=== PATIENT | male | born 1965 | race Caucasian/White ===

== ENCOUNTER 2017-09-01 14:00 | Inpatient (IN) | payer MEDICAID, OTHER ==
[~2017-09-01] VITALS: Ht 157.5 cm; Wt 63.8 kg
[~2017-09-01 14:00] MED LIST: SALBUTAMOL; [UNRECOGNIZED DRUG - OTHER]
--- NOTE | 2017-09-01 16:45 | ERA ---
ER Documentation Chief Complaint Date/Time DATE: 09/01/17 TIME: 16:45 Chief Complaint "lung pain", sob, yun, upper+lwr extr pain, fever. 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 He was in his usual state of health until a week ago when he began to develop increasing shortness of breath with required intermittently increasing his oxygen from 2-3/4 L unrelieved by his steroid and beta agonist inhalers. 2 day history of worsening total body aches with subjective fevers and chills. Chronic nonproductive cough. Chronic back pain chronic diffuse back pain extending from the cervical spine to the lumbar spine which has been worsening. No focal weakness or numbness. No urinary incontinence. Pain is unrelieved by opiate analgesic [place] #3. Denies chest pain or palpitations. No abdominal pain mild, burning, nonradiating epigastric pain no nausea, vomiting, diarrhea or constipation. No hematemesis, hematochezia or melanotic stools. No leg pain or swelling. ROS All systems reviewed and are negative except as per history of present illness. Medications Home Meds Active Scripts Albuterol Sulfate* (Albuterol Sulfate* Neb) 0.083%-3 Ml Neb, 2.5 MG NEB Q4H for 30 Days, #30 VIAL 6 Refills Prov:MYRNA RESENDEZ MD 09/04/17 Reported Medications Tiotropium [place]* (Spiriva*) 18 Mcg Cap.w.dev, 1 CAP INHALATION DAILY, #30 CAP 09/01/17 Mometasone-Formoterol (Dulera) 100-5 Mcg - 13 Gm Hfa.aer.ad, 2 PUFFS INHALATION BID, #1 INHALER 09/01/17 Hydrocodone/Acetaminophen ([place] 10-325 Tablet) 1 Each Tablet, 1 EACH PO BID, TAB 09/01/17 Omeprazole* (Omeprazole*) 20 Mg Capsule.dr, 20 MG PO BID, #60 CAP 09/01/17 Rivaroxaban* (Xarelto*) 20 Mg Tablet, 20 MG PO WITH DINNER, TAB 09/01/17 Calcium Carbonate* (Calcium Carbonate*) 600 MG Ca Tab, 600 MG PO DAILY, TAB 09/01/17 Ibuprofen* (Ibuprofen*) 600 Mg Tablet, 600 MG PO DAILY Y for PAIN, TAB 09/01/17 Discontinued Reported Medications [Salbutamol Aerosol] No Conflict Check 12/17/09 [Beclomethazone] No Conflict Check 12/17/09 Allergies Allergies: Coded Allergies: No Known Drug Allergies (Verified Allergy, Mild, 09/01/17) PMhx/Soc Reviewed in chart. As per HPI. History of Surgery: No Hx Neurological Disorder: No Hx Respiratory Disorders: Yes (Pulmonary fibrosis. Tuberculosis. As per HPI.) Hx Cardiac Disorders: No Hx Miscellaneous Medical Probl: No Hx Alcohol Use: No Hx Substance Use: No Hx Tobacco Use: No Smoking Status: Never smoker FmHx Father: Diabetes. No family history of stroke or cancer Physical Exam Vitals Vital Signs Date Time Temp Pulse Resp B/P Pulse Ox O2 Delivery O2 Flow Rate FiO2 09/01/17 21:33 88 18 128/71 98 Nasal Cannula 2.0 09/01/17 19:15 98.6 92 20 136/78 99 Nasal Cannula 2.0 09/01/17 17:55 108 24 132/77 100 09/01/17 16:57 87 20 96 Nasal Cannula 2.0 09/01/17 16:57 2.0 09/01/17 16:40 Nasal Cannula 3 09/01/17 14:34 98.7 103 20 121/81 98 Physical Exam Const: Alert, severe respiratory distress Head: Atraumatic Eyes: Normal Conjunctiva ENT: Normal External Ears, Nose and Mouth. Neck: Full range of motion. Supple. Diffuse tenderness. No percussive bony tenderness Resp: Tachypneic. BS markedly diminished bilaterally with diffuse expiratory wheezing and crackles bilaterally. + retractions. Cardio: Regular rate and rhythm, no murmurs Abd: Soft, non tender, non distended. Normal bowel sounds Skin: No petechiae or rashes Back: No midline or flank tenderness Ext: No cyanosis, or edema. No calf swelling, erythema or tenderness Neur: Awake and alert. No focal deficit observed. Psych: Anxious Result Diagram: 09/02/17 0546 09/02/17 0546 Results 24 hrs Laboratory Tests Test 09/01/17 17:04 09/01/17 19:17 White Blood Count 6.110^3/ul Red Blood Count 4.8210^6/ul Hemoglobin 14.1g/dl Hematocrit 44.4% Mean Corpuscular Volume 92.1fl Mean Corpuscular Hemoglobin 29.3pg Mean Corpuscular Hemoglobin Concent 31.8g/dl Red Cell Distribution Width 12.2% Platelet Count 56704^3/UL Mean Platelet Volume 12.2fl Neutrophils % 64.6% Lymphocytes % 25.5% Monocytes % 7.5% Eosinophils % 2.0% Basophils % 0.2% Nucleated Red Blood Cells % 0.0/100WBC Neutrophils # 4.010^3/ul Lymphocytes # 1.610^3/ul Monocytes # 0.510^3/ul Eosinophils # 0.110^3/ul Basophils # 0.010^3/ul Nucleated Red Blood Cells # 0.010^3/ul Sodium Level 139mmol/L Potassium Level 4.0mmol/L Chloride Level 92mmol/L Carbon Dioxide Level 43mmol/L Anion Gap 8 Blood Urea Nitrogen 11mg/dl Creatinine 0.53mg/dl Glucose Level 91mg/dl Calcium Level 9.6mg/dl Total Bilirubin 0.4mg/dl Direct Bilirubin 0.00mg/dl Indirect Bilirubin 0.4mg/dl Aspartate Amino Transf (AST/SGOT) 26IU/L Alanine Aminotransferase (ALT/SGPT) 28IU/L Alkaline Phosphatase 88IU/L Total Protein 8.4g/dl Albumin 4.5g/dl Globulin 3.90g/dl Albumin/Globulin Ratio 1.15 HIV (1&2) Antibody NEGATIVE Blood Gas Specimen Source Blood arterial Arterial Blood Date Drawn 09/01/2017 8:10:17 PM Arterial Blood pH (Temp corrected) 7.357 Arterial Blood pCO2 (Temp correct) 69.4mmhg Arterial Blood pO2 (Temp corrected) 68.5mmHG Arterial Blood HCO3 38.1mmol/L Arterial Blood Base Excess 9.6mmol/L Arterial Blood Oxygen Saturation 94.6mmHG Ilya Test ACCEPTAB Arterial Blood Gas Puncture Site Right Radial Arterial Blood Carboxyhemoglobin 0.6% Arterial Blood Methemoglobin 0.2% Blood Gas A-a O2 Differential 20.0mmHg Oxyhemoglobin Percent 93.8% Total Hemoglobin 14.4g/dl Blood Gas Temperature 37.0C Blood Gas Actual Respiration Rate 18 Blood Gas Modality NASAL CANNULA FiO2 24.0% Blood Gas Notified Whom Blood Gas Notified Time 09/01/2017 8:15:00 PM Current Medications Medications (Trade) Dose Ordered Sig/Love Route PRN Reason Start Time Stop Time Status Last Admin Dose Admin Albuterol (Proventil 0.5% (Neb)) 15 mg ONCE STAT INH 09/01/17 16:46 09/01/17 16:49 DC 09/01/17 16:56 Ipratropium [place] (Atrovent 0.02% (Neb)) 1 mg ONCE STAT INH 09/01/17 16:46 09/01/17 16:49 DC 09/01/17 16:56 Methylprednisolone Sodium Succinate 125 mg 125 mg ONCE STAT IV 09/01/17 16:46 09/01/17 16:49 DC 09/01/17 17:11 Azithromycin 250 ml @ 250 mls/hr ONCE STAT IV 09/01/17 18:53 09/01/17 19:52 DC 09/01/17 18:53 Ceftriaxone Sodium (Rocephin) 50 ml @ 100 mls/hr ONCE STAT IVPB 09/01/17 18:53 09/01/17 19:22 DC 09/01/17 19:12 Ketorolac Tromethamine (Toradol) 15 mg ONCE STAT IV 09/01/17 19:19 09/01/17 19:21 DC 09/01/17 20:11 Ketorolac Tromethamine (Toradol) 15 mg ONCE IV 09/01/17 20:03 09/01/17 21:00 DC IV Flush 10 ml 10 ml STK-MED ONCE .ROUTE 09/01/17 20:44 09/01/17 20:45 DC 09/01/17 21:02 Sodium Chloride (NS) 100 ml @ ud STK-MED ONCE .ROUTE 09/01/17 20:44 09/01/17 20:45 DC 09/01/17 21:02 Iohexol (Omnipaque 300mg/ ml) 150 ml STK-MED ONCE .ROUTE 09/01/17 20:44 09/01/17 20:45 DC 09/01/17 21:02 Morphine Sulfate (morphine) 4 mg ONCE STAT IV 09/01/17 22:08 09/01/17 22:09 DC 09/01/17 22:14 Ondansetron HCl 4 mg 4 mg ONCE STAT IV 09/01/17 22:08 10/4/17 22:09 DC 09/01/17 22:14 Levofloxacin/ Dextrose (Levaquin 750 Mg/ D5W 150 ml (Pmx)) 150 ml @ 100 mls/hr Q24H IVPB 09/01/17 22:30 09/04/17 23:54 DC 09/03/17 22:16 EKG: TIME: 16: 52. Sinus rhythm. Ventricular rate 93. Normal FL and QRS. Right bundle branch block. No acute ST segment elevations or depressions. No ectopy. EP Interpretation: Abnormal EKG. IMAGING: PROCEDURE: Portable chest x-ray. CLINICAL INDICATION: 51 years of age, male. Shortness of breath and fever. TECHNIQUE: Portable AP view of the chest. COMPARISON: Chest x-ray December 18, [address] December 17, 2009 FINDINGS: There is chronic pleuroparenchymal scarring at the left lung apex with elevation of the left hilum and left apical pleural thickening as well as opacity at the left lung apex. This corresponds to areas of bronchiectasis and scarring on CT. There is increased parenchymal opacity within these changes compare to prior exam. There is chronic parenchymal scarring in the right mid lung zone corresponding to bronchiectasis and volume loss on CT. There is lung emphysema with dominant bullae at the right lung apex and in the right lower lung zone that was also present previously. Right lower lobe bulla may have increased in size and measures 10.2 x12.5 cm and previously measured 9.6 x 10.9 cm. This bulla appears to contain a fluid level that may indicate superimposed infection or hemorrhage. Lungs are hyperlucent as before. Previously identified left lower lung zone consolidation has improved. There is mild residual patchy opacity in the left mid lung zone that may represent pneumonia. There is mild increased opacity in the right mid lung zone that is increased and may also indicate infection. Small heart size similar to prior is likely due to lung hyperinflation. Right hilar prominence is increased. Elevation of the left hilum is similar. Mild rightward deviation of the trachea is unchanged. Fluid at the right lung base may be situated within a bulla and/or the pleural space. Negative for left pleural effusion or pneumothorax. No acute bony abnormality. IMPRESSION: 1. Chronic parenchymal lung disease including pleuroparenchymal scarring at the left lung apex and scarring in the right mid lung zone that may be from old healed granulomatous infection. Prior CT demonstrates bronchiectasis and volume loss in these locations. In addition, there is bullous emphysema . 2. Increased opacity within the pleuroparenchymal changes at the left lung apex and mild patchy opacity in the left mid and right mid lung zones that may indicate acute multifocal infection in this clinical setting. Reactivation of indolent granulomatous infection cannot be excluded. This could better be evaluated with CT that is recommended. 3. Right lower lobe bulla may have increased in size since prior exam. A fluid level at the right lung base may be situated within this bulla and would be concerning for either superimposed infection or hemorrhage in the bulla. There may also be a small right pleural effusion. RPTAT: HCTS Physician Lianne Date Time Electronically viewed and signed by Physician Lianne on 09/01/2017 19: 12 CS/ PROCEDURE: CT chest with contrast CLINICAL INDICATION: Abnormal chest x-ray TECHNIQUE: Continues axial CT images were obtained from the thoracic inlet through the upper abdomen. Coronal and sagittal constructions were performed. 115 ml of Omnipaque-300 intravenous contrast was administered.. The calculated radiation dose measures 551 mGy centimeters. The CTDI measures 8 mGy. One or more of the following dose reduction techniques were used: Automated exposure control. Adjustment of the mA and/or kV according to patient size. Use of iterative reconstruction technique. COMPARISON: None. FINDINGS: The heart is normal in size and configuration. There is no pericardial effusion or thickening. There is a superior mediastinal lymph nodes, including paratracheal and paraesophageal lymph nodes up to 1.3 x 2.0 cm.. The aorta appears unremarkable, without aneurysm. The lung mcqueen demonstrate extensive varicoid bronchiectasis. There are numerous peripheral large bulla, measuring up to 8.1 cm at the right apex. There is a bulla at the right base, with adjacent small thick-walled right pleural effusion. There is no pneumothorax. There are patchy peripheral ground- glass densities in both lungs, and areas of apical and anterior scarring. Osseous structures of the chest appear intact. Limited images through the upper abdomen appear unremarkable. IMPRESSION: 1. Extensive varicoid bronchiectasis through the bilateral lungs, increased from prior examination. There is emphysematous changes and peripheral bulla, increased from prior examination as well. There is no fluid-containing bulla identified. There is a small thick-walled right pleural effusion at the right posterior lung base. Infection of the effusion is not excluded. 2. Patchy mild ground-glass densities in the lung periphery on both sides. This may reflect air trapping, or patchy mild inflammation. Definite focal consolidation is not identified. 3. Anterior and apical predominant lung scarring. 4. Mildly enlarged superior mediastinal lymph nodes, similar from prior exam. 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 Improved with IV steroids, nebulized beta agonists but still with ongoing dyspnea and respiratory distress. ABG consistent with hypoxic, hypercapnic respiratory failure. Community acquired pneumonia treated with IV ceftriaxone and azithromycin. CT consistent with bronchiectasis, no pulmonary embolism. Acute on chronic neck pain without CT evidence of acute fracture or subluxation. No acute neurologic change. Spinal epidural abscess/hematoma unlikely. Admit for aggresive respiratory care, further evaluation and management. CRITICAL CARE STATEMENT: Due to the high probability of sudden clinically significant cardiovascular, respiratory and neurologic deterioration, this patient with acute on chronic respiratory failure and neck pain with h/o TB required the highest level of my preparedness for sudden, emergent intervention including initiation of invasive mechanical ventilation. I provided critical care services, which included extensive review of previous medical records, medication orders, frequent reevaluations of the patients condition and response to treatment, ordering of tests, interpretation of relevant clinical data, and arranging for ongoing care with the admitting physician. Total critical care time associated with the care of this patient, not including other separately reportable procedures: 35 minutes. Counseled patient regarding diagnosis, diagnostic results and plan for admission. CALLS/CONSULTS: Time 20:49, Dr. Wing, Recommends Med/Surg Admission. PATIENT CARE TRANSITIONED: Time: 21:10, Dr. Wing. Departure Diagnosis: Primary Impression: Acute dyspnea Additional Impressions: Respiratory failure with hypoxia and hypercapnia Qualified Code: J96.21 - Acute on chronic respiratory failure with hypoxia and hypercapnia COPD with acute exacerbation Pulmonary fibrosis Neck pain, chronic Condition: Serious ROSY ENGLE MD Sep 01, 2017 16:45
[2017-09-01] MEDS ORDERED: ALBUTEROL 0.5% (NEB) 2.5 MG/0.5 ML AMP INH STA (16:46)
[2017-09-01] MEDS ORDERED: IPRATROPIUM (NEB) 0.5 MG/2.5 ML AMP INH STA (16:46)
[2017-09-01] MEDS ORDERED: METHYLPREDNISOLONE 125 MG INJ IV STA (16:46)
[2017-09-01] MEDS ORDERED: IBUP-1542 PO (17:18)
[2017-09-01] MEDS ORDERED: RIVA20TA PO (17:19)
[2017-09-01] MEDS ORDERED: CALC600T24 PO (17:19)
[2017-09-01] MEDS ORDERED: OMEP20CA16 PO (17:20)
[2017-09-01] MEDS ORDERED: HYDR-902 PO (17:22)
[2017-09-01] MEDS ORDERED: MOME13HF2 INHALATION (17:26)
[2017-09-01] MEDS ORDERED: ALBU2.5V3 NEB (17:27)
[2017-09-01] MEDS ORDERED: TIOT18CA INHALATION (17:29)
[2017-09-01 17:44] LABS: BASOPHILS % 0.2 % (0.0-2.0); EOSINOPHILS # 0.1 10^3/ul (0.0-0.5); HEMATOCRIT 44.4 % (42.0-52.0); HEMOGLOBIN 14.1 g/dl (14.0-18.0); LYMPHOCYTES # 1.6 10^3/ul (0.8-2.9); LYMPHOCYTES % 25.5 % (15.0-51.0); MEAN CORPUSCULAR HEMOGLOBIN 29.3 pg (29.0-33.0); MEAN CORPUSCULAR HGB CONC 31.8 g/dl (32.0-37.0); MEAN CORPUSCULAR VOLUME 92.1 fl (82.0-101.0); MEAN PLATELET VOLUME 12.2 fl (7.4-10.4); MONOCYTE # 0.5 10^3/ul (0.3-0.9); MONOCYTES % 7.5 % (0.0-11.0); NEUTROPHILS % 64.6 % (39.0-77.0); PLATELET COUNT 171 10^3/UL (140-415); RED BLOOD COUNT 4.82 10^6/ul (4.70-6.10); RED CELL DISTRIBUTION WIDTH 12.2 % (11.5-14.5); WHITE BLOOD COUNT 6.1 10^3/ul (4.8-10.8)
[2017-09-01 18:02] LABS: ALBUMIN 4.5 g/dl (3.3-4.9); ALBUMIN/GLOBULIN RATIO 1.15; BILIRUBIN,INDIRECT 0.4 mg/dl (0-1.1); BILIRUBIN,TOTAL 0.4 mg/dl (0.2-1.3); CALCIUM 9.6 mg/dl (8.4-10.2); CREATININE 0.53 mg/dl (0.61-1.24); TOTAL PROTEIN 8.4 g/dl (6.1-8.1)
[2017-09-01] MEDS ORDERED: CEFTRIAXONE 1 GM/50 ML (PMX) 50 ML IVPB STA (18:53)
[2017-09-01] MEDS ORDERED: AZITHROMYCIN 500MG/NS (PMX) 250 ML IV STA (18:53)
[2017-09-01] MEDS ORDERED: KETOROLAC 15 MG INJ IV STA (19:19)
[2017-09-01] MEDS ORDERED: KETOROLAC 15 MG INJ IV SCH (20:03)
--- NOTE | 2017-09-01 20:07 | RADRPT ---
PROCEDURE: Portable chest x-ray. CLINICAL INDICATION: 51 years of age, male. Shortness of breath and fever. TECHNIQUE: Portable AP view of the chest. COMPARISON: Chest x-ray December 18, [address] December 17, 2009 FINDINGS: There is chronic pleuroparenchymal scarring at the left lung apex with elevation of the left hilum a nd left apical pleural thickening as well as opacity at the left lung apex. This corresponds to area s of bronchiectasis and scarring on CT. There is increased parenchymal opacity within these changes compare to prior exam. There is chronic parenchymal scarring in the right mid lung zone corresponding to bronchiectasis and volume loss on CT. There is lung emphysema with dominant bullae at the right lung apex and in the right lower lung zone that was also present previously. Right lower lobe bulla may have increased in size and measures 10 .2 x12.5 cm and previously measured 9.6 x 10.9 cm. This bulla appears to contain a fluid level that may indicate superimposed infection or hemorrhage. Lungs are hyperlucent as before. Previously identified left lower lung zone consolidation has improv ed. There is mild residual patchy opacity in the left mid lung zone that may represent pneumonia. Th ere is mild increased opacity in the right mid lung zone that is increased and may also indicate inf ection. Small heart size similar to prior is likely due to lung hyperinflation. Right hilar prominence is in creased. Elevation of the left hilum is similar. Mild rightward deviation of the trachea is unchange d. Fluid at the right lung base may be situated within a bulla and/or the pleural space. Negative for l eft pleural effusion or pneumothorax. No acute bony abnormality. IMPRESSION: 1. Chronic parenchymal lung disease including pleuroparenchymal scarring at the left lung apex and scarring in the right mid lung zone that may be from old healed granulomatous infection. Prior CT de monstrates bronchiectasis and volume loss in these locations. In addition, there is bullous emphysem a . 2. Increased opacity within the pleuroparenchymal changes at the left lung apex and mild patchy [place]a [place] in the left mid and right mid lung zones that may indicate acute multifocal infection in this c linical setting. Reactivation of indolent granulomatous infection cannot be excluded. This could bet ter be evaluated with CT that is recommended. 3. Right lower lobe bulla may have increased in size since prior exam. A fluid level at the right eulalia ng base may be situated within this bulla and would be concerning for either superimposed infection or hemorrhage in the bulla. There may also be a small right pleural effusion. RPTAT: HCTS Lyn Leung Physician Date Time Electronically viewed and signed by Lyn Leung, Physician on 09/01/2017 19:12 CS/
[2017-09-01 20:15] LABS: Allen Test ACCEPTAB; Arterial Base Excess 9.6 mmol/L (-3.0-3); Arterial COHb 0.6 % (0.0-3.0); Arterial Fraction of Oxyhgb 93.8 % (93.0-99.0); Arterial HCO3 38.1 mmol/L (22.0-26.0); Arterial MetHb 0.2 % (0.0-1.5); Arterial Total Hemglobin 14.4 g/dl (12.0-18.0); MODE NASAL CANNULA
[2017-09-01] MEDS ORDERED: SOD CHLORIDE 0.9% 100 ML ONE (20:44)
[2017-09-01] MEDS ORDERED: IOHEXOL 300MG/ML 150 ML BTL ONE (20:44)
--- NOTE | 2017-09-01 21:53 | RADRPT ---
PROCEDURE: CT chest with contrast CLINICAL INDICATION: Abnormal chest x-ray TECHNIQUE: Continues axial CT images were obtained from the thoracic inlet through the upper abdom en. Coronal and sagittal constructions were performed. 115 ml of Omnipaque-300 intravenous contrast was administered.. The calculated radiation dose measures 551 mGy centimeters. The CTDI measures 8 mGy. One or more of the following dose reduction techniques were used: Automated exposure control. Adjustment of the mA and/or kV according to patient size. Use of iterative reconstruction technique. COMPARISON: None. FINDINGS: The heart is normal in size and configuration. There is no pericardial effusion or thickening. The re is a superior mediastinal lymph nodes, including paratracheal and paraesophageal lymph nodes up t o 1.3 x 2.0 cm.. The aorta appears unremarkable, without aneurysm. The lung mcqueen demonstrate extensive varicoid bronchiectasis. There are numerous peripheral large b bryanna, measuring up to 8.1 cm at the right apex. There is a bulla at the right base, with adjacent sm all thick-walled right pleural effusion. There is no pneumothorax. There are patchy peripheral groun d-glass densities in both lungs, and areas of apical and anterior scarring. Osseous structures of the chest appear intact. Limited images through the upper abdomen appear unremarkable. IMPRESSION: 1. Extensive varicoid bronchiectasis through the bilateral lungs, increased from prior examination. There is emphysematous changes and peripheral bulla, increased from prior examination as well. Ther e is no fluid-containing bulla identified. There is a small thick-walled right pleural effusion at t he right posterior lung base. Infection of the effusion is not excluded. 2. Patchy mild ground-glass densities in the lung periphery on both sides. This may reflect air tra pping, or patchy mild inflammation. Definite focal consolidation is not identified. 3. Anterior and apical predominant lung scarring. 4. Mildly enlarged superior mediastinal lymph nodes, similar from prior exam. RPTAT: HBST .Luis Hudson MD, Date Time Electronically viewed and signed by .Luis Hudson MD, MD on 09/01/2017 21:53 .T/
[2017-09-01] MEDS ORDERED: ONDANSETRON 4 MG INJ IV STA (22:08)
[2017-09-01] MEDS ORDERED: morphine 4 MG/ML VIAL IV STA (22:08)
[2017-09-01] MEDS: LEVOFLOXACIN 750MG/D5W (PMX) 150 ML IVPB SCH (22:43)
[2017-09-01] MEDS ORDERED: ACETAMINOPHEN 325 MG TAB PO PRN (23:30)
[2017-09-01] MEDS ORDERED: ONDANSETRON 4 MG INJ IV PRN (23:30)
[2017-09-02] VITALS (7 sets, daily range): BP systolic 116–150; BP diastolic 66–79; PULSE 113–126; RESP 18–20; TEMP 98.5; Ht 157.5 cm; Wt 63.8 kg
[2017-09-02] MEDS ORDERED: ALBUTEROL/IPRATROPIUM (NEB) 3 ML AMP HHN PRN (01:00)
[2017-09-02] MEDS: ALBUTEROL 0.083% (NEB) 2.5 MG/3 ML AMP NEB SCH ×6 (01:00→20:05)
[2017-09-02] MEDS ORDERED: ACETAMINOPHEN 325 MG TAB PO PRN (01:00)
[2017-09-02] MEDS ORDERED: NACL 0.9% 3 ML SYG IV SCH (01:00)
--- NOTE | 2017-09-02 01:43 | RADRPT ---
PROCEDURE: XR Chest. CLINICAL INDICATION: Chest pain. TECHNIQUE: Single frontal chest x-ray. COMPARISON: 09/01/2017 FINDINGS: Heart is normal size. There is redemonstrated distortion and superior retraction of the shilpa greates t involving the left consistent with scarring. There is redemonstrated left apical pleural parenchym al scarring. There is unchanged right hilar peribronchial thickening. There is redemonstrated large bulla in the right lung apex and right lung base. There is a probable right pleural effusion. There is no pneumothorax. The osseous structures are unremarkable. IMPRESSION: No significant change. No pneumothorax. Extensive bilateral scarring and bronchiectasis. Prominent b bryanna at the right lung apex and base. Right pleural effusion. Interstitial changes greatest in the r ight mid lung field with peribronchial thickening, unchanged. RPTAT: HMVK .Franky Dumas MD, Date Time Electronically viewed and signed by .Franky Dumas MD, on 09/02/2017 01:43 .K/
[2017-09-02] MEDS: FAMOTIDINE 20 MG TAB PO SCH ×3 (02:32→21:24)
[2017-09-02] MEDS: morphine 2 MG INJ IV PRN ×4 (05:25→21:24)
[2017-09-02] MEDS: METHYLPREDNISOLONE 40 MG INJ IV SCH ×3 (05:25→21:42)
[2017-09-02] MEDS ORDERED: HYDROCODONE/APAP (5/325) TAB PO PRN (05:30)
--- NOTE | 2017-09-02 07:10 | HP ---
Date/Time of Note Date/Time of Note DATE: 09/02/17 TIME: 06:48 Assessment/Plan VTE Prophylaxis VTE Prophylaxis Intervention: SCD's Lines/Catheters IV [facility]ter [facility]from [facility] Saline Lock Assessment/Plan Chief Complaint/Hosp Course This is a 51-year-old male being [facility] for: #1 shortness of breath: Community-acquired pneumonia versus reactivation of tuberculosis Versus other etiology. Patient has significant CT findings: Suggestive of bronchiectasis bilaterally, emphysematous changes, bullae and possible signs of infection. Patient also has mild groundglass densities in the lung periphery. Extensive varicoid bronchiectasis through the bilateral lungs, increased from prior examination. There is emphysematous changes and peripheral bulla, increased from prior examination as well. There is no fluid- containing bulla identified. There is a small thick-walled right pleural effusion at the right posterior lung base. Infection of the effusion is not excluded. Of note patient at the current time has a normal white blood cell count and he does not have any fevers at the present time. We will initially treat the patient for community acquired pneumonia she already received azithromycin and ceftriaxone in the ED will actually switch him over to Levaquin. Will obtain a respiratory viral panel, check for Legionella, strep pneumonia as well as tuberculosis. Though there is does not appear to be a active cavitary lesion on CT scan however secondary to his history we will test for this. Will consult pulmonology. Will provide O2 supplementation and DuoNeb treatments as well as steroids. Isolation precautions. Supplemental oxygen to maintain oxygenation above 90%. #2 pulmonary fibrosis: Continue IV steroids, continue home inhalers, DuoNeb as needed, pulmonary also consulted #3 history of pulmonary embolism: At the current time we will continue the patient on Xarelto #4 headache: Patient's headaches appear to occur at random times including while sleeping. Due to his previous history I will order an MRI of the brain to further evaluate. He does not appear to have any focal deficits at this time. #5 chronic back pain: Patient appears to have increased back pain at the level of approximately T8 through T12 of the lumbar spine. Will provide IV pain control medications a CT of the spine has also been ordered by the ER will await the results. #6 metabolic alkalosis: Patient is a CO2 level of 42, ABG shows a bicarb of 38. This likely is compensatory secondary to his pulmonary fibrosis. Will defer to pulmonology regarding possible treatment with Diamox if indicated. 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 He was in his usual state of health until a week ago when he began to develop increasing shortness of breath with required intermittently increasing his oxygen from 2-3/4 L unrelieved by his steroid and beta agonist inhalers. 2 day history of worsening total body aches with subjective fevers and chills. Chronic nonproductive cough. Chronic back pain chronic diffuse back pain extending from the cervical spine to the lumbar spine which has been worsening. No focal weakness or numbness. No urinary incontinence. Pain is unrelieved by opiate analgesic Tylenol# 3. Denies chest pain or palpitations. No abdominal pain mild, burning, nonradiating epigastric pain no nausea, vomiting, diarrhea or constipation. No hematemesis, hematochezia or melanotic stools. No leg pain or swelling. Of note patient also reports a history of headaches for the past few weeks, they occur at random times, [id number] they are not relieved with [id number] analgesics or his [place]. Allergies: NKDA Medications: See JAN ROS Const: As per HPI Eyes : No pain discharge or redness or change in visual acuity ENT: No pain, sore throat, congestion, congestion, dysphagia or discharge Respiratory: As per HPI Cardiovascular: No chest pain, palpitation, PND, or edema GI : no change in appetite, abdominal pain, nausea, vomiting, diarrhea, constipation, or change in the color his stool Genitourinary: No dysuria, hematuria, flank pain , discharge or CVA tenderness Musculoskeletal: As per HPI Skin: No rash, bruising or hives Neuro: As per HPI Endocrine: No polyuria, polydipsia, temperature intolerance Psych: No hallucination, depression, anxiety or suicidal ideation PMH/Family/Social Past Medical History History of disseminated tuberculosis 20 years ago, pneumonia, asthma, previous history of pulmonary embolism, pulmonary fibrosis Past Surgical History Past Surgical Hx: no surgical history Family History Significant Family History: no pertinent family hx Social History Alcohol Use: none Smoking Status: Never smoker Drug Use: none Exam/Review of Systems Vital Signs Vitals Vital Signs Date Time Temp Pulse Resp B/P Pulse Ox O2 Delivery O2 Flow Rate FiO2 09/02/17 05:07 95 2.0 09/02/17 05:07 103 18 Nasal Cannula 09/02/17 02:10 98.7 134/79 Intake and Output 09/01/17 09/01/17 09/02/17 15:00 23:00 07:00 Intake Total 300 ml Balance 300 ml Exam Exam General: This is a pleasant male who is lying in bed in acute distress from pain HEENT: Atraumatic, normocephalic. The pupils are equal, round and reactive. Extraocular motor are intact Neck: Supple with full range of motion. No rigidity or meningismus Chest: Nontender Lungs: Decreased breath sounds of the right lung mcqueen, coarse breath sounds in the left lung field Heart: Sinus tachycardia Abdomen: Soft , nontender, nondistended , bowel sounds are present. No guarding no rebound tenderness , No masses or organomegaly. No costovertebral temporal angle mass Extremities: Normal to inspection, no edema no cyanosis Neurologic: Normal mental status, speech normal, cranial nerves II through XII are intact, motor and sensory are intact, no focal weakness musculoskeletal: Tenderness to palpation of the thoracic spine at the level of T8-T12 Additional Comments PROCEDURE: CT chest with contrast CLINICAL INDICATION: Abnormal chest x-ray TECHNIQUE: Continues axial CT images were obtained from the thoracic inlet through the upper abdomen. Coronal and sagittal constructions were performed. 115 ml of Omnipaque-300 intravenous contrast was administered.. The calculated radiation dose measures 551 mGy centimeters. The CTDI measures 8 mGy. One or more of the following dose reduction techniques were used: Automated exposure control. Adjustment of the mA and/or kV according to patient size. Use of iterative reconstruction technique. COMPARISON: None. FINDINGS: The heart is normal in size and configuration. There is no pericardial effusion or thickening. There is a superior mediastinal lymph nodes, including paratracheal and paraesophageal lymph nodes up to 1.3 x 2.0 cm.. The aorta appears unremarkable, without aneurysm. The lung mcqueen demonstrate extensive varicoid bronchiectasis. There are numerous peripheral large bulla, measuring up to 8.1 cm at the right apex. There is a bulla at the right base, with adjacent small thick-walled right pleural effusion. There is no pneumothorax. There are patchy peripheral ground- glass densities in both lungs, and areas of apical and anterior scarring. Osseous structures of the chest appear intact. Limited images through the upper abdomen appear unremarkable. IMPRESSION: 1. Extensive varicoid bronchiectasis through the bilateral lungs, increased from prior examination. There is emphysematous changes and peripheral bulla, increased from prior examination as well. There is no fluid-containing bulla identified. There is a small thick-walled right pleural effusion at the right posterior lung base. Infection of the effusion is not excluded. 2. Patchy mild ground-glass densities in the lung periphery on both sides. This may reflect air trapping, or patchy mild inflammation. Definite focal consolidation is not identified. 3. Anterior and apical predominant lung scarring. 4. Mildly enlarged superior mediastinal lymph nodes, similar from prior exam. RPTAT: HBST .Luis Hudson MD, MD Date Time Electronically viewed and signed by .Luis Hudson MD, MD on 09/01/2017 21:53 .T/ CC: ROSY ENGLE MD PROCEDURE: XR Chest. CLINICAL INDICATION: Chest pain. TECHNIQUE: Single frontal chest x-ray. COMPARISON: 09/01/2017 FINDINGS: Heart is normal size. There is redemonstrated distortion and superior retraction of the shilpa greatest involving the left consistent with scarring. There is redemonstrated left apical pleural parenchymal scarring. There is unchanged right hilar peribronchial thickening. There is redemonstrated large bulla in the right lung apex and right lung base. There is a probable right pleural effusion. There is no pneumothorax. The osseous structures are unremarkable. IMPRESSION: No significant change. No pneumothorax. Extensive bilateral scarring and bronchiectasis. Prominent bulla at the right lung apex and base. Right pleural effusion. Interstitial changes greatest in the right mid lung field with peribronchial thickening, unchanged. RPTAT: HMVK .Franky Dumas MD, Date Time Electronically viewed and signed by .Franky Dumas MD, MD on 09/02/2017 01:43 .K/ CC: HARSHAL ANSARI Labs Result Diagram: 09/01/17 1704 09/01/17 1704 Medications Medications Current Medications Levofloxacin/ Dextrose (Levaquin 750 Mg/ D5W 150 ml (Pmx)) 150 ml @ 100 mls/hr Q24H IVPB Last administered on 09/01/17 22:43; Admin Dose 100 MLS/HR; Start 09/01/17 at 22:30 Acetaminophen (Tylenol Tab) 650 mg Q6H PRN PO PAIN LEVEL 1-3 OR FEVER; Start 09/02/17 at 01:00 Famotidine (Pepcid) 20 mg Q12 PO Last administered on 09/02/17 02:32; Admin Dose 20 MG; Start 09/02/17 at 01:00 Tiotropium [place] (Spiriva) 18 inh DAILY INH ; Start 09/02/17 at 09:00 Miscellaneous Information 2 puffs BID INHALATION ; Start 09/02/17 at 09:00; Status UNV Methylprednisolone Sodium Succinate (Solu-Medrol) 30 mg Q8 IV Last administered on 09/02/17 05:25; Admin Dose 30 MG; Start 09/02/17 at 06:00 Influenza Virus Vaccine (Fluzone) 0.5 ml ONCE ONCE IM* ; Start 09/03/17 at 09:00 ; Stop 09/03/17 at 09:01 Morphine Sulfate (morphine) 2 mg Q4H PRN IV SEVERE PAIN LEVEL 7-10 Last administered on 09/02/17 05:25; Admin Dose 2 MG; Start 09/02/17 at 05:30 Acetaminophen/ Hydrocodone Bitart ([place] (5/325)) 1 tab Q6H PRN PO PAIN LEVEL 4 -6; Start 09/02/17 at 05:30 HARSHAL ANSARI Sep 02, 2017 07:04
[2017-09-02] MEDS ORDERED: TIOTROPIUM 18 MCG CAPSULE INHA DEV INH SCH (09:00)
[2017-09-02 10:21] LABS: ALBUMIN 4.2 g/dl (3.3-4.9); ALBUMIN/GLOBULIN RATIO 1.16; BILIRUBIN,INDIRECT 0.3 mg/dl (0-1.1); BILIRUBIN,TOTAL 0.3 mg/dl (0.2-1.3); CALCIUM 9.6 mg/dl (8.4-10.2); CREATININE 0.57 mg/dl (0.61-1.24); POTASSIUM 4.4 mmol/L (3.5-5.1); TOTAL PROTEIN 7.8 g/dl (6.1-8.1)
--- NOTE | 2017-09-02 13:04 | CONS ---
DATE OF ADMISSION: 09/01/2017 DATE OF CONSULTATION: 09/02/2017 PULMONARY CONSULTATION: REASON FOR CONSULTATION: Shortness of breath and cough. HISTORY OF PRESENT ILLNESS: This is a pleasant 51-year-old gentleman with a history of disseminated tuberculosis with significant cystic bronchiectasis and destructive lung disease came in yesterday with increasing cough, shortness of breath and chest discomfort. No nausea. No vomiting, no hemoptysis or hematemesis. The patient states he is followed by a pulmonary team at [facility] and was last seen several months ago. PAST MEDICAL HISTORY: As above. Pulmonary embolus on anticoagulation. MEDICATION: Per chart. ALLERGIES: NONE. SOCIAL HISTORY: Nonsmoker. No alcohol. No history of drug use. FAMILY HISTORY: Noncontributory. REVIEW OF SYSTEMS: A 12-point review of systems negative other than that mentioned above. PHYSICAL EXAMINATION: GENERAL: Well-nourished, well-developed gentleman, comfortable at rest, no acute distress. VITAL SIGNS: Currently afebrile. Pulse is 120, blood pressure 117/76, O2 sat 98 percent on 3 liters nasal cannula. NECK: Supple. No JVD or lymphadenopathy. CARDIAC: S1, S2. No added sounds or murmurs. CHEST: Diminished air entry bilaterally. ABDOMEN: Soft, nontender. No guarding or rebound. EXTREMITIES: No cyanosis, clubbing or edema. NEUROLOGICALLY: Generalized weakness. LABORATORY DATA: White count 6.1, hemoglobin 14.1, platelets of 171. BUN 19, creatinine 0.57. The pAO2 was 68, pCO2 was 69, pH of 7.35. IMPRESSION: 1. 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 2. Possible additional community-acquired pneumonia, although difficult to interpret given significant obstructive lung disease. PLAN: The patient will require 1. Continued supplemental O2. 2. To continue bronchodilators. 3. Continue levofloxacin. 4. Steroid taper. 5. I have contacted [facility] Pulmonary Team to obtain further details. Patient needs followup with them. Dictated By: Jacobo Reynolds MD /nahtaniel/doc /Document#: [id number]
[2017-09-02 15:11] LABS: HEMATOCRIT 41.7 % (42.0-52.0); HEMOGLOBIN 13.3 g/dl (14.0-18.0); LYMPHOCYTES % 20.1 % (15.0-51.0); MEAN CORPUSCULAR HEMOGLOBIN 29.8 pg (29.0-33.0); MEAN CORPUSCULAR HGB CONC 31.9 g/dl (32.0-37.0); MEAN CORPUSCULAR VOLUME 93.3 fl (82.0-101.0); MEAN PLATELET VOLUME 12.8 fl (7.4-10.4); MONOCYTE # 0.1 10^3/ul (0.3-0.9); MONOCYTES % 1.8 % (0.0-11.0); NEUTROPHIL # 3.8 10^3/ul (1.6-7.5); NEUTROPHILS % 77.9 % (39.0-77.0); PLATELET COUNT 176 10^3/UL (140-415); RED BLOOD COUNT 4.47 10^6/ul (4.70-6.10); RED CELL DISTRIBUTION WIDTH 12.4 % (11.5-14.5); WHITE BLOOD COUNT 4.9 10^3/ul (4.8-10.8)
[2017-09-02] MEDS: LIDOCAINE 5% PATCH TD SCH (15:18)
[2017-09-02] MEDS: SALMETEROL/FLUTICASONE 250/50 INHA INH SCH ×2 (19:17→21:24)
[2017-09-02] MEDS: RIVAROXABAN 20 MG TABLET PO SCH (19:18)
[2017-09-02] MEDS: LEVOFLOXACIN 750MG/D5W (PMX) 150 ML IVPB SCH (21:42)
[2017-09-03] MEDS: ALBUTEROL 0.083% (NEB) 2.5 MG/3 ML AMP NEB SCH ×6 (01:35→20:22)
[2017-09-03 02:02] VITALS: BP 90/62; RESP 20
--- NOTE | 2017-09-03 02:43 | RADRPT ---
PROCEDURE: MR Brain with and without contrast. CLINICAL INDICATION: Recurrent headache. History of tuberculosis. TECHNIQUE: Sagittal and axial T1 weighted, axial diffusion weighted, T2, and coronal gradient and axial FLAIR imaging before contrast. Multiplanar T1-weighted imaging after injection of 10 cc of in travenous Mag[place]. COMPARISON: None. FINDINGS: No high signal abnormalities are seen on the diffusion-weighted images to suggest the presence of ac [place] ischemia or recent infarct. There is no evidence of intracranial hemorrhage, mass effect, or mi dline shift. No extra-axial fluid collections are seen. The ventricles and sulci are normal in size and configuration. The signal intensity is normal throughout the cerebrum, brainstem, and cerebellum . No hypointense signal abnormalities are seen on the GRE images to suggest the presence of blood de gradation products. Normal flow voids are visible in the proximal intracranial arteries and dural s inuses, indicating patency. The post contrast images show no abnormal parenchymal, leptomeningeal, o r dural enhancement. The visualized paranasal sinuses are grossly clear. IMPRESSION: Normal pre and post-contrast MRI of the brain. RPTAT: HLBE Physician Barbara Date Time Electronically viewed and signed by Physician Barbara on 09/03/2017 02:43 LE/
[2017-09-03] MEDS: morphine 2 MG INJ IV PRN ×3 (03:36→13:59)
[2017-09-03] MEDS: METHYLPREDNISOLONE 40 MG INJ IV SCH ×3 (06:14→22:16)
[2017-09-03 08:00] VITALS: BP 117/67; RESP 18
--- NOTE | 2017-09-03 08:14 | RADRPT ---
PROCEDURE: MR Thoracic Spine with and without contrast. CLINICAL INDICATION: Back pain. TECHNIQUE: Multiplanar multisequence MRI of the thoracic spine performed was performed before and following the intravenous administration of 10 cc of [place]. COMPARISON: There are no similar studies submitted for comparison. FINDINGS: Evaluation is mildly limited due to motion degradation. There is preservation of the normal thoracic kyphosis. The vertebral body heights are maintained. There is normal alignment. There is no destructive osseous lesion.There is no abnormal bone marrow edema. There is multilevel disc desiccation. With multilevel mild disc space narrowing. The spinal cord is normal is signal.There is no abnormal spinal cord enhancement. There are mild multilevel disc bulges with mild bilateral facet arthropathy without spinal canal or bilateral foraminal stenosis. That paraspinal musculature are within normal limits. There is a mild right pleural effusion with ri ght greater than left upper lobe consolidations. There are large bilateral apical bullae. IMPRESSION: Evaluation is mildly limited due to motion degradation. 1. No acute compression fracture or abnormal bone marrow edema. 2. Mild multilevel disc bulges without spinal canal or bilateral foraminal stenosis. 3. No abnormal spinal cord enhancement. 4. Mild right pleural effusion with right greater than left upper lobe consolidations. There are lar ge bilateral apical bullae. Please refer to recent CT of the chest from September 01, 2017. Further findings as detailed above. RPTAT: PP .Nathen Lyles MD, Date Time Electronically viewed and signed by .Nathen Lyles MD, MD on 09/03/2017 08:13 .F/
[2017-09-03] MEDS ORDERED: INFLUENZA VIRUS VACCINE 0.5 ML (DISPENSING) IM* ONE (09:00)
[2017-09-03] MEDS: LIDOCAINE 5% PATCH TD SCH ×2 (09:28→22:15)
[2017-09-03] MEDS: FAMOTIDINE 20 MG TAB PO SCH ×2 (09:28→22:16)
[2017-09-03] MEDS: TIOTROPIUM 18 MCG CAPSULE INHA DEV INH SCH (10:35)
[2017-09-03 13:17] LABS: TB-NIL 0.07 IU/mL
[2017-09-03 14:00] VITALS: BP 117/76; RESP 18
--- NOTE | 2017-09-03 15:05 | PDOCDIS ---
Discharge Instructions DIAGNOSIS Discharge Diagnosis Back pain, Insterstitial lung disease CONDITION Patient Condition: Good HOME CARE INSTRUCTIONS: Diet Instructions: RegularSpecial Diet: regular FOLLOW UP/APPOINTMENTS Follow-up Plan Follow up with your lung doctors at [facility] for further care MYRNA RESENDEZ MD Sep 03, 2017 15:05
--- NOTE | 2017-09-03 16:57 | PN ---
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 who presented with SOB and back pain with chronic hypercapneic respiratory failure - Continue bronchodilators, O2 as needed - Lidoderm patch for back pain - Xarelto for PE - Discharge to self care and follow up at [facility] tomorrow Problems: Subjective 24 Hr Interval Summary Free Text/Dictation Complains of continued back pain, some epigastric dysfcomfort Breathign seems at baseline Discussed options for back pain, MRI is normal Exam/Review of Systems Vital Signs Vitals Vital Signs Date Time Temp Pulse Resp B/P Pulse Ox O2 Delivery O2 Flow Rate FiO2 09/03/17 14:00 98.8 76 18 117/76 96 09/03/17 12:18 Nasal Cannula 2.0 09/03/17 05:50 28 Intake and Output 09/02/17 09/02/17 09/03/17 15:00 23:00 07:00 Intake Total 960 ml 580 ml Output Total 1850 ml Balance 960 ml -1270 ml Results Result Diagram: 09/02/17 0546 09/02/17 0546 Medications Medications Current Medications Levofloxacin/ Dextrose (Levaquin 750 Mg/ D5W 150 ml (Pmx)) 150 ml @ 100 mls/hr Q24H IVPB Last administered on 09/02/17 21:42; Admin Dose 100 MLS/HR; Start 09/01/17 at 22:30 Acetaminophen (Tylenol Tab) 650 mg Q6H PRN PO PAIN LEVEL 1-3 OR FEVER; Start 09/02/17 at 01:00 Famotidine (Pepcid) 20 mg Q12 PO Last administered on 09/03/17 09:28; Admin Dose 20 MG; Start 09/02/17 at 01:00 Salmeterol Xinafoate/ Fluticasone (Advair 250/50 Diskus) 1 inh BID INH Last administered on 09/02/17 21:24; Admin Dose 1 INH; Start 09/02/17 at 16:00 Methylprednisolone Sodium Succinate (Solu-Medrol) 30 mg Q8 IV Last administered on 09/03/17 13:58; Admin Dose 30 MG; Start 09/02/17 at 06:00 Morphine Sulfate (morphine) 2 mg Q4H PRN IV SEVERE PAIN LEVEL 7-10 Last administered on 09/03/17 13:59; Admin Dose 2 MG; Start 09/02/17 at 05:30 Acetaminophen/ Hydrocodone Bitart ([place] (5/325)) 1 tab Q6H PRN PO PAIN LEVEL 4 -6; Start 09/02/17 at 05:30 Lidocaine (Lidoderm) 1 patch DAILY TD Last administered on 09/03/17 09:28; Admin Dose 1 PATCH; Start 09/02/17 at 14:30 Simethicone (Mylicon) 80 mg TID PRN PO DISTENSION/GAS/BLOATING Last administered on 09/03/17 09:29; Admin Dose 80 MG; Start 09/02/17 at 14:30 Tiotropium [place] (Spiriva) 18 inh DAILY INH Last administered on 09/03/17 10 :35; Admin Dose 18 INH; Start 09/03/17 at 10:00 MYRNA RESENDEZ MD Sep 03, 2017 16:57
--- NOTE | 2017-09-03 18:09 | CONS ---
Date/Time of Note Date/Time of Note DATE: 09/03/17 TIME: 18:07 Consult Date/Type/Reason Admit Date/Time Sep 01, 2017 at 23:09 Initial Consult Date Type of Consultation: Pulmonary Subjective Patient comfortable this morning no shortness of breath. His main complaint is back pain. No hemoptysis or hematemesis. Objective Vital Signs Date Time Temp Pulse Resp B/P Pulse Ox O2 Delivery O2 Flow Rate FiO2 09/03/17 17:38 2.0 09/03/17 17:37 92 18 Nasal Cannula 09/03/17 14:00 98.8 117/76 96 09/03/17 05:50 28 Intake and Output 09/02/17 09/02/17 09/03/17 15:00 23:00 07:00 Intake Total 960 ml 580 ml Output Total 1850 ml Balance 960 ml -1270 ml Exam PHYSICAL EXAMINATION: GENERAL: Well-nourished, well-developed gentleman, comfortable at rest, no acute distress. VITAL SIGNS: NECK: Supple. No JVD or lymphadenopathy. CARDIAC: S1, S2. No added sounds or murmurs. CHEST: Diminished air entry bilaterally. ABDOMEN: Soft, nontender. No guarding or rebound. EXTREMITIES: No cyanosis, clubbing or edema. NEUROLOGICALLY: Generalized weakness. Results/Medications Result Diagram: 09/02/17 0546 09/02/17 0546 Medications Current Medications Levofloxacin/ Dextrose (Levaquin 750 Mg/ D5W 150 ml (Pmx)) 150 ml @ 100 mls/hr Q24H IVPB Last administered on 09/02/17 21:42; Admin Dose 100 MLS/HR; Start 09/01/17 at 22:30 Acetaminophen (Tylenol Tab) 650 mg Q6H PRN PO PAIN LEVEL 1-3 OR FEVER; Start 09/02/17 at 01:00 Famotidine (Pepcid) 20 mg Q12 PO Last administered on 09/03/17 09:28; Admin Dose 20 MG; Start 09/02/17 at 01:00 Salmeterol Xinafoate/ Fluticasone (Advair 250/50 Diskus) 1 inh BID INH Last administered on 09/02/17 21:24; Admin Dose 1 INH; Start 09/02/17 at 16:00 Methylprednisolone Sodium Succinate (Solu-Medrol) 30 mg Q8 IV Last administered on 09/03/17 13:58; Admin Dose 30 MG; Start 09/02/17 at 06:00 Acetaminophen/ Hydrocodone Bitart ([place] (5/325)) 1 tab Q6H PRN PO PAIN LEVEL 4 -6; Start 09/02/17 at 05:30 Lidocaine (Lidoderm) 1 patch DAILY TD Last administered on 09/03/17 09:28; Admin Dose 1 PATCH; Start 09/02/17 at 14:30 Simethicone (Mylicon) 80 mg TID PRN PO DISTENSION/GAS/BLOATING Last administered on 09/03/17 09:29; Admin Dose 80 MG; Start 09/02/17 at 14:30 Tiotropium [place] (Spiriva) 18 inh DAILY INH Last administered on 09/03/17 10 :35; Admin Dose 18 INH; Start 09/03/17 at 10:00 Assessment/Plan Chief Complaint/Hosp Course IMPRESSION: 1. 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 2. Possible additional community-acquired pneumonia, although difficult to interpret given significant obstructive lung disease. 3. Back pain likely musculoskeletal PLAN: The patient will require 1. Continued supplemental O2. 2. To continue bronchodilators. 3. Continue levofloxacin. 4. Steroid taper. 5. Stable for discharge tomorrow. Follow-up with [facility] pulmonary clinic. Problems: FISH BOWEN [facility] Sep 03, 2017 18:09
[2017-09-03] MEDS: RIVAROXABAN 20 MG TABLET PO SCH (18:13)
[2017-09-03] MEDS: HYDROCODONE/APAP (5/325) TAB PO PRN (19:06)
[2017-09-03] MEDS: SALMETEROL/FLUTICASONE 250/50 INHA INH SCH (21:00)
[2017-09-03] MEDS: LEVOFLOXACIN 750MG/D5W (PMX) 150 ML IVPB SCH (22:16)
[2017-09-03 22:26] VITALS: BP 136/77; RESP 18
[2017-09-04] MEDS: HYDROCODONE/APAP (5/325) TAB PO PRN ×4 (01:00→20:04)
[2017-09-04] MEDS: ALBUTEROL 0.083% (NEB) 2.5 MG/3 ML AMP NEB SCH ×6 (01:45→20:35)
[2017-09-04 03:12] VITALS: BP 121/71; RESP 21
[2017-09-04] MEDS: METHYLPREDNISOLONE 40 MG INJ IV SCH ×3 (06:49→21:43)
[2017-09-04 08:52] VITALS: BP 127/71; RESP 22
[2017-09-04] MEDS: TIOTROPIUM 18 MCG CAPSULE INHA DEV INH SCH (09:00)
[2017-09-04] MEDS ORDERED: POLYETHYLENE GLYCOL 17 GM PACKET PO SCH (09:00)
[2017-09-04] MEDS: SALMETEROL/FLUTICASONE 250/50 INHA INH SCH ×2 (09:09→21:42)
[2017-09-04] MEDS: FAMOTIDINE 20 MG TAB PO SCH ×2 (09:12→21:42)
[2017-09-04] MEDS: LIDOCAINE 5% PATCH TD SCH (09:14)
[2017-09-04] MEDS: DOCUSATE SODIUM 100 MG CAP PO SCH ×2 (09:23→21:00)
--- NOTE | 2017-09-04 10:03 | DS ---
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 He was in his usual state of health until a week ago when he began to develop increasing shortness of breath with required intermittently increasing his oxygen from 2-3/4 L unrelieved by his steroid and beta agonist inhalers. 2 day history of worsening total body aches with subjective fevers and chills. Chronic nonproductive cough. Chronic back pain chronic diffuse back pain extending from the cervical spine to the lumbar spine which has been worsening. No focal weakness or numbness. No urinary incontinence. Pain is unrelieved by opiate analgesic Tylenol# 3. Denies chest pain or palpitations. No abdominal pain mild, burning, nonradiating epigastric pain no nausea, vomiting, diarrhea or constipation. No hematemesis, hematochezia or melanotic stools. No leg pain or swelling. Of note patient also reports a history of headaches for the past few weeks, they occur at random times, [id number] they are not relieved with [id number] analgesics or his [place]. Allergies: NKDA Medications: See [facility] Hospital Course IMPRESSION: 1. 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 2. Possible additional community-acquired pneumonia, although difficult to interpret given significant obstructive lung disease. 3. Back pain likely musculoskeletal PLAN: The patient will require 1. Continued supplemental O2. 2. To continue bronchodilators. 3. Continue levofloxacin. 4. Steroid taper. 5. Stable for discharge tomorrow. Follow-up with [facility] pulmonary clinic. Hosptial course: The patient was treated wiht levaquin and a brief steroid course for possible COPD. His blood gas showed a chronic compensated respiratory acidosis. Dr Reynolds from pulmonary was consulted. Patient seemed to be at his baseline from the respiratory perspective so further steroids and abx were held. His major complaint was of back pain and headache. MRI of brain and spine showed no concerning pathology. He was encouraged to take tylenol for pain. He was discharge on the same home medications and encouraged to follow up with his doctors at [facility] for further [facility] Meds Reported Medications Tiotropium [place]* (Spiriva*) 18 Mcg Cap.w.dev, 1 CAP INHALATION DAILY, #30 CAP 09/01/17 Albuterol Sulfate* (Albuterol Sulfate* Neb) 0.083%-3 Ml Neb, 2.5 MG NEB Q4H, # 30 VIAL 09/01/17 Mometasone-Formoterol (Dulera) 100-5 Mcg - 13 Gm Hfa.aer.ad, 2 PUFFS INHALATION BID, #1 INHALER 09/01/17 Hydrocodone/Acetaminophen ([place] 10-325 Tablet) 1 Each Tablet, 1 EACH PO BID, TAB 09/01/17 Omeprazole* (Omeprazole*) 20 Mg Capsule.dr, 20 MG PO BID, #60 CAP 09/01/17 Rivaroxaban* (Xarelto*) 20 Mg Tablet, 20 MG PO WITH DINNER, TAB 09/01/17 Calcium Carbonate* (Calcium Carbonate*) 600 MG Ca Tab, 600 MG PO DAILY, TAB 09/01/17 Ibuprofen* (Ibuprofen*) 600 Mg Tablet, 600 MG PO DAILY Y for PAIN, TAB 09/01/17 Discontinued Reported Medications [Salbutamol Aerosol] No Conflict Check 12/17/09 [Beclomethazone] No Conflict Check 12/17/09 Follow-up Plan Follow up with your lung doctors at [facility] for further care Primary Care Provider Not On Staff Doctor MYRNA RESENDEZ MD Sep 04, 2017 10:03
[2017-09-04] MEDS ORDERED: ALBU2.5V3 NEB (10:47)
[2017-09-04 11:26] LABS: MYCOPLASMA PNEUMONIAE AB (IGG) 2.77
[2017-09-04 14:27] VITALS: BP 133/72; RESP 20
--- NOTE | 2017-09-04 15:41 | CONS ---
Date/Time of Note Date/Time of Note DATE: 09/04/17 TIME: 15:38 Consult Date/Type/Reason Admit Date/Time Sep 01, 2017 at 23:09 Initial Consult Date Type of Consultation: Pulmonary Subjective No events. Objective Vital Signs Date Time Temp Pulse Resp B/P Pulse Ox O2 Delivery O2 Flow Rate FiO2 09/04/17 14:27 98.6 112 20 133/72 98 09/04/17 13:38 2.0 09/04/17 09:40 Nasal Cannula 09/03/17 05:50 28 Intake and Output 09/03/17 09/03/17 09/04/17 15:00 23:00 07:00 Intake Total 1100 ml 1190 ml Output Total 850 ml 750 ml Balance 250 ml 440 ml Exam HEENT: Neck supple; no JVD; no LAD CVS: RRR, S1 and S2 CHEST: Decreased BS b/l ABD: Soft, NT, + BS EXT: No c/c/e Results/Medications Result Diagram: 09/02/1754509/02/17545 Results 24 hrs Laboratory Tests Test 09/04/17 10:48 Lab Scanned Report REFERENCE LAB Medications Current Medications Levofloxacin/ Dextrose (Levaquin 750 Mg/ D5W 150 ml (Pmx)) 150 ml @ 100 mls/hr Q24H IVPB Last administered on 09/03/17 22:16; Admin Dose 100 MLS/HR; Start 09/01/17 at 22:30 Acetaminophen (Tylenol Tab) 650 mg Q6H PRN PO PAIN LEVEL 1-3 OR FEVER; Start 09/02/17 at 01:00 Famotidine (Pepcid) 20 mg Q12 PO Last administered on 09/04/17 09:12; Admin Dose 20 MG; Start 09/02/17 at 01:00 Salmeterol Xinafoate/ Fluticasone (Advair 250/50 Diskus) 1 inh BID INH Last administered on 09/04/17 09:09; Admin Dose 1 INH; Start 09/02/17 at 16:00 Methylprednisolone Sodium Succinate (Solu-Medrol) 30 mg Q8 IV Last administered on 09/04/17 13:46; Admin Dose 30 MG; Start 09/02/17 at 06:00 Acetaminophen/ Hydrocodone Bitart ([place] (5/325)) 1 tab Q6H PRN PO PAIN LEVEL 4 -6; Start 09/02/17 at 05:30 Simethicone (Mylicon) 80 mg TID PRN PO DISTENSION/GAS/BLOATING Last administered on 09/04/17 09:12; Admin Dose 80 MG; Start 09/02/17 at 14:30 Tiotropium [place] (Spiriva) 18 inh DAILY INH Last administered on 09/03/17 10 :35; Admin Dose 18 INH; Start 09/03/17 at 10:00 Acetaminophen/ Hydrocodone Bitart ([place] (5/325)) 2 tab Q4H PRN PO PAIN LEVEL 7 -10 Last administered on 09/04/17 13:47; Admin Dose 2 TAB; Start 09/03/17 at 18 :30 Lidocaine (Lidoderm) 2 patch DAILY TD Last administered on 09/04/17 09:14; Admin Dose 2 PATCH; Start 09/03/17 at 20:30 Docusate Sodium (Colace) 10 mg BID PO Last administered on 09/04/17 09:23; Admin Dose 10 MG; Start 09/04/17 at 09:00 Polyethylene Glycol (Miralax) 17 gm DAILY PO Last administered on 09/04/17 09: 11; Admin Dose 17 GM; Start 09/04/17 at 09:00 Assessment/Plan Additional Assessment/Plan IMP: 1. 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 Chronic hypercapnic resp insufficiency due to #1 RECS: 1. BD's 2. CPT 3. F/U at [facility] as outpatient LEXY TESFAYE MD Sep 04, 2017 15:41
[2017-09-04] MEDS: RIVAROXABAN 20 MG TABLET PO SCH (17:39)
[2017-09-04 20:03] VITALS: BP 136/84; RESP 20
[2017-09-05 14:42] LABS: PNEUM JIROVECCI SRC SPUTUM; PNEUMOCYSTIS JIROVECCI DFA NOT DETECTED
== END 2017-09-04 23:54 | disposition home or self-care (01) | DRG 194 ==
LOC: E/R 14:00 → PP2 23:09
PROVIDERS: ADMIT Family Medicine; ATTEND Family Medicine
DX: J18.9 Pneumonia, unspecified organism (principal); E87.3 Alkalosis; J96.12 Chronic respiratory failure with hypercapnia; J84.10 Pulmonary fibrosis, unspecified; J98.4 Other disorders of lung; R51 Headache; G89.29 Other chronic pain; M54.89 Other dorsalgia; Z99.81 Dependence on supplemental oxygen; Z86.711 Personal history of pulmonary embolism; Z79.01 Long term (current) use of anticoagulants
CPT/HCPCS: 36415; 36600; 70553; 71010; 71260; 72125; 72147; 80053; 80061; 82803; 83036; 83735; 84443; 85025; 86403; 86480; 86703; 86738; 87015; 87116; 87275; 87276; 87279; 87280; 87281; 90686; 93005; 94640; 94644; 94664; 96374; 96375; J0456; J0696; J1885; J1956; J2270; J2405; J2920; J2930; Q9967

== ENCOUNTER 2018-09-25 10:37 | Emergency (ER) | END 2018-09-25 17:00 | disposition home or self-care (01) ==

== ENCOUNTER 2019-05-18 21:22 | Inpatient (IN) | payer OTHER ==
[~2019-05-18] VITALS: Ht 172.7 cm; Wt 55.0 kg
[~2019-05-18 21:22] MED LIST changes: +ALBU18HF INHALATION; +BACL10TA PO; +CALC-143 PO; +CELE200C PO; +DOCU100T PO; +FAMO-96 PO; +MOME13HF INHALATION; +RIVA20TA5 PO; -SALBUTAMOL; +TIOT18CA INHALATION; -[UNRECOGNIZED DRUG - OTHER]
[2019-05-18] MEDS ORDERED: morphine 4 MG/ML VIAL IV STA (21:25)
[2019-05-18] MEDS ORDERED: ONDANSETRON 4 MG INJ IV STA (21:25)
[2019-05-18] MEDS ORDERED: SOD CHLORIDE 0.9% 1,000 ML IV STA (21:25)
[2019-05-18] MEDS ORDERED: LEVALBUTEROL (NEB) 1.25 MG/0.5 ML AMP INH STA (21:26)
[2019-05-18] MEDS ORDERED: CEFEPIME 2GM/50 ML (PMX) 50 ML IVPB STA (21:26)
[2019-05-18] MEDS ORDERED: SODIUM CHLORIDE 0.9% 1L BAG IV* STA (21:26)
[2019-05-18] MEDS ORDERED: IPRATROPIUM (NEB) 0.5 MG/2.5 ML AMP INH STA (21:26)
[2019-05-18] MEDS ORDERED: SOD CHLORIDE 0.9% 100 ML ONE (21:30)
[2019-05-18] MEDS ORDERED: VANCOMYCIN 1 GM (PMX) 250 ML IVPB ONE (21:30)
[2019-05-18] MEDS ORDERED: IOHEXOL 100 ML ONE (21:30)
[2019-05-18] MEDS ORDERED: LORAZEPAM 2 MG INJ IV ONE (22:30)
[2019-05-19] MEDS ORDERED: HYDROmorphONE 1 MG/ML SYG IV STA (00:08)
[2019-05-19] MEDS ORDERED: PROPOFOL 200 MG INJ IV STA (00:08)
[2019-05-19] MEDS ORDERED: SOD CHLORIDE 0.9% 1,000 ML IV STA (01:38)
--- NOTE | 2019-05-19 01:38 | ERD ---
ER Documentation Chief Complaint Chief Complaint BIB RA FROM HOME FOR SOB, AND CP, HX OF CF HPI This is a 53-year-old male that presented to the emergency department brought in by EMS complaining of shortness of breath and chest pain that is been persistent for the past 4 hours. It is progressively worsened. The patient indicates that the pain is more in the lower left side of his back and chest wall. The patient does have a history of cystic fibrosis. He denies any chest pressure but is experiencing palpitations. He states the chest pain is pleuritic. He has no recent travel or prolonged immobilization. He said no fevers no shaking no chills. He denies any abdominal pain. ROS All systems reviewed and are negative except as per history of present illness. Medications Home Meds Active Scripts Famotidine* (Pepcid*) 20 Mg Tablet, 20 MG PO BID for 7 Days, TAB Prov:ROSY ENGLE MD 09/25/18 Reported Medications Calcium Citrate/Vitamin D (Citracal-Vitamin D 200 MG-250) 1 Each Tablet, 1 EACH PO BID, TAB 09/25/18 Docusate Sodium* (Dok*) 100 Mg Tablet, 100 MG PO DAILY, #30 CAP 09/25/18 Albuterol Sulfate* (Ventolin HFA*) 18 Gm Hfa.aer.ad, 2 PUFF INHALATION Q4H, #1 INHALER 09/25/18 Baclofen* (Baclofen*) 10 Mg Tablet, 10 MG PO TID, TAB 09/25/18 Celecoxib* (Celebrex*) 200 Mg Capsule, 200 MG PO BID, CAP 09/25/18 Tiotropium [place]* (Spiriva*) 18 Mcg Cap.w.dev, 1 CAP INHALATION DAILY, #30 CAP 09/25/18 Rivaroxaban* (Xarelto*) 20 Mg Tablet, 20 MG PO WITH DINNER, TAB 09/25/18 Mometasone-Formoterol (Dulera) 200-5 Mcg/Inh - 13 Gm Hfa.aer.ad, 2 PUFFS INHALATION BID, #1 INHALER 09/25/18 Allergies Allergies: Coded Allergies: No Known Drug Allergies (Verified Allergy, Mild, 09/25/18) PMhx/Soc History of Surgery: No Anesthesia Reaction: No Hx Neurological Disorder: No Hx Respiratory Disorders: Yes (Pulmonary Fibrosis) Hx Cardiac Disorders: No Hx Psychiatric Problems: No Hx Miscellaneous Medical Probl: No Hx Alcohol Use: No Hx Substance Use: No Hx Tobacco Use: No Smoking Status: Never smoker Physical Exam Vitals Vital Signs Date Temp Pulse Resp B/P (MAP) Pulse Ox O2 O2 Flow FiO2 Time Delivery Rate 05/19/19 121 14 109/67 99 Non 01:17 (81) Rebreather 05/19/19 119 15 141/87 99 Non 01:00 (105) Rebreather 05/19/19 123 12 130/85 100 BIPAP 00:48 (100) 05/19/19 120 19 126/84 100 BIPAP 00:29 (98) 05/18/19 119 19 98 50 23:46 05/18/19 98.2 121 15 126/84 98 BIPAP 23:46 (98) 05/18/19 123 98 50 23:35 05/18/19 98.2 128 14 112/80 100 BIPAP 23:10 (91) 05/18/19 98.2 128 19 157/97 100 BIPAP 21:59 (117) 05/18/19 133 100 50 21:50 05/18/19 98.2 130 19 150/87 100 Room Air 21:24 (108) 05/18/19 98.2 89 19 157/97 100 21:24 (117) Physical Exam Constitutional:Well-developed. Well-nourished. HEENT:Normocephalic. Atraumatic.Pupils were equal round reactive to light. Moist mucous membranes.No tonsillar exudates. Neck: No nuchal rigidity. No lymphadenopathy. No posterior cervical spine tenderness or step-offs. Respiratory: Patient was using accessory muscles of respiration. Decreased breath sounds in the bilateral lower lung bases..Lungs were clear to auscultation bilaterally. No rhonchi. No rales. Wheezing bilaterally Cardiovascular: Tachycardic. No murmurs or rubs. S1-S2 was normal. GI: Abdomen was soft. Nontender. Non Distended. No pulsatile abdominal masses or bruits. No rebound. No guarding. Bowel sounds were present and normal. Muscle skeletal: Full range of motion of both the upper and lower extremities bilaterally.Normal muscle tone.No assymetrical calf tenderness or swelling. Skin: No petechia, no purpura. No lesions on the palms or the soles of the feet. No maculopapular rash. NEURO: Patient was alert, awake, orientated x3.No facial droop. Gait not obse rved patient was in respiratory distress and unable to ambulate.Speech had regular rate and rhythm. No focal neurological deficits. Result Diagram: 05/18/19213305/18/192133 Results 24 hrs Laboratory Tests Test 05/18/19 21:34 05/18/19 21:35 05/18/19 23:30 White Blood Count 10.8 10^3/ul Red Blood Count 4.77 10^6/ul Hemoglobin 13.7 g/dl Hematocrit 43.8 % Mean Corpuscular Volume 91.8 fl Mean Corpuscular Hemoglobin 28.7 pg Mean Corpuscular 31.3 g/dl Hemoglobin Concent Red Cell Distribution Width 12.6 % Platelet Count 187 10^3/UL Mean Platelet Volume 11.8 fl Immature Granulocytes % 0.400 % Neutrophils % 86.3 % Lymphocytes % 9.0 % Monocytes % 3.6 % Eosinophils % 0.5 % Basophils % 0.2 % Nucleated Red Blood Cells % 0.0 /100WBC Immature Granulocytes # 0.040 10^3/ul Neutrophils # 9.4 10^3/ul Lymphocytes # 1.0 10^3/ul Monocytes # 0.4 10^3/ul Eosinophils # 0.1 10^3/ul Basophils # 0.0 10^3/ul Nucleated Red Blood Cells # 0.0 10^3/ul Prothrombin Time 12.7 Sec Prothrombin Time Ratio 1.0 INR International Normalized Ratio 0.94 Activated Partial Thromboplast 26.2 Sec Time Sodium Level 137 mmol/L Potassium Level 3.8 mmol/L Chloride Level 88 mmol/L Carbon Dioxide Level 42 mmol/L Anion Gap 7 Blood Urea Nitrogen 15 mg/dl Creatinine 0.51 mg/dl Est Glomerular Filtrat Rate mL/min > 60 mL/min Glucose Level 176 mg/dl Calcium Level 9.2 mg/dl Total Bilirubin 0.4 mg/dl Direct Bilirubin 0.00 mg/dl Indirect Bilirubin 0.4 mg/dl Aspartate Amino Transf (AST/SGOT) 26 IU/L Alanine 21 IU/L Aminotransferase (ALT/SGPT) Alkaline Phosphatase 87 IU/L Troponin I < 0.012 ng/ml Total Protein 8.3 g/dl Albumin 4.5 g/dl Globulin 3.80 g/dl Albumin/Globulin Ratio 1.18 Amylase Level 101 U/L Lipase 102 U/L POC Venous Lactate 1.3 mmol/L Lactic Acid Level 0.6 mmol/L Current Medications Medications Dose Sig/Love Start Time Status Last (Trade) Ordered Route PRN Stop Time Admin Dose Reason Admin Sodium 1,000 ml @ Q1H STAT 05/18/19 DC 05/18/19 Chloride 1,000 mls/hr IV 21:25 21:52 05/18/19 22:24 Morphine 4 mg ONCE STAT 05/18/19 DC 05/18/19 Sulfate IV 21:25 21:54 (morphine) 05/18/19 21:27 Ondansetron 4 mg ONCE STAT 05/18/19 DC 05/18/19 HCl (Zofran IV 21:25 21:54 Inj) 05/18/19 21:27 Sodium 1,650 ml BOLUS OVER 2 05/18/19 DC 05/18/19 Chloride HOURS STAT 21: 21:53 (NS) IV* 05/18/19 21:29 Cefepime HCl 50 ml @ ONCE STAT 05/18/19 DC 05/18/19 100 mls/hr IVPB 21:26 21:54 05/18/19 21:55 Vancomycin 250 ml @ ONCE ONCE 05/18/19 DC 05/18/19 HCl 125 mls/hr IVPB 21:30 22:25 05/18/19 23:29 5 mg ONCE STAT 05/18/19 DC 05/18/19 Levalbuterol INH 21:26 23:46 (Xopenex 05/18/19 21:29 Neb) Ipratropium 1 mg ONCE STAT 05/18/19 DC 05/18/19 [place] INH 21:26 23:46 (Atrovent 05/18/19 21:29 0.02% (Neb)) IV Flush 10 ml STK-MED 05/18/19 DC 05/18/19 (NS 10 ml) ONCE .ROUTE 21:30 21:44 05/18/19 21:31 Sodium 100 ml @ ud STK-MED 05/18/19 DC 05/18/19 Chloride ONCE .ROUTE 21:30 21:44 05/18/19 21:31 Iohexol 100 ml @ ud STK-MED 05/18/19 DC 05/18/19 ONCE .ROUTE 21:30 21:44 05/18/19 21:31 Lorazepam 1 mg ONCE ONCE 05/18/19 DC 05/18/19 (Ativan) IV 22:30 22:17 05/18/19 22:31 1 mg ONCE STAT 05/19/19 DC 05/19/19 Hydromorphone IV 00:08 00:47 HCl 05/19/19 00:09 (Dilaudid) Propofol 100 mg ONCE STAT 05/19/19 DC 05/19/19 (Diprivan) IV 00:08 01:11 05/19/19 00:09 Ondansetron 4 mg Q6H PRN 05/19/19 HCl (Zofran IV NAUSEA 00:30 Inj) AND/OR VOMITING Albuterol/ 3 ml Q2H RESP 05/19/19 Ipratropium THERAPY PRN 00:30 (Duoneb) NEB SHORTNESS OF BREATH 650 mg Q6H PRN 05/19/19 Acetaminophen PO PAIN 00:30 (Tylenol LEVEL 1-3 OR Liquid) FEVER 1 tab Q6H PRN 05/19/19 Acetaminophen PO PAIN 00:30 / LEVEL 4-6 Hydrocodone Bitart ([place] (5/325)) Baclofen 10 mg TID PO 05/19/19 (Lioresal) 09:00 Docusate 100 mg DAILY PO 05/19/19 Sodium 09:00 (Colace) Famotidine 20 mg BID PO 05/19/19 (Pepcid) 09:00 Tiotropium 1 inh DAILY INH 05/19/19 [place] 09:00 (Spiriva) 2 puffs BID 05/19/19 UNV Miscellaneous INHALATION 09:00 Information Procedures/MDM This is a 53-year-old male that presented to the emergency department tachycardic with Sirs criteria. The patient was immediately placed in a hvac project manager continuous pulse oximetry and IV access was established by nursing to . diminished breath sounds were heard in the bilateral lung bases but the patient has a known history of cystic fibrosis. Therefore I obtained an emergent bedside chest radiograph that was ordered and reviewed by myself. Patient did have a small left pneumothorax in the lateral inferior region of the left lower lobe. There appeared to be a bullae in the right lower lobe with no pneumothorax in the right side. However the patient still continued to be in respiratory distress and chest discomfort. He was placed on noninvasive mechanical ventilation. He was given analgesic medication. He was given IV fl uids. 12 Lead EKG tracing ordered and reviewed by myself showed: Sinus tachycardia of 132 bpm and no arrhythmia. NM interval normal. QRS duration normal. Left anterior fascicular block No ST segment elevation No ST segment depression. No changes consistent with acute ischemia. In order to further evaluate as is the right lower lung base I did feel is necessary to obtain a CT scan of the patient's chest as he also complained of chest pain radiating to the back. There is no evidence of pulmonary embolism or aortic dissection. There was a 20% pneumothorax on the left. At this time I did speak with Dr. Dunn the vascular surgeon on-call. After discussion the chest tube will be placed by myself. Chest Tube Placement by me: Patient consented, sterilely draped, full prep, gown, glove, mask, time out performed. Anesthesia: 1% lidocaine locally Location: Mid-Anterior Axillary Line, approximate 5th intercostal Device: 24 martiniquais chest tube Technique: Vertical incision, blunt dissection above the superior rib border, tactile confirmation Results: Chest tube fogging Secured with suture and taping. No complications. Attached to waterseal. Chest X-ray 1V Interpreted by me: Pneumothorax diminished, chest tube in pleural space facing cephalad. Normal soft tissue. Procedural Sedation: Pre-assessment performed. See preceding complete history and physical for details. Time out performed. See sedation documentation for details. The procedural sedation was utilized during the chest tube placement Medication(s): 100 mg propofol Complications: No hypoxic or apneic events Recovered without incident. Greater than 15 minutes of face to face time included in sedation and recovery. The patient will be admitted to the intensive care unit in serious condition under the care of Dr. Simmons. The patient initially arrived he did meet Sirs criteria my clinical suspicion for sepsis was high. Therefore the patient did receive IV fluids and he also received antibiotics of unclear etiology however the lactic acid was found to be normal. The patient had an elevated CO2 consistent with respiratory acidosis however the patient was alert awake oriented x3.. Arterial blood gas is currently pending. Critical Care: Time: 100 minutes Treatments/Evaluations: Close monitoring and treatment of unstable vital signs, cardiorespiratory, and neurologic status, while maintaining tight balance of fluid, respiratory, and cardiac interventions. Time does not include performing any of the above billable procedures. Departure Diagnosis: Primary Impression: Pneumothorax on left Additional Impressions: CO2 narcosis Tachycardia Condition: Serious MIGUEL A NORTON MD May 19, 2019 01:36
--- NOTE | 2019-05-19 06:04 | HP ---
Date/Time of Note Date/Time of Note DATE: 05/19/19 TIME: 05:58 Assessment/Plan VTE Prophylaxis SCD applied (from Nsg): Yes Pharmacological prophylaxis: NA/contraindicated Pharm contraindication: other (Patient just has a chest tube placed with bloody output) Lines/Catheters IV Catheter Type (from Nrsg): Saline Lock Assessment/Plan Assessment/Plan 53-year-old male with a history of disseminated TB treated years ago in [place] and history of bronchiectasis, pulmonary fibrosis presents with shortness of breath and chest pain and found to have left inferolateral pneumothorax measuring approximately 20%. He is status post placement of a chest tube. PLAN -Admit to ICU for close observation -Continue oxygen -Pulmonary and CT surgery consult -Repeat chest x-ray Result Diagram: 05/19/19 0532 05/18/19 2134 Results 24hrs Laboratory Tests Test 05/18/19 21:34 05/18/19 21:35 05/18/19 23:30 05/19/19 01:26 White Blood Count 10.8 # Red Blood Count 4.77 Hemoglobin 13.7 L Hematocrit 43.8 Mean Corpuscular 91.8 Volume Mean Corpuscular 28.7 L Hemoglobin Mean Corpuscular 31.3 L Hemoglobin Concent Red Cell 12.6 Distribution Width Platelet Count 187 Mean Platelet Volume 11.8 H Immature 0.400 Granulocytes % Neutrophils % 86.3 H Lymphocytes % 9.0 L Monocytes % 3.6 Eosinophils % 0.5 Basophils % 0.2 Nucleated Red Blood 0.0 Cells % Immature 0.040 H Granulocytes # Neutrophils # 9.4 H Lymphocytes # 1.0 Monocytes # 0.4 Eosinophils # 0.1 Basophils # 0.0 Nucleated Red Blood 0.0 Cells # Prothrombin Time 12.7 Prothrombin Time 1.0 Ratio INR International 0.94 Normalized Ratio Activated 26.2 Partial Thromboplast Time Sodium Level 137 Potassium Level 3.8 Chloride Level 88 L Carbon Dioxide Level 42 *H Anion Gap 7 Blood Urea Nitrogen 15 Creatinine 0.51 L Est Glomerular > 60 Filtrat Rate mL/min Glucose Level 176 Calcium Level 9.2 Total Bilirubin 0.4 Direct Bilirubin 0.00 Indirect Bilirubin 0.4 Aspartate Amino 26 Transf (AST/SGOT) Alanine 21 Aminotransferase (AL T/SGPT) Alkaline Phosphatase 87 Troponin I < 0.012 Total Protein 8.3 H Albumin 4.5 Globulin 3.80 H Albumin/Globulin 1.18 Ratio Amylase Level 101 Lipase 102 POC Venous Lactate 1.3 Lactic Acid Level 0.6 1.0 Test 05/19/19 03:00 05/19/19 05:32 Urine Color STRAW Urine Clarity CLEAR Urine pH 6.0 Urine Specific 1.038 H [place] Urine Ketones NEGATIVE Urine Nitrite NEGATIVE Urine Bilirubin NEGATIVE Urine Urobilinogen NEGATIVE Urine Leukocyte NEGATIVE Esterase Urine Hemoglobin NEGATIVE Urine Glucose NEGATIVE Urine Total Protein NEGATIVE White Blood Count 12.3 H Red Blood Count 4.12 L Hemoglobin 12.0 L Hematocrit 38.1 L Mean Corpuscular 92.5 Volume Mean Corpuscular 29.1 Hemoglobin Mean Corpuscular 31.5 L Hemoglobin Concent Red Cell 12.6 Distribution Width Platelet Count 165 Mean Platelet Volume 11.7 H Immature 0.400 Granulocytes % Neutrophils % 83.3 H Lymphocytes % 8.9 L Monocytes % 7.2 Eosinophils % 0.0 Basophils % 0.2 Nucleated Red Blood 0.0 Cells % Immature 0.050 H Granulocytes # Neutrophils # 10.2 H Lymphocytes # 1.1 Monocytes # 0.9 Eosinophils # 0.0 Basophils # 0.0 Nucleated Red Blood 0.0 Cells # HPI/ROS Admit Date/Time Admit Date/Time Hx of Present Illness This is a 53-year-old male with a history of disseminated TB treated years ago in [place], pulmonary fibrosis who presented to ER complaining of shortness of breath and chest pain. Currently patient is lethargic and as such information is gathered from chart review from the ER physician. When he presented to the ER, he was tachycardic with a heart rate of 130. Imaging shows Inferolateral left pneumothorax (approximately 20%) and extensive bilateral pulmonary scarring, bronchiectasis, and bullous changes. Chest tube was being placed. Currently vitals are stable. PMH/Family/Social Past Medical History Medical History: other (See HPI) Medications Current Medications Ondansetron HCl (Zofran Inj) 4 mg Q6H PRN IV NAUSEA AND/OR VOMITING; Start 05/19/19 at 00:30 Albuterol/ Ipratropium (Duoneb) 3 ml Q2H RESP THERAPY PRN NEB SHORTNESS OF BREATH; Start 05/19/19 at 00:30 Acetaminophen (Tylenol Liquid) 650 mg Q6H PRN PO PAIN LEVEL 1-3 OR FEVER; Start 05/19/19 at 00:30 Acetaminophen/ Hydrocodone Bitart ([place] (5/325)) 1 tab Q6H PRN PO PAIN LEVEL 4-6; Start 05/19/19 at 00:30 Baclofen (Lioresal) 10 mg TID PO ; Start 05/19/19 at 09:00 Docusate Sodium (Colace) 100 mg DAILY PO ; Start 05/19/19 at 09:00 Famotidine (Pepcid) 20 mg BID PO ; Start 05/19/19 at 09:00 Tiotropium [place] (Spiriva) 1 inh DAILY INH ; Start 05/19/19 at 09:00 Miscellaneous Information 2 puffs BID INHALATION ; Start 05/19/19 at 09:00; Status UNV Coded Allergies: No Known Drug Allergies (Verified Allergy, Mild, 09/25/18) Past Surgical History Past Surgical Hx: other (See HPI) Family History Significant Family History: no pertinent family hx Social History Alcohol Use: none Smoking Status: Never smoker Drug Use: none Exam/Review of Systems Vital Signs Vitals Vital Signs Date Temp Pulse Resp B/P (MAP) Pulse Ox O2 O2 Flow FiO2 Time Delivery Rate 05/19/19 110 14 118/78 99 Nasal 4.0 05:37 (91) Cannula 05/19/19 97.2 03:05 05/18/19 50 23:46 Intake and Output 05/18/19 05/18/19 05/19/19 1515:00 23:00 07:00 OutputOutput Total 0 ml BalanceBalance 0 ml Exam Constitutional: other (Lethargic, opens his eyes to verbal stimuli) Head: normocephalic, atraumatic Eyes: EOMI, PERRL Respiratory: normal air movement, other (Left-sided chest tube in place) Cardiovascular: other (Tachycardic regular rhythm) Gastrointestinal: soft, non-tender Extremities: normal pulses KERLINE WOODARD MD May 19, 2019 06:04
[2019-05-19] MEDS: BACLOFEN 10 MG TAB PO SCH ×3 (08:17→23:02)
[2019-05-19] MEDS: DOCUSATE SODIUM 100 MG CAP PO SCH (08:19)
[2019-05-19] MEDS: FAMOTIDINE 20 MG TAB PO SCH ×2 (08:19→21:06)
[2019-05-19] MEDS: TIOTROPIUM 18 MCG CAPSULE INHA DEV INH SCH (08:19)
[2019-05-19] MEDS ORDERED: LORAZEPAM 2 MG INJ IV PRN (17:30)
[2019-05-19] MEDS ORDERED: ALBUTEROL/IPRATROPIUM (NEB) 3 ML AMP HHN PRN (17:30)
--- NOTE | 2019-05-19 18:03 | PN ---
Date/Time of Note Date/Time of Note DATE: 05/19/19 TIME: 17:59 Assessment/Plan VTE Prophylaxis SCD applied (from Nsg): Yes Pharmacological prophylaxis: NA/contraindicated Pharm contraindication: surgical contra Lines/Catheters IV Catheter Type (from Nrsg): [place] Assessment/Plan Hospital Course 1. Acute respiratory failure secondary to left inferolateral pneumothorax measuring 20% Patient status post placement of chest tube Follow-up on chest x-ray in a.m. Continue supplement oxygen Pulmonology and CT surgery consultations 2. History of disseminated TB treated years ago in [place] with history of bronchiectasis, pulmonary fibrosis No acute issues 3. Leukocytosis likely reactive Monitor 4. Metabolic alkalosis Likely compensation for chronic respiratory acidosis due to chronic respiratory issues ABG in a.m. Prophylaxis: SCDs Result Diagram: 05/19/19 0532 05/19/19 0531 Results 24hrs Laboratory Tests Test 05/18/19 21:34 05/18/19 21:35 05/18/19 23:30 05/19/19 01:26 White Blood Count 10.8 # Red Blood Count 4.77 Hemoglobin 13.7 L Hematocrit 43.8 Mean Corpuscular 91.8 Volume Mean Corpuscular 28.7 L Hemoglobin Mean Corpuscular 31.3 L Hemoglobin Concent Red Cell 12.6 Distribution Width Platelet Count 187 Mean Platelet Volume 11.8 H Immature 0.400 Granulocytes % Neutrophils % 86.3 H Lymphocytes % 9.0 L Monocytes % 3.6 Eosinophils % 0.5 Basophils % 0.2 Nucleated Red Blood 0.0 Cells % Immature 0.040 H Granulocytes # Neutrophils # 9.4 H Lymphocytes # 1.0 Monocytes # 0.4 Eosinophils # 0.1 Basophils # 0.0 Nucleated Red Blood 0.0 Cells # Prothrombin Time 12.7 Prothrombin Time 1.0 Ratio INR International 0.94 Normalized Ratio Activated 26.2 Partial Thromboplast Time Sodium Level 137 Potassium Level 3.8 Chloride Level 88 L Carbon Dioxide Level 42 *H Anion Gap 7 Blood Urea Nitrogen 15 Creatinine 0.51 L Est Glomerular > 60 Filtrat Rate mL/min Glucose Level 176 Calcium Level 9.2 Total Bilirubin 0.4 Direct Bilirubin 0.00 Indirect Bilirubin 0.4 Aspartate Amino 26 Transf (AST/SGOT) Alanine 21 Aminotransferase (AL T/SGPT) Alkaline Phosphatase 87 Troponin I < 0.012 Total Protein 8.3 H Albumin 4.5 Globulin 3.80 H Albumin/Globulin 1.18 Ratio Amylase Level 101 Lipase 102 POC Venous Lactate 1.3 Lactic Acid Level 0.6 1.0 Test 05/19/19 03:00 05/19/19 05:31 05/19/19 05:32 Urine Color STRAW Urine Clarity CLEAR Urine pH 6.0 Urine Specific 1.038 H [place] Urine Ketones NEGATIVE Urine Nitrite NEGATIVE Urine Bilirubin NEGATIVE Urine Urobilinogen NEGATIVE Urine Leukocyte NEGATIVE Esterase Urine Hemoglobin NEGATIVE Urine Glucose NEGATIVE Urine Total Protein NEGATIVE Sodium Level 140 Potassium Level 4.3 Chloride Level 92 L Carbon Dioxide Level 41 *H Anion Gap 7 Blood Urea Nitrogen 9 Creatinine 0.37 L Est Glomerular > 60 Filtrat Rate mL/min Glucose Level 135 # Calcium Level 8.0 L Total Bilirubin 0.3 Direct Bilirubin 0.00 Indirect Bilirubin 0.3 Aspartate Amino 30 Transf (AST/SGOT) Alanine 22 Aminotransferase (AL T/SGPT) Alkaline Phosphatase 67 Total Protein 6.9 # Albumin 3.8 Globulin 3.10 Albumin/Globulin 1.22 Ratio White Blood Count 12.3 H Red Blood Count 4.12 L Hemoglobin 12.0 L Hematocrit 38.1 L Mean Corpuscular 92.5 Volume Mean Corpuscular 29.1 Hemoglobin Mean Corpuscular 31.5 L Hemoglobin Concent Red Cell 12.6 Distribution Width Platelet Count 165 Mean Platelet Volume 11.7 H Immature 0.400 Granulocytes % Neutrophils % 83.3 H Lymphocytes % 8.9 L Monocytes % 7.2 Eosinophils % 0.0 Basophils % 0.2 Nucleated Red Blood 0.0 Cells % Immature 0.050 H Granulocytes # Neutrophils # 10.2 H Lymphocytes # 1.1 Monocytes # 0.9 Eosinophils # 0.0 Basophils # 0.0 Nucleated Red Blood 0.0 Cells # Subjective 24 Hr Interval Summary Cardiovascular: chest pain Exam/Review of Systems Exam Vitals Vital Signs Date Temp Pulse Resp B/P (MAP) Pulse Ox O2 O2 Flow FiO2 Time Delivery Rate 05/19/19 98.7 116 16 101/70 99 Nasal 4.0 14:00 (80) Cannula 05/18/19 50 23:46 Intake and Output 05/18/19 05/18/19 05/19/19 1515:00 23:00 07:00 OutputOutput Total 0 ml BalanceBalance 0 ml Constitutional: alert, oriented Respiratory: clear to auscultation Cardiovascular: regular rate and rhythm Gastrointestinal: soft; No distended Musculoskeletal: nl extremities to inspection Results Results 24hrs Laboratory Tests Test 05/18/19 21:34 05/18/19 21:35 05/18/19 23:30 05/19/19 01:26 White Blood Count 10.8 # Red Blood Count 4.77 Hemoglobin 13.7 L Hematocrit 43.8 Mean Corpuscular 91.8 Volume Mean Corpuscular 28.7 L Hemoglobin Mean Corpuscular 31.3 L Hemoglobin Concent Red Cell 12.6 Distribution Width Platelet Count 187 Mean Platelet Volume 11.8 H Immature 0.400 Granulocytes % Neutrophils % 86.3 H Lymphocytes % 9.0 L Monocytes % 3.6 Eosinophils % 0.5 Basophils % 0.2 Nucleated Red Blood 0.0 Cells % Immature 0.040 H Granulocytes # Neutrophils # 9.4 H Lymphocytes # 1.0 Monocytes # 0.4 Eosinophils # 0.1 Basophils # 0.0 Nucleated Red Blood 0.0 Cells # Prothrombin Time 12.7 Prothrombin Time 1.0 Ratio INR International 0.94 Normalized Ratio Activated 26.2 Partial Thromboplast Time Sodium Level 137 Potassium Level 3.8 Chloride Level 88 L Carbon Dioxide Level 42 *H Anion Gap 7 Blood Urea Nitrogen 15 Creatinine 0.51 L Est Glomerular > 60 Filtrat Rate mL/min Glucose Level 176 Calcium Level 9.2 Total Bilirubin 0.4 Direct Bilirubin 0.00 Indirect Bilirubin 0.4 Aspartate Amino 26 Transf (AST/SGOT) Alanine 21 Aminotransferase (AL T/SGPT) Alkaline Phosphatase 87 Troponin I < 0.012 Total Protein 8.3 H Albumin 4.5 Globulin 3.80 H Albumin/Globulin 1.18 Ratio Amylase Level 101 Lipase 102 POC Venous Lactate 1.3 Lactic Acid Level 0.6 1.0 Test 05/19/19 03:00 05/19/19 05:31 05/19/19 05:32 Urine Color STRAW Urine Clarity CLEAR Urine pH 6.0 Urine Specific 1.038 H [place] Urine Ketones NEGATIVE Urine Nitrite NEGATIVE Urine Bilirubin NEGATIVE Urine Urobilinogen NEGATIVE Urine Leukocyte NEGATIVE Esterase Urine Hemoglobin NEGATIVE Urine Glucose NEGATIVE Urine Total Protein NEGATIVE Sodium Level 140 Potassium Level 4.3 Chloride Level 92 L Carbon Dioxide Level 41 *H Anion Gap 7 Blood Urea Nitrogen 9 Creatinine 0.37 L Est Glomerular > 60 Filtrat Rate mL/min Glucose Level 135 # Calcium Level 8.0 L Total Bilirubin 0.3 Direct Bilirubin 0.00 Indirect Bilirubin 0.3 Aspartate Amino 30 Transf (AST/SGOT) Alanine 22 Aminotransferase (AL T/SGPT) Alkaline Phosphatase 67 Total Protein 6.9 # Albumin 3.8 Globulin 3.10 Albumin/Globulin 1.22 Ratio White Blood Count 12.3 H Red Blood Count 4.12 L Hemoglobin 12.0 L Hematocrit 38.1 L Mean Corpuscular 92.5 Volume Mean Corpuscular 29.1 Hemoglobin Mean Corpuscular 31.5 L Hemoglobin Concent Red Cell 12.6 Distribution Width Platelet Count 165 Mean Platelet Volume 11.7 H Immature 0.400 Granulocytes % Neutrophils % 83.3 H Lymphocytes % 8.9 L Monocytes % 7.2 Eosinophils % 0.0 Basophils % 0.2 Nucleated Red Blood 0.0 Cells % Immature 0.050 H Granulocytes # Neutrophils # 10.2 H Lymphocytes # 1.1 Monocytes # 0.9 Eosinophils # 0.0 Basophils # 0.0 Nucleated Red Blood 0.0 Cells # Medications Medication Current Medications Ondansetron HCl (Zofran Inj) 4 mg Q6H PRN IV NAUSEA AND/OR VOMITING; Start 05/19/19 at 00:30 Albuterol/ Ipratropium (Duoneb) 3 ml Q2H RESP THERAPY PRN NEB SHORTNESS OF BREATH; Start 05/19/19 at 00:30 Acetaminophen (Tylenol Liquid) 650 mg Q6H PRN PO PAIN LEVEL 1-3 OR FEVER; Start 05/19/19 at 00:30 Acetaminophen/ Hydrocodone Bitart ([place] (5/325)) 1 tab Q6H PRN PO PAIN LEVEL 4-6; Start 05/19/19 at 00:30 Baclofen (Lioresal) 10 mg TID PO Last administered on 05/19/19at 13:06; Admin Dose 10 MG; Start 05/19/19 at 09:00 Docusate Sodium (Colace) 100 mg DAILY PO Last administered on 05/19/19at 08:19; Admin Dose 100 MG; Start 05/19/19 at 09:00 Famotidine (Pepcid) 20 mg BID PO Last administered on 05/19/19at 08:19; Admin Dose 20 MG; Start 05/19/19 at 09:00 Tiotropium [place] (Spiriva) 1 inh DAILY INH Last administered on 05/19/19at 08:19; Admin Dose 1 INH; Start 05/19/19 at 09:00 Fluticasone/ Vilanterol (Breo Ellipta 200-25 Mcg Inh) 1 inh DAILY INH ; Start 05/20/19 at 09:00 YESENIA SONG May 19, 2019 18:03
[2019-05-19] MEDS: HYDROCODONE/APAP (5/325) TAB PO PRN ×2 (18:30→23:01)
[2019-05-19 21:21] VITALS: Ht 172.7 cm; Wt 55.0 kg
[2019-05-19 21:27] VITALS: PULSE 132
[2019-05-19 21:30] VITALS: BP 138/68; PULSE 124; RESP 20
[2019-05-19] MEDS: CEPASTAT LOZENGE MT PRN (22:59)
[2019-05-19 23:35] VITALS: BP 136/77; PULSE 123; RESP 20
[2019-05-20] VITALS (10 sets, daily range): BP systolic 109–133; BP diastolic 58–76; PULSE 105–118; RESP 18–20
[2019-05-20] MEDS ORDERED: VANCOMYCIN IV PER PHARMACY XX SCH (01:00)
[2019-05-20] MEDS ORDERED: VANCOMYCIN 1 GM 250 ML IVPB ONE (02:00)
[2019-05-20] MEDS: DICLOFENAC SODIUM 1% GEL 100 GM TUBE TP SCH ×5 (05:14→20:53)
[2019-05-20] MEDS: HYDROCODONE/APAP (5/325) TAB PO PRN ×2 (05:32→23:17)
[2019-05-20] MEDS: BACLOFEN 10 MG TAB PO SCH ×2 (08:20→14:18)
[2019-05-20] MEDS: ACETAMINOPHEN 650MG/20.3ML CUP PO PRN ×2 (08:20→14:18)
[2019-05-20] MEDS: DOCUSATE SODIUM 100 MG CAP PO SCH (08:20)
[2019-05-20] MEDS: TIOTROPIUM 18 MCG CAPSULE INHA DEV INH SCH (08:21)
[2019-05-20] MEDS: FAMOTIDINE 20 MG TAB PO SCH ×2 (08:22→20:53)
[2019-05-20] MEDS ORDERED: VANCOMYCIN 750 MG (PMX) 250 ML IVPB SCH (10:00)
[2019-05-20] MEDS ORDERED: NORT25CA PO (10:25)
[2019-05-20] MEDS ORDERED: MIRT15TA PO (10:25)
[2019-05-20] MEDS ORDERED: traMADol 50 MG TAB PO PRN (10:30)
[2019-05-20] MEDS: FLUTICASONE/VILANTEROL 200-25 INH DEVICE INH SCH (11:20)
[2019-05-20] MEDS ORDERED: ARTIFICIAL TEARS 15 ML OPH BOTH EYES PRN (16:00)
--- NOTE | 2019-05-20 16:41 | PN ---
Date/Time of Note Date/Time of Note DATE: 05/20/19 TIME: 16:40 Assessment/Plan VTE Prophylaxis Risk score (from Ns)>0 risk: 2 SCD applied (from Ns): Yes Pharmacological prophylaxis: heparin Lines/Catheters IV Catheter Type (from Nrs): Peripheral IV Urinary Cath still in place: No Assessment/Plan Hospital Course 1. Acute respiratory failure secondary to left inferolateral pneumothorax measuring 20% Patient status post placement of chest tube Follow-up on chest x-ray in a.m. Continue supplement oxygen Pulmonology and CT surgery consultations 2. History of disseminated TB treated years ago in [place] with history of bronchiectasis, pulmonary fibrosis No acute issues 3. Leukocytosis likely reactive Monitor 4. Chronic hypoxic and hypercapneic respiratory failure - Supplemental O2 - BIPAP per pulmonary Prophylaxis: SCDs Result Diagram: 05/20/19 0558 05/20/19 0559 Results 24hrs Laboratory Tests Test 05/20/19 05:58 05/20/19 05:59 05/20/19 07:00 White Blood Count 7.9 # Red Blood Count 4.00 L Hemoglobin 11.5 L Hematocrit 37.0 L Mean Corpuscular Volume 92.5 Mean Corpuscular Hemoglobin 28.8 L Mean Corpuscular 31.1 L Hemoglobin Concent Red Cell Distribution Width 12.4 Platelet Count 143 Mean Platelet Volume 12.2 H Immature Granulocytes % 0.300 Neutrophils % 71.3 Lymphocytes % 13.2 L Monocytes % 12.2 H Eosinophils % 2.7 Basophils % 0.3 Nucleated Red Blood Cells % 0.0 Immature Granulocytes # 0.020 Neutrophils # 5.6 Lymphocytes # 1.0 Monocytes # 1.0 H Eosinophils # 0.2 Basophils # 0.0 Nucleated Red Blood Cells # 0.0 Sodium Level 139 Potassium Level 4.3 Chloride Level 86 L Carbon Dioxide Level 48 *H Anion Gap 5 Blood Urea Nitrogen 10 Creatinine 0.46 L Est Glomerular Filtrat > 60 Rate mL/min Glucose Level 93 # Hemoglobin A1c 5.1 Calcium Level 9.0 Phosphorus Level 3.0 Magnesium Level 1.8 Blood Gas Specimen Source Blood arterial Arterial Blood Date Drawn 05/20/2019 9:33:24 AM Arterial Blood pH 7.333 L (Temp corrected) Arterial Blood pCO2 84.1 *H (Temp correct) Arterial Blood pO2 63.7 L (Temp corrected) Arterial Blood HCO3 43.6 *H Arterial Blood Base Excess 13.9 H Arterial Blood 92.6 L Oxygen Saturation Ilya Test ACCEPTAB Arterial Blood Gas Left Radial Puncture Site Arterial 0.7 Blood Carboxyhemoglobin Arterial Blood Methemoglobin 0.2 Blood Gas A-a O2 51.4 H Differential Oxyhemoglobin Percent 91.8 L Blood Gas Temperature 37.0 Blood Gas Modality NASAL CANNULA FiO2 30.0 Blood Gas Critical Value CCRANE R.N. Read Back Blood Gas Notified Whom MDA Blood Gas Notified Time 05/20/2019 9:39:14 AM Subjective 24 Hr Interval Summary Free Text/Dictation Complains of dry eyes, blurry vision Pain from chest tube Breathing is comfortable Exam/Review of Systems Exam Vitals Vital Signs Date Temp Pulse Resp B/P (MAP) Pulse Ox O2 O2 Flow FiO2 Time Delivery Rate 05/20/19 98.1 112 18 133/76 97 Nasal 15:06 (95) Cannula 05/20/19 3.0 11:03 05/18/19 50 23:46 Intake and Output 05/19/19 05/19/19 05/20/19 1515:00 23:00 07:00 IntakeIntake Total 800 ml OutputOutput Total 1960 ml 400 ml BalanceBalance -1960 ml 400 ml Constitutional: alert, oriented, well developed Psych: no complaints, nl mood/affect Head: normocephalic, atraumatic Eyes: nl conjunctiva, EOMI, nl lids, nl sclera, PERRL ENMT: nl external ears & nose, nl lips & teeth, nl nasal mucosa & septum Neck: supple, non-tender Respiratory: clear to auscultation, normal air movement Cardiovascular: regular rate and rhythm, nl pulses Gastrointestinal: soft, nl liver, spleen, non-tender Musculoskeletal: nl extremities to inspection, nl gait and stance Extremities: normal pulses Neurological: [employer] II-XII intact, nl mental status, nl speech, nl strength Skin: nl turgor; No rash or lesions Lymph: nl lymph nodes Results Results 24hrs Laboratory Tests Test 05/20/19 05:58 05/20/19 05:59 05/20/19 07:00 White Blood Count 7.9 # Red Blood Count 4.00 L Hemoglobin 11.5 L Hematocrit 37.0 L Mean Corpuscular Volume 92.5 Mean Corpuscular Hemoglobin 28.8 L Mean Corpuscular 31.1 L Hemoglobin Concent Red Cell Distribution Width 12.4 Platelet Count 143 Mean Platelet Volume 12.2 H Immature Granulocytes % 0.300 Neutrophils % 71.3 Lymphocytes % 13.2 L Monocytes % 12.2 H Eosinophils % 2.7 Basophils % 0.3 Nucleated Red Blood Cells % 0.0 Immature Granulocytes # 0.020 Neutrophils # 5.6 Lymphocytes # 1.0 Monocytes # 1.0 H Eosinophils # 0.2 Basophils # 0.0 Nucleated Red Blood Cells # 0.0 Sodium Level 139 Potassium Level 4.3 Chloride Level 86 L Carbon Dioxide Level 48 *H Anion Gap 5 Blood Urea Nitrogen 10 Creatinine 0.46 L Est Glomerular Filtrat > 60 Rate mL/min Glucose Level 93 # Hemoglobin A1c 5.1 Calcium Level 9.0 Phosphorus Level 3.0 Magnesium Level 1.8 Blood Gas Specimen Source Blood arterial Arterial Blood Date Drawn 05/20/2019 9:33:24 AM Arterial Blood pH 7.333 L (Temp corrected) Arterial Blood pCO2 84.1 *H (Temp correct) Arterial Blood pO2 63.7 L (Temp corrected) Arterial Blood HCO3 43.6 *H Arterial Blood Base Excess 13.9 H Arterial Blood 92.6 L Oxygen Saturation Ilya Test ACCEPTAB Arterial Blood Gas Left Radial Puncture Site Arterial 0.7 Blood Carboxyhemoglobin Arterial Blood Methemoglobin 0.2 Blood Gas A-a O2 51.4 H Differential Oxyhemoglobin Percent 91.8 L Blood Gas Temperature 37.0 Blood Gas Modality NASAL CANNULA FiO2 30.0 Blood Gas Critical Value CCRANE R.N. Read Back Blood Gas Notified Whom MDA Blood Gas Notified Time 05/20/2019 9:39:14 AM Medications Medication Current Medications Ondansetron HCl (Zofran Inj) 4 mg Q6H PRN IV NAUSEA AND/OR VOMITING; Start 04/30 12/17 at 00:30 Albuterol/ Ipratropium (Duoneb) 3 ml Q2H RESP THERAPY PRN NEB SHORTNESS OF BREATH; Start 05/19/19 at 00:30 Acetaminophen (Tylenol Liquid) 650 mg Q6H PRN PO PAIN LEVEL 1-3 OR FEVER Last administered on 05/20/19at 14:18; Admin Dose 650 MG; Start 05/19/19 at 00:30 Acetaminophen/ Hydrocodone Bitart ([place] (5/325)) 1 tab Q6H PRN PO PAIN LEVEL 4-6 Last administered on 05/20/19 05:32; Admin Dose 1 TAB; Start 05/19/19 at 00:30 Baclofen (Lioresal) 10 mg TID PO Last administered on 05/20/19 14:18; Admin Dose 10 MG; Start 05/19/19 at 09:00 Docusate Sodium (Colace) 100 mg DAILY PO Last administered on 05/20/19 08:20; Admin Dose 100 MG; Start 05/19/19 at 09:00 Famotidine (Pepcid) 20 mg BID PO Last administered on 05/20/19 08:22; Admin Dose 20 MG; Start 05/19/19 at 09:00 Tiotropium [place] (Spiriva) 1 inh DAILY INH Last administered on 05/20/19 08:21; Admin Dose 1 INH; Start 05/19/19 at 09:00 Fluticasone/ Vilanterol (Breo Ellipta 200-25 Mcg Inh) 1 inh DAILY INH Last administered on 05/20/19 11:20; Admin Dose 1 INH; Start 05/20/19 at 09:00 Phenol (Cepastat Lozenge) 1 lozenge Q1H PRN MT SORE THROAT/COUGH Last administered on 05/19/19 22:59; Admin Dose 1 LOZENGE; Start 05/19/19 at 22:30 Acetaminophen/ Hydrocodone Bitart ([place] (5/325)) 2 tab Q6H PRN PO PAIN LEVEL 6-10 Last administered on 05/19/19 23:01; Admin Dose 2 TAB; Start 05/19/19 at 22:30 Diclofenac Sodium (Voltaren 1% Gel) 2 gm QID TP Last administered on 05/20/19 14:18; Admin Dose 2 GM; Start 05/20/19 at 03:30 Tramadol HCl (Ultram) 50 mg Q6H PRN PO MODERATE PAIN LEVEL 4-6 Last administered on 05/20/19 10:57; Admin Dose 50 MG; Start 05/20/19 at 10:30 Simethicone (Mylicon) 80 mg Q6H PRN PO DISTENSION/GAS/BLOATING Last administered on 05/20/19 10:55; Admin Dose 80 MG; Start 05/20/19 at 11:00 Eye Lubricant (Artificial Tears Oph) 2 drop Q6H PRN BOTH EYES DRY EYES; Start 05/20/19 at 16:00 MYRNA RESENDEZ MD May 20, 2019 16:41
[2019-05-20] MEDS: CEPASTAT LOZENGE MT PRN (17:43)
--- NOTE | 2019-05-20 18:46 | CONS ---
Assessment/Plan Assessment/Plan Assessment/Plan (Daily) That is post left-sided chest tube placement for 20% pneumothorax Pneumothorax mostly resolved Continue chest tube suction Consultation Date/Type/Reason Admit Date/Time Date of Consultation: May 20, 2019 Type of Consult 53-year-old male with a history of disseminated TB treated years ago in [place] and history of bronchiectasis, pulmonary fibrosis presents with shortness of breath and chest pain and found to have left inferolateral pneumothorax measuring approximately 20%. He is status post placement of a chest tube. \Patient is status post a chest tube placement Chest x-ray shows mostly resolved pneumothorax on the left side with still small left-sided pneumothorax Date/Time of Note DATE: 05/20/19 TIME: 18:45 ENT: no complaints Respiratory: no complaints Cardiovascular: no complaints Gastrointestinal: no complaints Genitourinary: no complaints Musculoskeletal: no complaints Skin: no complaints Neurologic: no complaints Past Medical History Medical History: other (See HPI) Home Meds Active Scripts Famotidine* (Pepcid*) 20 Mg Tablet, 20 MG PO BID for 7 Days, TAB Prov:ROSY ENGLE MD 09/25/18 Reported Medications Mirtazapine* (Remeron*) 15 Mg Tablet, 15 MG PO HS, TAB 05/20/19 Nortriptyline Hcl* (Nortriptyline Hcl*) 25 Mg Capsule, 25 MG PO HS, CAP 05/20/19 Calcium Citrate/Vitamin D (Citracal-Vitamin D 200 MG-250) 1 Each Tablet, 1 EACH PO BID, TAB 09/25/18 Docusate Sodium* (Dok*) 100 Mg Tablet, 100 MG PO DAILY, #30 CAP 09/25/18 Albuterol Sulfate* (Ventolin HFA*) 18 Gm Hfa.aer.ad, 2 PUFF INHALATION Q4H, #1 INHALER 09/25/18 Baclofen* (Baclofen*) 10 Mg Tablet, 10 MG PO TID, TAB 09/25/18 Celecoxib* (Celebrex*) 200 Mg Capsule, 200 MG PO BID, CAP 09/25/18 Tiotropium [place]* (Spiriva*) 18 Mcg Cap.w.dev, 1 CAP INHALATION DAILY, #30 CAP 09/25/18 Rivaroxaban* (Xarelto*) 20 Mg Tablet, 20 MG PO WITH DINNER, TAB 09/25/18 Mometasone-Formoterol (Dulera) 200-5 Mcg/Inh - 13 Gm Hfa.aer.ad, 2 PUFFS INHALATION BID, #1 INHALER 09/25/18 Medications Current Medications Ondansetron HCl (Zofran Inj) 4 mg Q6H PRN IV NAUSEA AND/OR VOMITING; Start 05/19/19 at 00:30 Albuterol/ Ipratropium (Duoneb) 3 ml Q2H RESP THERAPY PRN NEB SHORTNESS OF BREATH; Start 05/19/19 at 00:30 Acetaminophen (Tylenol Liquid) 650 mg Q6H PRN PO PAIN LEVEL 1-3 OR FEVER Last administered on 05/20/19 14:18; Admin Dose 650 MG; Start 05/19/19 at 00:30 Acetaminophen/ Hydrocodone Bitart ([place] (5/325)) 1 tab Q6H PRN PO PAIN LEVEL 4-6 Last administered on 05/20/19 05:32; Admin Dose 1 TAB; Start 05/19/19 at 00:30 Baclofen (Lioresal) 10 mg TID PO Last administered on 05/20/19 14:18; Admin Dose 10 MG; Start 05/19/19 at 09:00 Docusate Sodium (Colace) 100 mg DAILY PO Last administered on 05/20/19 08:20; Admin Dose 100 MG; Start 05/19/19 at 09:00 Famotidine (Pepcid) 20 mg BID PO Last administered on 05/20/19 08:22; Admin Dose 20 MG; Start 05/19/19 at 09:00 Tiotropium [place] (Spiriva) 1 inh DAILY INH Last administered on 05/20/19 08:21; Admin Dose 1 INH; Start 05/19/19 at 09:00 Fluticasone/ Vilanterol (Breo Ellipta 200-25 Mcg Inh) 1 inh DAILY INH Last administered on 05/20/19 11:20; Admin Dose 1 INH; Start 05/20/19 at 09:00 Phenol (Cepastat Lozenge) 1 lozenge Q1H PRN MT SORE THROAT/COUGH Last admin istered on 05/20/19 17:43; Admin Dose 1 LOZENGE; Start 05/19/19 at 22:30 Acetaminophen/ Hydrocodone Bitart ([place] (5/325)) 2 tab Q6H PRN PO PAIN LEVEL 6-10 Last administered on 05/19/19 23:01; Admin Dose 2 TAB; Start 05/19/19 at 22:30 Diclofenac Sodium (Voltaren 1% Gel) 2 gm QID TP Last administered on 05/20/19at 17:43; Admin Dose 2 GM; Start 05/20/19 at 03:30 Tramadol HCl (Ultram) 50 mg Q6H PRN PO MODERATE PAIN LEVEL 4-6 Last administered on 05/20/19 10:57; Admin Dose 50 MG; Start 05/20/19 at 10:30 Simethicone (Mylicon) 80 mg Q6H PRN PO DISTENSION/GAS/BLOATING Last administered on 05/20/19 17:43; Admin Dose 80 MG; Start 05/20/19 at 11:00 Eye Lubricant (Artificial Tears Oph) 2 drop Q6H PRN BOTH EYES DRY EYES Last administered on 05/20/19 16:39; Admin Dose 2 DROP; Start 05/20/19 at 16:00 Allergies: Coded Allergies: No Known Drug Allergies (Verified Allergy, Mild, 09/25/18) Past Surgical History Past Surgical Hx: other (See HPI) Social History Alcohol Use: none Smoking Status: Never smoker Drug Use: none Exam/Review of Systems Exam Vitals Vital Signs Date Temp Pulse Resp B/P (MAP) Pulse Ox O2 O2 Flow FiO2 Time Delivery Rate 05/20/19 98.1 112 18 133/76 97 Nasal 15:06 (95) Cannula 05/20/19 3.0 11:03 05/18/19 50 23:46 Intake and Output 05/19/19 05/19/19 05/20/19 1515:00 23:00 07:00 IntakeIntake Total 800 ml OutputOutput Total 1960 ml 400 ml BalanceBalance -1960 ml 400 ml Eyes: nl conjunctiva, EOMI, nl lids, nl sclera, PERRL ENMT: nl external ears & nose, nl lips & teeth, nl nasal mucosa & septum Neck: supple, non-tender Respiratory: clear to auscultation, normal air movement Cardiovascular: regular rate and rhythm, nl pulses Gastrointestinal: soft, nl liver, spleen, non-tender Results Result Diagram: 05/20/19 0558 05/20/19 0559 Results 24hrs Laboratory Tests Test 05/20/19 05:58 05/20/19 05:59 05/20/19 07:00 White Blood Count 7.9 # Red Blood Count 4.00 L Hemoglobin 11.5 L Hematocrit 37.0 L Mean Corpuscular Volume 92.5 Mean Corpuscular Hemoglobin 28.8 L Mean Corpuscular 31.1 L Hemoglobin Concent Red Cell Distribution Width 12.4 Platelet Count 143 Mean Platelet Volume 12.2 H Immature Granulocytes % 0.300 Neutrophils % 71.3 Lymphocytes % 13.2 L Monocytes % 12.2 H Eosinophils % 2.7 Basophils % 0.3 Nucleated Red Blood Cells % 0.0 Immature Granulocytes # 0.020 Neutrophils # 5.6 Lymphocytes # 1.0 Monocytes # 1.0 H Eosinophils # 0.2 Basophils # 0.0 Nucleated Red Blood Cells # 0.0 Sodium Level 139 Potassium Level 4.3 Chloride Level 86 L Carbon Dioxide Level 48 *H Anion Gap 5 Blood Urea Nitrogen 10 Creatinine 0.46 L Est Glomerular Filtrat > 60 Rate mL/min Glucose Level 93 # Hemoglobin A1c 5.1 Calcium Level 9.0 Phosphorus Level 3.0 Magnesium Level 1.8 Blood Gas Specimen Source Blood arterial Arterial Blood Date Drawn 05/20/2019 9:33:24 AM Arterial Blood pH 7.333 L (Temp corrected) Arterial Blood pCO2 84.1 *H (Temp correct) Arterial Blood pO2 63.7 L (Temp corrected) Arterial Blood HCO3 43.6 *H Arterial Blood Base Excess 13.9 H Arterial Blood 92.6 L Oxygen Saturation Ilya Test ACCEPTAB Arterial Blood Gas Left Radial Puncture Site Arterial 0.7 Blood Carboxyhemoglobin Arterial Blood Methemoglobin 0.2 Blood Gas A-a O2 51.4 H Differential Oxyhemoglobin Percent 91.8 L Blood Gas Temperature 37.0 Blood Gas Modality NASAL CANNULA FiO2 30.0 Blood Gas Critical Value CCRANE R.N. Read Back Blood Gas Notified Whom [facility] Blood Gas Notified Time 05/20/2019 9:39:14 AM Medications Medication Current Medications Ondansetron HCl (Zofran Inj) 4 mg Q6H PRN IV NAUSEA AND/OR VOMITING; Start 05/19/19 at 00:30 Albuterol/ Ipratropium (Duoneb) 3 ml Q2H RESP THERAPY PRN NEB SHORTNESS OF BREATH; Start 05/19/19 at 00:30 Acetaminophen (Tylenol Liquid) 650 mg Q6H PRN PO PAIN LEVEL 1-3 OR FEVER Last administered on 05/20/19 14:18; Admin Dose 650 MG; Start 05/19/19 at 00:30 Acetaminophen/ Hydrocodone Bitart ([place] (5/325)) 1 tab Q6H PRN PO PAIN LEVEL 4-6 Last administered on 05/20/19 05:32; Admin Dose 1 TAB; Start 05/19/19 at 00:30 Baclofen (Lioresal) 10 mg TID PO Last administered on 05/20/19 14:18; Admin Dose 10 MG; Start 05/19/19 at 09:00 Docusate Sodium (Colace) 100 mg DAILY PO Last administered on 05/20/19 08:20; Admin Dose 100 MG; Start 05/19/19 at 09:00 Famotidine (Pepcid) 20 mg BID PO Last administered on 05/20/19 08:22; Admin Dose 20 MG; Start 05/19/19 at 09:00 Tiotropium [place] (Spiriva) 1 inh DAILY INH Last administered on 05/20/19 08:21; Admin Dose 1 INH; Start 05/19/19 at 09:00 Fluticasone/ Vilanterol (Breo Ellipta 200-25 Mcg Inh) 1 inh DAILY INH Last administered on 05/20/19 11:20; Admin Dose 1 INH; Start 05/20/19 at 09:00 Phenol (Cepastat Lozenge) 1 lozenge Q1H PRN MT SORE THROAT/COUGH Last administered on 05/20/19 17:43; Admin Dose 1 LOZENGE; Start 05/19/19 at 22:30 Acetaminophen/ Hydrocodone Bitart ([place] (5/325)) 2 tab Q6H PRN PO PAIN LEVEL 6-10 Last administered on 05/19/19 23:01; Admin Dose 2 TAB; Start 05/19/19 at 22:30 Diclofenac Sodium (Voltaren 1% Gel) 2 gm QID TP Last administered on 05/20/19 17:43; Admin Dose 2 GM; Start 05/20/19 at 03:30 Tramadol HCl (Ultram) 50 mg Q6H PRN PO MODERATE PAIN LEVEL 4-6 Last administered on 6/22/19at 10:57; Admin Dose 50 MG; Start 05/20/19 at 10:30 Simethicone (Mylicon) 80 mg Q6H PRN PO DISTENSION/GAS/BLOATING Last administered on 05/20/19 17:43; Admin Dose 80 MG; Start 05/20/19 at 11:00 Eye Lubricant (Artificial Tears Oph) 2 drop Q6H PRN BOTH EYES DRY EYES Last administered on 05/20/19 16:39; Admin Dose 2 DROP; Start 05/20/19 at 16:00 DEBORAH SONG MD May 20, 2019 18:46
[2019-05-21] VITALS (12 sets, daily range): BP systolic 110–147; BP diastolic 66–91; PULSE 72–127; RESP 18–20
[2019-05-21] MEDS: BACLOFEN 10 MG TAB PO SCH ×4 (00:21→21:58)
[2019-05-21] MEDS: CEPASTAT LOZENGE MT PRN ×2 (00:23→13:24)
--- NOTE | 2019-05-21 04:59 | PN ---
DATE: 05/20/2019 SUBJECTIVE: Chart reviewed. Events noted. The patient remains on 3 liters O2 nasal cannula, satura ting 98%. Chest tube is in place. No air leak noted. PHYSICAL EXAMINATION VITAL SIGNS: Blood pressure 126/58, pulse 118, respirations 18, temperature 98. HEENT: Pupils are equal and react to light. NECK: Supple. No JVD noted, no cervical adenopathy noted. LUNGS: Fair breath sounds bilaterally, left-sided thoracostomy tube in place. CARDIOVASCULAR: S1 and S2 normal. ABDOMEN: Soft, nontender. No organomegaly, masses noted. EXTREMITIES: No clubbing, cyanosis, or edema. NEUROLOGIC: Awake. LABORATORY DATA: pH 7.33, pCO2 84, pO2 of 64. WBC 7.9, hemoglobin 11.5, hematocrit 37, platelets 14 3. Sodium 139, potassium 4.3, chloride 86, CO2 of 48, BUN 10, creatinine 0.46, glucose 93. IMAGING: Today's chest x-ray shows left-sided chest tube in place. No pneumothorax seen. Chronic e xtensive pulmonary interstitial changes are present with bleb formation RECOMMENDATIONS: 1. No need for BiPAP or any positive pressure ventilation given pneumothorax is healing. 2. Continue chest tube drainage. 3. Continue oxygen. 4. Followup chest x-ray. 5. I have discussed with the staff. Dictated By: ENDY YOUNGER MD, MA/SU Conf#: [id number] DID#: [id number] CC: YESENIA SONG MD;*EndCC*
[2019-05-21] MEDS: TIOTROPIUM 18 MCG CAPSULE INHA DEV INH SCH (08:58)
[2019-05-21] MEDS: FLUTICASONE/VILANTEROL 200-25 INH DEVICE INH SCH (08:58)
[2019-05-21] MEDS: FAMOTIDINE 20 MG TAB PO SCH ×2 (08:59→21:58)
[2019-05-21] MEDS: DICLOFENAC SODIUM 1% GEL 100 GM TUBE TP SCH ×4 (08:59→21:58)
[2019-05-21] MEDS: DOCUSATE SODIUM 100 MG CAP PO SCH (08:59)
[2019-05-21] MEDS: HYDROCODONE/APAP (5/325) TAB PO PRN (09:05)
[2019-05-21] MEDS: ACETYLCYSTEINE 20% 4 ML VIAL NEB PRN (11:37)
--- NOTE | 2019-05-21 14:58 | PN ---
Date/Time of Note Date/Time of Note DATE: 05/21/19 TIME: 14:57 Assessment/Plan VTE Prophylaxis Risk score (from Nsg)>0 risk: 2 SCD applied (from Nsg): Yes Pharmacological prophylaxis: heparin Lines/Catheters IV Catheter Type (from Nrsg): Saline Lock Urinary Cath still in place: Yes Reason Cath still needed: urinary retention Assessment/Plan Hospital Course 1. Acute respiratory failure secondary to left inferolateral pneumothorax measuring 20% Patient status post placement of chest tube Follow-up on chest x-ray in a.m. Continue supplement oxygen Pulmonology and CT surgery consultations 2. History of disseminated TB treated years ago in [place] with history of bronchiectasis, pulmonary fibrosis No acute issues 3. Leukocytosis likely reactive Monitor 4. Chronic hypoxic and hypercapneic respiratory failure - Supplemental O2 - BIPAP per pulmonary Prophylaxis: SCDs Result Diagram: 05/20/19 0558 05/20/19 0559 Subjective 24 Hr Interval Summary Free Text/Dictation Breathing comfortably, no distress Exam/Review of Systems Exam Vitals Vital Signs Date Temp Pulse Resp B/P (MAP) Pulse Ox O2 O2 Flow FiO2 Time Delivery Rate 05/21/19 127 12:00 05/21/19 98.6 20 139/76 97 11:51 (97) 05/21/19 3.0 96 11:38 05/21/19 Nasal 08:30 Cannula Intake and Output 05/20/19 05/20/19 05/21/19 1515:00 23:00 07:00 IntakeIntake Total 1130 ml 650 ml 480 ml OutputOutput Total 1100 ml 400 ml 1350 ml BalanceBalance 30 ml 250 ml -870 ml Medications Medication Current Medications Ondansetron HCl (Zofran Inj) 4 mg Q6H PRN IV NAUSEA AND/OR VOMITING; Start 05/19/19 at 00:30 Albuterol/ Ipratropium (Duoneb) 3 ml Q2H RESP THERAPY PRN NEB SHORTNESS OF B REATH; Start 05/19/19 at 00:30 Acetaminophen (Tylenol Liquid) 650 mg Q6H PRN PO PAIN LEVEL 1-3 OR FEVER Last administered on 05/20/19at 14:18; Admin Dose 650 MG; Start 05/19/19 at 00:30 Acetaminophen/ Hydrocodone Bitart ([place] (5/325)) 1 tab Q6H PRN PO PAIN LEVEL 4-6 Last administered on 05/21/19 09:05; Admin Dose 1 TAB; Start 05/19/19 at 00:30 Baclofen (Lioresal) 10 mg TID PO Last administered on 05/21/19 13:24; Admin Dose 10 MG; Start 05/19/19 at 09:00 Docusate Sodium (Colace) 100 mg DAILY PO Last administered on 05/21/19 08:59; Admin Dose 100 MG; Start 05/19/19 at 09:00 Famotidine (Pepcid) 20 mg BID PO Last administered on 05/21/19 08:59; Admin Dose 20 MG; Start 05/19/19 at 09:00 Tiotropium [place] (Spiriva) 1 inh DAILY INH Last administered on 05/21/19 08:58; Admin Dose 1 INH; Start 05/19/19 at 09:00 Fluticasone/ Vilanterol (Breo Ellipta 200-25 Mcg Inh) 1 inh DAILY INH Last administered on 05/21/19 08:58; Admin Dose 1 INH; Start 05/20/19 at 09:00 Phenol (Cepastat Lozenge) 1 lozenge Q1H PRN MT SORE THROAT/COUGH Last administered on 05/21/19 13:24; Admin Dose 1 LOZENGE; Start 05/19/19 at 22:30 Acetaminophen/ Hydrocodone Bitart ([place] (5/325)) 2 tab Q6H PRN PO PAIN LEVEL 6-10 Last administered on 05/19/19 23:01; Admin Dose 2 TAB; Start 05/19/19 at 22:30 Diclofenac Sodium (Voltaren 1% Gel) 2 gm QID TP Last administered on 05/21/19 13:24; Admin Dose 2 GM; Start 05/20/19 at 03:30 Tramadol HCl (Ultram) 50 mg Q6H PRN PO MODERATE PAIN LEVEL 4-6 Last administered on 05/20/19 10:57; Admin Dose 50 MG; Start 05/20/19 at 10:30 Simethicone (Mylicon) 80 mg Q6H PRN PO DISTENSION/GAS/BLOATING Last administered on 05/21/19 09:04; Admin Dose 80 MG; Start 05/20/19 at 11:00 Eye Lubricant (Artificial Tears Oph) 2 drop Q6H PRN BOTH EYES DRY EYES Last administered on 05/20/19at 16:39; Admin Dose 2 DROP; Start 05/20/19 at 16:00 Acetylcysteine (Mucomyst) 2 ml Q6H RESP THERAPY PRN NEB dynpea Last administered on 05/21/19at 11:37; Admin Dose 2 ML; Start 05/21/19 at 11:00 MYRNA RESENDEZ MD May 21, 2019 14:58
[2019-05-21] MEDS: ACETAMINOPHEN 650MG/20.3ML CUP PO PRN (15:51)
--- NOTE | 2019-05-21 18:12 | PN ---
DATE: 05/21/2019 SUBJECTIVE: Chart reviewed. The patient on 2 liter nasal cannula, saturating 97% and does not appea r in acute distress. PHYSICAL EXAMINATION: VITAL SIGNS: Blood pressure 139/76, pulse 113, respirations 20, temperature 98.6. HEENT: Pupils are equal and react to light. NECK: Supple, no JVD noted, no cervical adenopathy noted. LUNGS: Fair breath sounds bilaterally. A chest tube in place. EXTREMITIES: No clubbing or cyanosis noted. NEUROLOGICAL: Awake. No x-ray done today. IMPRESSION: 1. Left pneumothorax. 2. History of pulmonary fibrosis. 3. History of tuberculosis and bronchiectasis in the past. RECOMMENDATIONS: 1. Continue chest tube drainage. 2. Follow up chest x-ray. 3. No need for BiPAP at this time. 4. Chest tube removal as per cardiothoracic surgery when appropriate. Dictated By: ENDY YOUNGER MD, MA/NTS Conf#: [id number] DID#: [id number] CC: DEBORAH SONG MD; YESENIA SONG MD; MYRNA RESENDEZ MD;*End*
[2019-05-21] MEDS ORDERED: MAGNESIUM HYDROXIDE 30ML CUP PO ONE (21:30)
[2019-05-22] VITALS (13 sets, daily range): BP systolic 120–145; BP diastolic 69–84; PULSE 90–116; RESP 16–20
[2019-05-22] MEDS: ACETAMINOPHEN 650MG/20.3ML CUP PO PRN ×3 (00:12→20:15)
[2019-05-22] MEDS: FAMOTIDINE 20 MG TAB PO SCH (08:13)
[2019-05-22] MEDS: DICLOFENAC SODIUM 1% GEL 100 GM TUBE TP SCH ×5 (08:13→21:01)
[2019-05-22] MEDS: BACLOFEN 10 MG TAB PO SCH ×3 (08:13→20:16)
[2019-05-22] MEDS: FLUTICASONE/VILANTEROL 200-25 INH DEVICE INH SCH (08:13)
[2019-05-22] MEDS: TIOTROPIUM 18 MCG CAPSULE INHA DEV INH SCH (08:13)
[2019-05-22] MEDS: DOCUSATE SODIUM 100 MG CAP PO SCH ×2 (08:13→22:12)
[2019-05-22] MEDS: HYDROCODONE/APAP (5/325) TAB PO PRN (12:19)
--- NOTE | 2019-05-22 16:05 | CONS ---
Consult Date/Type/Reason Admit Date/Time May 19, 2019 at 00:02 Initial Consult Date 05/20/19 Type of Consult Pulmonary Date/Time of Note DATE: 05/22/19 TIME: 16:04 Subjective Patient comfortable this morning no respiratory distress. Objective Vital Signs Date Temp Pulse Resp B/P (MAP) Pulse Ox O2 O2 Flow FiO2 Time Delivery Rate 05/22/19 97.6 115 18 125/84 98 Nasal 2.0 15:33 (98) Cannula 05/21/19 96 11:38 Intake and Output 05/21/19 05/21/19 05/22/19 1515:00 23:00 07:00 IntakeIntake Total 650 ml 360 ml OutputOutput Total 1800 ml 750 ml BalanceBalance -1150 ml -390 ml Exam GENERAL: Well-nourished well-developed gentleman VITAL SIGNS: per chart NECK: Supple. No JVD or lymphadenopathy. CARDIAC EXAM: S1, S2. No added sounds or murmurs. CHEST: clear bilaterally, No added sounds, rales or wheezes ABDOMEN: Soft, nontender. No guarding or rebound. EXTREMITIES: No cyanosis, clubbing or edema. NEUROLOGIC: Generalized weakness. No focal deficits. Vent Setting Fraction of Inspired Oxygen pe: 96 Results/Medications Result Diagram: 05/20/19 0558 [birth year]20/1957 Medications Current Medications Ondansetron HCl (Zofran Inj) 4 mg Q6H PRN IV NAUSEA AND/OR VOMITING; Start 05/19/19 at 00:30 Albuterol/ Ipratropium (Duoneb) 3 ml Q2H RESP THERAPY PRN NEB SHORTNESS OF BREATH; Start 05/19/19 at 00:30 Acetaminophen (Tylenol Liquid) 650 mg Q6H PRN PO PAIN LEVEL 1-3 OR FEVER Last a dministered on 05/22/19at 07:48; Admin Dose 650 MG; Start 05/19/19 at 00:30 Acetaminophen/ Hydrocodone Bitart ([place] (5/325)) 1 tab Q6H PRN PO PAIN LEVEL 4-6 Last administered on 05/21/19at 09:05; Admin Dose 1 TAB; Start 05/19/19 at 00:30 Baclofen (Lioresal) 10 mg TID PO Last administered on 05/22/19at 12:16; Admin Dose 10 MG; Start 05/19/19 at 09:00 Docusate Sodium (Colace) 100 mg DAILY PO Last administered on 05/22/19 08:13; Admin Dose 100 MG; Start 05/19/19 at 09:00 Famotidine (Pepcid) 20 mg BID PO Last administered on 05/22/19 08:13; Admin Dose 20 MG; Start 05/19/19 at 09:00 Tiotropium [place] (Spiriva) 1 inh DAILY INH Last administered on 05/22/19 08:13; Admin Dose 1 INH; Start 05/19/19 at 09:00 Fluticasone/ Vilanterol (Breo Ellipta 200-25 Mcg Inh) 1 inh DAILY INH Last administered on 05/22/19 08:13; Admin Dose 1 INH; Start 05/20/19 at 09:00 Phenol (Cepastat Lozenge) 1 lozenge Q1H PRN MT SORE THROAT/COUGH Last administered on 05/21/19 13:24; Admin Dose 1 LOZENGE; Start 05/19/19 at 22:30 Acetaminophen/ Hydrocodone Bitart ([place] (5/325)) 2 tab Q6H PRN PO PAIN LEVEL 6-10 Last administered on 05/22/19 12:19; Admin Dose 2 TAB; Start 05/19/19 at 22:30 Diclofenac Sodium (Voltaren 1% Gel) 2 gm QID TP Last administered on 05/22/19 12:16; Admin Dose 2 GM; Start 05/20/19 at 03:30 Tramadol HCl (Ultram) 50 mg Q6H PRN PO MODERATE PAIN LEVEL 4-6 Last administered on 05/20/19 10:57; Admin Dose 50 MG; Start 05/20/19 at 10:30 Simethicone (Mylicon) 80 mg Q6H PRN PO DISTENSION/GAS/BLOATING Last administered on 05/22/19 10:58; Admin Dose 80 MG; Start 05/20/19 at 11:00 Eye Lubricant (Artificial Tears Oph) 2 drop Q6H PRN BOTH EYES DRY EYES Last administered on 05/20/19 16:39; Admin Dose 2 DROP; Start 05/20/19 at 16:00 Acetylcysteine (Mucomyst) 2 ml Q6H RESP THERAPY PRN NEB dynpea Last administered on 05/21/19at 11:37; Admin Dose 2 ML; Start 05/21/19 at 11:00 Assessment/Plan Hospital Course (Demo Recall) IMPRESSION: 1. Left pneumothorax.Status post chest tube placement. 2. History of pulmonary fibrosis. 3. History of tuberculosis and bronchiectasis in the past. RECOMMENDATIONS: 1. Continue chest tube drainage. Placed on waterseal and then clamped chest tube in a.m. 2. Follow up chest x-ray. 3. No need for BiPAP at this time. FISH BOWEN MD, [facility] May 22, 2019 16:05
[2019-05-22] MEDS ORDERED: METOPROLOL 5 MG INJ ONE (17:00)
--- NOTE | 2019-05-22 18:32 | PN ---
Date/Time of Note Date/Time of Note DATE: 05/22/19 TIME: 18:31 Assessment/Plan VTE Prophylaxis Risk score (from Ns)>0 risk: 5 SCD applied (from [facility]): Yes SCD contraindicated: low risk/ambulating Pharmacological prophylaxis: NA/contraindicated, LMWH Pharm contraindication: low risk/ambulating Lines/Catheters IV Catheter Type (from Nrs): Saline Lock Urinary Cath still in place: Yes Reason Cath still needed: urinary retention Assessment/Plan Hospital Course Assessment and plan 1. Pneumothorax stable continue chest tube therapy 2. Anemia 3. Pulmonary fibrosis 4. COPD? 5. History of disseminated tuberculosis Subjective: Some neck pain and sore throat. Objective: Vital signs stable mild sinus tachycardia Exam No pallor Regular no murmur of gallop Coarse breath sounds bilaterally chest tube intact Benign No edema Result Diagram: 05/20/19 0558 05/20/1957 Exam/Review of Systems Exam Vitals Vital Signs Date Temp Pulse Resp B/P (MAP) Pulse Ox O2 O2 Flow FiO2 Time Delivery Rate 05/22/19 97.6 115 18 125/84 98 Nasal 2.0 15:33 (98) Cannula 05/21/19 96 11:38 Intake and Output 05/21/19 05/21/19 05/22/19 1515:00 23:00 07:00 IntakeIntake Total 650 ml 360 ml OutputOutput Total 1800 ml 750 ml BalanceBalance -1150 ml -390 ml Medications Medication Current Medications Ondansetron HCl (Zofran Inj) 4 mg Q6H PRN IV NAUSEA AND/OR VOMITING; Start 05/19/19 at 00:30 Albuterol/ Ipratropium (Duoneb) 3 ml Q2H RESP THERAPY PRN NEB SHORTNESS OF MAURIZIO TH; Start 05/19/19 at 00:30 Acetaminophen (Tylenol Liquid) 650 mg Q6H PRN PO PAIN LEVEL 1-3 OR FEVER Last administered on 05/22/19at 07:48; Admin Dose 650 MG; Start 05/19/19 at 00:30 Acetaminophen/ Hydrocodone Bitart ([place] (5/325)) 1 tab Q6H PRN PO PAIN LEVEL 4-6 Last administered on 05/21/19at 09:05; Admin Dose 1 TAB; Start 05/19/19 at 00:30 Baclofen (Lioresal) 10 mg TID PO Last administered on 05/22/19 12:16; Admin Dose 10 MG; Start 05/19/19 at 09:00 Docusate Sodium (Colace) 100 mg DAILY PO Last administered on 05/22/19 08:13; Admin Dose 100 MG; Start 05/19/19 at 09:00 Famotidine (Pepcid) 20 mg BID PO Last administered on 05/22/19 08:13; Admin Dose 20 MG; Start 05/19/19 at 09:00 Tiotropium [place] (Spiriva) 1 inh DAILY INH Last administered on 05/22/19 08:13; Admin Dose 1 INH; Start 05/19/19 at 09:00 Fluticasone/ Vilanterol (Breo Ellipta 200-25 Mcg Inh) 1 inh DAILY INH Last a dministered on 05/22/19 08:13; Admin Dose 1 INH; Start 05/20/19 at 09:00 Phenol (Cepastat Lozenge) 1 lozenge Q1H PRN MT SORE THROAT/COUGH Last administered on 05/21/19 13:24; Admin Dose 1 LOZENGE; Start 05/19/19 at 22:30 Acetaminophen/ Hydrocodone Bitart ([place] (5/325)) 2 tab Q6H PRN PO PAIN LEVEL 6-10 Last administered on 05/22/19 12:19; Admin Dose 2 TAB; Start 05/19/19 at 22:30 Diclofenac Sodium (Voltaren 1% Gel) 2 gm QID TP Last administered on 05/22/19 12:16; Admin Dose 2 GM; Start 05/20/19 at 03:30 Tramadol HCl (Ultram) 50 mg Q6H PRN PO MODERATE PAIN LEVEL 4-6 Last administered on 05/20/19 10:57; Admin Dose 50 MG; Start 05/20/19 at 10:30 Simethicone (Mylicon) 80 mg Q6H PRN PO DISTENSION/GAS/BLOATING Last administered on 05/22/19 10:58; Admin Dose 80 MG; Start 05/20/19 at 11:00 Eye Lubricant (Artificial Tears Oph) 2 drop Q6H PRN BOTH EYES DRY EYES Last administered on 05/20/19 16:39; Admin Dose 2 DROP; Start 05/20/19 at 16:00 Acetylcysteine (Mucomyst) 2 ml Q6H RESP THERAPY PRN NEB dynpea Last administered on 05/21/19at 11:37; Admin Dose 2 ML; Start 05/21/19 at 11:00 SULTANA COFFEY MD May 22, 2019 18:32
[2019-05-22] MEDS: SOD CHLORIDE 0.9% 1,000 ML IV SCH (20:16)
[2019-05-22] MEDS: CYCLOBENZAPRINE 10 MG TAB PO PRN (21:13)
[2019-05-22] MEDS: POLYETHYLENE GLYCOL 17 GM PACKET PO SCH (22:00)
[2019-05-22] MEDS: AL HYDROX/MG HYDROX/SIMETH 30 ML CUP PO PRN (22:12)
[2019-05-23] VITALS (11 sets, daily range): BP systolic 118–134; BP diastolic 67–75; PULSE 83–119; RESP 18–20
[2019-05-23] MEDS: ACETAMINOPHEN 650MG/20.3ML CUP PO PRN (06:14)
[2019-05-23] MEDS: FAMOTIDINE 20 MG TAB PO SCH (08:36)
[2019-05-23] MEDS: DICLOFENAC SODIUM 1% GEL 100 GM TUBE TP SCH ×3 (08:36→16:13)
[2019-05-23] MEDS: DOCUSATE SODIUM 100 MG CAP PO SCH ×2 (08:36→21:00)
[2019-05-23] MEDS: POLYETHYLENE GLYCOL 17 GM PACKET PO SCH (08:36)
[2019-05-23] MEDS: BACLOFEN 10 MG TAB PO SCH ×2 (08:36→12:39)
[2019-05-23] MEDS: FLUTICASONE/VILANTEROL 200-25 INH DEVICE INH SCH (08:37)
[2019-05-23] MEDS: TIOTROPIUM 18 MCG CAPSULE INHA DEV INH SCH (08:37)
[2019-05-23] MEDS: CYCLOBENZAPRINE 10 MG TAB PO PRN (09:51)
[2019-05-23] MEDS: SOD CHLORIDE 0.9% 1,000 ML IV SCH (09:51)
--- NOTE | 2019-05-23 10:54 | PN ---
Date/Time of Note Date/Time of Note DATE: 05/23/19 TIME: 10:45 Assessment/Plan VTE Prophylaxis Risk score (from Nsg)>0 risk: 5 SCD applied (from Nsg): Yes Pharmacological prophylaxis: heparin Lines/Catheters IV Catheter Type (from Nrsg): Peripheral IV Urinary Cath still in place: Yes Reason Cath still needed: other (indicate) (monitor I&O) Assessment/Plan Hospital Course Assessment and plan 1. Acute respiratory failure secondary to left inferior lateral pneumothorax. Recent chest imaging appears to be improving. Will start on incentive spirometry. Continue with O2 and taper down. Senior C Software Developer following. 2. History of pulmonary fibrosis. Continue on O2 supplement. Pulmonary is following. Breathing treatments as needed. 3. History of TB/bronchiectasis. No active issue noted at this time. Monitor for now. 4. Anemia. Monitor CBC. Follow-up on iron profile. Disposition plan. Taper down O2. Chest imaging appears to be improving. Mo nitor for further clinical improvement. Discussed POC with Dr. Pelayo Result Diagram: 05/23/19 0635 05/23/19 0634 Results 24hrs Laboratory Tests Test 05/23/19 06:34 05/23/19 06:35 Sodium Level 143 Potassium Level 3.6 Chloride Level 95 L Carbon Dioxide Level 40 H Anion Gap 8 Blood Urea Nitrogen 12 Creatinine 0.45 L Est Glomerular Filtrat Rate mL/min > 60 Glucose Level 100 Calcium Level 9.4 Phosphorus Level 3.8 Magnesium Level 1.9 Thyroid Stimulating Hormone (TSH) 2.170 Free Thyroxine 1.44 Total Triiodothyronine 1.06 White Blood Count 5.8 # Red Blood Count 4.27 L Hemoglobin 12.1 L Hematocrit 38.1 L Mean Corpuscular Volume 89.2 Mean Corpuscular Hemoglobin 28.3 L Mean Corpuscular Hemoglobin Concent 31.8 L Red Cell Distribution Width 12.4 Platelet Count 200 # Mean Platelet Volume 11.4 H Immature Granulocytes % 0.300 Neutrophils % 59.8 Lymphocytes % 23.4 Monocytes % 11.0 Eosinophils % 5.2 Basophils % 0.3 Nucleated Red Blood Cells % 0.0 Immature Granulocytes # 0.020 Neutrophils # 3.5 Lymphocytes # 1.4 Monocytes # 0.6 Eosinophils # 0.3 Basophils # 0.0 Nucleated Red Blood Cells # 0.0 Subjective 24 Hr Interval Summary Free Text/Dictation reports pain left flank with inspiration. Exam/Review of Systems Exam Vitals Vital Signs Date Temp Pulse Resp B/P (MAP) Pulse Ox O2 O2 Flow FiO2 Time Delivery Rate 05/23/19 86 08:01 05/23/19 Nasal 3.0 08:00 Cannula 05/23/19 98.9 20 129/75 98 07:19 (93) 05/21/19 96 11:38 Intake and Output 05/22/19 05/22/19 05/23/19 1515:00 23:00 07:00 IntakeIntake Total 590 ml 400 ml 1100 ml OutputOutput Total 601 ml 300 ml 825 ml BalanceBalance -11 ml 100 ml 275 ml Constitutional: alert, oriented Psych: nl mood/affect Eyes: nl conjunctiva Neck: supple, non-tender Respiratory: other (coarse lung sounds right lung field. chest tube left side chest ) Gastrointestinal: soft, non-tender Musculoskeletal: nl extremities to inspection Neurological: JD EDWARDS II-XII intact, nl mental status, nl speech Results Results 24hrs Laboratory Tests Test 05/23/19 06:34 05/23/19 06:35 Sodium Level 143 Potassium Level 3.6 Chloride Level 95 L Carbon Dioxide Level 40 H Anion Gap 8 Blood Urea Nitrogen 12 Creatinine 0.45 L Est Glomerular Filtrat Rate mL/min > 60 Glucose Level 100 Calcium Level 9.4 Phosphorus Level 3.8 Magnesium Level 1.9 Thyroid Stimulating Hormone (TSH) 2.170 Free Thyroxine 1.44 Total Triiodothyronine 1.06 White Blood Count 5.8 # Red Blood Count 4.27 L Hemoglobin 12.1 L Hematocrit 38.1 L Mean Corpuscular Volume 89.2 Mean Corpuscular Hemoglobin 28.3 L Mean Corpuscular Hemoglobin Concent 31.8 L Red Cell Distribution Width 12.4 Platelet Count 200 # Mean Platelet Volume 11.4 H Immature Granulocytes % 0.300 Neutrophils % 59.8 Lymphocytes % 23.4 Monocytes % 11.0 Eosinophils % 5.2 Basophils % 0.3 Nucleated Red Blood Cells % 0.0 Immature Granulocytes # 0.020 Neutrophils # 3.5 Lymphocytes # 1.4 Monocytes # 0.6 Eosinophils # 0.3 Basophils # 0.0 Nucleated Red Blood Cells # 0.0 Medications Medication Current Medications Ondansetron HCl (Zofran Inj) 4 mg Q6H PRN IV NAUSEA AND/OR VOMITING; Start 05/19/19 at 00:30 Albuterol/ Ipratropium (Duoneb) 3 ml Q2H RESP THERAPY PRN NEB SHORTNESS OF BREATH; Start 05/19/19 at 00:30 Acetaminophen (Tylenol Liquid) 650 mg Q6H PRN PO PAIN LEVEL 1-3 OR FEVER Last administered on 05/23/19 06:14; Admin Dose 650 MG; Start 05/19/19 at 00:30 Baclofen (Lioresal) 10 mg TID PO Last administered on 05/23/19 08:36; Admin Dose 10 MG; Start 05/19/19 at 09:00 Tiotropium [place] (Spiriva) 1 inh DAILY INH Last administered on 05/23/19 08:37; Admin Dose 1 INH; Start 05/19/19 at 09:00 Fluticasone/ Vilanterol (Breo Ellipta 200-25 Mcg Inh) 1 inh DAILY INH Last administered on 05/23/19 08:37; Admin Dose 1 INH; Start 05/20/19 at 09:00 Phenol (Cepastat Lozenge) 1 lozenge Q1H PRN MT SORE THROAT/COUGH Last administered on 05/21/19 13:24; Admin Dose 1 LOZENGE; Start 05/19/19 at 22:30 Diclofenac Sodium (Voltaren 1% Gel) 2 gm QID TP Last administered on 05/23/19 08:36; Admin Dose 2 GM; Start 05/20/19 at 03:30 Tramadol HCl (Ultram) 50 mg Q6H PRN PO MODERATE PAIN LEVEL 4-6 Last administered on 05/20/19 10:57; Admin Dose 50 MG; Start 05/20/19 at 10:30 Simethicone (Mylicon) 80 mg Q6H PRN PO DISTENSION/GAS/BLOATING Last administered on 05/23/19 09:51; Admin Dose 80 MG; Start 05/20/19 at 11:00 Eye Lubricant (Artificial Tears Oph) 2 drop Q6H PRN BOTH EYES DRY EYES Last administered on 05/20/19 16:39; Admin Dose 2 DROP; Start 05/20/19 at 16:00 Acetylcysteine (Mucomyst) 2 ml Q6H RESP THERAPY PRN NEB dynpea Last administered on 05/21/19 11:37; Admin Dose 2 ML; Start 05/21/19 at 11:00 Famotidine (Pepcid) 20 mg DAILY PO Last administered on 05/23/19 08:36; Admin Dose 20 MG; Start 05/23/19 at 09:00 Acetaminophen/ Hydrocodone Bitart ([place] (10/325)) 1 tab Q4H PRN PO MODERATE PAIN LEVEL 4-6; Start 05/22/19 at 19:00 Phenol (Chloraseptic Throat [place]) 2 spray Q2H PRN MT SORE THROAT; Start 05/22/19 at 19:00 Sodium Chloride 1,000 ml @ 75 mls/hr [id number] IV Last administered on 05/23/19 09:51; Admin Dose 75 MLS/HR; Start 05/22/19 at 19:00 Cyclobenzaprine HCl (Flexeril) 5 mg BID PRN PO MUSCLE SPASMS Last administered on 05/23/19 09:51; Admin Dose 5 MG; Start 05/22/19 at 20:30 Docusate Sodium (Colace) 200 mg BID PO Last administered on 05/23/19 08:36; Admin Dose 200 MG; Start 05/22/19 at 21:30 Polyethylene Glycol (Miralax) 17 gm DAILY PO Last administered on 05/23/19 08:36; Admin Dose 17 GM; Start 05/22/19 at 22:00 Al Hydrox/Mg Hydrox/Simethicone (Mag-Al Plus) 30 ml Q6H PRN PO GASTROINTESTINAL UPSET Last administered on 05/22/19 22:12; Admin Dose 30 ML; Start 05/22/19 at 22:00 ALEJANDRO LUNA NP May 23, 2019 10:54
[2019-05-23] MEDS: HEPARIN 5,000 UNIT/1 ML VIAL SC SCH (11:00)
[2019-05-23] MEDS: HYDROCODONE/APAP (10/325) TAB PO PRN (11:03)
[2019-05-23] MEDS: AL HYDROX/MG HYDROX/SIMETH 30 ML CUP PO PRN (12:45)
--- NOTE | 2019-05-23 15:46 | CONS ---
Consult Date/Type/Reason Admit Date/Time May 19, 2019 at 00:02 Initial Consult Date 05/20/19 Type of Consult Pulmonary Date/Time of Note DATE: 05/23/19 TIME: 15:46 Subjective Patient stable this morning. Chest x-ray this morning with chest tube clamped shows 1% pneumothorax. Objective Vital Signs Date Temp Pulse Resp B/P (MAP) Pulse Ox O2 O2 Flow FiO2 Time Delivery Rate 05/23/19 98.6 119 20 131/72 94 Nasal 15:11 (91) Cannula 05/23/19 3.0 08:00 05/21/19 96 11:38 Intake and Output 05/22/19 05/22/19 05/23/19 1515:00 23:00 07:00 IntakeIntake Total 590 ml 400 ml 1100 ml OutputOutput Total 601 ml 300 ml 825 ml BalanceBalance -11 ml 100 ml 275 ml Exam GENERAL: VITAL SIGNS: per chart NECK: Supple. No JVD or lymphadenopathy. CARDIAC EXAM: S1, S2. No added sounds or murmurs. CHEST: clear bilaterally, No added sounds, rales or wheezes ABDOMEN: Soft, nontender. No guarding or rebound. EXTREMITIES: No cyanosis, clubbing or edema. NEUROLOGIC: Generalized weakness. No focal deficits. Vent Setting Fraction of Inspired Oxygen pe: 96 Results/Medications Result Diagram: 05/23/19 0635 05/23/19 0634 Results 24 hrs Laboratory Tests Test 05/23/19 06:34 05/23/19 06:35 Sodium Level 143 Potassium Level 3.6 Chloride Level 95 L Carbon Dioxide Level 40 H Anion Gap 8 Blood Urea Nitrogen 12 Creatinine 0.45 L Est Glomerular Filtrat Rate mL/min > 60 Glucose Level 100 Calcium Level 9.4 Phosphorus Level 3.8 Magnesium Level 1.9 Thyroid Stimulating Hormone (TSH) 2.170 Free Thyroxine 1.44 Total Triiodothyronine 1.06 White Blood Count 5.8 # Red Blood Count 4.27 L Hemoglobin 12.1 L Hematocrit 38.1 L Mean Corpuscular Volume 89.2 Mean Corpuscular Hemoglobin 28.3 L Mean Corpuscular Hemoglobin Concent 31.8 L Red Cell Distribution Width 12.4 Platelet Count 200 # Mean Platelet Volume 11.4 H Immature Granulocytes % 0.300 Neutrophils % 59.8 Lymphocytes % 23.4 Monocytes % 11.0 Eosinophils % 5.2 Basophils % 0.3 Nucleated Red Blood Cells % 0.0 Immature Granulocytes # 0.020 Neutrophils # 3.5 Lymphocytes # 1.4 Monocytes # 0.6 Eosinophils # 0.3 Basophils # 0.0 Nucleated Red Blood Cells # 0.0 Medications Current Medications Ondansetron HCl (Zofran Inj) 4 mg Q6H PRN IV NAUSEA AND/OR VOMITING; Start 05/19/19 at 00:30 Albuterol/ Ipratropium (Duoneb) 3 ml Q2H RESP THERAPY PRN NEB SHORTNESS OF BREATH; Start 05/19/19 at 00:30 Acetaminophen (Tylenol Liquid) 650 mg Q6H PRN PO PAIN LEVEL 1-3 OR FEVER Last administered on 05/23/19 06:14; Admin Dose 650 MG; Start 05/19/19 at 00:30 Baclofen (Lioresal) 10 mg TID PO Last administered on 05/23/19 12:39; Admin Dose 10 MG; Start 05/19/19 at 09:00 Tiotropium [place] (Spiriva) 1 inh DAILY INH Last administered on 05/23/19 08:37; Admin Dose 1 INH; Start 05/19/19 at 09:00 Fluticasone/ Vilanterol (Breo Ellipta 200-25 Mcg Inh) 1 inh DAILY INH Last administered on 05/23/19 08:37; Admin Dose 1 INH; Start 05/20/19 at 09:00 Phenol (Cepastat Lozenge) 1 lozenge Q1H PRN MT SORE THROAT/COUGH Last adm inistered on 05/21/19 13:24; Admin Dose 1 LOZENGE; Start 05/19/19 at 22:30 Diclofenac Sodium (Voltaren 1% Gel) 2 gm QID TP Last administered on 05/23/19 12:39; Admin Dose 2 GM; Start 05/20/19 at 03:30 Tramadol HCl (Ultram) 50 mg Q6H PRN PO MODERATE PAIN LEVEL 4-6 Last administered on 05/20/19 10:57; Admin Dose 50 MG; Start 05/20/19 at 10:30 Simethicone (Mylicon) 80 mg Q6H PRN PO DISTENSION/GAS/BLOATING Last administered on 05/23/19 09:51; Admin Dose 80 MG; Start 05/20/19 at 11:00 Eye Lubricant (Artificial Tears Oph) 2 drop Q6H PRN BOTH EYES DRY EYES Last administered on 05/20/19 16:39; Admin Dose 2 DROP; Start 05/20/19 at 16:00 Acetylcysteine (Mucomyst) 2 ml Q6H RESP THERAPY PRN NEB dynpea Last administered on 05/21/19 11:37; Admin Dose 2 ML; Start 05/21/19 at 11:00 Famotidine (Pepcid) 20 mg DAILY PO Last administered on 05/23/19 08:36; Admin Dose 20 MG; Start 05/23/19 at 09:00 Acetaminophen/ Hydrocodone Bitart ([place] (10325)) 1 tab Q4H PRN PO MODERATE PAIN LEVEL 4-6 Last administered on 05/23/19 11:03; Admin Dose 1 TAB; Start 05/22/19 at 19:00 Phenol (Chloraseptic Throat [place]) 2 spray Q2H PRN MT SORE THROAT; Start 05/22/19 at 19:00 Sodium Chloride 1,000 ml @ 75 mls/hr [id number] IV Last administered on 05/23/19 09:51; Admin Dose 75 MLS/HR; Start 05/22/19 at 19:00 Cyclobenzaprine HCl (Flexeril) 5 mg BID PRN PO MUSCLE SPASMS Last administered on 05/23/19 09:51; Admin Dose 5 MG; Start 05/22/19 at 20:30 Docusate Sodium (Colace) 200 mg BID PO Last administered on 05/23/19 08:36; Admin Dose 200 MG; Start 05/22/19 at 21:30 Polyethylene Glycol (Miralax) 17 gm DAILY PO Last administered on 05/23/19 08:36; Admin Dose 17 GM; Start 05/22/19 at 22:00 Al Hydrox/Mg Hydrox/Simethicone (Mag-Al Plus) 30 ml Q6H PRN PO GASTROINTESTINAL UPSET Last administered on 05/23/19 12:45; Admin Dose 30 ML; Start 05/22/19 at 22:00 Heparin Sodium (Porcine) (Heparin (5000 Units/1ml)) 5,000 unit BID SC Last administered on 05/23/19 11:00; Admin Dose 5,000 UNIT; Start 05/23/19 at 11:00 Assessment/Plan Hospital Course (Demo Recall) IMPRESSION: 1. Left pneumothorax.Status post chest tube placement. 2. History of pulmonary fibrosis. 3. History of tuberculosis and bronchiectasis in the past. RECOMMENDATIONS: 1. Continue chest tube drainage. Continue chest tube clamped with repeat chest x-ray tomorrow morning if no change will remove chest tube per thoracic surgery. 2. Follow up chest x-ray. FISH BOWEN MD, [facility] May 23, 2019 15:46
--- NOTE | 2019-05-23 20:57 | PN ---
Date/Time of Note Date/Time of Note DATE: 05/23/19 TIME: 20:56 Assessment/Plan Lines/Catheters IV Catheter Type (from Nrsg): Peripheral IV Veloz in Place (from Nrsg): Yes Assessment/Plan Assessment/Plan That is post left-sided chest tube placement Pneumothorax mostly resolved DC chest tube suction Subjective 24 Hr Interval Summary Constitutional: improved Pain Control: mild Exam/Review of Systems Vital Signs Vitals Vital Signs Date Temp Pulse Resp B/P (MAP) Pulse Ox O2 O2 Flow FiO2 Time Delivery Rate 05/23/19 97.7 113 20 134/74 98 Nasal 19:19 (94) Cannula 05/23/19 3.0 17:54 05/21/19 96 11:38 Intake and Output 05/22/19 05/22/19 05/23/19 1515:00 23:00 07:00 IntakeIntake Total 590 ml 400 ml 1100 ml OutputOutput Total 601 ml 300 ml 825 ml BalanceBalance -11 ml 100 ml 275 ml Exam Eyes: nl conjunctiva, EOMI, nl lids, nl sclera ENMT: nl external ears & nose, nl lips & teeth, nl nasal mucosa & septum, mucosa pink and moist Neck: supple, non-tender Respiratory: clear to auscultation, normal air movement Cardiovascular: regular rate and rhythm, nl pulses Gastrointestinal: soft, nl liver, spleen, non-tender Musculoskeletal: nl extremities to inspection, nl gait and stance Results Result Diagram: 05/23/19 0635 05/23/19 0634 DEBORAH SONG MD May 23, 2019 20:57
[2019-05-23] MEDS ORDERED: LABETALOL HCL 20MG INJ IV ONE (21:30)
--- NOTE | 2019-05-23 21:39 | QN ---
Documentation Comment The patient had a chest x-ray this morning with the chest tube clamped which showed very tiny pneumothorax again this was with the chest tube clamped I instructed the patient to take a deep Valsalva hold his breath I applied Vaseline gauze with a tape and quickly remove the chest tube The patient had shortness of breath and chest pain chest x-ray was done which showed localized left-sided pneumothorax with no mediastinal shift I evaluated the patient he appeared to be very hypertensive with blood pressure about 200 and tachycardic with a heart rate of about 1 3140s at this time I inserted the chest tube back in no significant gush of air came out however the chest tube is functioning well the patient is has also received beta-roe and his blood pressure is normalizing his heart rate is normalizing and he is responding to command he is moving all extremities to command and is alert and oriented we will continue chest tube suction repeat the chest x-ray DEBORAH SONG MD May 23, 2019 21:39
--- NOTE | 2019-05-23 21:49 | EN ---
Date/Time of Note Date/Time of Note DATE: 05/23/19 TIME: 21:45 Event Note Medicine Medicine Event Note RIGGING ENGINEER note RIGGING ENGINEER called at approximately 9:15 PM RIGGING ENGINEER was called this patient was noted to be in respiratory distress and altered mental status Patient seen and examined at the bedside. Patient was noticed to be minimally responsive with his eyes open. He looked to be in respiratory distress. His vitals showed a heart rate of 140 with a blood pressure of 200/110 SPO2 was 65% on nonrebreather. Patient had diminished breath sounds over the left lung. Prior to rapid response being called he had a left chest tube removed. Patient's pressure dressing on the left chest tube was removed while waiting for stat chest x-ray. I spoke with over the phone and he returned immediately to the patient's room and reinserted a left-sided chest tube. Patient's symptoms did improve after receiving the chest tube. He did remain in sinus tachycardic at approximately 140 bpm and a Lopressor 5 mg IV x1 was given. Vitals: As above, improved blood pressure and oxygenation once chest tube was inserted. General: Patient initially was minimally responsive, once the chest tube was reinserted, patient was conversing and was able to move all 4 extremities. CVS: Sinus tachycardia Lungs: Diminished breath sounds on the left side Neuro: Awake but minimally responsive initially, improved mentation and was able to converse once chest tube was inserted. Assessment and plan: #1 acute respiratory distress: Stat chest x-ray showed left-sided pneumothorax. Chest tube was reinserted by the CT surgeon. Patient's oxygenation and overall condition improved. Stat ABG showed a pH of 7.10/CO2 of 124/PO2 385/bicarb 38. Patient will be taken down to the ICU. Patient will be placed on telemetry monitoring. Repeat ABG in 1 hour, will try vapotherm or bipap if needed as confirmed by dr. hernandez. #2 acute encephalopathy: Likely multifactorial secondary to hypoxemic/hypercapnic respiratory failure, pneumothorax. Chest tube has been inserted. Will place patient on vapotherm/ BiPAP. Repeat ABG in 1 hour. Greater than 35 minutes critical care time was spent on the care management this patient. HARSHAL ANSARI May 23, 2019 21:49
[2019-05-23] MEDS ORDERED: METOPROLOL 5 MG INJ IV ONE ×2 (22:00)
[2019-05-23] MEDS ORDERED: KETOROLAC 30 MG INJ IV STA (22:12)
[2019-05-23] MEDS ORDERED: NITROGLYCERIN (SL) 0.4 MG TAB SL PRN (22:30)
[2019-05-24] VITALS (17 sets, daily range): BP systolic 104–130; BP diastolic 50–88; PULSE 84–123; RESP 16–20
[2019-05-24] MEDS: BACLOFEN 10 MG TAB PO SCH ×4 (00:09→22:16)
[2019-05-24] MEDS: DICLOFENAC SODIUM 1% GEL 100 GM TUBE TP SCH ×5 (00:09→21:00)
[2019-05-24] MEDS: SOD CHLORIDE 0.9% 1,000 ML IV SCH ×2 (00:10→03:47)
[2019-05-24] MEDS: HEPARIN 5,000 UNIT/1 ML VIAL SC SCH ×2 (00:27→08:44)
[2019-05-24] MEDS: ACETAMINOPHEN 650MG/20.3ML CUP PO PRN ×2 (01:28→08:07)
[2019-05-24] MEDS: CYCLOBENZAPRINE 10 MG TAB PO PRN (01:28)
[2019-05-24] MEDS: POLYETHYLENE GLYCOL 17 GM PACKET PO SCH (08:06)
[2019-05-24] MEDS: DOCUSATE SODIUM 100 MG CAP PO SCH ×2 (08:07→22:15)
[2019-05-24] MEDS: FAMOTIDINE 20 MG TAB PO SCH (08:07)
[2019-05-24] MEDS: TIOTROPIUM 18 MCG CAPSULE INHA DEV INH SCH (08:08)
[2019-05-24] MEDS: FLUTICASONE/VILANTEROL 200-25 INH DEVICE INH SCH (08:08)
[2019-05-24] MEDS: HYDROCODONE/APAP (10/325) TAB PO PRN ×2 (09:42→16:05)
--- NOTE | 2019-05-24 09:43 | RADRPT ---
Echocardiogram Report Patient Name: Davion BUCK ID: [id number] : [id number] (53y 6m)Study Date: 05/24/2019 7:44:19 AM Gender: MAccession #: [id number] Tech: Robbie Jamil RDCS Location: [id number] Ref.Physician: HARSHAL ANSARI Height(Cm): BSA: Weight(Kg): Quality: Technically Difficult StudyOrder Physician: HARSHAL ANSARI Account #: Procedures: Echocardiographic Report: Transthoracic echocardiogram with complete 2D, M-Mode, and doppler examination. Indications: Elevated troponin. Measurements: 2D/M Mode Doppler Measurement Value Normal Range Measurement Value Normal Range LVIDd 2D 3.2 [ 4.2 - 5.8 ] cm AV Peak Chung 1.1 [ 100.0 - 170.0 ] cm/sec LVIDs 2D 2.4 [ 2.5 - 4.0 ] cm AV Peak PG 4.0 [ 2.0 - 9.0 ] mmHg LVPWd 2D 0.8 [ 0.6 - 1.0 ] cm LVOT Peak Chung 0.8 [ 70.0 - 110.0 ] cm/sec IVSd 2D 0.9 [ 0.6 - 1.0 ] cm LVOT Peak PG 3.0 [ 2.0 - 6.0 ] mmHg IVS/LVPW 2D 1.1 ratio MV E Peak Chugn 0.6 [ 60.0 - 130.0 ] cm/sec AoR Diam 2D 3.2 [ 2.6 - 3.4 ] cm MV A Peak Chung 0.8 [ 100.0 - 120.0 ] cm/sec LA/Ao 2D 1 ratio MV E/A 0.7 [ 0.8 - 1.5 ] ratio LA Dimen 2D 2.1 [ 3.0 - 4.0 ] cm MV Decel Time 102 [ 104 - 258 ] msec Lat E` Chung 0.1 [ 10.0 - 15.0 ] cm/sec MV E/A 0.7 [ 0.8 - 1.5 ] ratio TR Peak Chung 2.8 [ 100.0 - 280.0 ] cm/sec TR Peak PG 31.0 mmHg RVSP 34.0 [ 10.0 - 36.0 ] mmHg RA Pressure 3.0 mmHg Findings: Left Ventricle: Normal left ventricular cavity size. Normal left ventricular wall thickness. Mild left ventricular systolic dysfunction. Ejection fraction is visually estimated at 40 %. Tissue Doppler/Mitral Doppler indices are consistent with impaired relaxation (Stage I diastolic dysfunction). Poor views but overall there appears to be hypokinesis/akinesis of the mid to distal inferolateral wall and in limited views, the apex. Right Ventricle: Normal right ventricular size. Normal right ventricular systolic function. Left Atrium: The left atrium is normal in size. Right Atrium: The right atrium is normal in size. Mitral Valve: Normal appearance and function of the mitral valve with trace physiologic regurgitation. Aortic Valve: Normal appearance of the aortic valve. No significant aortic stenosis or insufficiency. Tricuspid Valve: Normal appearance of the tricuspid valve. The estimated Peak RVSP is 34 mmHg. There is trace to mild tricuspid regurgitation. Pulmonic Valve: Pulmonic valve not well visualized. Pericardium: Normal pericardium with no significant pericardial effusion. Aorta: Not well visualized. IVC: Normal size and normal respiratory collapse consistent with normal right atrial pressure. Conclusions: Normal left ventricular cavity size. Normal left ventricular wall thickness. Mild left ventricular systolic dysfunction. Ejection fraction is visually estimated at 40 %. Tissue Doppler/Mitral Doppler indices are consistent with impaired relaxation (Stage I diastolic dysfunction). Poor views but overall there appears to be hypokinesis/akinesis of the mid to distal inferolateral wall and in limited views, the apex. No significant valvular stenosis or regurgitation seen. The estimated Peak RVSP is 34 mmHg. Normal size and normal respiratory collapse consistent with normal right atrial pressure. Electronically Signed By: Epi Roth 2019-05-24 09:42:09 PDT
--- NOTE | 2019-05-24 09:44 | CONS ---
Consultation Date/Type/Reason Admit Date/Time May 19, 2019 at 00:02 Type of Consult Cardiology Date/Time of Note DATE: 05/24/19 TIME: 09:44 Past Medical History Home Meds Active Scripts Famotidine* (Pepcid*) 20 Mg Tablet, 20 MG PO BID for 7 Days, TAB Prov:ROSY ENGLE MD 09/25/18 Reported Medications Mirtazapine* (Remeron*) 15 Mg Tablet, 15 MG PO HS, TAB 05/20/19 Nortriptyline Hcl* (Nortriptyline Hcl*) 25 Mg Capsule, 25 MG PO HS, CAP 05/20/19 Calcium Citrate/Vitamin D (Citracal-Vitamin D 200 MG-250) 1 Each Tablet, 1 EACH PO BID, TAB 09/25/18 Docusate Sodium* (Dok*) 100 Mg Tablet, 100 MG PO DAILY, #30 CAP 09/25/18 Albuterol Sulfate* (Ventolin HFA*) 18 Gm Hfa.aer.ad, 2 PUFF INHALATION Q4H, #1 INHALER 09/25/18 Baclofen* (Baclofen*) 10 Mg Tablet, 10 MG PO TID, TAB 09/25/18 Celecoxib* (Celebrex*) 200 Mg Capsule, 200 MG PO BID, CAP 09/25/18 Tiotropium [place]* (Spiriva*) 18 Mcg Cap.w.dev, 1 CAP INHALATION DAILY, #30 CAP 09/25/18 Rivaroxaban* (Xarelto*) 20 Mg Tablet, 20 MG PO WITH DINNER, TAB 09/25/18 Mometasone-Formoterol (Dulera) 200-5 Mcg/Inh - 13 Gm Hfa.aer.ad, 2 PUFFS INHALATION BID, #1 INHALER 09/25/18 Medications Current Medications Ondansetron HCl (Zofran Inj) 4 mg Q6H PRN IV NAUSEA AND/OR VOMITING; Start 05/19/19 at 00:30 Albuterol/ Ipratropium (Duoneb) 3 ml Q2H RESP THERAPY PRN NEB SHORTNESS OF BREATH; Start 05/19/19 at 00:30 Acetaminophen (Tylenol Liquid) 650 mg Q6H PRN PO PAIN LEVEL 1-3 OR FEVER Last administered on 05/24/19at 08:07; Admin Dose 650 MG; Start 05/19/19 at 00:30 Baclofen (Lioresal) 10 mg TID PO Last administered on 05/24/19 08:07; Admin Dose 10 MG; Start 05/19/19 at 09:00 Tiotropium [place] (Spiriva) 1 inh DAILY INH Last administered on 05/24/19 08:08; Admin Dose 1 INH; Start 05/19/19 at 09:00 Fluticasone/ Vilanterol (Breo Ellipta 200-25 Mcg Inh) 1 inh DAILY INH Last administered on 05/24/19 08:08; Admin Dose 1 INH; Start 05/20/19 at 09:00 Phenol (Cepastat Lozenge) 1 lozenge Q1H PRN MT SORE THROAT/COUGH Last administered on 05/21/19 13:24; Admin Dose 1 LOZENGE; Start 05/19/19 at 22:30 Diclofenac Sodium (Voltaren 1% Gel) 2 gm QID TP Last administered on 05/24/19 08:07; Admin Dose 2 GM; Start 05/20/19 at 03:30 Tramadol HCl (Ultram) 50 mg Q6H PRN PO MODERATE PAIN LEVEL 4-6 Last administered on 05/20/19 10:57; Admin Dose 50 MG; Start 05/20/19 at 10:30 Simethicone (Mylicon) 80 mg Q6H PRN PO DISTENSION/GAS/BLOATING Last administered on 05/24/19 01:28; Admin Dose 80 MG; Start 05/20/19 at 11:00 Eye Lubricant (Artificial Tears Oph) 2 drop Q6H PRN BOTH EYES DRY EYES Last administered on 05/20/19 16:39; Admin Dose 2 DROP; Start 05/20/19 at 16:00 Acetylcysteine (Mucomyst) 2 ml Q6H RESP THERAPY PRN NEB dynpea Last administered on 05/21/19 11:37; Admin Dose 2 ML; Start 05/21/19 at 11:00 Famotidine (Pepcid) 20 mg DAILY PO Last administered on 05/24/19 08:07; Admin Dose 20 MG; Start 05/23/19 at 09:00 Acetaminophen/ Hydrocodone Bitart ([place] (10/325)) 1 tab Q4H PRN PO MODERATE PAIN LEVEL 4-6 Last administered on 05/23/19 11:03; Admin Dose 1 TAB; Start 05/22/19 at 19:00 Phenol (Chloraseptic Throat [place]) 2 spray Q2H PRN MT SORE THROAT; Start 05/22/19 at 19:00 Sodium Chloride 1,000 ml @ 75 mls/hr [id number] IV Last administered on 05/24/19at 03:47; Admin Dose 75 MLS/HR; Start 05/22/19 at 19:00 Cyclobenzaprine HCl (Flexeril) 5 mg BID PRN PO MUSCLE SPASMS Last administered on 05/24/19 01:28; Admin Dose 5 MG; Start 05/22/19 at 20:30 Docusate Sodium (Colace) 200 mg BID PO Last administered on 05/24/19 08:07; Admin Dose 200 MG; Start 05/22/19 at 21:30 Polyethylene Glycol (Miralax) 17 gm DAILY PO Last administered on 05/23/19 08:36; Admin Dose 17 GM; Start 05/22/19 at 22:00 Al Hydrox/Mg Hydrox/Simethicone (Mag-Al Plus) 30 ml Q6H PRN PO GASTROINTESTINAL UPSET Last administered on 05/23/19at 12:45; Admin Dose 30 ML; Start 05/22/19 at 22:00 Heparin Sodium (Porcine) (Heparin (5000 Units/1ml)) 5,000 unit BID SC Last administered on 05/24/19at 08:44; Admin Dose 5,000 UNIT; Start 05/23/19 at 11:00 Nitroglycerin (Nitroglycerin (Sl Tab) 0.4 Mg) 1 tab Q5M PRN SL ANGINA; Start 05/23/19 at 22:30 Morphine Sulfate (morphine) 2 mg Q4H PRN IV SEVERE PAIN LEVEL 7-10; Start 05/24/19 at 02:00 Allergies: Coded Allergies: No Known Drug Allergies (Verified Allergy, Mild, 09/25/18) Past Surgical History Past Surgical Hx: other (See HPI) Social History Alcohol Use: none Smoking Status: Never smoker Drug Use: none Exam/Review of Systems Vital Signs Vitals Vital Signs Date Temp Pulse Resp B/P (MAP) Pulse Ox O2 O2 Flow FiO2 Time Delivery Rate 05/24/19 98.9 103 20 108/65 96 High Flow 08:00 (79) 6/26/19 35 05:50 05/23/19 15.0 21:30 Intake and Output 05/23/19 05/23/19 05/24/19 1515:00 23:00 07:00 IntakeIntake Total 1000 ml 1475 ml 1300 ml OutputOutput Total 951 ml 200 ml 1350 ml BalanceBalance 49 ml 1275 ml -50 ml Labs Result Diagram: 05/23/19 2146 05/23/19 2144 Results 24hrs Laboratory Tests Test 05/23/19 21:16 05/23/19 21:36 05/23/19 21:44 05/23/19 21:46 Bedside Glucose 146 Blood Gas Blood arterial Specimen Source Arterial Blood 05/23/2019 9:35: Date Drawn 34 PM Arterial Blood 7.104 *L pH (Temp corrected ) Arterial Blood 124.9 *H pCO2 (Temp correct) Arterial Blood 385.0 H pO2 (Temp corrected ) Arterial Blood 38.3 H HCO3 Arterial Blood 4.4 H Base Excess Arterial Blood 99.7 H Oxygen Saturati on Ilya Test ACCEPTAB Arterial Blood Right Radial Gas Puncture Site Arterial 0.2 Blood Carboxyhe moglobin Arterial Blood 0.3 Methemoglobin Blood Gas A-a 203.1 H O2 Differential Oxyhemoglobin 99.2 H Percent Blood Gas 37.0 Temperature Blood Gas MASK - NRB Modality FiO2 100.0 Blood Gas Dariana ANSARI MD Critical Value Read Back Blood Gas MR Notified Whom Blood Gas 05/23/2019 9:40: Notified Time 51 PM Sodium Level 139 Potassium Level 4.1 Chloride Level 93 L Carbon Dioxide 40 H Level Anion Gap 6 Blood Urea 16 Nitrogen Creatinine 0.67 Est Glomerular > 60 Filtrat Rate mL/min Glucose Level 191 Calcium Level 8.8 Creatine Kinase 45 Creatine Kinase 3.2 Index Creatinine 1.44 Kinase MB (Mass) Troponin I < 0.012 White Blood 9.7 # Count Red Blood Count 4.28 L Hemoglobin 12.4 L Hematocrit 39.7 L Mean 92.8 Corpuscular Volume Mean 29.0 Corpuscular Hemoglobin Mean 31.2 L Corpuscular Hemoglobin Conc ent Red Cell 12.6 Distribution Width Platelet Count 235 Mean Platelet 11.5 H Volume Immature 0.200 Granulocytes % Neutrophils % 45.8 Lymphocytes % 44.8 Monocytes % 6.0 Eosinophils % 2.8 Basophils % 0.4 Nucleated Red 0.0 Blood Cells % Immature 0.020 Granulocytes # Neutrophils # 4.5 Lymphocytes # 4.4 H Monocytes # 0.6 Eosinophils # 0.3 Basophils # 0.0 Nucleated Red 0.0 Blood Cells # Prothrombin 13.7 Time Prothrombin 1.1 Time Ratio INR 1.04 International Normalized Rati o Activated 28.2 Partial Thrombo plast Time Test 05/23/19 23:00 05/24/19 00:31 05/24/19 05:51 05/24/19 07:00 Blood Gas Blood arterial Blood Specimen arterial Source Arterial Blood 05/24/2019 12:40 05/24/2019 7:30 Date Drawn :21 AM :28 AM Arterial Blood 7.306 L 7.360 pH (Temp corrected ) Arterial Blood 78.2 H 68.6 H pCO2 (Temp correct) Arterial Blood 427.4 H 92.9 pO2 (Temp corrected ) Arterial Blood 38.1 H 37.9 H HCO3 Arterial Blood 8.9 H 10.0 H Base Excess Arterial Blood 99.6 H 96.8 Oxygen Saturati on Ilya Test ACCEPTAB ACCEPTAB Arterial Blood Right Radial Left Radial Gas Puncture Site Arterial 0.3 0.2 Blood Carboxyhe moglobin Arterial Blood 0.3 0.1 Methemoglobin Blood Gas A-a 207.4 H 76.9 H O2 Differential Oxyhemoglobin 99.0 96.5 Percent Blood Gas 37.0 37.0 Temperature Blood Gas 24 Actual Respiration Rat e Blood Gas HFNC HFNC Modality FiO2 100.0 35.0 Blood Gas MG TM Notified Whom Blood Gas 05/24/2019 12:49 05/24/2019 7:47 Notified Time :59 AM :04 AM Creatine Kinase 83 102 Creatine Kinase 3.4 5.0 Index Creatinine 2.80 H 5.11 H Kinase MB (Mass) Troponin I 0.212 *H 0.556 *H Medications Medications Current Medications Ondansetron HCl (Zofran Inj) 4 mg Q6H PRN IV NAUSEA AND/OR VOMITING; Start 05/19/19 at 00:30 Albuterol/ Ipratropium (Duoneb) 3 ml Q2H RESP THERAPY PRN NEB SHORTNESS OF BREATH; Start 05/19/19 at 00:30 Acetaminophen (Tylenol Liquid) 650 mg Q6H PRN PO PAIN LEVEL 1-3 OR FEVER Last administered on 6/26/19at 08:07; Admin Dose 650 MG; Start 05/19/19 at 00:30 Baclofen (Lioresal) 10 mg TID PO Last administered on 05/24/19 08:07; Admin Dose 10 MG; Start 05/19/19 at 09:00 Tiotropium [place] (Spiriva) 1 inh DAILY INH Last administered on 05/24/19 08:08; Admin Dose 1 INH; Start 05/19/19 at 09:00 Fluticasone/ Vilanterol (Breo Ellipta 200-25 Mcg Inh) 1 inh DAILY INH Last administered on 05/24/19 08:08; Admin Dose 1 INH; Start 05/20/19 at 09:00 Phenol (Cepastat Lozenge) 1 lozenge Q1H PRN MT SORE THROAT/COUGH Last administered on 05/21/19 13:24; Admin Dose 1 LOZENGE; Start 05/19/19 at 22:30 Diclofenac Sodium (Voltaren 1% Gel) 2 gm QID TP Last administered on 05/24/19 08:07; Admin Dose 2 GM; Start 05/20/19 at 03:30 Tramadol HCl (Ultram) 50 mg Q6H PRN PO MODERATE PAIN LEVEL 4-6 Last administered on 05/20/19 10:57; Admin Dose 50 MG; Start 05/20/19 at 10:30 Simethicone (Mylicon) 80 mg Q6H PRN PO DISTENSION/GAS/BLOATING Last administered on 05/24/19 01:28; Admin Dose 80 MG; Start 05/20/19 at 11:00 Eye Lubricant (Artificial Tears Oph) 2 drop Q6H PRN BOTH EYES DRY EYES Last administered on 05/20/19 16:39; Admin Dose 2 DROP; Start 05/20/19 at 16:00 Acetylcysteine (Mucomyst) 2 ml Q6H RESP THERAPY PRN NEB dynpea Last administered on 05/21/19 11:37; Admin Dose 2 ML; Start 05/21/19 at 11:00 Famotidine (Pepcid) 20 mg DAILY PO Last administered on 05/24/19 08:07; Admin Dose 20 MG; Start 05/23/19 at 09:00 Acetaminophen/ Hydrocodone Bitart ([place] (10/325)) 1 tab Q4H PRN PO MODERATE PAIN LEVEL 4-6 Last administered on 05/23/19 11:03; Admin Dose 1 TAB; Start 05/22/19 at 19:00 Phenol (Chloraseptic Throat [place]) 2 spray Q2H PRN MT SORE THROAT; Start 05/22/19 at 19:00 Sodium Chloride 1,000 ml @ 75 mls/hr [id number] IV Last administered on 05/24/19 03:47; Admin Dose 75 MLS/HR; Start 05/22/19 at 19:00 Cyclobenzaprine HCl (Flexeril) 5 mg BID PRN PO MUSCLE SPASMS Last administered on 05/24/19 01:28; Admin Dose 5 MG; Start 05/22/19 at 20:30 Docusate Sodium (Colace) 200 mg BID PO Last administered on 05/24/19 08:07; Admin Dose 200 MG; Start 05/22/19 at 21:30 Polyethylene Glycol (Miralax) 17 gm DAILY PO Last administered on 05/23/19 08:36; Admin Dose 17 GM; Start 05/22/19 at 22:00 Al Hydrox/Mg Hydrox/Simethicone (Mag-Al Plus) 30 ml Q6H PRN PO GASTROINTESTINAL UPSET Last administered on 05/23/19 12:45; Admin Dose 30 ML; Start 05/22/19 at 22:00 Heparin Sodium (Porcine) (Heparin (5000 Units/1ml)) 5,000 unit BID SC Last administered on 05/24/19 08:44; Admin Dose 5,000 UNIT; Start 05/23/19 at 11:00 Nitroglycerin (Nitroglycerin (Sl Tab) 0.4 Mg) 1 tab Q5M PRN SL ANGINA; Start 05/23/19 at 22:30 Morphine Sulfate (morphine) 2 mg Q4H PRN IV SEVERE PAIN LEVEL 7-10; Start 04/30 05/17 at 02:00 SANJUANA BAKER May 24, 2019 09:44
[2019-05-24] MEDS ORDERED: ASPIRIN 325 MG TAB PO ONE (10:00)
[2019-05-24] MEDS ORDERED: METOPROLOL 25 MG TAB PO SCH (10:00)
--- NOTE | 2019-05-24 11:25 | CONS ---
Assessment/Plan Assessment/Plan Hospital Course (Demo Recall) NSTEMI: Could still be type II in the setting of severe hypoxia, acidosis, hypercapnia, SBP 200. However he had symptoms different from presentation and more concerning has wall motion abnormalities on echo with EF 40%. He needs a cardiac cath for evaluation. If coronaries are normal, would repeat chest CTA to rule out PE (has been off anticoagulation since admission). He should be anticoagulated after cath regardless with his h/o PE Cardiomyopathy: EF 40% with wall motion abnormalities. R/o CAD Left pneumothorax: chest tube on presentation, then removed but presumed recurrence so had another one emergently placed 05/23 h/o PE h/o TB Pulm fibrosis/bronchiectasis/blebs -cath today in the afternoon for coronary eval -start ASA, lipitor -metoprolol -hold heparin until after cardiac cath -chest CTA if coronaries are normal -chest tube management per CT surgery Consultation Date/Type/Reason Admit Date/Time May 19, 2019 at 00:02 Date of Consultation: May 24, 2019 Type of Consult Cardiology Reason for Consultation NSTEMI Requesting Provider: HARSHAL ANSARI Date/Time of Note DATE: 05/24/19 TIME: 11:10 Hx of Present Illness 53 yo M with a h/o TB, pulm fibrosis/bronchiectasis, PE on Xarelto, who initially presented with left sided pleuritic chest pain. Workup revealed no PE but with left sided pneumothorax. He had a chest tube placed with improvement. Yesterday his chest tube was removed and he later had significant hypoxia, obtundation, BP to 200 and HR 130s per report (not documented). Another chest tube was placed emergently and the pt stabilized. He was complaining of chest pain so troponins were checked and so far have increased to 0.5. EKG did not show any acute ischemic changes. Echo this am shows EF 40% with wall motion abnormalities. An cutter apprentice hand was used for Kinyarwanda. He notes that he has been having pleuritic left chest pain since admission, but last night he had pressure like chest pain. No known cardiac disease/PCI/NH. He did have a right sided PE 2013 and was on coumadin then transitioned to Xarelto. He is comfortable now and has only the pleuritic pain he initially came in with. No substernal pain. He is on 35% High flow oxygen and can lay flat He notes that in 2013 when he had the contrast CT he had flushing, tachycardia, dyspnea but no rash. On this admission, no reaction to contrast CT per hPI Past Medical History per hPI Home Meds Active Scripts Famotidine* (Pepcid*) 20 Mg Tablet, 20 MG PO BID for 7 Days, TAB Prov:ROSY ENGLE MD 09/25/18 Reported Medications Mirtazapine* (Remeron*) 15 Mg Tablet, 15 MG PO HS, TAB 05/20/19 Nortriptyline Hcl* (Nortriptyline Hcl*) 25 Mg Capsule, 25 MG PO HS, CAP 05/20/19 Calcium Citrate/Vitamin D (Citracal-Vitamin D 200 MG-250) 1 Each Tablet, 1 EACH PO BID, TAB 09/25/18 Docusate Sodium* (Dok*) 100 Mg Tablet, 100 MG PO DAILY, #30 CAP 09/25/18 Albuterol Sulfate* (Ventolin HFA*) 18 Gm Hfa.aer.ad, 2 PUFF INHALATION Q4H, #1 INHALER 09/25/18 Baclofen* (Baclofen*) 10 Mg Tablet, 10 MG PO TID, TAB 09/25/18 Celecoxib* (Celebrex*) 200 Mg Capsule, 200 MG PO BID, CAP 09/25/18 Tiotropium [place]* (Spiriva*) 18 Mcg Cap.w.dev, 1 CAP INHALATION DAILY, #30 CAP 09/25/18 Rivaroxaban* (Xarelto*) 20 Mg Tablet, 20 MG PO WITH DINNER, TAB 09/25/18 Mometasone-Formoterol (Dulera) 200-5 Mcg/Inh - 13 Gm Hfa.aer.ad, 2 PUFFS INHALATION BID, #1 INHALER 09/25/18 Medications Current Medications Ondansetron HCl (Zofran Inj) 4 mg Q6H PRN IV NAUSEA AND/OR VOMITING; Start 05/19/19 at 00:30 Albuterol/ Ipratropium (Duoneb) 3 ml Q2H RESP THERAPY PRN NEB SHORTNESS OF BREATH; Start 05/19/19 at 00:30 Acetaminophen (Tylenol Liquid) 650 mg Q6H PRN PO PAIN LEVEL 1-3 OR FEVER Last administered on 05/24/19at 08:07; Admin Dose 650 MG; Start 05/19/19 at 00:30 Baclofen (Lioresal) 10 mg TID PO Last administered on 05/24/19 08:07; Admin Dose 10 MG; Start 05/19/19 at 09:00 Tiotropium [place] (Spiriva) 1 inh DAILY INH Last administered on 05/24/19 08:08; Admin Dose 1 INH; Start 05/19/19 at 09:00 Fluticasone/ Vilanterol (Breo Ellipta 200-25 Mcg Inh) 1 inh DAILY INH Last administered on 05/24/19 08:08; Admin Dose 1 INH; Start 05/20/19 at 09:00 Phenol (Cepastat Lozenge) 1 lozenge Q1H PRN MT SORE THROAT/COUGH Last administered on 05/21/19 13:24; Admin Dose 1 LOZENGE; Start 05/19/19 at 22:30 Diclofenac Sodium (Voltaren 1% Gel) 2 gm QID TP Last administered on 05/24/19 08:07; Admin Dose 2 GM; Start 05/20/19 at 03:30 Tramadol HCl (Ultram) 50 mg Q6H PRN PO MODERATE PAIN LEVEL 4-6 Last administered on 05/20/19 10:57; Admin Dose 50 MG; Start 05/20/19 at 10:30 Simethicone (Mylicon) 80 mg Q6H PRN PO DISTENSION/GAS/BLOATING Last administered on 05/24/19 01:28; Admin Dose 80 MG; Start 05/20/19 at 11:00 Eye Lubricant (Artificial Tears Oph) 2 drop Q6H PRN BOTH EYES DRY EYES Last administered on 05/20/19 16:39; Admin Dose 2 DROP; Start 05/20/19 at 16:00 Acetylcysteine (Mucomyst) 2 ml Q6H RESP THERAPY PRN NEB dynpea Last administered on 05/21/19 11:37; Admin Dose 2 ML; Start 05/21/19 at 11:00 Famotidine (Pepcid) 20 mg DAILY PO Last administered on 05/24/19 08:07; Admin Dose 20 MG; Start 05/23/19 at 09:00 Acetaminophen/ Hydrocodone Bitart (Western (10/325)) 1 tab Q4H PRN PO MODERATE PAIN LEVEL 4-6 Last administered on 05/24/19 09:42; Admin Dose 1 TAB; Start at 19:00 Phenol (Chloraseptic Throat [place]) 2 spray Q2H PRN MT SORE THROAT; Start 05/22/19 at 19:00 Sodium Chloride 1,000 ml @ 75 mls/hr [id number] IV Last administered on 05/24/19 03:47; Admin Dose 75 MLS/HR; Start 05/22/19 at 19:00 Cyclobenzaprine HCl (Flexeril) 5 mg BID PRN PO MUSCLE SPASMS Last administered on 05/24/19 01:28; Admin Dose 5 MG; Start 05/22/19 at 20:30 Docusate Sodium (Colace) 200 mg BID PO Last administered on 05/24/19 08:07; Admin Dose 200 MG; Start 05/22/19 at 21:30 Polyethylene Glycol (Miralax) 17 gm DAILY PO Last administered on 05/23/19 08:36; Admin Dose 17 GM; Start 05/22/19 at 22:00 Al Hydrox/Mg Hydrox/Simethicone (Mag-Al Plus) 30 ml Q6H PRN PO GASTROINTESTINAL UPSET Last administered on 05/23/19 12:45; Admin Dose 30 ML; Start 05/22/19 at 22:00 Heparin Sodium (Porcine) (Heparin (5000 Units/1ml)) 5,000 unit BID SC Last administered on 05/24/19at 08:44; Admin Dose 5,000 UNIT; Start 05/23/19 at 11:00 Nitroglycerin (Nitroglycerin (Sl Tab) 0.4 Mg) 1 tab Q5M PRN SL ANGINA; Start 05/23/19 at 22:30 Morphine Sulfate (morphine) 2 mg Q4H PRN IV SEVERE PAIN LEVEL 7-10; Start 05/24/19 at 02:00 Aspirin (Aspirin) 81 mg DAILY PO ; Start 05/25/19 at 09:00 Metoprolol Tartrate (Lopressor) 25 mg BID PO Last administered on 05/24/19 11:03; Admin Dose 25 MG; Start 05/24/19 at 10:00 Allergies: Coded Allergies: No Known Drug Allergies (Verified Allergy, Mild, 09/25/18) Past Surgical History Past Surgical Hx: other (See HPI) Social History Alcohol Use: none Smoking Status: Never smoker Drug Use: none Exam/Review of Systems Vital Signs Vitals Vital Signs Date Temp Pulse Resp B/P (MAP) Pulse Ox O2 O2 Flow FiO2 Time Delivery Rate 05/24/19 102 08:00 05/24/19 98.9 20 108/65 96 High Flow 08:00 (79) 05/24/19 35 05:50 05/23/19 15.0 21:30 Intake and Output 05/23/19 05/23/19 05/24/19 1515:00 23:00 07:00 IntakeIntake Total 1000 ml 1475 ml 1300 ml OutputOutput Total 951 ml 200 ml 1350 ml BalanceBalance 49 ml 1275 ml -50 ml Exam Constitutional: alert, oriented Psych: no complaints, nl mood/affect Head: normocephalic, atraumatic Eyes: nl conjunctiva Neck: No jvd Respiratory: diminished breath sounds; No clear to auscultation Cardiovascular: regular rate and rhythm; No edema, No systolic murmur Gastrointestinal: soft, non-tender; No distended Neurological: nl mental status, nl speech Labs Result Diagram: 05/23/19214505/23/192143 Results 24hrs Laboratory Tests Test 05/23/19 21:16 05/23/19 21:36 05/23/19 21:44 05/23/19 21:46 Bedside Glucose 146 Blood Gas Blood arterial Specimen Source Arterial Blood 05/23/2019 9:35: Date Drawn 34 PM Arterial Blood 7.104 *L pH (Temp corrected ) Arterial Blood 124.9 *H pCO2 (Temp correct) Arterial Blood 385.0 H pO2 (Temp corrected ) Arterial Blood 38.3 H HCO3 Arterial Blood 4.4 H Base Excess Arterial Blood 99.7 H Oxygen Saturati on Ilya Test ACCEPTAB Arterial Blood Right Radial Gas Puncture Site Arterial 0.2 Blood Carboxyhe moglobin Arterial Blood 0.3 Methemoglobin Blood Gas A-a 203.1 H O2 Differential Oxyhemoglobin 99.2 H Percent Blood Gas 37.0 Temperature Blood Gas MASK - NRB Modality FiO2 100.0 Blood Gas Dariana ANSARI MD Critical Value Read Back Blood Gas MR Notified Whom Blood Gas 05/23/2019 9:40: Notified Time 51 PM Sodium Level 139 Potassium Level 4.1 Chloride Level 93 L Carbon Dioxide 40 H Level Anion Gap 6 Blood Urea 16 Nitrogen Creatinine 0.67 Est Glomerular > 60 Filtrat Rate mL/min Glucose Level 191 Calcium Level 8.8 Creatine Kinase 45 Creatine Kinase 3.2 Index Creatinine 1.44 Kinase MB (Mass) Troponin I < 0.012 White Blood 9.7 # Count Red Blood Count 4.28 L Hemoglobin 12.4 L Hematocrit 39.7 L Mean 92.8 Corpuscular Volume Mean 29.0 Corpuscular Hemoglobin Mean 31.2 L Corpuscular Hemoglobin Conc ent Red Cell 12.6 Distribution Width Platelet Count 235 Mean Platelet 11.5 H Volume Immature 0.200 Granulocytes % Neutrophils % 45.8 Lymphocytes % 44.8 Monocytes % 6.0 Eosinophils % 2.8 Basophils % 0.4 Nucleated Red 0.0 Blood Cells % Immature 0.020 Granulocytes # Neutrophils # 4.5 Lymphocytes # 4.4 H Monocytes # 0.6 Eosinophils # 0.3 Basophils # 0.0 Nucleated Red 0.0 Blood Cells # Prothrombin 13.7 Time Prothrombin 1.1 Time Ratio INR 1.04 International Normalized Rati o Activated 28.2 Partial Thrombo plast Time Test 05/23/19 23:00 05/24/19 00:31 05/24/19 05:51 05/24/19 07:00 Blood Gas Blood arterial Blood Specimen arterial Source Arterial Blood 05/24/2019 12:40 05/24/2019 7:30 Date Drawn :21 AM :28 AM Arterial Blood 7.306 L 7.360 pH (Temp corrected ) Arterial Blood 78.2 H 68.6 H pCO2 (Temp correct) Arterial Blood 427.4 H 92.9 pO2 (Temp corrected ) Arterial Blood 38.1 H 37.9 H HCO3 Arterial Blood 8.9 H 10.0 H Base Excess Arterial Blood 99.6 H 96.8 Oxygen Saturati on Ilya Test ACCEPTAB ACCEPTAB Arterial Blood Right Radial Left Radial Gas Puncture Site Arterial 0.3 0.2 Blood Carboxyhe moglobin Arterial Blood 0.3 0.1 Methemoglobin Blood Gas A-a 207.4 H 76.9 H O2 Differential Oxyhemoglobin 99.0 96.5 Percent Blood Gas 37.0 37.0 Temperature Blood Gas 24 Actual Respiration Rat e Blood Gas HFNC HFNC Modality FiO2 100.0 35.0 Blood Gas MG TM Notified Whom Blood Gas 05/24/2019 12:49 05/24/2019 7:47 Notified Time :59 AM :04 AM Creatine Kinase 83 102 Creatine Kinase 3.4 5.0 Index Creatinine 2.80 H 5.11 H Kinase MB (Mass) Troponin I 0.212 *H 0.556 *H Medications Medications Current Medications Ondansetron HCl (Zofran Inj) 4 mg Q6H PRN IV NAUSEA AND/OR VOMITING; Start 05/19/19 at 00:30 Albuterol/ Ipratropium (Duoneb) 3 ml Q2H RESP THERAPY PRN NEB SHORTNESS OF BREATH; Start 05/19/19 at 00:30 Acetaminophen (Tylenol Liquid) 650 mg Q6H PRN PO PAIN LEVEL 1-3 OR FEVER Last administered on 05/24/19 08:07; Admin Dose 650 MG; Start 05/19/19 at 00:30 Baclofen (Lioresal) 10 mg TID PO Last administered on 05/24/19 08:07; Admin D ose 10 MG; Start 05/19/19 at 09:00 Tiotropium [place] (Spiriva) 1 inh DAILY INH Last administered on 05/24/19 08:08; Admin Dose 1 INH; Start 05/19/19 at 09:00 Fluticasone/ Vilanterol (Breo Ellipta 200-25 Mcg Inh) 1 inh DAILY INH Last administered on 05/24/19 08:08; Admin Dose 1 INH; Start 05/20/19 at 09:00 Phenol (Cepastat Lozenge) 1 lozenge Q1H PRN MT SORE THROAT/COUGH Last administered on 05/21/19 13:24; Admin Dose 1 LOZENGE; Start 05/19/19 at 22:30 Diclofenac Sodium (Voltaren 1% Gel) 2 gm QID TP Last administered on 05/24/19 08:07; Admin Dose 2 GM; Start 05/20/19 at 03:30 Tramadol HCl (Ultram) 50 mg Q6H PRN PO MODERATE PAIN LEVEL 4-6 Last administered on 05/20/19 10:57; Admin Dose 50 MG; Start 05/20/19 at 10:30 Simethicone (Mylicon) 80 mg Q6H PRN PO DISTENSION/GAS/BLOATING Last administered on 05/24/19 01:28; Admin Dose 80 MG; Start 05/20/19 at 11:00 Eye Lubricant (Artificial Tears Oph) 2 drop Q6H PRN BOTH EYES DRY EYES Last administered on 05/20/19 16:39; Admin Dose 2 DROP; Start 05/20/19 at 16:00 Acetylcysteine (Mucomyst) 2 ml Q6H RESP THERAPY PRN NEB dynpea Last administered on 05/21/19 11:37; Admin Dose 2 ML; Start 05/21/19 at 11:00 Famotidine (Pepcid) 20 mg DAILY PO Last administered on 05/24/19 08:07; Admin Dose 20 MG; Start 05/23/19 at 09:00 Acetaminophen/ Hydrocodone Bitart ([place] (10325)) 1 tab Q4H PRN PO MODERATE PAIN LEVEL 4-6 Last administered on 05/24/19 09:42; Admin Dose 1 TAB; Start 05/22/19 at 19:00 Phenol (Chloraseptic Throat [place]) 2 spray Q2H PRN MT SORE THROAT; Start 05/22/19 at 19:00 Sodium Chloride 1,000 ml @ 75 mls/hr [id number] IV Last administered on 05/24/19 03:47; Admin Dose 75 MLS/HR; Start 05/22/19 at 19:00 Cyclobenzaprine HCl (Flexeril) 5 mg BID PRN PO MUSCLE SPASMS Last administered on 05/24/19 01:28; Admin Dose 5 MG; Start 05/22/19 at 20:30 Docusate Sodium (Colace) 200 mg BID PO Last administered on 05/24/19 08:07; Admin Dose 200 MG; Start 05/22/19 at 21:30 Polyethylene Glycol (Miralax) 17 gm DAILY PO Last administered on 05/23/19 08:36; Admin Dose 17 GM; Start 05/22/19 at 22:00 Al Hydrox/Mg Hydrox/Simethicone (Mag-Al Plus) 30 ml Q6H PRN PO GASTROINTESTINAL UPSET Last administered on 05/23/19 12:45; Admin Dose 30 ML; Start 05/22/19 at 22:00 Heparin Sodium (Porcine) (Heparin (5000 Units/1ml)) 5,000 unit BID SC Last administered on 05/24/19 08:44; Admin Dose 5,000 UNIT; Start 05/23/19 at 11:00 Nitroglycerin (Nitroglycerin (Sl Tab) 0.4 Mg) 1 tab Q5M PRN SL ANGINA; Start 05/23/19 at 22:30 Morphine Sulfate (morphine) 2 mg Q4H PRN IV SEVERE PAIN LEVEL 7-10; Start 05/24/19 at 02:00 Aspirin (Aspirin) 81 mg DAILY PO ; Start 05/25/19 at 09:00 Metoprolol Tartrate (Lopressor) 25 mg BID PO Last administered on 05/24/19at 11:03; Admin Dose 25 MG; Start 05/24/19 at 10:00 SANJUANA BAKER May 24, 2019 11:21
[2019-05-24] MEDS ORDERED: ATORVASTATIN 80 MG TAB PO ONE (11:30)
[2019-05-24] MEDS ORDERED: HYDROCORTISONE 100 MG INJ IV ONE (11:30)
--- NOTE | 2019-05-24 11:36 | PN ---
Date/Time of Note Date/Time of Note DATE: 05/24/19 TIME: 11:07 Assessment/Plan VTE Prophylaxis Risk score (from Nsg)>0 risk: 5 SCD applied (from Ns): Yes Pharmacological prophylaxis: heparin Lines/Catheters IV Catheter Type (from Nrsg): Peripheral IV Urinary Cath still in place: Yes Reason Cath still needed: other (indicate) (monitor I&O) Assessment/Plan Hospital Course Assessment and plan 1. Acute respiratory failure secondary to left inferior lateral pneumothorax. had chest tube removed 05.23.19 but became dyspneic with distress. Chest tube reinserted. continue 2. Chest pain. Reported chest pain last night. Troponin (+) x2. Photography Colorist following. Plan for heart cath today 3. History of pulmonary fibrosis. Continue on O2 supplement. Pulmonary is following. Breathing treatments as needed. 4. History of TB/bronchiectasis. No active issue noted at this time. Monitor for now. 5. Anemia. Monitor CBC. Follow-up on iron profile. 6. reported hx pulmonary embolism. Will consider starting anticoagulation s/p heart cath. f/u further imaging Disposition plan. Plan for heart cath Discussed POC with Dr. Pelayo Result Diagram: 05/23/19214505/23/192143 Results 24hrs Laboratory Tests Test 05/23/19 21:16 05/23/19 21:36 05/23/19 21:44 05/23/19 21:46 Bedside Glucose 146 Blood Gas Blood arterial Specimen Source Arterial Blood 05/23/2019 9:35: Date Drawn 34 PM Arterial Blood 7.104 *L pH (Temp corrected ) Arterial Blood 124.9 *H pCO2 (Temp correct) Arterial Blood 385.0 H pO2 (Temp corrected ) Arterial Blood 38.3 H HCO3 Arterial Blood 4.4 H Base Excess Arterial Blood 99.7 H Oxygen Saturati on Ilya Test ACCEPTAB Arterial Blood Right Radial Gas Puncture Site Arterial 0.2 Blood Carboxyhe moglobin Arterial Blood 0.3 Methemoglobin Blood Gas A-a 203.1 H O2 Differential Oxyhemoglobin 99.2 H Percent Blood Gas 37.0 Temperature Blood Gas MASK - NRB Modality FiO2 100.0 Blood Gas Dariana ANSARI MD Critical Value Read Back Blood Gas MR Notified Whom Blood Gas 05/23/2019 9:40: Notified Time 51 PM Sodium Level 139 Potassium Level 4.1 Chloride Level 93 L Carbon Dioxide 40 H Level Anion Gap 6 Blood Urea 16 Nitrogen Creatinine 0.67 Est Glomerular > 60 Filtrat Rate mL/min Glucose Level 191 Calcium Level 8.8 Creatine Kinase 45 Creatine Kinase 3.2 Index Creatinine 1.44 Kinase MB (Mass) Troponin I < 0.012 White Blood 9.7 # Count Red Blood Count 4.28 L Hemoglobin 12.4 L Hematocrit 39.7 L Mean 92.8 Corpuscular Volume Mean 29.0 Corpuscular Hemoglobin Mean 31.2 L Corpuscular Hemoglobin Conc ent Red Cell 12.6 Distribution Width Platelet Count 235 Mean Platelet 11.5 H Volume Immature 0.200 Granulocytes % Neutrophils % 45.8 Lymphocytes % 44.8 Monocytes % 6.0 Eosinophils % 2.8 Basophils % 0.4 Nucleated Red 0.0 Blood Cells % Immature 0.020 Granulocytes # Neutrophils # 4.5 Lymphocytes # 4.4 H Monocytes # 0.6 Eosinophils # 0.3 Basophils # 0.0 Nucleated Red 0.0 Blood Cells # Prothrombin 13.7 Time Prothrombin 1.1 Time Ratio INR 1.04 International Normalized Rati o Activated 28.2 Partial Thrombo plast Time Test 05/23/19 23:00 05/24/19 00:31 05/24/19 05:51 05/24/19 07:00 Blood Gas Blood arterial Blood Specimen arterial Source Arterial Blood 05/24/2019 12:40 05/24/2019 7:30 Date Drawn :21 AM :28 AM Arterial Blood 7.306 L 7.360 pH (Temp corrected ) Arterial Blood 78.2 H 68.6 H pCO2 (Temp correct) Arterial Blood 427.4 H 92.9 pO2 (Temp corrected ) Arterial Blood 38.1 H 37.9 H HCO3 Arterial Blood 8.9 H 10.0 H Base Excess Arterial Blood 99.6 H 96.8 Oxygen Saturati on Ilya Test ACCEPTAB ACCEPTAB Arterial Blood Right Radial Left Radial Gas Puncture Site Arterial 0.3 0.2 Blood Carboxyhe moglobin Arterial Blood 0.3 0.1 Methemoglobin Blood Gas A-a 207.4 H 76.9 H O2 Differential Oxyhemoglobin 99.0 96.5 Percent Blood Gas 37.0 37.0 Temperature Blood Gas 24 Actual Respiration Rat e Blood Gas HFNC HFNC Modality FiO2 100.0 35.0 Blood Gas MG TM Notified Whom Blood Gas 05/24/2019 12:49 05/24/2019 7:47 Notified Time :59 AM :04 AM Creatine Kinase 83 102 Creatine Kinase 3.4 5.0 Index Creatinine 2.80 H 5.11 H Kinase MB (Mass) Troponin I 0.212 *H 0.556 *H Subjective 24 Hr Interval Summary Free Text/Dictation reports some difficulty with breathing and pain on right side of neck with breathing Exam/Review of Systems Exam Vitals Vital Signs Date Temp Pulse Resp B/P (MAP) Pulse Ox O2 O2 Flow FiO2 Time Delivery Rate 05/24/19 102 08:00 05/24/19 98.9 20 108/65 96 High Flow 08:00 (79) 05/24/19 35 05:50 05/23/19 15.0 21:30 Intake and Output 05/23/19 05/23/19 05/24/19 1515:00 23:00 07:00 IntakeIntake Total 1000 ml 1475 ml 1300 ml OutputOutput Total 951 ml 200 ml 1350 ml BalanceBalance 49 ml 1275 ml -50 ml Exam Constitutional: alert, oriented Psych: nl mood/affect Eyes: nl conjunctiva Neck: supple, non-tender Cardiac: tachycardic Respiratory: other (coarse lung sounds right lung field. chest tube left side chest ) Gastrointestinal: soft, non-tender Musculoskeletal: nl extremities to inspection Neurological: ASSISTANT TEACHER PRIMARY II-XII intact, nl mental status, nl speech Results Results 24hrs Laboratory Tests Test 05/23/19 21:16 05/23/19 21:36 05/23/19 21:44 05/23/19 21:46 Bedside Glucose 146 Blood Gas Blood arterial Specimen Source Arterial Blood 05/23/2019 9:35: Date Drawn 34 PM Arterial Blood 7.104 *L pH (Temp corrected ) Arterial Blood 124.9 *H pCO2 (Temp correct) Arterial Blood 385.0 H pO2 (Temp corrected ) Arterial Blood 38.3 H HCO3 Arterial Blood 4.4 H Base Excess Arterial Blood 99.7 H Oxygen Saturati on Ilya Test ACCEPTAB Arterial Blood Right Radial Gas Puncture Site Arterial 0.2 Blood Carboxyhe moglobin Arterial Blood 0.3 Methemoglobin Blood Gas A-a 203.1 H O2 Differential Oxyhemoglobin 99.2 H Percent Blood Gas 37.0 Temperature Blood Gas MASK - NRB Modality FiO2 100.0 Blood Gas Dariana ANSARI MD Critical Value Read Back Blood Gas MR Notified Whom Blood Gas 05/23/2019 9:40: Notified Time 51 PM Sodium Level 139 Potassium Level 4.1 Chloride Level 93 L Carbon Dioxide 40 H Level Anion Gap 6 Blood Urea 16 Nitrogen Creatinine 0.67 Est Glomerular > 60 Filtrat Rate mL/min Glucose Level 191 Calcium Level 8.8 Creatine Kinase 45 Creatine Kinase 3.2 Index Creatinine 1.44 Kinase MB (Mass) Troponin I < 0.012 White Blood 9.7 # Count Red Blood Count 4.28 L Hemoglobin 12.4 L Hematocrit 39.7 L Mean 92.8 Corpuscular Volume Mean 29.0 Corpuscular Hemoglobin Mean 31.2 L Corpuscular Hemoglobin Conc ent Red Cell 12.6 Distribution Width Platelet Count 235 Mean Platelet 11.5 H Volume Immature 0.200 Granulocytes % Neutrophils % 45.8 Lymphocytes % 44.8 Monocytes % 6.0 Eosinophils % 2.8 Basophils % 0.4 Nucleated Red 0.0 Blood Cells % Immature 0.020 Granulocytes # Neutrophils # 4.5 Lymphocytes # 4.4 H Monocytes # 0.6 Eosinophils # 0.3 Basophils # 0.0 Nucleated Red 0.0 Blood Cells # Prothrombin 13.7 Time Prothrombin 1.1 Time Ratio INR 1.04 International Normalized Rati o Activated 28.2 Partial Thrombo plast Time Test 05/23/19 23:00 05/24/19 00:31 05/24/19 05:51 05/24/19 07:00 Blood Gas Blood arterial Blood Specimen arterial Source Arterial Blood 05/24/2019 12:40 05/24/2019 7:30 Date Drawn :21 AM :28 AM Arterial Blood 7.306 L 7.360 pH (Temp corrected ) Arterial Blood 78.2 H 68.6 H pCO2 (Temp correct) Arterial Blood 427.4 H 92.9 pO2 (Temp corrected ) Arterial Blood 38.1 H 37.9 H HCO3 Arterial Blood 8.9 H 10.0 H Base Excess Arterial Blood 99.6 H 96.8 Oxygen Saturati on Ilya Test ACCEPTAB ACCEPTAB Arterial Blood Right Radial Left Radial Gas Puncture Site Arterial 0.3 0.2 Blood Carboxyhe moglobin Arterial Blood 0.3 0.1 Methemoglobin Blood Gas A-a 207.4 H 76.9 H O2 Differential Oxyhemoglobin 99.0 96.5 Percent Blood Gas 37.0 37.0 Temperature Blood Gas 24 Actual Respiration Rat e Blood Gas HFNC HFNC Modality FiO2 100.0 35.0 Blood Gas MG TM Notified Whom Blood Gas 05/24/2019 12:49 05/24/2019 7:47 Notified Time :59 AM :04 AM Creatine Kinase 83 102 Creatine Kinase 3.4 5.0 Index Creatinine 2.80 H 5.11 H Kinase MB (Mass) Troponin I 0.212 *H 0.556 *H Medications Medication Current Medications Ondansetron HCl (Zofran Inj) 4 mg Q6H PRN IV NAUSEA AND/OR VOMITING; Start 05/19/19 at 00:30 Albuterol/ Ipratropium (Duoneb) 3 ml Q2H RESP THERAPY PRN NEB SHORTNESS OF BREATH; Start 05/19/19 at 00:30 Acetaminophen (Tylenol Liquid) 650 mg Q6H PRN PO PAIN LEVEL 1-3 OR FEVER Last administered on 05/24/19 08:07; Admin Dose 650 MG; Start 05/19/19 at 00:30 Baclofen (Lioresal) 10 mg TID PO Last administered on 05/24/19 08:07; Admin Dose 10 MG; Start 05/19/19 at 09:00 Tiotropium [place] (Spiriva) 1 inh DAILY INH Last administered on 05/24/19 08:08; Admin Dose 1 INH; Start 05/19/19 at 09:00 Fluticasone/ Vilanterol (Breo Ellipta 200-25 Mcg Inh) 1 inh DAILY INH Last administered on 05/24/19 08:08; Admin Dose 1 INH; Start 05/20/19 at 09:00 Phenol (Cepastat Lozenge) 1 lozenge Q1H PRN MT SORE THROAT/COUGH Last administered on 05/21/19 13:24; Admin Dose 1 LOZENGE; Start 05/19/19 at 22:30 Diclofenac Sodium (Voltaren 1% Gel) 2 gm QID TP Last administered on 05/24/19 08:07; Admin Dose 2 GM; Start 05/20/19 at 03:30 Tramadol HCl (Ultram) 50 mg Q6H PRN PO MODERATE PAIN LEVEL 4-6 Last administered on 05/20/19 10:57; Admin Dose 50 MG; Start 05/20/19 at 10:30 Simethicone (Mylicon) 80 mg Q6H PRN PO DISTENSION/GAS/BLOATING Last administered on 05/24/19 01:28; Admin Dose 80 MG; Start 05/20/19 at 11:00 Eye Lubricant (Artificial Tears Oph) 2 drop Q6H PRN BOTH EYES DRY EYES Last administered on 05/20/19 16:39; Admin Dose 2 DROP; Start 05/20/19 at 16:00 Acetylcysteine (Mucomyst) 2 ml Q6H RESP THERAPY PRN NEB dynpea Last administered on 05/21/19 11:37; Admin Dose 2 ML; Start 05/21/19 at 11:00 Famotidine (Pepcid) 20 mg DAILY PO Last administered on 05/24/19 08:07; Admin Dose 20 MG; Start 05/23/19 at 09:00 Acetaminophen/ Hydrocodone Bitart ([place] (10/325)) 1 tab Q4H PRN PO MODERATE PAIN LEVEL 4-6 Last administered on 05/24/19 09:42; Admin Dose 1 TAB; Start 05/22/19 at 19:00 Phenol (Chloraseptic Throat [place]) 2 spray Q2H PRN MT SORE THROAT; Start 05/22/19 at 19:00 Sodium Chloride 1,000 ml @ 75 mls/hr [id number] IV Last administered on 05/24/19 03:47; Admin Dose 75 MLS/HR; Start 05/22/19 at 19:00 Cyclobenzaprine HCl (Flexeril) 5 mg BID PRN PO MUSCLE SPASMS Last administered on 05/24/19 01:28; Admin Dose 5 MG; Start 05/22/19 at 20:30 Docusate Sodium (Colace) 200 mg BID PO Last administered on 05/24/19 08:07; Admin Dose 200 MG; Start 05/22/19 at 21:30 Polyethylene Glycol (Miralax) 17 gm DAILY PO Last administered on 05/23/19 08:36; Admin Dose 17 GM; Start 05/22/19 at 22:00 Al Hydrox/Mg Hydrox/Simethicone (Mag-Al Plus) 30 ml Q6H PRN PO GASTROINTESTINAL UPSET Last administered on 05/23/19 12:45; Admin Dose 30 ML; Start 05/22/19 at 22:00 Heparin Sodium (Porcine) (Heparin (5000 Units/1ml)) 5,000 unit BID SC Last administered on 05/24/19at 08:44; Admin Dose 5,000 UNIT; Start 05/23/19 at 11:00 Nitroglycerin (Nitroglycerin (Sl Tab) 0.4 Mg) 1 tab Q5M PRN SL ANGINA; Start 05/23/19 at 22:30 Morphine Sulfate (morphine) 2 mg Q4H PRN IV SEVERE PAIN LEVEL 7-10; Start 04/30 05/17 at 02:00 Aspirin (Aspirin) 81 mg DAILY PO ; Start 05/25/19 at 09:00 Metoprolol Tartrate (Lopressor) 25 mg BID PO Last administered on 05/24/19at 11:03; Admin Dose 25 MG; Start 05/24/19 at 10:00 ALEJANDRO LUNA NP May 24, 2019 11:36
[2019-05-24] MEDS ORDERED: HEPARIN 1000 UNITS/NS (A-LINE) 1,000 ML ONE (14:15)
[2019-05-24] MEDS ORDERED: LIDOCAINE 1% (MDV) 20 ML INJ ONE (14:15)
[2019-05-24] MEDS ORDERED: HEPARIN 1000 UNITS/ML 10 ML INJ ONE (14:15)
[2019-05-24] MEDS ORDERED: FENTAnyl 50 MCG/ML VIAL ONE (14:35)
[2019-05-24] MEDS: HOLD all METFORMIN and METFORMIN CONTAINING medications for 48 hours post procedure. Chec XX SCH (15:30)
--- NOTE | 2019-05-24 15:33 | OPR ---
Date/Time of Note Date/Time of Note DATE: 05/24/19 TIME: 15:27 Operative Report Procedure Date: May 24, 2019 Preoperative Diagnosis NSTEMI Postoperative Diagnosis same Operation/Procedure Performed see details Surgeon see signature line Registered Sales Assistant none Anesthesia Type: moderate sedation Estimated Blood Loss: minimal Transfusion none Specimen none Grafts/Implants none Complications none Procedure Description Procedure Date:05/24/2019 [employer] Grinder Set Up Operator/surgeon:Epi Roth MD. Procedures Performed: 1)Left heart catheterization with selective left and right coronary angiography. 2)Left ventricle angiography Pre-operative Diagnosis:NSTEMI Post-operative Diagnosis:NSTEMI, normal coronaries, Takotsubo cardiomyopathy Indications: 53 yo M with spontaneous pneumothorax who had a hypoxic event with chest pain. Trops increased to 0.5 and echo showed EF 40% with wall motion abnormalities Description of Procedure: After informed consent, the patient was brought to the cardiac catheterization lab. The procedure site was prepped and draped in usual manner. The patient was premedicated with fentanyl 25 mcg. 2 mL lidocaine was injected into the right wrist. Next using the posterior wall technique, the 6/5 chinese sheath was inserted into the left radial artery. Next using the JL3.5 and JR4, selective angiography of the left and right coronary arteries were obtained. The pigtail was then advanced into the ventricle and hemodynamics obtained. Left ventricle angiography was obtained. Next all equipment was removed and hemostasis was obtained by TR band. Findings: Anatomy/Hemodynamics: Left main: normal LAD:normal Diagonal:normal Circumflex:normal Obtuse marginal:normal RCA:normal PDA:normal PLV:normal LV angiography: EF 40%, hyperdynamic base, apical dyskinesis consistent with Takotsubo cardiomyopathy LV-Ao: no gradient LVEDP:10 mmHg Contrast used:105 mL Fluoroscopy time: Estimated blood loss<10 mL. Specimen: none Grafts/implants: none Complications: none Assessment: Takotsubo cardiomyopathy with EF 40% NSTEMI with normal coronaries r/o PE with h/o same off anticoagulation and with hypoxic event Plan: -restart Xarelto tonight after TR band removed -chest CTA tonight -coreg EPI ROTH May 24, 2019 15:33
[2019-05-24] MEDS ORDERED: IODIXANOL LOCM 100 ML BTL ONE (15:59)
--- NOTE | 2019-05-24 16:12 | CONS ---
Consult Date/Type/Reason Admit Date/Time May 19, 2019 at 00:02 Initial Consult Date 05/20/19 Type of Consult Pulmonary Requesting Provider: HARSHAL ANSARI Date/Time of Note DATE: 05/24/19 TIME: 16:11 Subjective Cardiothoracic surgery and cardiology findings noted. Objective Vital Signs Date Temp Pulse Resp B/P (MAP) Pulse Ox O2 O2 Flow FiO2 Time Delivery Rate 05/24/19 Nasal 3.0 14:23 Cannula 05/24/19 98 30 11:55 05/24/19 97.9 111 20 130/79 11:25 (96) Intake and Output 05/23/19 05/23/19 05/24/19 1515:00 23:00 07:00 IntakeIntake Total 1000 ml 1475 ml 1300 ml OutputOutput Total 951 ml 200 ml 1350 ml BalanceBalance 49 ml 1275 ml -50 ml Exam VITAL SIGNS: per chart NECK: Supple. No JVD or lymphadenopathy. CARDIAC EXAM: S1, S2. No added sounds or murmurs. CHEST: clear bilaterally, No added sounds, rales or wheezes ABDOMEN: Soft, nontender. No guarding or rebound. EXTREMITIES: No cyanosis, clubbing or edema. NEUROLOGIC: Generalized weakness. No focal deficits. Vent Setting Fraction of Inspired Oxygen pe: 30 Results/Medications Result Diagram: 05/23/19214505/23/192143 Results 24 hrs Laboratory Tests Test 05/23/19 21:16 05/23/19 21:36 05/23/19 21:44 05/23/19 21:46 Bedside Glucose 146 Blood Gas Blood arterial Specimen Source Arterial Blood 05/23/2019 9:35: Date Drawn 34 PM Arterial Blood 7.104 *L pH (Temp corrected ) Arterial Blood 124.9 *H pCO2 (Temp correct) Arterial Blood 385.0 H pO2 (Temp corrected ) Arterial Blood 38.3 H HCO3 Arterial Blood 4.4 H Base Excess Arterial Blood 99.7 H Oxygen Saturati on Ilya Test ACCEPTAB Arterial Blood Right Radial Gas Puncture Site Arterial 0.2 Blood Carboxyhe moglobin Arterial Blood 0.3 Methemoglobin Blood Gas A-a 203.1 H O2 Differential Oxyhemoglobin 99.2 H Percent Blood Gas 37.0 Temperature Blood Gas MASK - NRB Modality FiO2 100.0 Blood Gas Dariana ANSARI MD Critical Value Read Back Blood Gas MR Notified Whom Blood Gas 05/23/2019 9:40: Notified Time 51 PM Sodium Level 139 Potassium Level 4.1 Chloride Level 93 L Carbon Dioxide 40 H Level Anion Gap 6 Blood Urea 16 Nitrogen Creatinine 0.67 Est Glomerular > 60 Filtrat Rate mL/min Glucose Level 191 Calcium Level 8.8 Creatine Kinase 45 Creatine Kinase 3.2 Index Creatinine 1.44 Kinase MB (Mass) Troponin I < 0.012 White Blood 9.7 # Count Red Blood Count 4.28 L Hemoglobin 12.4 L Hematocrit 39.7 L Mean 92.8 Corpuscular Volume Mean 29.0 Corpuscular Hemoglobin Mean 31.2 L Corpuscular Hemoglobin Conc ent Red Cell 12.6 Distribution Width Platelet Count 235 Mean Platelet 11.5 H Volume Immature 0.200 Granulocytes % Neutrophils % 45.8 Lymphocytes % 44.8 Monocytes % 6.0 Eosinophils % 2.8 Basophils % 0.4 Nucleated Red 0.0 Blood Cells % Immature 0.020 Granulocytes # Neutrophils # 4.5 Lymphocytes # 4.4 H Monocytes # 0.6 Eosinophils # 0.3 Basophils # 0.0 Nucleated Red 0.0 Blood Cells # Prothrombin 13.7 Time Prothrombin 1.1 Time Ratio INR 1.04 International Normalized Rati o Activated 28.2 Partial Thrombo plast Time Test 05/23/19 23:00 05/24/19 00:31 05/24/19 05:51 05/24/19 07:00 Blood Gas Blood arterial Blood Specimen arterial Source Arterial Blood 05/24/2019 12:40 05/24/2019 7:30 Date Drawn :21 AM :28 AM Arterial Blood 7.306 L 7.360 pH (Temp corrected ) Arterial Blood 78.2 H 68.6 H pCO2 (Temp correct) Arterial Blood 427.4 H 92.9 pO2 (Temp corrected ) Arterial Blood 38.1 H 37.9 H HCO3 Arterial Blood 8.9 H 10.0 H Base Excess Arterial Blood 99.6 H 96.8 Oxygen Saturati on Ilya Test ACCEPTAB ACCEPTAB Arterial Blood Right Radial Left Radial Gas Puncture Site Arterial 0.3 0.2 Blood Carboxyhe moglobin Arterial Blood 0.3 0.1 Methemoglobin Blood Gas A-a 207.4 H 76.9 H O2 Differential Oxyhemoglobin 99.0 96.5 Percent Blood Gas 37.0 37.0 Temperature Blood Gas 24 Actual Respiration Rat e Blood Gas HFNC HFNC Modality FiO2 100.0 35.0 Blood Gas MG TM Notified Whom Blood Gas 05/24/2019 12:49 05/24/2019 7:47 Notified Time :59 AM :04 AM Creatine Kinase 83 102 Creatine Kinase 3.4 5.0 Index Creatinine 2.80 H 5.11 H Kinase MB (Mass) Troponin I 0.212 *H 0.556 *H Test 05/24/19 12:08 Creatine Kinase 98 Creatine Kinase 5.6 Index Creatinine 5.48 H Kinase MB (Mass) Troponin I 0.383 *H Medications Current Medications Ondansetron HCl (Zofran Inj) 4 mg Q6H PRN IV NAUSEA AND/OR VOMITING; Start 05/19/19 at 00:30 Albuterol/ Ipratropium (Duoneb) 3 ml Q2H RESP THERAPY PRN NEB SHORTNESS OF BREATH; Start 05/19/19 at 00:30 Acetaminophen (Tylenol Liquid) 650 mg Q6H PRN PO PAIN LEVEL 1-3 OR FEVER Last administered on 05/24/19 08:07; Admin Dose 650 MG; Start 05/19/19 at 00:30 Baclofen (Lioresal) 10 mg TID PO Last administered on 05/24/19 16:05; Admin Dose 10 MG; Start 05/19/19 at 09:00 Tiotropium [place] (Spiriva) 1 inh DAILY INH Last administered on 05/24/19 08:08; Admin Dose 1 INH; Start 05/19/19 at 09:00 Fluticasone/ Vilanterol (Breo Ellipta 200-25 Mcg Inh) 1 inh DAILY INH Last administered on 05/24/19 08:08; Admin Dose 1 INH; Start 05/20/19 at 09:00 Phenol (Cepastat Lozenge) 1 lozenge Q1H PRN MT SORE THROAT/COUGH Last administered on 05/21/19 13:24; Admin Dose 1 LOZENGE; Start 05/19/19 at 22:30 Diclofenac Sodium (Voltaren 1% Gel) 2 gm QID TP Last administered on 05/24/19 16:03; Admin Dose 2 GM; Start 05/20/19 at 03:30 Tramadol HCl (Ultram) 50 mg Q6H PRN PO MODERATE PAIN LEVEL 4-6 Last administered on 05/20/19 10:57; Admin Dose 50 MG; Start 05/20/19 at 10:30 Simethicone (Mylicon) 80 mg Q6H PRN PO DISTENSION/GAS/BLOATING Last administered on 05/24/19 01:28; Admin Dose 80 MG; Start 05/20/19 at 11:00 Eye Lubricant (Artificial Tears Oph) 2 drop Q6H PRN BOTH EYES DRY EYES Last ad ministered on 05/20/19 16:39; Admin Dose 2 DROP; Start 05/20/19 at 16:00 Acetylcysteine (Mucomyst) 2 ml Q6H RESP THERAPY PRN NEB dynpea Last administered on 05/21/19 11:37; Admin Dose 2 ML; Start 05/21/19 at 11:00 Famotidine (Pepcid) 20 mg DAILY PO Last administered on 05/24/19 08:07; Admin Dose 20 MG; Start 05/23/19 at 09:00 Acetaminophen/ Hydrocodone Bitart ([place] (10325)) 1 tab Q4H PRN PO MODERATE PAIN LEVEL 4-6 Last administered on 05/24/19 16:05; Admin Dose 1 TAB; Start 05/22/19 at 19:00 Phenol (Chloraseptic Throat [place]) 2 spray Q2H PRN MT SORE THROAT; Start 05/22/19 at 19:00 Sodium Chloride 1,000 ml @ 75 mls/hr [id number] IV Last administered on 05/24/19 03:47; Admin Dose 75 MLS/HR; Start 05/22/19 at 19:00 Cyclobenzaprine HCl (Flexeril) 5 mg BID PRN PO MUSCLE SPASMS Last administered on 05/24/19 01:28; Admin Dose 5 MG; Start 05/22/19 at 20:30 Docusate Sodium (Colace) 200 mg BID PO Last administered on 05/24/19 08:07; Admin Dose 200 MG; Start 05/22/19 at 21:30 Polyethylene Glycol (Miralax) 17 gm DAILY PO Last administered on 05/23/19 08:36; Admin Dose 17 GM; Start 05/22/19 at 22:00 Al Hydrox/Mg Hydrox/Simethicone (Mag-Al Plus) 30 ml Q6H PRN PO GASTROINTESTINAL UPSET Last administered on 05/23/19at 12:45; Admin Dose 30 ML; Start 05/22/19 at 22:00 Nitroglycerin (Nitroglycerin (Sl Tab) 0.4 Mg) 1 tab Q5M PRN SL ANGINA; Start 05/23/19 at 22:30 Morphine Sulfate (morphine) 2 mg Q4H PRN IV SEVERE PAIN LEVEL 7-10; Start 05/24/19 at 02:00 Rivaroxaban (Xarelto) 20 mg WITH DINNER PO ; Start 05/24/19 at 20:00 Carvedilol (Coreg) 6.25 mg BID PO ; Start 05/24/19 at 21:00 Miscellaneous Information (* Miscellaneous Pharmacy Order) HOLD all METFORMIN ... ONCE XX ; Start 05/24/19 at 15:30; Stop 05/26/19 at 15:29 Assessment/Plan Hospital Course (Demo Recall) IMPRESSION: 1. Left pneumothorax.Status post chest tube placement. Difficulty removing chest tube thoracic input noted. 2. History of pulmonary fibrosis. 3. History of tuberculosis and bronchiectasis in the past. 3. Cardiomyopathy Takotsubo's RECOMMENDATIONS: 1. Continue chest tube drainage. 2. Follow up chest x-ray. We will discuss with cardiothoracic surgery [facility]OWEN [facility] May 24, 2019 16:12
--- NOTE | 2019-05-24 19:50 | PN ---
Date/Time of Note Date/Time of Note DATE: 05/24/19 TIME: 19:49 Assessment/Plan Lines/Catheters IV Catheter Type (from Nrsg): Peripheral IV Veloz in Place (from Nrsg): Yes Assessment/Plan Assessment/Plan Left PTX SP CT placement CXR Hyperinflated lungs with scattered areas of architectural distortion/fibrosis/scarring, unchanged in pattern and severity. Left chest tube in place. No visible pneumothorax. Will continue CT sxn Subjective 24 Hr Interval Summary Constitutional: improved Pain Control: mild Exam/Review of Systems Vital Signs Vitals Vital Signs Date Temp Pulse Resp B/P (MAP) Pulse Ox O2 O2 Flow FiO2 Time Delivery Rate 05/24/19 98.4 112 18 111/62 97 Nasal 19:40 (78) Cannula 05/24/19 2.0 98 18:07 Intake and Output 05/23/19 05/23/19 05/24/19 1515:00 23:00 07:00 IntakeIntake Total 1000 ml 1475 ml 1300 ml OutputOutput Total 951 ml 200 ml 1350 ml BalanceBalance 49 ml 1275 ml -50 ml Exam Eyes: nl conjunctiva, EOMI, nl lids, nl sclera ENMT: nl external ears & nose, nl lips & teeth, nl nasal mucosa & septum, mucosa pink and moist Neck: supple, non-tender Respiratory: clear to auscultation, normal air movement Cardiovascular: regular rate and rhythm, nl pulses Extremities: normal pulses Results Result Diagram: 05/23/19214505/23/192143 DEBORAH SONG MD May 24, 2019 19:50
[2019-05-24] MEDS ORDERED: RIVAROXABAN 20 MG TABLET PO SCH (20:00)
[2019-05-24] MEDS: ONDANSETRON 4 MG INJ IV PRN (20:06)
[2019-05-24] MEDS: morphine 2 MG INJ IV PRN (20:18)
[2019-05-24] MEDS ORDERED: SOD CHLORIDE 0.9% 100 ML ONE (20:44)
[2019-05-24] MEDS ORDERED: IOHEXOL 100 ML ONE (20:44)
[2019-05-25] MEDS: CYCLOBENZAPRINE 10 MG TAB PO PRN ×2 (00:10→20:05)
[2019-05-25] MEDS: HYDROCODONE/APAP (10/325) TAB PO PRN ×2 (00:11→09:33)
[2019-05-25] MEDS: SOD CHLORIDE 0.9% 1,000 ML IV SCH (00:35)
[2019-05-25 07:26] VITALS: BP 96/53; PULSE 74; RESP 18
[2019-05-25] MEDS ORDERED: ASPIRIN 81 MG TAB PO SCH (09:00)
[2019-05-25] MEDS: LISINOPRIL 5 MG TAB PO SCH (09:00)
[2019-05-25] MEDS: POLYETHYLENE GLYCOL 17 GM PACKET PO SCH ×2 (09:00→09:28)
[2019-05-25] MEDS: FLUTICASONE/VILANTEROL 200-25 INH DEVICE INH SCH (09:27)
[2019-05-25] MEDS: DICLOFENAC SODIUM 1% GEL 100 GM TUBE TP SCH ×4 (09:28→20:06)
[2019-05-25] MEDS: BACLOFEN 10 MG TAB PO SCH ×3 (09:28→20:05)
[2019-05-25] MEDS: DOCUSATE SODIUM 100 MG CAP PO SCH ×2 (09:28→20:05)
[2019-05-25] MEDS: FAMOTIDINE 20 MG TAB PO SCH (09:28)
[2019-05-25] MEDS: TIOTROPIUM 18 MCG CAPSULE INHA DEV INH SCH (09:44)
--- NOTE | 2019-05-25 09:46 | CONS ---
Assessment/Plan Assessment/Plan Hospital Course (Demo Recall) NSTEMI: Peak trop 0.5. Cath 05/24/19 showed normal coronaries and Takotsubo cardiomyopathy. Takotsubo Cardiomyopathy: EF 40% with apical dyskinesis seen on cath Left pneumothorax: chest tube on presentation, then removed but presumed recurrence so had another one emergently placed 05/23 h/o PE: no PE on CTA x 2 here h/o TB Pulm fibrosis/bronchiectasis/blebs -coreg 6.25mg BID -lisinopril 5mg daily -no need for ASA or statin -decrease to Xarelto 10mg for prophylaxis (this was his outpt dose) -chest tube management per CT surgery Consultation Date/Type/Reason Admit Date/Time May 19, 2019 at 00:02 Initial Consult Date 05/24/19 Type of Consult Cardiology Requesting Provider: HARSHAL ANSARI Date/Time of Note DATE: 05/25/19 TIME: 09:43 24 HR Interval Summary Free Text/Dictation s/p cath showing normal coronaries and Takotsubo cardiomyopathy. CTA did not show a PE. Started on Xarelto. Still with neck pain and chest pain with inspiration. Notes he was taking 10mg Xarelto just for prophylaxis Exam/Review of Systems Vital Signs Vitals Vital Signs Date Temp Pulse Resp B/P (MAP) Pulse Ox O2 O2 Flow FiO2 Time Delivery Rate 05/25/19 97.8 74 18 96/53 (67) 96 07:26 05/25/19 3.0 05:20 05/24/19 Nasal 23:23 Cannula 05/24/19 98 18:07 Intake and Output 05/24/19 05/24/19 05/25/19 1515:00 23:00 07:00 IntakeIntake Total 450 ml BalanceBalance 450 ml Exam Constitutional: alert, oriented Psych: no complaints, nl mood/affect Head: normocephalic, atraumatic Neck: supple; No jvd Respiratory: diminished breath sounds; No clear to auscultation Cardiovascular: regular rate and rhythm; No edema Gastrointestinal: soft, non-tender; No distended Neurological: nl mental status, nl speech Labs Result Diagram: 05/25/19 0546 05/25/19 0546 Results 24hrs Laboratory Tests Test 05/24/19 12:08 05/24/19 18:03 05/25/19 00:27 05/25/19 05:46 Creatine Kinase 98 95 71 Creatine Kinase 5.6 5.7 5.7 Index Creatinine Kinase MB 5.48 H 5.44 H 4.07 H (Mass) Troponin I 0.383 *H 0.203 *H 0.215 *H White Blood Count 6.7 # Red Blood Count 3.58 L Hemoglobin 10.3 L Hematocrit 32.5 L Mean Corpuscular 90.8 Volume Mean Corpuscular 28.8 L Hemoglobin Mean Corpuscular 31.7 L Hemoglobin Concent Red Cell 12.6 Distribution Width Platelet Count 182 # Mean Platelet Volume 11.6 H Immature 0.300 Granulocytes % Neutrophils % 64.4 Lymphocytes % 22.0 Monocytes % 11.7 H Eosinophils % 1.5 Basophils % 0.1 Nucleated Red Blood 0.0 Cells % Immature 0.020 Granulocytes # Neutrophils # 4.3 Lymphocytes # 1.5 Monocytes # 0.8 Eosinophils # 0.1 Basophils # 0.0 Nucleated Red Blood 0.0 Cells # Sodium Level 139 Potassium Level 4.1 Chloride Level 93 L Carbon Dioxide Level 40 H Anion Gap 6 Blood Urea Nitrogen 18 Creatinine 0.58 L Est Glomerular > 60 Filtrat Rate mL/min Glucose Level 80 # Calcium Level 8.9 Medications Medications Current Medications Ondansetron HCl (Zofran Inj) 4 mg Q6H PRN IV NAUSEA AND/OR VOMITING Last administered on 05/24/19at 20:06; Admin Dose 4 MG; Start 05/19/19 at 00:30 Albuterol/ Ipratropium (Duoneb) 3 ml Q2H RESP THERAPY PRN NEB SHORTNESS OF BREATH; Start 05/19/19 at 00:30 Acetaminophen (Tylenol Liquid) 650 mg Q6H PRN PO PAIN LEVEL 1-3 OR FEVER Last administered on 05/24/19at 08:07; Admin Dose 650 MG; Start 05/19/19 at 00:30 Baclofen (Lioresal) 10 mg TID PO Last administered on 05/25/19at 09:28; Admin Dose 10 MG; Start 05/19/19 at 09:00 Tiotropium [place] (Spiriva) 1 inh DAILY INH Last administered on 05/24/19 08:08; Admin Dose 1 INH; Start 05/19/19 at 09:00 Fluticasone/ Vilanterol (Breo Ellipta 200-25 Mcg Inh) 1 inh DAILY INH Last administered on 05/25/19 09:27; Admin Dose 1 INH; Start 05/20/19 at 09:00 Phenol (Cepastat Lozenge) 1 lozenge Q1H PRN MT SORE THROAT/COUGH Last administered on 05/21/19 13:24; Admin Dose 1 LOZENGE; Start 05/19/19 at 22:30 Diclofenac Sodium (Voltaren 1% Gel) 2 gm QID TP Last administered on 05/25/19 09:28; Admin Dose 2 GM; Start 05/20/19 at 03:30 Tramadol HCl (Ultram) 50 mg Q6H PRN PO MODERATE PAIN LEVEL 4-6 Last administered on 05/20/19 10:57; Admin Dose 50 MG; Start 05/20/19 at 10:30 Simethicone (Mylicon) 80 mg Q6H PRN PO DISTENSION/GAS/BLOATING Last administered on 05/25/19 09:32; Admin Dose 80 MG; Start 05/20/19 at 11:00 Eye Lubricant (Artificial Tears Oph) 2 drop Q6H PRN BOTH EYES DRY EYES Last administered on 05/20/19 16:39; Admin Dose 2 DROP; Start 05/20/19 at 16:00 Acetylcysteine (Mucomyst) 2 ml Q6H RESP THERAPY PRN NEB dynpea Last administered on 05/21/19 11:37; Admin Dose 2 ML; Start 05/21/19 at 11:00 Famotidine (Pepcid) 20 mg DAILY PO Last administered on 05/25/19 09:28; Admin Dose 20 MG; Start 05/23/19 at 09:00 Acetaminophen/ Hydrocodone Bitart ([place] (10/325)) 1 tab Q4H PRN PO MODERATE PAIN LEVEL 4-6 Last administered on 05/25/19 09:33; Admin Dose 1 TAB; Start 05/22/19 at 19:00 Phenol (Chloraseptic Throat [place]) 2 spray Q2H PRN MT SORE THROAT; Start 05/22/19 at 19:00 Cyclobenzaprine HCl (Flexeril) 5 mg BID PRN PO MUSCLE SPASMS Last administered on 05/25/19 00:10; Admin Dose 5 MG; Start 05/22/19 at 20:30 Docusate Sodium (Colace) 200 mg BID PO Last administered on 05/25/19 09:28; Admin Dose 200 MG; Start 05/22/19 at 21:30 Polyethylene Glycol (Miralax) 17 gm DAILY PO Last administered on 05/23/19 08:36; Admin Dose 17 GM; Start 05/22/19 at 22:00 Al Hydrox/Mg Hydrox/Simethicone (Mag-Al Plus) 30 ml Q6H PRN PO GASTROINTESTINAL UPSET Last administered on 05/23/19 12:45; Admin Dose 30 ML; Start 05/22/19 at 22:00 Nitroglycerin (Nitroglycerin (Sl Tab) 0.4 Mg) 1 tab Q5M PRN SL ANGINA; Start 05/23/19 at 22:30 Morphine Sulfate (morphine) 2 mg Q4H PRN IV SEVERE PAIN LEVEL 7-10 Last administered on 05/24/19 20:18; Admin Dose 2 MG; Start 05/24/19 at 02:00 Rivaroxaban (Xarelto) 20 mg WITH DINNER PO Last administered on 05/24/19at 22:15; Admin Dose 20 MG; Start 05/24/19 at 20:00 Carvedilol (Coreg) 6.25 mg BID PO Last administered on 05/25/19 09:37; Admin Dose 6.25 MG; Start 05/24/19 at 21:00 Miscellaneous Information (* Miscellaneous Pharmacy Order) HOLD all METFORMIN ... ONCE XX ; Start 05/24/19 at 15:30; Stop 05/26/19 at 15:29 Lisinopril (Zestril) 5 mg DAILY PO ; Start 05/25/19 at 09:00 SANJUANA BAKER May 25, 2019 09:46
--- NOTE | 2019-05-25 10:46 | PN ---
Date/Time of Note Date/Time of Note DATE: 05/25/19 TIME: 10:40 Assessment/Plan VTE Prophylaxis Risk score (from Ns)>0 risk: 5 SCD applied (from Ns): Yes Pharmacological prophylaxis: rivaroxaban Lines/Catheters IV [facility]ter [facility]from [facility]): Peripheral IV Urinary Cath still in place: Yes Reason Cath still needed: terminal illness/intractable pain Assessment/Plan Assessment/Plan 1. Left inferolateral pneumothorax: Status post chest tube placement, removed on 05/23/2019, but reinserted secondary to respiratory distress. -CTPA yesterday showed near complete resolution -CT surgery and pulmonary on board 2. Chest pain with positive troponin. Status post cardiac cath yesterday which showed clean coronaries and Takotsubo cardiomyopathy with 2D echo showing EF of 40% -Continue current cardiac medications. -Cardiology on board. -CTPA yesterday showed no PE 3. History of pulmonary fibrosis. CTPA yesterday showed severe bullous emphysema, no PE -continue on O2 supplement, as needed bronchodilators. -Pulmonary is following. 4. Anemia: H&H has been slowly trending down. Monitor closely 5. Right sided neck pain x 4 days. -He has full range of motion. -Reported similar symptom 4 years ago and reported taking muscle relaxant with some relief. -will increase dose of Flexeril for now -Will obtain neck xray Result Diagram: 05/25/19 0546 05/25/19 0546 Results 24hrs Laboratory Tests Test 05/24/19 12:08 05/24/19 18:03 05/25/19 00:27 05/25/19 05:46 Creatine Kinase 98 95 71 Creatine Kinase 5.6 5.7 5.7 Index Creatinine Kinase MB 5.48 H 5.44 H 4.07 H (Mass) Troponin I 0.383 *H 0.203 *H 0.215 *H White Blood Count 6.7 # Red Blood Count 3.58 L Hemoglobin 10.3 L Hematocrit 32.5 L Mean Corpuscular 90.8 Volume Mean Corpuscular 28.8 L Hemoglobin Mean Corpuscular 31.7 L Hemoglobin Concent Red Cell 12.6 Distribution Width Platelet Count 182 # Mean Platelet Volume 11.6 H Immature 0.300 Granulocytes % Neutrophils % 64.4 Lymphocytes % 22.0 Monocytes % 11.7 H Eosinophils % 1.5 Basophils % 0.1 Nucleated Red Blood 0.0 Cells % Immature 0.020 Granulocytes # Neutrophils # 4.3 Lymphocytes # 1.5 Monocytes # 0.8 Eosinophils # 0.1 Basophils # 0.0 Nucleated Red Blood 0.0 Cells # Sodium Level 139 Potassium Level 4.1 Chloride Level 93 L Carbon Dioxide Level 40 H Anion Gap 6 Blood Urea Nitrogen 18 Creatinine 0.58 L Est Glomerular > 60 Filtrat Rate mL/min Glucose Level 80 # Calcium Level 8.9 Subjective 24 Hr Interval Summary Free Text/Dictation pt complained of right sided neck pain x 4 days. He has full range of motion. Reported similar symptom 4 years ago and reported taking muscle relaxant with some relief. Also c/o sweating Exam/Review of Systems Exam Vitals Vital Signs Date Temp Pulse Resp B/P (MAP) Pulse Ox O2 O2 Flow FiO2 Time Delivery Rate 05/25/19 97.8 74 18 96/53 (67) 96 07:26 05/25/19 3.0 05:20 05/24/19 Nasal 23:23 Cannula 05/24/19 98 18:07 Intake and Output 05/24/19 05/24/19 05/25/19 1515:00 23:00 07:00 IntakeIntake Total 450 ml BalanceBalance 450 ml Constitutional: other (No acute distress) Head: normocephalic, atraumatic Eyes: PERRL Respiratory: diminished breath sounds, other (Chest tube in place) Cardiovascular: regular rate and rhythm Gastrointestinal: soft Musculoskeletal: other (right neck tenderness) Extremities: normal pulses Results Results 24hrs Laboratory Tests Test 05/24/19 12:08 05/24/19 18:03 05/25/19 00:27 05/25/19 05:46 Creatine Kinase 98 95 71 Creatine Kinase 5.6 5.7 5.7 Index Creatinine Kinase MB 5.48 H 5.44 H 4.07 H (Mass) Troponin I 0.383 *H 0.203 *H 0.215 *H White Blood Count 6.7 # Red Blood Count 3.58 L Hemoglobin 10.3 L Hematocrit 32.5 L Mean Corpuscular 90.8 Volume Mean Corpuscular 28.8 L Hemoglobin Mean Corpuscular 31.7 L Hemoglobin Concent Red Cell 12.6 Distribution Width Platelet Count 182 # Mean Platelet Volume 11.6 H Immature 0.300 Granulocytes % Neutrophils % 64.4 Lymphocytes % 22.0 Monocytes % 11.7 H Eosinophils % 1.5 Basophils % 0.1 Nucleated Red Blood 0.0 Cells % Immature 0.020 Granulocytes # Neutrophils # 4.3 Lymphocytes # 1.5 Monocytes # 0.8 Eosinophils # 0.1 Basophils # 0.0 Nucleated Red Blood 0.0 Cells # Sodium Level 139 Potassium Level 4.1 Chloride Level 93 L Carbon Dioxide Level 40 H Anion Gap 6 Blood Urea Nitrogen 18 Creatinine 0.58 L Est Glomerular > 60 Filtrat Rate mL/min Glucose Level 80 # Calcium Level 8.9 Medications Medication Current Medications Ondansetron HCl (Zofran Inj) 4 mg Q6H PRN IV NAUSEA AND/OR VOMITING Last administered on 05/24/19 20:06; Admin Dose 4 MG; Start 05/19/19 at 00:30 Albuterol/ Ipratropium (Duoneb) 3 ml Q2H RESP THERAPY PRN NEB SHORTNESS OF BREATH; Start 05/19/19 at 00:30 Acetaminophen (Tylenol Liquid) 650 mg Q6H PRN PO PAIN LEVEL 1-3 OR FEVER Last administered on 05/24/19 08:07; Admin Dose 650 MG; Start 05/19/19 at 00:30 Baclofen (Lioresal) 10 mg TID PO Last administered on 05/25/19 09:28; Admin Dose 10 MG; Start 05/19/19 at 09:00 Tiotropium [place] (Spiriva) 1 inh DAILY INH Last administered on 05/25/19 09:44; Admin Dose 1 INH; Start 05/19/19 at 09:00 Fluticasone/ Vilanterol (Breo Ellipta 200-25 Mcg Inh) 1 inh DAILY INH Last administered on 05/25/19 09:27; Admin Dose 1 INH; Start 05/20/19 at 09:00 Phenol (Cepastat Lozenge) 1 lozenge Q1H PRN MT SORE THROAT/COUGH Last administered on 05/21/19 13:24; Admin Dose 1 LOZENGE; Start 05/19/19 at 22:30 Diclofenac Sodium (Voltaren 1% Gel) 2 gm QID TP Last administered on 05/25/19 09:28; Admin Dose 2 GM; Start 05/20/19 at 03:30 Tramadol HCl (Ultram) 50 mg Q6H PRN PO MODERATE PAIN LEVEL 4-6 Last administered on 05/20/19 10:57; Admin Dose 50 MG; Start 05/20/19 at 10:30 Simethicone (Mylicon) 80 mg Q6H PRN PO DISTENSION/GAS/BLOATING Last administered on 05/25/19 09:32; Admin Dose 80 MG; Start 05/20/19 at 11:00 Eye Lubricant (Artificial Tears Oph) 2 drop Q6H PRN BOTH EYES DRY EYES Last administered on 05/20/19 16:39; Admin Dose 2 DROP; Start 05/20/19 at 16:00 Acetylcysteine (Mucomyst) 2 ml Q6H RESP THERAPY PRN NEB dynpea Last administered on 05/21/19 11:37; Admin Dose 2 ML; Start 05/21/19 at 11:00 Famotidine (Pepcid) 20 mg DAILY PO Last administered on 05/25/19 09:28; Admin Dose 20 MG; Start 05/23/19 at 09:00 Acetaminophen/ Hydrocodone Bitart ([place] (10/325)) 1 tab Q4H PRN PO MODERATE PAIN LEVEL 4-6 Last administered on 05/25/19 09:33; Admin Dose 1 TAB; Start 05/22/19 at 19:00 Phenol (Chloraseptic Throat [place]) 2 spray Q2H PRN MT SORE THROAT; Start 05/22/19 at 19:00 Cyclobenzaprine HCl (Flexeril) 5 mg BID PRN PO MUSCLE SPASMS Last administered on 05/25/19 00:10; Admin Dose 5 MG; Start 05/22/19 at 20:30 Docusate Sodium (Colace) 200 mg BID PO Last administered on 05/25/19 09:28; Admin Dose 200 MG; Start 05/22/19 at 21:30 Polyethylene Glycol (Miralax) 17 gm DAILY PO Last administered on 05/23/19 08:36; Admin Dose 17 GM; Start 05/22/19 at 22:00 Al Hydrox/Mg Hydrox/Simethicone (Mag-Al Plus) 30 ml Q6H PRN PO GASTROINTESTINAL UPSET Last administered on 05/23/19 12:45; Admin Dose 30 ML; Start 05/22/19 at 22:00 Nitroglycerin (Nitroglycerin (Sl Tab) 0.4 Mg) 1 tab Q5M PRN SL ANGINA; Start 05/23/19 at 22:30 Morphine Sulfate (morphine) 2 mg Q4H PRN IV SEVERE PAIN LEVEL 7-10 Last admi nistered on 05/24/19at 20:18; Admin Dose 2 MG; Start 05/24/19 at 02:00 Carvedilol (Coreg) 6.25 mg BID PO Last administered on 05/25/19at 09:37; Admin Dose 6.25 MG; Start 05/24/19 at 21:00 Miscellaneous Information (* Miscellaneous Pharmacy Order) HOLD all METFORMIN ... ONCE XX ; Start 05/24/19 at 15:30; Stop 05/26/19 at 15:29 Lisinopril (Zestril) 5 mg DAILY PO ; Start 05/25/19 at 09:00 Rivaroxaban (Xarelto) 10 mg WITH DINNER PO ; Start 05/25/19 at 17:55 KERLINE WOODARD MD May 25, 2019 10:46
[2019-05-25 11:43] VITALS: BP 101/57; PULSE 99; RESP 18
--- NOTE | 2019-05-25 12:47 | CONS ---
Consult Date/Type/Reason Admit Date/Time May 19, 2019 at 00:02 Initial Consult Date 05/20/19 Type of Consult Pulmonary Requesting Provider: HARSHAL ANSARI Date/Time of Note DATE: 05/25/19 TIME: 12:47 Subjective Significant respiratory distress following removal of chest tube, chest tube has not been replaced. Objective Vital Signs Date Temp Pulse Resp B/P (MAP) Pulse Ox O2 O2 Flow FiO2 Time Delivery Rate 05/25/19 98.1 99 18 101/57 100 11:43 (72) 05/25/19 Nasal 3.0 09:00 Cannula 05/24/19 98 18:07 Intake and Output 05/24/19 05/24/19 05/25/19 1515:00 23:00 07:00 IntakeIntake Total 450 ml BalanceBalance 450 ml Exam VITAL SIGNS: per chart NECK: Supple. No JVD or lymphadenopathy. CARDIAC EXAM: S1, S2. No added sounds or murmurs. CHEST: clear bilaterally, No added sounds, rales or wheezes ABDOMEN: Soft, nontender. No guarding or rebound. EXTREMITIES: No cyanosis, clubbing or edema. NEUROLOGIC: Generalized weakness. No focal deficits. Vent Setting Fraction of Inspired Oxygen pe: 98 Results/Medications Result Diagram: 05/25/19 0546 05/25/19 0546 Results 24 hrs Laboratory Tests Test 05/24/19 18:03 05/25/19 00:27 05/25/19 05:46 Creatine Kinase 95 71 Creatine Kinase Index 5.7 5.7 Creatinine Kinase MB (Mass) 5.44 H 4.07 H Troponin I 0.203 *H 0.215 *H White Blood Count 6.7 # Red Blood Count 3.58 L Hemoglobin 10.3 L Hematocrit 32.5 L Mean Corpuscular Volume 90.8 Mean Corpuscular Hemoglobin 28.8 L Mean Corpuscular Hemoglobin Concent 31.7 L Red Cell Distribution Width 12.6 Platelet Count 182 # Mean Platelet Volume 11.6 H Immature Granulocytes % 0.300 Neutrophils % 64.4 Lymphocytes % 22.0 Monocytes % 11.7 H Eosinophils % 1.5 Basophils % 0.1 Nucleated Red Blood Cells % 0.0 Immature Granulocytes # 0.020 Neutrophils # 4.3 Lymphocytes # 1.5 Monocytes # 0.8 Eosinophils # 0.1 Basophils # 0.0 Nucleated Red Blood Cells # 0.0 Sodium Level 139 Potassium Level 4.1 Chloride Level 93 L Carbon Dioxide Level 40 H Anion Gap 6 Blood Urea Nitrogen 18 Creatinine 0.58 L Est Glomerular Filtrat Rate mL/min > 60 Glucose Level 80 # Calcium Level 8.9 Medications Current Medications Ondansetron HCl (Zofran Inj) 4 mg Q6H PRN IV NAUSEA AND/OR VOMITING Last administered on 05/24/19 20:06; Admin Dose 4 MG; Start 05/19/19 at 00:30 Albuterol/ Ipratropium (Duoneb) 3 ml Q2H RESP THERAPY PRN NEB SHORTNESS OF BREATH; Start 05/19/19 at 00:30 Acetaminophen (Tylenol Liquid) 650 mg Q6H PRN PO PAIN LEVEL 1-3 OR FEVER Last administered on 05/24/19 08:07; Admin Dose 650 MG; Start 05/19/19 at 00:30 Baclofen (Lioresal) 10 mg TID PO Last administered on 05/25/19 12:10; Admin Dose 10 MG; Start 05/19/19 at 09:00 Tiotropium [place] (Spiriva) 1 inh DAILY INH Last administered on 05/25/19 09:44; Admin Dose 1 INH; Start 05/19/19 at 09:00 Fluticasone/ Vilanterol (Breo Ellipta 200-25 Mcg Inh) 1 inh DAILY INH Last administered on 05/25/19 09:27; Admin Dose 1 INH; Start 05/20/19 at 09:00 Phenol (Cepastat Lozenge) 1 lozenge Q1H PRN MT SORE THROAT/COUGH Last administered on 05/21/19 13:24; Admin Dose 1 LOZENGE; Start 05/19/19 at 22:30 Diclofenac Sodium (Voltaren 1% Gel) 2 gm QID TP Last administered on 05/25/19 12:11; Admin Dose 2 GM; Start 05/20/19 at 03:30 Tramadol HCl (Ultram) 50 mg Q6H PRN PO MODERATE PAIN LEVEL 4-6 Last administered on 05/20/19 10:57; Admin Dose 50 MG; Start 05/20/19 at 10:30 Simethicone (Mylicon) 80 mg Q6H PRN PO DISTENSION/GAS/BLOATING Last adm inistered on 05/25/19 09:32; Admin Dose 80 MG; Start 05/20/19 at 11:00 Eye Lubricant (Artificial Tears Oph) 2 drop Q6H PRN BOTH EYES DRY EYES Last administered on 05/20/19 16:39; Admin Dose 2 DROP; Start 05/20/19 at 16:00 Acetylcysteine (Mucomyst) 2 ml Q6H RESP THERAPY PRN NEB dynpea Last admini stered on 05/21/19 11:37; Admin Dose 2 ML; Start 05/21/19 at 11:00 Famotidine (Pepcid) 20 mg DAILY PO Last administered on 05/25/19 09:28; Admin Dose 20 MG; Start 05/23/19 at 09:00 Acetaminophen/ Hydrocodone Bitart ([place] (10325)) 1 tab Q4H PRN PO MODERATE PAIN LEVEL 4-6 Last administered on 05/25/19 09:33; Admin Dose 1 TAB; Start 05/22/19 at 19:00 Phenol (Chloraseptic Throat [place]) 2 spray Q2H PRN MT SORE THROAT; Start 05/22/19 at 19:00 Cyclobenzaprine HCl (Flexeril) 5 mg BID PRN PO MUSCLE SPASMS Last administered on 05/25/19 00:10; Admin Dose 5 MG; Start 05/22/19 at 20:30 Docusate Sodium (Colace) 200 mg BID PO Last administered on 05/25/19 09:28; Admin Dose 200 MG; Start 05/22/19 at 21:30 Polyethylene Glycol (Miralax) 17 gm DAILY PO Last administered on 05/23/19 08:36; Admin Dose 17 GM; Start 05/22/19 at 22:00 Al Hydrox/Mg Hydrox/Simethicone (Mag-Al Plus) 30 ml Q6H PRN PO GASTROINTESTINAL UPSET Last administered on 05/23/19 12:45; Admin Dose 30 ML; Start 05/22/19 at 22:00 Nitroglycerin (Nitroglycerin (Sl Tab) 0.4 Mg) 1 tab Q5M PRN SL ANGINA; Start 05/23/19 at 22:30 Morphine Sulfate (morphine) 2 mg Q4H PRN IV SEVERE PAIN LEVEL 7-10 Last administered on 05/24/19 20:18; Admin Dose 2 MG; Start 05/24/19 at 02:00 Carvedilol (Coreg) 6.25 mg BID PO Last administered on 05/25/19at 09:37; Admin Dose 6.25 MG; Start 05/24/19 at 21:00 Miscellaneous Information (* Miscellaneous Pharmacy Order) HOLD all METFORMIN ... ONCE XX ; Start 05/24/19 at 15:30; Stop 05/26/19 at 15:29 Lisinopril (Zestril) 5 mg DAILY PO ; Start 05/25/19 at 09:00 Rivaroxaban (Xarelto) 10 mg WITH DINNER PO ; Start 05/25/19 at 17:55 Assessment/Plan Hospital Course (Demo Recall) IMPRESSION: 1. Left pneumothorax.Status post chest tube placement. Difficulty removing chest tube thoracic input noted. Currently clamped again. 2. History of pulmonary fibrosis. 3. History of tuberculosis and bronchiectasis in the past. 3. Cardiomyopathy Takotsubo's RECOMMENDATIONS: 1. Continue chest tube drainage. 2. Follow up chest x-ray. We will discuss with cardiothoracic surgery, continue chest tube clamped will attempt removal tomorrow. FISH BOWEN MD, [facility] May 25, 2019 12:47
[2019-05-25] MEDS: morphine 2 MG INJ IV PRN (14:54)
[2019-05-25] MEDS: HOLD all METFORMIN and METFORMIN CONTAINING medications for 48 hours post procedure. Chec XX SCH (15:18)
[2019-05-25] MEDS: CEPASTAT LOZENGE MT PRN ×2 (15:18→20:05)
[2019-05-25] MEDS: ALBUTEROL/IPRATROPIUM (NEB) 3 ML AMP NEB PRN ×2 (15:29→21:54)
[2019-05-25 15:55] VITALS: BP 119/68; PULSE 96
--- NOTE | 2019-05-25 17:10 | RADRPT ---
Vent Rate: 97 bpm RR Interval: 616 msec AL Interval: 127 msec QRS Duration: 83 msec QT Interval: 383 msec QTC Interval: 488 msec P-R-T [place]: 83 - 134 - 122 degrees Sinus rhythm...normal P axis, V-rate 50- 99 Inferior infarct, old...Q >35mS, II III aVF Electronically Signed By: Reyes Robbins
--- NOTE | 2019-05-25 17:11 | RADRPT ---
Vent Rate: 131 bpm RR Interval: 460 msec [place] Interval: 122 msec QRS Duration: 85 msec QT Interval: 321 msec QTC Interval: 473 msec P-R-T [place]: 67 - -72 - 87 degrees Sinus tachycardia...rate> 99 Probable left atrial enlargement...P >50mS, <-0.10mV V1 LAD, consider left anterior fascicular block...axis(240,-40), S>R II III aVF Lateral infarct, old...Q>40mS, flat T, V5 V6 I aVL Electronically Signed By: Reyes Robbins
[2019-05-25] MEDS: RIVAROXABAN 10 MG TABLET PO SCH (18:02)
[2019-05-25 19:21] VITALS: BP 125/60; PULSE 101; RESP 18
[2019-05-25] MEDS: ACETAMINOPHEN 650MG/20.3ML CUP PO PRN (20:10)
[2019-05-26 00:08] VITALS: BP 110/58; PULSE 101; RESP 18
[2019-05-26 05:17] VITALS: BP 114/59; PULSE 108; RESP 18
[2019-05-26 07:43] VITALS: BP 108/61; PULSE 102; RESP 18
[2019-05-26] MEDS: HYDROCODONE/APAP (10/325) TAB PO PRN ×2 (08:27→14:04)
[2019-05-26] MEDS: BACLOFEN 10 MG TAB PO SCH ×3 (08:27→20:31)
[2019-05-26] MEDS: DOCUSATE SODIUM 100 MG CAP PO SCH ×2 (08:27→20:31)
[2019-05-26] MEDS: FAMOTIDINE 20 MG TAB PO SCH (08:30)
[2019-05-26] MEDS: POLYETHYLENE GLYCOL 17 GM PACKET PO SCH (08:30)
[2019-05-26] MEDS: LISINOPRIL 5 MG TAB PO SCH (08:30)
[2019-05-26] MEDS: DICLOFENAC SODIUM 1% GEL 100 GM TUBE TP SCH ×4 (08:31→20:31)
[2019-05-26] MEDS: FLUTICASONE/VILANTEROL 200-25 INH DEVICE INH SCH (08:33)
[2019-05-26] MEDS: TIOTROPIUM 18 MCG CAPSULE INHA DEV INH SCH (08:37)
--- NOTE | 2019-05-26 09:48 | PN ---
Date/Time of Note Date/Time of Note DATE: 05/26/19 TIME: 09:41 Assessment/Plan VTE Prophylaxis Risk score (from Ns)>0 risk: 3 SCD applied (from Ns): No SCD contraindicated: other Pharmacological prophylaxis: rivaroxaban Lines/Catheters IV [facility]ter Type ([facility] [place] Lock Urinary Cath still in place: Yes Reason Cath still needed: urinary retention Assessment/Plan Hospital Course S: Patient still complaining of some throat soreness, but less neck soreness. Still waiting for next x-ray to be performed. Per nursing staff tolerating current diet. O: VS- see below PE: Constitutional: No acute distress) Head: normocephalic, atraumatic Eyes: PERRL Respiratory: diminished breath sounds, other (Chest tube in place) Cardiovascular: regular rate and rhythm Gastrointestinal: soft Musculoskeletal: other (right neck tenderness) Extremities: normal pulses Assessment/Plan: 53-year-old male presents with: 1. Left inferolateral pneumothorax: Status post chest tube placement, removed on 05/23/2019, but reinserted secondary to respiratory distress. -CTPA yesterday showed near complete resolution -CT surgery and pulmonary on board 2. Chest pain with positive troponin. Status post cardiac cath which showed clean coronaries and Takotsubo cardiomyopathy with 2D echo showing EF of 40% - CTPA showed no PE -Continue current cardiac medications. -Cardiology on board. 3. History of pulmonary fibrosis. CTPA showed severe bullous emphysema, no PE -continue on O2 supplement, as needed bronchodilators. -Pulmonary is following. 4. Anemia: H&H has been slowly trending down. Monitor closely 5. Right sided neck pain x 5 days-He has full range of motion-Reported similar symptom 4 years ago and reported taking muscle relaxant with some relief. -For now continue baclofen and as needed Flexeril -Follow-up results of neck xray-still pending Result Diagram: 05/26/19 0800 05/26/19 0800 Results 24hrs Laboratory Tests Test 05/26/19 08:00 White Blood Count 9.1 # Red Blood Count 3.81 L Hemoglobin 10.9 L Hematocrit 33.9 L Mean Corpuscular Volume 89.0 Mean Corpuscular Hemoglobin 28.6 L Mean Corpuscular Hemoglobin Concent 32.2 Red Cell Distribution Width 12.7 Platelet Count 188 Mean Platelet Volume 11.6 H Immature Granulocytes % 0.300 Neutrophils % 77.5 H Lymphocytes % 9.5 L Monocytes % 9.6 Eosinophils % 3.0 Basophils % 0.1 Nucleated Red Blood Cells % 0.0 Immature Granulocytes # 0.030 Neutrophils # 7.1 Lymphocytes # 0.9 Monocytes # 0.9 Eosinophils # 0.3 Basophils # 0.0 Nucleated Red Blood Cells # 0.0 Sodium Level 139 Potassium Level 3.9 Chloride Level 90 L Carbon Dioxide Level 44 *H Anion Gap 5 Blood Urea Nitrogen 14 Creatinine 0.42 L Est Glomerular Filtrat Rate mL/min > 60 Glucose Level 98 Calcium Level 8.4 Exam/Review of Systems Exam Vitals Vital Signs Date Temp Pulse Resp B/P (MAP) Pulse Ox O2 O2 Flow FiO2 Time Delivery Rate 05/26/19 98.2 102 18 108/61 96 07:43 (77) 05/26/19 3.0 00:36 05/25/19 Nasal 21:55 Cannula 05/24/19 98 18:07 Intake and Output 05/25/19 05/25/19 05/26/19 1515:00 23:00 07:00 IntakeIntake Total 300 ml 1430 ml OutputOutput Total 400 ml 1000 ml 1200 ml BalanceBalance -100 ml 430 ml -1200 ml Results Results 24hrs Laboratory Tests Test 05/26/19 08:00 White Blood Count 9.1 # Red Blood Count 3.81 L Hemoglobin 10.9 L Hematocrit 33.9 L Mean Corpuscular Volume 89.0 Mean Corpuscular Hemoglobin 28.6 L Mean Corpuscular Hemoglobin Concent 32.2 Red Cell Distribution Width 12.7 Platelet Count 188 Mean Platelet Volume 11.6 H Immature Granulocytes % 0.300 Neutrophils % 77.5 H Lymphocytes % 9.5 L Monocytes % 9.6 Eosinophils % 3.0 Basophils % 0.1 Nucleated Red Blood Cells % 0.0 Immature Granulocytes # 0.030 Neutrophils # 7.1 Lymphocytes # 0.9 Monocytes # 0.9 Eosinophils # 0.3 Basophils # 0.0 Nucleated Red Blood Cells # 0.0 Sodium Level 139 Potassium Level 3.9 Chloride Level 90 L Carbon Dioxide Level 44 *H Anion Gap 5 Blood Urea Nitrogen 14 Creatinine 0.42 L Est Glomerular Filtrat Rate mL/min > 60 Glucose Level 98 Calcium Level 8.4 Medications Medication Current Medications Ondansetron HCl (Zofran Inj) 4 mg Q6H PRN IV NAUSEA AND/OR VOMITING Last administered on 05/24/19 20:06; Admin Dose 4 MG; Start 05/19/19 at 00:30 Albuterol/ Ipratropium (Duoneb) 3 ml Q2H RESP THERAPY PRN NEB SHORTNESS OF BREATH Last administered on 05/25/19 21:54; Admin Dose 3 ML; Start 05/19/19 at 00:30 Acetaminophen (Tylenol Liquid) 650 mg Q6H PRN PO PAIN LEVEL 1-3 OR FEVER Last administered on 05/25/19 20:10; Admin Dose 650 MG; Start 05/19/19 at 00:30 Baclofen (Lioresal) 10 mg TID PO Last administered on 05/26/19 08:27; Admin Dose 10 MG; Start 05/19/19 at 09:00 Tiotropium [place] (Spiriva) 1 inh DAILY INH Last administered on 05/25/19 09:44; Admin Dose 1 INH; Start 05/19/19 at 09:00 Fluticasone/ Vilanterol (Breo Ellipta 200-25 Mcg Inh) 1 inh DAILY INH Last administered on 05/26/19 08:33; Admin Dose 1 INH; Start 05/20/19 at 09:00 Phenol (Cepastat Lozenge) 1 lozenge Q1H PRN MT SORE THROAT/COUGH Last administered on 05/25/19 20:05; Admin Dose 1 LOZENGE; Start 05/19/19 at 22:30 Diclofenac Sodium (Voltaren 1% Gel) 2 gm QID TP Last administered on 05/26/19 08:31; Admin Dose 2 GM; Start 05/20/19 at 03:30 Tramadol HCl (Ultram) 50 mg Q6H PRN PO MODERATE PAIN LEVEL 4-6 Last administered on 05/20/19 10:57; Admin Dose 50 MG; Start 05/20/19 at 10:30 Simethicone (Mylicon) 80 mg Q6H PRN PO DISTENSION/GAS/BLOATING Last administered on 05/25/19 22:18; Admin Dose 80 MG; Start 05/20/19 at 11:00 Eye Lubricant (Artificial Tears Oph) 2 drop Q6H PRN BOTH EYES DRY EYES Last administered on 05/20/19 16:39; Admin Dose 2 DROP; Start 05/20/19 at 16:00 Acetylcysteine (Mucomyst) 2 ml Q6H RESP THERAPY PRN NEB dynpea Last administered on 05/21/19 11:37; Admin Dose 2 ML; Start 05/21/19 at 11:00 Famotidine (Pepcid) 20 mg DAILY PO Last administered on 05/26/19 08:30; Admin Dose 20 MG; Start 05/23/19 at 09:00 Acetaminophen/ Hydrocodone Bitart ([place] (10/325)) 1 tab Q4H PRN PO MODERATE PAIN LEVEL 4-6 Last administered on 05/26/19 08:27; Admin Dose 1 TAB; Start 05/22/19 at 19:00 Phenol (Chloraseptic Throat [place]) 2 spray Q2H PRN MT SORE THROAT; Start 05/22/19 at 19:00 Docusate Sodium (Colace) 200 mg BID PO Last administered on 05/26/19 08:27; Admin Dose 200 MG; Start 05/22/19 at 21:30 Polyethylene Glycol (Miralax) 17 gm DAILY PO Last administered on 05/26/19 08:30; Admin Dose 17 GM; Start 05/22/19 at 22:00 Al Hydrox/Mg Hydrox/Simethicone (Mag-Al Plus) 30 ml Q6H PRN PO GASTROINTESTINAL UPSET Last administered on 05/23/19 12:45; Admin Dose 30 ML; Start 05/22/19 at 22:00 Nitroglycerin (Nitroglycerin (Sl Tab) 0.4 Mg) 1 tab Q5M PRN SL ANGINA; Start 05/23/19 at 22:30 Morphine Sulfate (morphine) 2 mg Q4H PRN IV SEVERE PAIN LEVEL 7-10 Last administered on 05/25/19 14:54; Admin Dose 2 MG; Start 05/24/19 at 02:00 Carvedilol (Coreg) 6.25 mg BID PO Last administered on 05/26/19 08:30; Admin Dose 6.25 MG; Start 05/24/19 at 21:00 Miscellaneous Information (* Miscellaneous Pharmacy Order) HOLD all METFORMIN ... ONCE XX ; Start 05/24/19 at 15:30; Stop 05/26/19 at 15:29 Lisinopril (Zestril) 5 mg DAILY PO Last administered on 05/26/19at 08:30; Admin Dose 5 MG; Start 05/25/19 at 09:00 Rivaroxaban (Xarelto) 10 mg WITH DINNER PO Last administered on 05/25/19at 18:02; Admin Dose 10 MG; Start 05/25/19 at 17:55 Cyclobenzaprine HCl (Flexeril) 10 mg BID PRN PO MUSCLE SPASMS; Start 05/26/19 at 00:30 LUCINDA FLORES May 26, 2019 09:48
[2019-05-26 11:47] VITALS: BP 126/62; PULSE 92; RESP 18
--- NOTE | 2019-05-26 13:03 | CONS ---
Assessment/Plan Assessment/Plan Hospital Course (Demo Recall) NSTEMI: Peak trop 0.5. Cath 05/24/19 showed normal coronaries and Takotsubo cardiomyopathy. Takotsubo Cardiomyopathy: EF 40% with apical dyskinesis seen on cath Left pneumothorax: chest tube on presentation, then removed but presumed recurrence so had another one emergently placed 05/23 h/o PE: no PE on CTA x 2 here h/o TB Pulm fibrosis/bronchiectasis/blebs -coreg 6.25mg BID -lisinopril 5mg daily -no need for ASA or statin -Xarelto 10mg for prophylaxis (this was his outpt dose) -chest tube management per CT surgery Consultation Date/Type/Reason Admit Date/Time May 19, 2019 at 00:02 Initial Consult Date 05/24/19 Type of Consult Cardiology Requesting Provider: HARSHAL ANSARI Date/Time of Note DATE: 05/26/19 TIME: 13:02 24 HR Interval Summary Free Text/Dictation No change in condition. Complains of productive cough, yellow phlegm Exam/Review of Systems Vital Signs Vitals Vital Signs Date Temp Pulse Resp B/P (MAP) Pulse Ox O2 O2 Flow FiO2 Time Delivery Rate 05/26/19 97.9 92 18 126/62 98 11:47 (83) 05/26/19 Nasal 3.0 07:45 Cannula 05/24/19 98 18:07 Intake and Output 05/25/19 05/25/19 05/26/19 1515:00 23:00 07:00 IntakeIntake Total 300 ml 1430 ml OutputOutput Total 400 ml 1000 ml 1200 ml BalanceBalance -100 ml 430 ml -1200 ml Exam Constitutional: alert, oriented Psych: nl mood/affect Neck: No jvd Respiratory: diminished breath sounds; No clear to auscultation Cardiovascular: regular rate and rhythm; No edema, No systolic murmur Gastrointestinal: soft, non-tender; No distended Neurological: nl mental status, nl speech Labs Result Diagram: 05/26/19 0800 05/26/19 0800 Results 24hrs Laboratory Tests Test 05/26/19 08:00 05/26/19 10:27 White Blood Count 9.1 # Red Blood Count 3.81 L Hemoglobin 10.9 L Hematocrit 33.9 L Mean Corpuscular Volume 89.0 Mean Corpuscular Hemoglobin 28.6 L Mean Corpuscular Hemoglobin Concent 32.2 Red Cell Distribution Width 12.7 Platelet Count 188 Mean Platelet Volume 11.6 H Immature Granulocytes % 0.300 Neutrophils % 77.5 H Lymphocytes % 9.5 L Monocytes % 9.6 Eosinophils % 3.0 Basophils % 0.1 Nucleated Red Blood Cells % 0.0 Immature Granulocytes # 0.030 Neutrophils # 7.1 Lymphocytes # 0.9 Monocytes # 0.9 Eosinophils # 0.3 Basophils # 0.0 Nucleated Red Blood Cells # 0.0 Sodium Level 139 Potassium Level 3.9 Chloride Level 90 L Carbon Dioxide Level 44 *H Anion Gap 5 Blood Urea Nitrogen 14 Creatinine 0.42 L Est Glomerular Filtrat Rate mL/min > 60 Glucose Level 98 Calcium Level 8.4 Blood Gas Specimen Source Blood arterial Arterial Blood Date Drawn 05/26/2019 10:55:03 AM Arterial Blood pH (Temp corrected) 7.347 L Arterial Blood pCO2 (Temp correct) 85.2 *H Arterial Blood pO2 (Temp corrected) 98.2 Arterial Blood HCO3 45.7 *H Arterial Blood Base Excess 16.2 H Arterial Blood Oxygen Saturation 97.3 Ilya Test ACCEPTAB Arterial Blood Gas Puncture Site Left Radial Arterial Blood Carboxyhemoglobin 1.0 Arterial Blood Methemoglobin 0.2 Blood Gas A-a O2 Differential 37.6 H Oxyhemoglobin Percent 96.1 Blood Gas Temperature 37.0 Blood Gas Modality NASAL CANNULA FiO2 33.0 Blood Gas Critical Value Read Back BEATRICE RN Blood Gas Notified Whom TM Blood Gas Notified Time 05/26/2019 11:05:21 AM Medications Medications Current Medications Ondansetron HCl (Zofran Inj) 4 mg Q6H PRN IV NAUSEA AND/OR VOMITING Last administered on 05/24/19 20:06; Admin Dose 4 MG; Start 05/19/19 at 00:30 Albuterol/ Ipratropium (Duoneb) 3 ml Q2H RESP THERAPY PRN NEB SHORTNESS OF BREATH Last administered on 05/25/19 21:54; Admin Dose 3 ML; Start 05/19/19 at 00:30 Acetaminophen (Tylenol Liquid) 650 mg Q6H PRN PO PAIN LEVEL 1-3 OR FEVER Last administered on 05/25/19 20:10; Admin Dose 650 MG; Start 05/19/19 at 00:30 Baclofen (Lioresal) 10 mg TID PO Last administered on 05/26/19 08:27; Admin Dose 10 MG; Start 05/19/19 at 09:00 Tiotropium [place] (Spiriva) 1 inh DAILY INH Last administered on 05/25/19 09:44; Admin Dose 1 INH; Start 05/19/19 at 09:00 Fluticasone/ Vilanterol (Breo Ellipta 200-25 Mcg Inh) 1 inh DAILY INH Last administered on 05/26/19 08:33; Admin Dose 1 INH; Start 05/20/19 at 09:00 Phenol (Cepastat Lozenge) 1 lozenge Q1H PRN MT SORE THROAT/COUGH Last administered on 05/25/19 20:05; Admin Dose 1 LOZENGE; Start 05/19/19 at 22:30 Diclofenac Sodium (Voltaren 1% Gel) 2 gm QID TP Last administered on 05/26/19 08:31; Admin Dose 2 GM; Start 05/20/19 at 03:30 Tramadol HCl (Ultram) 50 mg Q6H PRN PO MODERATE PAIN LEVEL 4-6 Last administered on 05/20/19 10:57; Admin Dose 50 MG; Start 05/20/19 at 10:30 Simethicone (Mylicon) 80 mg Q6H PRN PO DISTENSION/GAS/BLOATING Last administered on 05/25/19 22:18; Admin Dose 80 MG; Start 05/20/19 at 11:00 Eye Lubricant (Artificial Tears Oph) 2 drop Q6H PRN BOTH EYES DRY EYES Last administered on 05/20/19 16:39; Admin Dose 2 DROP; Start 05/20/19 at 16:00 Acetylcysteine (Mucomyst) 2 ml Q6H RESP THERAPY PRN NEB dynpea Last administered on 05/21/19 11:37; Admin Dose 2 ML; Start 05/21/19 at 11:00 Famotidine (Pepcid) 20 mg DAILY PO Last administered on 05/26/19 08:30; Admin Dose 20 MG; Start 05/23/19 at 09:00 Acetaminophen/ Hydrocodone Bitart ([place] (10/325)) 1 tab Q4H PRN PO MODERATE PAIN LEVEL 4-6 Last administered on 6/28/19at 08:27; Admin Dose 1 TAB; Start 05/22/19 at 19:00 Phenol (Chloraseptic Throat [place]) 2 spray Q2H PRN MT SORE THROAT; Start 05/22/19 at 19:00 Docusate Sodium (Colace) 200 mg BID PO Last administered on 05/26/19at 08:27; Admin Dose 200 MG; Start 05/22/19 at 21:30 Polyethylene Glycol (Miralax) 17 gm DAILY PO Last administered on 05/26/19at 0 8:30; Admin Dose 17 GM; Start 05/22/19 at 22:00 Al Hydrox/Mg Hydrox/Simethicone (Mag-Al Plus) 30 ml Q6H PRN PO GASTROINTESTINAL UPSET Last administered on 05/23/19 12:45; Admin Dose 30 ML; Start 05/22/19 at 22:00 Nitroglycerin (Nitroglycerin (Sl Tab) 0.4 Mg) 1 tab Q5M PRN SL ANGINA; Start 05/23/19 at 22:30 Carvedilol (Coreg) 6.25 mg BID PO Last administered on 05/26/19 08:30; Admin Dose 6.25 MG; Start 05/24/19 at 21:00 Miscellaneous Information (* Miscellaneous Pharmacy Order) HOLD all METFORMIN ... ONCE XX ; Start 05/24/19 at 15:30; Stop 05/26/19 at 15:29 Lisinopril (Zestril) 5 mg DAILY PO Last administered on 05/26/19at 08:30; Admin Dose 5 MG; Start 05/25/19 at 09:00 Rivaroxaban (Xarelto) 10 mg WITH DINNER PO Last administered on 05/25/19at 18:02; Admin Dose 10 MG; Start 05/25/19 at 17:55 Cyclobenzaprine HCl (Flexeril) 10 mg BID PRN PO MUSCLE SPASMS; Start 05/26/19 at 00:30 Morphine Sulfate (morphine) 0.5 mg Q4H PRN IV SEVERE PAIN LEVEL 7-10; Start 05/26/19 at 14:00 SANJUANA BAKER May 26, 2019 13:03
[2019-05-26] MEDS ORDERED: morphine 2 MG INJ IV PRN (14:00)
--- NOTE | 2019-05-26 15:17 | CONS ---
Consult Date/Type/Reason Admit Date/Time May 19, 2019 at 00:02 Initial Consult Date 05/20/19 Type of Consult Pulmonary Requesting Provider: HARSHAL ANSARI Date/Time of Note DATE: 05/26/19 TIME: 15:15 Subjective Significant anxiety earlier today. Complaining of generalized pain but no shortness of breath. No hemoptysis or hematemesis. Chest tube still in place. Objective Vital Signs Date Temp Pulse Resp B/P (MAP) Pulse Ox O2 O2 Flow FiO2 Time Delivery Rate 05/26/19 97.9 92 18 126/62 98 11:47 (83) 05/26/19 Nasal 3.0 07:45 Cannula 05/24/19 98 18:07 Intake and Output 05/25/19 05/25/19 05/26/19 1515:00 23:00 07:00 IntakeIntake Total 300 ml 1430 ml OutputOutput Total 400 ml 1000 ml 1200 ml BalanceBalance -100 ml 430 ml -1200 ml Exam VITAL SIGNS: per chart NECK: Supple. No JVD or lymphadenopathy. CARDIAC EXAM: S1, S2. No added sounds or murmurs. CHEST: clear bilaterally, No added sounds, rales or wheezes ABDOMEN: Soft, nontender. No guarding or rebound. EXTREMITIES: No cyanosis, clubbing or edema. NEUROLOGIC: Generalized weakness. No focal deficits. Vent Setting Fraction of Inspired Oxygen pe: 98 Results/Medications Result Diagram: 05/26/19 0800 05/26/19 0800 Results 24 hrs Laboratory Tests Test 05/26/19 08:00 05/26/19 10:27 White Blood Count 9.1 # Red Blood Count 3.81 L Hemoglobin 10.9 L Hematocrit 33.9 L Mean Corpuscular Volume 89.0 Mean Corpuscular Hemoglobin 28.6 L Mean Corpuscular Hemoglobin Concent 32.2 Red Cell Distribution Width 12.7 Platelet Count 188 Mean Platelet Volume 11.6 H Immature Granulocytes % 0.300 Neutrophils % 77.5 H Lymphocytes % 9.5 L Monocytes % 9.6 Eosinophils % 3.0 Basophils % 0.1 Nucleated Red Blood Cells % 0.0 Immature Granulocytes # 0.030 Neutrophils # 7.1 Lymphocytes # 0.9 Monocytes # 0.9 Eosinophils # 0.3 Basophils # 0.0 Nucleated Red Blood Cells # 0.0 Sodium Level 139 Potassium Level 3.9 Chloride Level 90 L Carbon Dioxide Level 44 *H Anion Gap 5 Blood Urea Nitrogen 14 Creatinine 0.42 L Est Glomerular Filtrat Rate mL/min > 60 Glucose Level 98 Calcium Level 8.4 Blood Gas Specimen Source Blood arterial Arterial Blood Date Drawn 05/26/2019 10:55:03 AM Arterial Blood pH (Temp corrected) 7.347 L Arterial Blood pCO2 (Temp correct) 85.2 *H Arterial Blood pO2 (Temp corrected) 98.2 Arterial Blood HCO3 45.7 *H Arterial Blood Base Excess 16.2 H Arterial Blood Oxygen Saturation 97.3 Ilya Test ACCEPTAB Arterial Blood Gas Puncture Site Left Radial Arterial Blood Carboxyhemoglobin 1.0 Arterial Blood Methemoglobin 0.2 Blood Gas A-a O2 Differential 37.6 H Oxyhemoglobin Percent 96.1 Blood Gas Temperature 37.0 Blood Gas Modality NASAL CANNULA FiO2 33.0 Blood Gas Critical Value Read Back BEATRICE RN Blood Gas Notified Whom TM Blood Gas Notified Time 05/26/2019 11:05:21 AM Medications Current Medications Ondansetron HCl (Zofran Inj) 4 mg Q6H PRN IV NAUSEA AND/OR VOMITING Last administered on 05/24/19 20:06; Admin Dose 4 MG; Start 05/19/19 at 00:30 Albuterol/ Ipratropium (Duoneb) 3 ml Q2H RESP THERAPY PRN NEB SHORTNESS OF BREATH Last administered on 05/25/19 21:54; Admin Dose 3 ML; Start 05/19/19 at 00:30 Acetaminophen (Tylenol Liquid) 650 mg Q6H PRN PO PAIN LEVEL 1-3 OR FEVER Last administered on 05/25/19 20:10; Admin Dose 650 MG; Start 05/19/19 at 00:30 Baclofen (Lioresal) 10 mg TID PO Last administered on 05/26/19 14:05; Admin Dose 10 MG; Start 05/19/19 at 09:00 Tiotropium [place] (Spiriva) 1 inh DAILY INH Last administered on 05/25/19 09:44; Admin Dose 1 INH; Start 05/19/19 at 09:00 Fluticasone/ Vilanterol (Breo Ellipta 200-25 Mcg Inh) 1 inh DAILY INH Last administered on 05/26/19 08:33; Admin Dose 1 INH; Start 05/20/19 at 09:00 Phenol (Cepastat Lozenge) 1 lozenge Q1H PRN MT SORE THROAT/COUGH Last administered on 05/25/19 20:05; Admin Dose 1 LOZENGE; Start 05/19/19 at 22:30 Diclofenac Sodium (Voltaren 1% Gel) 2 gm QID TP Last administered on 05/26/19 14:05; Admin Dose 2 GM; Start 05/20/19 at 03:30 Tramadol HCl (Ultram) 50 mg Q6H PRN PO MODERATE PAIN LEVEL 4-6 Last administered on 05/20/19 10:57; Admin Dose 50 MG; Start 05/20/19 at 10:30 Simethicone (Mylicon) 80 mg Q6H PRN PO DISTENSION/GAS/BLOATING Last administered on 05/25/19 22:18; Admin Dose 80 MG; Start 05/20/19 at 11:00 Eye Lubricant (Artificial Tears Oph) 2 drop Q6H PRN BOTH EYES DRY EYES Last administered on 05/20/19 16:39; Admin Dose 2 DROP; Start 05/20/19 at 16:00 Acetylcysteine (Mucomyst) 2 ml Q6H RESP THERAPY PRN NEB dynpea Last administered on 05/21/19 11:37; Admin Dose 2 ML; Start 05/21/19 at 11:00 Famotidine (Pepcid) 20 mg DAILY PO Last administered on 05/26/19 08:30; Admin Dose 20 MG; Start 05/23/19 at 09:00 Acetaminophen/ Hydrocodone Bitart ([place] (10/325)) 1 tab Q4H PRN PO MODERATE PAIN LEVEL 4-6 Last administered on 05/26/19 14:04; Admin Dose 1 TAB; Start 05/22/19 at 19:00 Phenol (Chloraseptic Throat [place]) 2 spray Q2H PRN MT SORE THROAT; Start 05/22/19 at 19:00 Docusate Sodium (Colace) 200 mg BID PO Last administered on 05/26/19 08:27; Admin Dose 200 MG; Start 05/22/19 at 21:30 Polyethylene Glycol (Miralax) 17 gm DAILY PO Last administered on 05/26/19 08:30; Admin Dose 17 GM; Start 05/22/19 at 22:00 Al Hydrox/Mg Hydrox/Simethicone (Mag-Al Plus) 30 ml Q6H PRN PO GASTROINTESTINAL UPSET Last administered on 05/23/19at 12:45; Admin Dose 30 ML; Start 05/22/19 at 22:00 Nitroglycerin (Nitroglycerin (Sl Tab) 0.4 Mg) 1 tab Q5M PRN SL ANGINA; Start 05/23/19 at 22:30 Carvedilol (Coreg) 6.25 mg BID PO Last administered on 05/26/19at 08:30; Admin Dose 6.25 MG; Start 05/24/19 at 21:00 Miscellaneous Information (* Miscellaneous Pharmacy Order) HOLD all METFORMIN ... ONCE XX ; Start 05/24/19 at 15:30; Stop 05/26/19 at 15:29 Lisinopril (Zestril) 5 mg DAILY PO Last administered on 05/26/19at 08:30; Admin Dose 5 MG; Start 05/25/19 at 09:00 Rivaroxaban (Xarelto) 10 mg WITH DINNER PO Last administered on 05/25/19at 18:02; Admin Dose 10 MG; Start 05/25/19 at 17:55 Cyclobenzaprine HCl (Flexeril) 10 mg BID PRN PO MUSCLE SPASMS; Start 05/26/19 at 00:30 Morphine Sulfate (morphine) 0.5 mg Q4H PRN IV SEVERE PAIN LEVEL 7-10; Start 05/26/19 at 14:00 Assessment/Plan Hospital Course (Demo Recall) IMPRESSION: 1. Left pneumothorax.Status post chest tube placement. Difficulty removing chest tube thoracic input noted. Currently clamped again. 2. History of pulmonary fibrosis. 3. History of tuberculosis and bronchiectasis in the past. 3. Cardiomyopathy Takotsubo's RECOMMENDATIONS: 1. Continue chest tube drainage. 2. Follow up chest x-ray. Discussed with thoracic surgery. Patient not stable for chest tube removal today however if continues to improve we will remove over the weekend. FISH BOWEN MD, [facility] May 26, 2019 15:17
[2019-05-26] MEDS: ALBUTEROL/IPRATROPIUM (NEB) 3 ML AMP NEB PRN (17:24)
[2019-05-26] MEDS: RIVAROXABAN 10 MG TABLET PO SCH (17:43)
[2019-05-26] MEDS: CYCLOBENZAPRINE 10 MG TAB PO PRN (20:31)
[2019-05-26] MEDS: CEPASTAT LOZENGE MT PRN (20:32)
[2019-05-26 20:36] VITALS: BP 111/63; PULSE 116; RESP 18
[2019-05-26] MEDS: LEVALBUTEROL (NEB) 0.63 MG/3 ML AMP HHN PRN (22:45)
[2019-05-27] MEDS: ACETAMINOPHEN 650MG/20.3ML CUP PO PRN ×2 (00:03→09:37)
[2019-05-27 00:14] VITALS: BP 116/65; PULSE 112; RESP 18
[2019-05-27 04:31] VITALS: BP 90/50; PULSE 87; RESP 18
[2019-05-27 07:10] VITALS: BP 102/62; PULSE 90; RESP 18
[2019-05-27] MEDS: FAMOTIDINE 20 MG TAB PO SCH (09:22)
[2019-05-27] MEDS: LISINOPRIL 5 MG TAB PO SCH (09:22)
[2019-05-27] MEDS: POLYETHYLENE GLYCOL 17 GM PACKET PO SCH (09:23)
[2019-05-27] MEDS: BACLOFEN 10 MG TAB PO SCH ×3 (09:23→20:52)
[2019-05-27] MEDS: FLUTICASONE/VILANTEROL 200-25 INH DEVICE INH SCH (09:23)
[2019-05-27] MEDS: DICLOFENAC SODIUM 1% GEL 100 GM TUBE TP SCH ×4 (09:23→20:53)
[2019-05-27] MEDS: TIOTROPIUM 18 MCG CAPSULE INHA DEV INH SCH (09:23)
[2019-05-27] MEDS: DOCUSATE SODIUM 100 MG CAP PO SCH ×2 (09:29→20:52)
[2019-05-27] MEDS: CEPASTAT LOZENGE MT PRN ×3 (09:29→17:15)
--- NOTE | 2019-05-27 12:07 | CONS ---
Assessment/Plan Assessment/Plan Hospital Course (Demo Recall) NSTEMI: Peak trop 0.5. Cath 05/24/19 showed normal coronaries and Takotsubo cardiomyopathy. Takotsubo Cardiomyopathy: EF 40% with apical dyskinesis seen on cath Left pneumothorax: chest tube on presentation, then removed but presumed recurrence so had another one emergently placed 05/23 h/o PE: no PE on CTA x 2 here h/o TB Pulm fibrosis/bronchiectasis/blebs -coreg 6.25mg BID -lisinopril 5mg daily -no need for ASA or statin -Xarelto 10mg for prophylaxis (this was his outpt dose) -chest tube management per CT surgery Consultation Date/Type/Reason Admit Date/Time May 19, 2019 at 00:02 Initial Consult Date 05/24/19 Type of Consult Cardiology Requesting Provider: HARSHAL ANSARI Date/Time of Note DATE: 05/27/19 TIME: 12:06 24 HR Interval Summary Free Text/Dictation No events. No changes. Still with neck pain. Chest tube remains in place Exam/Review of Systems Vital Signs Vitals Vital Signs Date Temp Pulse Resp B/P (MAP) Pulse Ox O2 O2 Flow FiO2 Time Delivery Rate 05/27/19 4.0 11:51 05/27/19 Nasal 09:32 Cannula 05/27/19 97.7 90 18 102/62 100 07:10 (75) 05/24/19 98 18:07 Intake and Output 05/26/19 05/26/19 05/27/19 1515:00 23:00 07:00 IntakeIntake Total 150 ml 240 ml OutputOutput Total 1550 ml 600 ml BalanceBalance -1400 ml -360 ml Exam Constitutional: alert, oriented Psych: nl mood/affect Head: normocephalic, atraumatic Neck: No jvd Respiratory: No clear to auscultation Cardiovascular: No regular rate and rhythm (tachy low 100s), No edema Gastrointestinal: soft, non-tender; No distended Neurological: nl mental status, nl speech Labs Result Diagram: 05/27/19 0609 05/27/19 0609 Results 24hrs Laboratory Tests Test 05/27/19 06:09 White Blood Count 10.2 Red Blood Count 3.87 L Hemoglobin 11.2 L Hematocrit 34.4 L Mean Corpuscular Volume 88.9 Mean Corpuscular Hemoglobin 28.9 L Mean Corpuscular Hemoglobin Concent 32.6 Red Cell Distribution Width 12.9 Platelet Count 193 Mean Platelet Volume 11.6 H Immature Granulocytes % 0.300 Neutrophils % 73.7 Lymphocytes % 9.7 L Monocytes % 13.4 H Eosinophils % 2.8 Basophils % 0.1 Nucleated Red Blood Cells % 0.0 Immature Granulocytes # 0.030 Neutrophils # 7.5 Lymphocytes # 1.0 Monocytes # 1.4 H Eosinophils # 0.3 Basophils # 0.0 Nucleated Red Blood Cells # 0.0 Sodium Level 139 Potassium Level 3.6 Chloride Level 88 L Carbon Dioxide Level 46 *H Anion Gap 5 Blood Urea Nitrogen 12 Creatinine 0.34 L Est Glomerular Filtrat Rate mL/min > 60 Glucose Level 94 Calcium Level 8.8 Medications Medications Current Medications Ondansetron HCl (Zofran Inj) 4 mg Q6H PRN IV NAUSEA AND/OR VOMITING Last administered on 05/24/19 20:06; Admin Dose 4 MG; Start 05/19/19 at 00:30 Albuterol/ Ipratropium (Duoneb) 3 ml Q2H RESP THERAPY PRN NEB SHORTNESS OF BREATH Last administered on 05/26/19 17:24; Admin Dose 3 ML; Start 05/19/19 at 00:30 Acetaminophen (Tylenol Liquid) 650 mg Q6H PRN PO PAIN LEVEL 1-3 OR FEVER Last administered on 05/27/19 09:37; Admin Dose 650 MG; Start 05/19/19 at 00:30 Baclofen (Lioresal) 10 mg TID PO Last administered on 05/27/19 09:23; Admin Dose 10 MG; Start 05/19/19 at 09:00 Tiotropium [place] (Spiriva) 1 inh DAILY INH Last administered on 05/27/19 09:23; Admin Dose 1 INH; Start 05/19/19 at 09:00 Fluticasone/ Vilanterol (Breo Ellipta 200-25 Mcg Inh) 1 inh DAILY INH Last administered on 05/27/19 09:23; Admin Dose 1 INH; Start 05/20/19 at 09:00 Phenol (Cepastat Lozenge) 1 lozenge Q1H PRN MT SORE THROAT/COUGH Last administered on 05/27/19 09:29; Admin Dose 1 LOZENGE; Start 05/19/19 at 22:30 Diclofenac Sodium (Voltaren 1% Gel) 2 gm QID TP Last administered on 05/27/19 09:23; Admin Dose 2 GM; Start 05/20/19 at 03:30 Tramadol HCl (Ultram) 50 mg Q6H PRN PO MODERATE PAIN LEVEL 4-6 Last administered on 05/20/19 10:57; Admin Dose 50 MG; Start 05/20/19 at 10:30 Simethicone (Mylicon) 80 mg Q6H PRN PO DISTENSION/GAS/BLOATING Last administered on 05/27/19 09:29; Admin Dose 80 MG; Start 05/20/19 at 11:00 Eye Lubricant (Artificial Tears Oph) 2 drop Q6H PRN BOTH EYES DRY EYES Last administered on 05/20/19 16:39; Admin Dose 2 DROP; Start 05/20/19 at 16:00 Acetylcysteine (Mucomyst) 2 ml Q6H RESP THERAPY PRN NEB dynpea Last administered on 05/21/19 11:37; Admin Dose 2 ML; Start 05/21/19 at 11:00 Famotidine (Pepcid) 20 mg DAILY PO Last administered on 05/27/19 09:22; Admin Dose 20 MG; Start 05/23/19 at 09:00 Acetaminophen/ Hydrocodone Bitart ([place] (10/325)) 1 tab Q4H PRN PO MODERATE PAIN LEVEL 4-6 Last administered on 05/26/19 14:04; Admin Dose 1 TAB; Start 05/22/19 at 19:00 Phenol (Chloraseptic Throat [place]) 2 spray Q2H PRN MT SORE THROAT; Start 05/22/19 at 19:00 Docusate Sodium (Colace) 200 mg BID PO Last administered on 05/27/19 09:29; Admin Dose 200 MG; Start 05/22/19 at 21:30 Polyethylene Glycol (Miralax) 17 gm DAILY PO Last administered on 05/27/19 09:23; Admin Dose 17 GM; Start 05/22/19 at 22:00 Al Hydrox/Mg Hydrox/Simethicone (Mag-Al Plus) 30 ml Q6H PRN PO GASTROINTESTINAL UPSET Last administered on 05/23/19 12:45; Admin Dose 30 ML; Start 05/22/19 at 22:00 Nitroglycerin (Nitroglycerin (Sl Tab) 0.4 Mg) 1 tab Q5M PRN SL ANGINA; Start 05/23/19 at 22:30 Carvedilol (Coreg) 6.25 mg BID PO Last administered on 05/27/19 09:22; Admin Dose 6.25 MG; Start 05/24/19 at 21:00 Lisinopril (Zestril) 5 mg DAILY PO Last administered on 05/27/19 09:22; Admin Dose 5 MG; Start 05/25/19 at 09:00 Rivaroxaban (Xarelto) 10 mg WITH DINNER PO Last administered on 05/26/19at 17:43; Admin Dose 10 MG; Start 05/25/19 at 17:55 Cyclobenzaprine HCl (Flexeril) 10 mg BID PRN PO MUSCLE SPASMS Last administered on 05/26/19at 20:31; Admin Dose 10 MG; Start 05/26/19 at 00:30 Morphine Sulfate (morphine) 0.5 mg Q4H PRN IV SEVERE PAIN LEVEL 7-10; Start 05/26/19 at 14:00 Levalbuterol (Xopenex Neb) 0.63 mg Q2H RESP THERAPY PRN HHN SHORTNESS OF BREATH Last administered on 05/26/19at 22:45; Admin Dose 0.63 MG; Start 05/26/19 at 22:30 SANJUANA BAKER May 27, 2019 12:07
[2019-05-27 12:31] VITALS: BP 103/59; PULSE 100; RESP 19
[2019-05-27] MEDS: CEFEPIME 1GM/50 ML (PMX) 50 ML IVPB SCH ×2 (12:47→20:52)
--- NOTE | 2019-05-27 14:40 | PN ---
Date/Time of Note Date/Time of Note DATE: 05/27/19 TIME: 14:39 Assessment/Plan VTE Prophylaxis Risk score (from Ns)>0 risk: 3 SCD applied (from Ns): Yes Pharmacological prophylaxis: heparin Lines/Catheters IV Catheter Type (from Nrsg): Saline Lock Urinary Cath still in place: Yes Reason Cath still needed: urinary retention Assessment/Plan Hospital Course 1. Acute respiratory failure secondary to left inferolateral pneumothorax measuring 20% - Restart abx for significant sputum production -> cefepime 05/27 Patient status post placement of chest tube Follow-up on chest x-ray in a.m. Continue supplement oxygen Pulmonology and CT surgery consultations 2. History of disseminated TB treated years ago in [place] with history of bronchiectasis, pulmonary fibrosis No acute issues 3. Leukocytosis likely reactive Monitor 4. Chronic hypoxic and hypercapneic respiratory failure - Supplemental O2 - BIPAP per pulmonary Takostubos CM: - Management per dr Mcnally Prophylaxis: SCDs Result Diagram: 05/27/19 0609 05/27/19 0609 Results 24hrs Laboratory Tests Test 05/27/19 06:09 White Blood Count 10.2 Red Blood Count 3.87 L Hemoglobin 11.2 L Hematocrit 34.4 L Mean Corpuscular Volume 88.9 Mean Corpuscular Hemoglobin 28.9 L Mean Corpuscular Hemoglobin Concent 32.6 Red Cell Distribution Width 12.9 Platelet Count 193 Mean Platelet Volume 11.6 H Immature Granulocytes % 0.300 Neutrophils % 73.7 Lymphocytes % 9.7 L Monocytes % 13.4 H Eosinophils % 2.8 Basophils % 0.1 Nucleated Red Blood Cells % 0.0 Immature Granulocytes # 0.030 Neutrophils # 7.5 Lymphocytes # 1.0 Monocytes # 1.4 H Eosinophils # 0.3 Basophils # 0.0 Nucleated Red Blood Cells # 0.0 Sodium Level 139 Potassium Level 3.6 Chloride Level 88 L Carbon Dioxide Level 46 *H Anion Gap 5 Blood Urea Nitrogen 12 Creatinine 0.34 L Est Glomerular Filtrat Rate mL/min > 60 Glucose Level 94 Calcium Level 8.8 Subjective 24 Hr Interval Summary Free Text/Dictation Complains of neck pain Breathign at baseline Exam/Review of Systems Exam Vitals Vital Signs Date Temp Pulse Resp B/P (MAP) Pulse Ox O2 O2 Flow FiO2 Time Delivery Rate 05/27/19 98.7 100 19 103/59 100 Nasal 4.0 12:31 (74) Cannula 05/24/19 98 18:07 Intake and Output 05/26/19 05/26/19 05/27/19 1515:00 23:00 07:00 IntakeIntake Total 150 ml 240 ml OutputOutput Total 1550 ml 600 ml BalanceBalance -1400 ml -360 ml Results Results 24hrs Laboratory Tests Test 05/27/19 06:09 White Blood Count 10.2 Red Blood Count 3.87 L Hemoglobin 11.2 L Hematocrit 34.4 L Mean Corpuscular Volume 88.9 Mean Corpuscular Hemoglobin 28.9 L Mean Corpuscular Hemoglobin Concent 32.6 Red Cell Distribution Width 12.9 Platelet Count 193 Mean Platelet Volume 11.6 H Immature Granulocytes % 0.300 Neutrophils % 73.7 Lymphocytes % 9.7 L Monocytes % 13.4 H Eosinophils % 2.8 Basophils % 0.1 Nucleated Red Blood Cells % 0.0 Immature Granulocytes # 0.030 Neutrophils # 7.5 Lymphocytes # 1.0 Monocytes # 1.4 H Eosinophils # 0.3 Basophils # 0.0 Nucleated Red Blood Cells # 0.0 Sodium Level 139 Potassium Level 3.6 Chloride Level 88 L Carbon Dioxide Level 46 *H Anion Gap 5 Blood Urea Nitrogen 12 Creatinine 0.34 L Est Glomerular Filtrat Rate mL/min > 60 Glucose Level 94 Calcium Level 8.8 Medications Medication Current Medications Ondansetron HCl (Zofran Inj) 4 mg Q6H PRN IV NAUSEA AND/OR VOMITING Last admi nistered on 05/24/19at 20:06; Admin Dose 4 MG; Start 05/19/19 at 00:30 Albuterol/ Ipratropium (Duoneb) 3 ml Q2H RESP THERAPY PRN NEB SHORTNESS OF BREATH Last administered on 05/26/19at 17:24; Admin Dose 3 ML; Start 05/19/19 at 00:30 Acetaminophen (Tylenol Liquid) 650 mg Q6H PRN PO PAIN LEVEL 1-3 OR FEVER Last administered on 05/27/19at 09:37; Admin Dose 650 MG; Start 05/19/19 at 00:30 Baclofen (Lioresal) 10 mg TID PO Last administered on 05/27/19at 12:47; Admin Dose 10 MG; Start 05/19/19 at 09:00 Tiotropium [place] (Spiriva) 1 inh DAILY INH Last administered on 05/27/19 09:23; Admin Dose 1 INH; Start 05/19/19 at 09:00 Fluticasone/ Vilanterol (Breo Ellipta 200-25 Mcg Inh) 1 inh DAILY INH Last administered on 05/27/19 09:23; Admin Dose 1 INH; Start 05/20/19 at 09:00 Phenol (Cepastat Lozenge) 1 lozenge Q1H PRN MT SORE THROAT/COUGH Last administered on 05/27/19 12:48; Admin Dose 1 LOZENGE; Start 05/19/19 at 22:30 Diclofenac Sodium (Voltaren 1% Gel) 2 gm QID TP Last administered on 05/27/19 13:35; Admin Dose 2 GM; Start 05/20/19 at 03:30 Tramadol HCl (Ultram) 50 mg Q6H PRN PO MODERATE PAIN LEVEL 4-6 Last administered on 05/20/19 10:57; Admin Dose 50 MG; Start 05/20/19 at 10:30 Simethicone (Mylicon) 80 mg Q6H PRN PO DISTENSION/GAS/BLOATING Last administered on 05/27/19 09:29; Admin Dose 80 MG; Start 05/20/19 at 11:00 Eye Lubricant (Artificial Tears Oph) 2 drop Q6H PRN BOTH EYES DRY EYES Last administered on 05/20/19 16:39; Admin Dose 2 DROP; Start 05/20/19 at 16:00 Acetylcysteine (Mucomyst) 2 ml Q6H RESP THERAPY PRN NEB dynpea Last administered on 05/21/19 11:37; Admin Dose 2 ML; Start 05/21/19 at 11:00 Famotidine (Pepcid) 20 mg DAILY PO Last administered on 05/27/19 09:22; Admin Dose 20 MG; Start 05/23/19 at 09:00 Acetaminophen/ Hydrocodone Bitart ([place] (10/325)) 1 tab Q4H PRN PO MODERATE PAIN LEVEL 4-6 Last administered on 05/26/19 14:04; Admin Dose 1 TAB; Start 05/22/19 at 19:00 Phenol (Chloraseptic Throat [place]) 2 spray Q2H PRN MT SORE THROAT; Start 05/22/19 at 19:00 Docusate Sodium (Colace) 200 mg BID PO Last administered on 05/27/19 09:29; A dmin Dose 200 MG; Start 05/22/19 at 21:30 Polyethylene Glycol (Miralax) 17 gm DAILY PO Last administered on 05/27/19 09:23; Admin Dose 17 GM; Start 05/22/19 at 22:00 Al Hydrox/Mg Hydrox/Simethicone (Mag-Al Plus) 30 ml Q6H PRN PO GASTROINTESTINAL UPSET Last administered on 05/23/19 12:45; Admin Dose 30 ML; Start 05/22/19 at 22:00 Nitroglycerin (Nitroglycerin (Sl Tab) 0.4 Mg) 1 tab Q5M PRN SL ANGINA; Start 05/23/19 at 22:30 Carvedilol (Coreg) 6.25 mg BID PO Last administered on 05/27/19 09:22; Admin Dose 6.25 MG; Start 05/24/19 at 21:00 Lisinopril (Zestril) 5 mg DAILY PO Last administered on 05/27/19 09:22; Admin Dose 5 MG; Start 05/25/19 at 09:00 Rivaroxaban (Xarelto) 10 mg WITH DINNER PO Last administered on 05/26/19 17:43; Admin Dose 10 MG; Start 05/25/19 at 17:55 Cyclobenzaprine HCl (Flexeril) 10 mg BID PRN PO MUSCLE SPASMS Last administered on 05/26/19 20:31; Admin Dose 10 MG; Start 05/26/19 at 00:30 Morphine Sulfate (morphine) 0.5 mg Q4H PRN IV SEVERE PAIN LEVEL 7-10 Last administered on 05/27/19 12:37; Admin Dose 0.5 MG; Start 05/26/19 at 14:00 Levalbuterol (Xopenex Neb) 0.63 mg Q2H RESP THERAPY PRN HHN SHORTNESS OF BREATH Last administered on 05/26/19 22:45; Admin Dose 0.63 MG; Start 05/26/19 at 22:30 Cefepime HCl 50 ml @ 100 mls/hr Q12 IVPB Last administered on 05/27/19 12:47; Admin Dose 100 MLS/HR; Start 05/27/19 at 12:30 MYRNA RESENDEZ MD May 27, 2019 14:40
[2019-05-27] MEDS: LEVALBUTEROL (NEB) 0.63 MG/3 ML AMP HHN PRN ×2 (15:15→20:55)
[2019-05-27 15:58] VITALS: BP 106/63; PULSE 100; RESP 16
--- NOTE | 2019-05-27 16:06 | PN ---
Date/Time of Note Date/Time of Note DATE: 05/27/19 TIME: 16:05 Assessment/Plan Lines/Catheters IV Catheter Type (from Nrsg): Saline Lock Veloz in Place (from Nrsg): Yes Assessment/Plan Assessment/Plan Right-sided pneumothorax Status post chest tube placement This tube was clamped once and removed however the patient had respiratory failure possibly secondary to not breathing and hypercapnia Chest tube has been reinserted has no air leak Chest x-ray shows no pneumothorax on the chest tube clamped We will keep the chest tube in for another day Plan to remove the chest tube if there is no pneumothorax Subjective 24 Hr Interval Summary Constitutional: improved Pain Control: mild Exam/Review of Systems Vital Signs Vitals Vital Signs Date Temp Pulse Resp B/P (MAP) Pulse Ox O2 O2 Flow FiO2 Time Delivery Rate 05/27/19 98.7 100 16 106/63 98 Nasal 3.0 15:58 (77) Cannula 05/24/19 98 18:07 Intake and Output 05/26/19 05/26/19 05/27/19 1515:00 23:00 07:00 IntakeIntake Total 150 ml 240 ml OutputOutput Total 1550 ml 600 ml BalanceBalance -1400 ml -360 ml Exam Eyes: nl conjunctiva, EOMI, nl lids, nl sclera ENMT: nl external ears & nose, nl lips & teeth, nl nasal mucosa & septum, mucosa pink and moist Neck: supple, non-tender Respiratory: clear to auscultation, normal air movement Cardiovascular: regular rate and rhythm, nl pulses Gastrointestinal: soft, nl liver, spleen, non-tender Musculoskeletal: nl extremities to inspection, nl gait and stance Results Result Diagram: 05/27/1909 05/27/1909 DEBORAH SONG MD May 27, 2019 16:06
--- NOTE | 2019-05-27 16:22 | CONS ---
Consult Date/Type/Reason Admit Date/Time May 19, 2019 at 00:02 Initial Consult Date 05/24/19 Type of Consultation: Pulm Requesting Provider: HARSHAL ANSARI Date/Time of Note DATE: 05/27/19 TIME: 16:19 Subjective CXR with no PTX. No airleak from CT--> now clamped. Objective Vitals Vital Signs Date Temp Pulse Resp B/P (MAP) Pulse Ox O2 O2 Flow FiO2 Time Delivery Rate 05/27/19 98.7 100 16 106/63 98 Nasal 3.0 15:58 (77) Cannula 05/24/19 98 18:07 Intake and Output 05/26/19 05/26/19 05/27/19 1515:00 23:00 07:00 IntakeIntake Total 150 ml 240 ml OutputOutput Total 1550 ml 600 ml BalanceBalance -1400 ml -360 ml Exam HEENT: Neck supple; no JVD; no LAD CVS: RRR, Loud P2 CHEST: Coarse BS ABD: Soft, NT, + BS EXT: No c/c/e Results/Medications Result Diagram: 05/27/19 0609 05/27/19 0609 Results 24 hrs Laboratory Tests Test 05/27/19 06:09 White Blood Count 10.2 Red Blood Count 3.87 L Hemoglobin 11.2 L Hematocrit 34.4 L Mean Corpuscular Volume 88.9 Mean Corpuscular Hemoglobin 28.9 L Mean Corpuscular Hemoglobin Concent 32.6 Red Cell Distribution Width 12.9 Platelet Count 193 Mean Platelet Volume 11.6 H Immature Granulocytes % 0.300 Neutrophils % 73.7 Lymphocytes % 9.7 L Monocytes % 13.4 H Eosinophils % 2.8 Basophils % 0.1 Nucleated Red Blood Cells % 0.0 Immature Granulocytes # 0.030 Neutrophils # 7.5 Lymphocytes # 1.0 Monocytes # 1.4 H Eosinophils # 0.3 Basophils # 0.0 Nucleated Red Blood Cells # 0.0 Sodium Level 139 Potassium Level 3.6 Chloride Level 88 L Carbon Dioxide Level 46 *H Anion Gap 5 Blood Urea Nitrogen 12 Creatinine 0.34 L Est Glomerular Filtrat Rate mL/min > 60 Glucose Level 94 Calcium Level 8.8 Home Meds Active Scripts Famotidine* (Pepcid*) 20 Mg Tablet, 20 MG PO BID for 7 Days, TAB Prov:ROSY ENGLE MD 09/25/18 Reported Medications Mirtazapine* (Remeron*) 15 Mg Tablet, 15 MG PO HS, TAB 05/20/19 Nortriptyline Hcl* (Nortriptyline Hcl*) 25 Mg Capsule, 25 MG PO HS, CAP 05/20/19 Calcium Citrate/Vitamin D (Citracal-Vitamin D 200 MG-250) 1 Each Tablet, 1 EACH PO BID, TAB 09/25/18 Docusate Sodium* (Dok*) 100 Mg Tablet, 100 MG PO DAILY, #30 CAP 09/25/18 Albuterol Sulfate* (Ventolin HFA*) 18 Gm Hfa.aer.ad, 2 PUFF INHALATION Q4H, #1 INHALER 09/25/18 Baclofen* (Baclofen*) 10 Mg Tablet, 10 MG PO TID, TAB 09/25/18 Celecoxib* (Celebrex*) 200 Mg Capsule, 200 MG PO BID, CAP 09/25/18 Tiotropium [place]* (Spiriva*) 18 Mcg Cap.w.dev, 1 CAP INHALATION DAILY, #30 CAP 09/25/18 Rivaroxaban* (Xarelto*) 20 Mg Tablet, 20 MG PO WITH DINNER, TAB 09/25/18 Mometasone-Formoterol (Dulera) 200-5 Mcg/Inh - 13 Gm Hfa.aer.ad, 2 PUFFS INHALATION BID, #1 INHALER 09/25/18 Medications Current Medications Ondansetron HCl (Zofran Inj) 4 mg Q6H PRN IV NAUSEA AND/OR VOMITING Last administered on 05/24/19at 20:06; Admin Dose 4 MG; Start 05/19/19 at 00:30 Albuterol/ Ipratropium (Duoneb) 3 ml Q2H RESP THERAPY PRN NEB SHORTNESS OF BREATH Last administered on 05/26/19at 17:24; Admin Dose 3 ML; Start 05/19/19 at 00:30 Acetaminophen (Tylenol Liquid) 650 mg Q6H PRN PO PAIN LEVEL 1-3 OR FEVER Last administered on 05/27/19at 09:37; Admin Dose 650 MG; Start 05/19/19 at 00:30 Baclofen (Lioresal) 10 mg TID PO Last administered on 05/27/19at 12:47; Admin Dose 10 MG; Start 05/19/19 at 09:00 Tiotropium [place] (Spiriva) 1 inh DAILY INH Last administered on 05/27/19 09:23; Admin Dose 1 INH; Start 05/19/19 at 09:00 Fluticasone/ Vilanterol (Breo Ellipta 200-25 Mcg Inh) 1 inh DAILY INH Last administered on 05/27/19 09:23; Admin Dose 1 INH; Start 05/20/19 at 09:00 Phenol (Cepastat Lozenge) 1 lozenge Q1H PRN MT SORE THROAT/COUGH Last administered on 05/27/19 12:48; Admin Dose 1 LOZENGE; Start 05/19/19 at 22:30 Diclofenac Sodium (Voltaren 1% Gel) 2 gm QID TP Last administered on 05/27/19 13:35; Admin Dose 2 GM; Start 05/20/19 at 03:30 Tramadol HCl (Ultram) 50 mg Q6H PRN PO MODERATE PAIN LEVEL 4-6 Last administered on 05/20/19 10:57; Admin Dose 50 MG; Start 05/20/19 at 10:30 Simethicone (Mylicon) 80 mg Q6H PRN PO DISTENSION/GAS/BLOATING Last adminis tered on 05/27/19 09:29; Admin Dose 80 MG; Start 05/20/19 at 11:00 Eye Lubricant (Artificial Tears Oph) 2 drop Q6H PRN BOTH EYES DRY EYES Last administered on 05/20/19 16:39; Admin Dose 2 DROP; Start 05/20/19 at 16:00 Acetylcysteine (Mucomyst) 2 ml Q6H RESP THERAPY PRN NEB dynpea Last administer ed on 05/21/19 11:37; Admin Dose 2 ML; Start 05/21/19 at 11:00 Famotidine (Pepcid) 20 mg DAILY PO Last administered on 05/27/19 09:22; Admin Dose 20 MG; Start 05/23/19 at 09:00 Acetaminophen/ Hydrocodone Bitart ([place] (10/325)) 1 tab Q4H PRN PO MODERATE PAIN LEVEL 4-6 Last administered on 05/26/19 14:04; Admin Dose 1 TAB; Start 05/22/19 at 19:00 Phenol (Chloraseptic Throat [place]) 2 spray Q2H PRN MT SORE THROAT; Start 05/22/19 at 19:00 Docusate Sodium (Colace) 200 mg BID PO Last administered on 05/27/19 09:29; Admin Dose 200 MG; Start 05/22/19 at 21:30 Polyethylene Glycol (Miralax) 17 gm DAILY PO Last administered on 05/27/19 09:23; Admin Dose 17 GM; Start 05/22/19 at 22:00 Al Hydrox/Mg Hydrox/Simethicone (Mag-Al Plus) 30 ml Q6H PRN PO GASTROINTESTINAL UPSET Last administered on 05/23/19 12:45; Admin Dose 30 ML; Start 05/22/19 at 22:00 Nitroglycerin (Nitroglycerin (Sl Tab) 0.4 Mg) 1 tab Q5M PRN SL ANGINA; Start 05/23/19 at 22:30 Carvedilol (Coreg) 6.25 mg BID PO Last administered on 05/27/19 09:22; Admin Dose 6.25 MG; Start 05/24/19 at 21:00 Lisinopril (Zestril) 5 mg DAILY PO Last administered on 05/27/19 09:22; Admin Dose 5 MG; Start 05/25/19 at 09:00 Rivaroxaban (Xarelto) 10 mg WITH DINNER PO Last administered on 05/26/19 17:43; Admin Dose 10 MG; Start 05/25/19 at 17:55 Cyclobenzaprine HCl (Flexeril) 10 mg BID PRN PO MUSCLE SPASMS Last administered on 05/26/19 20:31; Admin Dose 10 MG; Start 05/26/19 at 00:30 Morphine Sulfate (morphine) 0.5 mg Q4H PRN IV SEVERE PAIN LEVEL 7-10 Last administered on 05/27/19 12:37; Admin Dose 0.5 MG; Start 05/26/19 at 14:00 Levalbuterol (Xopenex Neb) 0.63 mg Q2H RESP THERAPY PRN HHN SHORTNESS OF BREATH Last administered on 05/27/19 15:15; Admin Dose 0.63 MG; Start 05/26/19 at 22:30 Cefepime HCl 50 ml @ 100 mls/hr Q12 IVPB Last administered on 05/27/19 12:47; Admin Dose 100 MLS/HR; Start 05/27/19 at 12:30 Assessment/Plan Assessment/Plan (Daily) IMP: 1. Secondary Spontaneous Left PTX 2. Acute on chronic Hypercapnic/Hypoxemic Respiratory Failure 3. 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 Am CXR 2. If no PTX--> d/c CT 3. Continue supplemental O2 LEXY TESFAYE MD May 27, 2019 16:22
[2019-05-27] MEDS: RIVAROXABAN 10 MG TABLET PO SCH (17:05)
[2019-05-27] MEDS: HYDROCODONE/APAP (10/325) TAB PO PRN (17:06)
[2019-05-27 20:00] VITALS: BP 130/66; PULSE 100; RESP 18
[2019-05-27] MEDS: CYCLOBENZAPRINE 10 MG TAB PO PRN (20:52)
[2019-05-27] MEDS: ACETYLCYSTEINE 20% 4 ML VIAL NEB PRN (20:54)
[2019-05-27] MEDS: AL HYDROX/MG HYDROX/SIMETH 30 ML CUP PO PRN (21:46)
[2019-05-28] VITALS: BP 98/58; PULSE 102; RESP 18
[2019-05-28] MEDS: ACETAMINOPHEN 650MG/20.3ML CUP PO PRN ×3 (01:45→18:41)
[2019-05-28 04:00] VITALS: BP 96/52; PULSE 83; RESP 18
[2019-05-28 07:54] VITALS: BP 123/63; PULSE 96; RESP 18
[2019-05-28] MEDS: DOCUSATE SODIUM 100 MG CAP PO SCH ×2 (08:49→20:53)
[2019-05-28] MEDS: TIOTROPIUM 18 MCG CAPSULE INHA DEV INH SCH (08:49)
[2019-05-28] MEDS: LISINOPRIL 5 MG TAB PO SCH (08:50)
[2019-05-28] MEDS: CEFEPIME 1GM/50 ML (PMX) 50 ML IVPB SCH ×2 (08:51→20:54)
[2019-05-28] MEDS: FAMOTIDINE 20 MG TAB PO SCH (08:51)
[2019-05-28] MEDS: FLUTICASONE/VILANTEROL 200-25 INH DEVICE INH SCH (08:51)
[2019-05-28] MEDS: POLYETHYLENE GLYCOL 17 GM PACKET PO SCH (08:51)
[2019-05-28] MEDS: DICLOFENAC SODIUM 1% GEL 100 GM TUBE TP SCH ×4 (08:52→20:54)
[2019-05-28] MEDS: BACLOFEN 10 MG TAB PO SCH ×3 (08:59→20:54)
[2019-05-28 11:59] VITALS: BP 122/68; PULSE 101; RESP 18
[2019-05-28] MEDS: HYDROCODONE/APAP (10/325) TAB PO PRN (13:24)
--- NOTE | 2019-05-28 13:49 | PN ---
Date/Time of Note Date/Time of Note DATE: 05/28/19 TIME: 13:48 Assessment/Plan VTE Prophylaxis Risk score (from Ns)>0 risk: 4 SCD applied (from Ns): Yes Pharmacological prophylaxis: heparin Lines/Catheters IV Catheter Type (from Nrs): [place] Urinary Cath still in place: Yes Reason Cath still needed: urinary retention Assessment/Plan Hospital Course 1. Acute respiratory failure secondary to left inferolateral pneumothorax measuring 20% - Restart abx for significant sputum production -> cefepime 05/27 Patient status post placement of chest tube, management per pulmonary Follow-up on chest x-ray in a.m. Continue supplement oxygen Pulmonology and CT surgery consultations 2. 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 Leukocytosis likely reactive Monitor 4. Chronic hypoxic and hypercapneic respiratory failure - Supplemental O2 - BIPAP per pulmonary Takostubos CM: - Management per dr Mcnally Prophylaxis: SCDs Result Diagram: 05/28/19 0628 05/28/19 0628 Results 24hrs Laboratory Tests Test 05/28/19 06:28 White Blood Count 11.0 H Red Blood Count 3.84 L Hemoglobin 11.0 L Hematocrit 34.2 L Mean Corpuscular Volume 89.1 Mean Corpuscular Hemoglobin 28.6 L Mean Corpuscular Hemoglobin Concent 32.2 Red Cell Distribution Width 12.9 Platelet Count 220 Mean Platelet Volume 11.3 H Immature Granulocytes % 0.400 Neutrophils % 73.4 Lymphocytes % 10.5 L Monocytes % 12.4 H Eosinophils % 3.1 Basophils % 0.2 Nucleated Red Blood Cells % 0.0 Immature Granulocytes # 0.040 H Neutrophils # 8.1 H Lymphocytes # 1.2 Monocytes # 1.4 H Eosinophils # 0.3 Basophils # 0.0 Nucleated Red Blood Cells # 0.0 Sodium Level 139 Potassium Level 3.7 Chloride Level 88 L Carbon Dioxide Level 44 *H Anion Gap 7 Blood Urea Nitrogen 13 Creatinine 0.36 L Est Glomerular Filtrat Rate mL/min > 60 Glucose Level 96 Calcium Level 8.7 Subjective 24 Hr Interval Summary Free Text/Dictation Complains of dry nose for O2 by NC Breathing stable Exam/Review of Systems Exam Vitals Vital Signs Date Temp Pulse Resp B/P (MAP) Pulse Ox O2 O2 Flow FiO2 Time Delivery Rate 05/28/19 97.6 101 18 122/68 98 Nasal 11:59 (86) Cannula 05/28/19 4.0 09:09 05/24/19 98 18:07 Intake and Output 05/27/19 05/27/19 05/28/19 1515:00 23:00 07:00 IntakeIntake Total 700 ml 400 ml OutputOutput Total 1400 ml 350 ml 500 ml BalanceBalance -700 ml -350 ml -100 ml Results Results 24hrs Laboratory Tests Test 05/28/19 06:28 White Blood Count 11.0 H Red Blood Count 3.84 L Hemoglobin 11.0 L Hematocrit 34.2 L Mean Corpuscular Volume 89.1 Mean Corpuscular Hemoglobin 28.6 L Mean Corpuscular Hemoglobin Concent 32.2 Red Cell Distribution Width 12.9 Platelet Count 220 Mean Platelet Volume 11.3 H Immature Granulocytes % 0.400 Neutrophils % 73.4 Lymphocytes % 10.5 L Monocytes % 12.4 H Eosinophils % 3.1 Basophils % 0.2 Nucleated Red Blood Cells % 0.0 Immature Granulocytes # 0.040 H Neutrophils # 8.1 H Lymphocytes # 1.2 Monocytes # 1.4 H Eosinophils # 0.3 Basophils # 0.0 Nucleated Red Blood Cells # 0.0 Sodium Level 139 Potassium Level 3.7 Chloride Level 88 L Carbon Dioxide Level 44 *H Anion Gap 7 Blood Urea Nitrogen 13 Creatinine 0.36 L Est Glomerular Filtrat Rate mL/min > 60 Glucose Level 96 Calcium Level 8.7 Medications Medication Current Medications Ondansetron HCl (Zofran Inj) 4 mg Q6H PRN IV NAUSEA AND/OR VOMITING Last administered on 05/24/19at 20:06; Admin Dose 4 MG; Start 05/19/19 at 00:30 Albuterol/ Ipratropium (Duoneb) 3 ml Q2H RESP THERAPY PRN NEB SHORTNESS OF BREATH Last administered on 05/26/19at 17:24; Admin Dose 3 ML; Start 05/19/19 at 00:30 Acetaminophen (Tylenol Liquid) 650 mg Q6H PRN PO PAIN LEVEL 1-3 OR FEVER Last administered on 05/28/19 08:53; Admin Dose 650 MG; Start 05/19/19 at 00:30 Baclofen (Lioresal) 10 mg TID PO Last administered on 05/27/19at 20:52; Admin Dose 10 MG; Start 05/19/19 at 09:00 Tiotropium [place] (Spiriva) 1 inh DAILY INH Last administered on 05/28/19 08:49; Admin Dose 1 INH; Start 05/19/19 at 09:00 Fluticasone/ Vilanterol (Breo Ellipta 200-25 Mcg Inh) 1 inh DAILY INH Last administered on 05/28/19 08:51; Admin Dose 1 INH; Start 05/20/19 at 09:00 Phenol (Cepastat Lozenge) 1 lozenge Q1H PRN MT SORE THROAT/COUGH Last administered on 05/27/19 17:15; Admin Dose 1 LOZENGE; Start 05/19/19 at 22:30 Diclofenac Sodium (Voltaren 1% Gel) 2 gm QID TP Last administered on 05/28/19 13:03; Admin Dose 2 GM; Start 05/20/19 at 03:30 Tramadol HCl (Ultram) 50 mg Q6H PRN PO MODERATE PAIN LEVEL 4-6 Last administered on 05/20/19 10:57; Admin Dose 50 MG; Start 05/20/19 at 10:30 Simethicone (Mylicon) 80 mg Q6H PRN PO DISTENSION/GAS/BLOATING Last administered on 05/28/19 01:46; Admin Dose 80 MG; Start 05/20/19 at 11:00 Eye Lubricant (Artificial Tears Oph) 2 drop Q6H PRN BOTH EYES DRY EYES Last adm inistered on 05/20/19 16:39; Admin Dose 2 DROP; Start 05/20/19 at 16:00 Acetylcysteine (Mucomyst) 2 ml Q6H RESP THERAPY PRN NEB dynpea Last administered on 05/27/19 20:54; Admin Dose 2 ML; Start 05/21/19 at 11:00 Famotidine (Pepcid) 20 mg DAILY PO Last administered on 05/28/19 08:51; Admin Dose 20 MG; Start 05/23/19 at 09:00 Acetaminophen/ Hydrocodone Bitart ([place] (10/325)) 1 tab Q4H PRN PO MODERATE PAIN LEVEL 4-6 Last administered on 05/28/19 13:24; Admin Dose 1 TAB; Start 05/22/19 at 19:00 Phenol (Chloraseptic Throat [place]) 2 spray Q2H PRN MT SORE THROAT; Start 05/22/19 at 19:00 Docusate Sodium (Colace) 200 mg BID PO Last administered on 05/28/19 08:49; Admin Dose 200 MG; Start 05/22/19 at 21:30 Polyethylene Glycol (Miralax) 17 gm DAILY PO Last administered on 05/28/19 08:51; Admin Dose 17 GM; Start 05/22/19 at 22:00 Al Hydrox/Mg Hydrox/Simethicone (Mag-Al Plus) 30 ml Q6H PRN PO GASTROINTESTINAL UPSET Last administered on 05/27/19 21:46; Admin Dose 30 ML; Start 05/22/19 at 22:00 Nitroglycerin (Nitroglycerin (Sl Tab) 0.4 Mg) 1 tab Q5M PRN SL ANGINA; Start 05/23/19 at 22:30 Carvedilol (Coreg) 6.25 mg BID PO Last administered on 05/28/19 08:50; Admin Dose 6.25 MG; Start 05/24/19 at 21:00 Lisinopril (Zestril) 5 mg DAILY PO Last administered on 05/28/19 08:50; Admin Dose 5 MG; Start 05/25/19 at 09:00 Rivaroxaban (Xarelto) 10 mg WITH DINNER PO Last administered on 05/27/19 17:05; Admin Dose 10 MG; Start 05/25/19 at 17:55 Cyclobenzaprine HCl (Flexeril) 10 mg BID PRN PO MUSCLE SPASMS Last administered on 05/27/19 20:52; Admin Dose 10 MG; Start 05/26/19 at 00:30 Morphine Sulfate (morphine) 0.5 mg Q4H PRN IV SEVERE PAIN LEVEL 7-10 Last administered on 05/27/19 12:37; Admin Dose 0.5 MG; Start 05/26/19 at 14:00 Levalbuterol (Xopenex Neb) 0.63 mg Q2H RESP THERAPY PRN HHN SHORTNESS OF BREATH Last administered on 05/27/19 20:55; Admin Dose 0.63 MG; Start 05/26/19 at 22:30 Cefepime HCl 50 ml @ 100 mls/hr Q12 IVPB Last administered on 6/30/19at 08:51; Admin Dose 100 MLS/HR; Start 05/27/19 at 12:30 MYRNA RESENDEZ MD May 28, 2019 13:49
--- NOTE | 2019-05-28 15:37 | CONS ---
Assessment/Plan Assessment/Plan Hospital Course (Demo Recall) NSTEMI: Peak trop 0.5. Cath 05/24/19 showed normal coronaries and Takotsubo cardiomyopathy. Takotsubo Cardiomyopathy: EF 40% with apical dyskinesis seen on cath Left pneumothorax: chest tube on presentation, then removed but presumed recurrence so had another one emergently placed 05/23 h/o PE: no PE on CTA x 2 here h/o TB Pulm fibrosis/bronchiectasis/blebs -coreg 6.25mg BID -lisinopril 5mg daily -no need for ASA or statin -Xarelto 10mg for prophylaxis (this was his outpt dose) -chest tube management per CT surgery -repeat echo as outpt in 1 month -will see PRN Consultation Date/Type/Reason Admit Date/Time May 19, 2019 at 00:02 Initial Consult Date 05/24/19 Type of Consult Cardiology Requesting Provider: HARSHAL ANSARI Date/Time of Note DATE: 05/28/19 TIME: 15:36 24 HR Interval Summary Free Text/Dictation No events. Multiple complaints Exam/Review of Systems Vital Signs Vitals Vital Signs Date Temp Pulse Resp B/P (MAP) Pulse Ox O2 O2 Flow FiO2 Time Delivery Rate 05/28/19 97.6 101 18 122/68 98 Nasal 11:59 (86) Cannula 05/28/19 4.0 09:09 05/24/19 98 18:07 Intake and Output 05/27/19 05/27/19 05/28/19 1515:00 23:00 07:00 IntakeIntake Total 750 ml 400 ml OutputOutput Total 1400 ml 350 ml 500 ml BalanceBalance -650 ml -350 ml -100 ml Exam Constitutional: alert, oriented Neck: No jvd Respiratory: diminished breath sounds; No clear to auscultation Cardiovascular: regular rate and rhythm; No edema Gastrointestinal: soft, non-tender; No distended Neurological: nl mental status, nl speech Labs Result Diagram: 05/28/1962705/28/1928 Results 24hrs Laboratory Tests Test 05/28/19 06:28 White Blood Count 11.0 H Red Blood Count 3.84 L Hemoglobin 11.0 L Hematocrit 34.2 L Mean Corpuscular Volume 89.1 Mean Corpuscular Hemoglobin 28.6 L Mean Corpuscular Hemoglobin Concent 32.2 Red Cell Distribution Width 12.9 Platelet Count 220 Mean Platelet Volume 11.3 H Immature Granulocytes % 0.400 Neutrophils % 73.4 Lymphocytes % 10.5 L Monocytes % 12.4 H Eosinophils % 3.1 Basophils % 0.2 Nucleated Red Blood Cells % 0.0 Immature Granulocytes # 0.040 H Neutrophils # 8.1 H Lymphocytes # 1.2 Monocytes # 1.4 H Eosinophils # 0.3 Basophils # 0.0 Nucleated Red Blood Cells # 0.0 Sodium Level 139 Potassium Level 3.7 Chloride Level 88 L Carbon Dioxide Level 44 *H Anion Gap 7 Blood Urea Nitrogen 13 Creatinine 0.36 L Est Glomerular Filtrat Rate mL/min > 60 Glucose Level 96 Calcium Level 8.7 Medications Medications Current Medications Ondansetron HCl (Zofran Inj) 4 mg Q6H PRN IV NAUSEA AND/OR VOMITING Last administered on 05/24/19 20:06; Admin Dose 4 MG; Start 05/19/19 at 00:30 Albuterol/ Ipratropium (Duoneb) 3 ml Q2H RESP THERAPY PRN NEB SHORTNESS OF BREATH Last administered on 05/26/19 17:24; Admin Dose 3 ML; Start 05/19/19 at 00:30 Acetaminophen (Tylenol Liquid) 650 mg Q6H PRN PO PAIN LEVEL 1-3 OR FEVER Last administered on 05/28/19 08:53; Admin Dose 650 MG; Start 05/19/19 at 00:30 Baclofen (Lioresal) 10 mg TID PO Last administered on 05/27/19 20:52; Admin Dose 10 MG; Start 05/19/19 at 09:00 Tiotropium [place] (Spiriva) 1 inh DAILY INH Last administered on 05/28/19 08:49; Admin Dose 1 INH; Start 05/19/19 at 09:00 Fluticasone/ Vilanterol (Breo Ellipta 200-25 Mcg Inh) 1 inh DAILY INH Last administered on 05/28/19 08:51; Admin Dose 1 INH; Start 05/20/19 at 09:00 Phenol (Cepastat Lozenge) 1 lozenge Q1H PRN MT SORE THROAT/COUGH Last administered on 05/27/19 17:15; Admin Dose 1 LOZENGE; Start 05/19/19 at 22:30 Diclofenac Sodium (Voltaren 1% Gel) 2 gm QID TP Last administered on 05/28/19 13:03; Admin Dose 2 GM; Start 05/20/19 at 03:30 Tramadol HCl (Ultram) 50 mg Q6H PRN PO MODERATE PAIN LEVEL 4-6 Last administer ed on 05/20/19 10:57; Admin Dose 50 MG; Start 05/20/19 at 10:30 Simethicone (Mylicon) 80 mg Q6H PRN PO DISTENSION/GAS/BLOATING Last administered on 05/28/19 01:46; Admin Dose 80 MG; Start 05/20/19 at 11:00 Eye Lubricant (Artificial Tears Oph) 2 drop Q6H PRN BOTH EYES DRY EYES Last administered on 05/20/19 16:39; Admin Dose 2 DROP; Start 05/20/19 at 16:00 Acetylcysteine (Mucomyst) 2 ml Q6H RESP THERAPY PRN NEB dynpea Last administered on 05/27/19 20:54; Admin Dose 2 ML; Start 05/21/19 at 11:00 Famotidine (Pepcid) 20 mg DAILY PO Last administered on 05/28/19 08:51; Admin Dose 20 MG; Start 05/23/19 at 09:00 Acetaminophen/ Hydrocodone Bitart ([place] (10/325)) 1 tab Q4H PRN PO MODERATE P AIN LEVEL 4-6 Last administered on 05/28/19 13:24; Admin Dose 1 TAB; Start 05/22/19 at 19:00 Phenol (Chloraseptic Throat [place]) 2 spray Q2H PRN MT SORE THROAT; Start 05/22/19 at 19:00 Docusate Sodium (Colace) 200 mg BID PO Last administered on 05/28/19 08:49; Admin Dose 200 MG; Start 05/22/19 at 21:30 Polyethylene Glycol (Miralax) 17 gm DAILY PO Last administered on 05/28/19 08:51; Admin Dose 17 GM; Start 05/22/19 at 22:00 Al Hydrox/Mg Hydrox/Simethicone (Mag-Al Plus) 30 ml Q6H PRN PO GASTROINTESTINAL UPSET Last administered on 05/27/19 21:46; Admin Dose 30 ML; Start 05/22/19 at 22:00 Nitroglycerin (Nitroglycerin (Sl Tab) 0.4 Mg) 1 tab Q5M PRN SL ANGINA; Start 05/23/19 at 22:30 Carvedilol (Coreg) 6.25 mg BID PO Last administered on 05/28/19 08:50; Admin Dose 6.25 MG; Start 05/24/19 at 21:00 Lisinopril (Zestril) 5 mg DAILY PO Last administered on 05/28/19 08:50; Admin Dose 5 MG; Start 05/25/19 at 09:00 Rivaroxaban (Xarelto) 10 mg WITH DINNER PO Last administered on 05/27/19 17:05; Admin Dose 10 MG; Start 05/25/19 at 17:55 Cyclobenzaprine HCl (Flexeril) 10 mg BID PRN PO MUSCLE SPASMS Last administered on 05/27/19 20:52; Admin Dose 10 MG; Start 05/26/19 at 00:30 Morphine Sulfate (morphine) 0.5 mg Q4H PRN IV SEVERE PAIN LEVEL 7-10 Last administered on 05/27/19 12:37; Admin Dose 0.5 MG; Start 05/26/19 at 14:00 Levalbuterol (Xopenex Neb) 0.63 mg Q2H RESP THERAPY PRN HHN SHORTNESS OF BREATH Last administered on 05/27/19 20:55; Admin Dose 0.63 MG; Start 05/26/19 at 22:30 Cefepime HCl 50 ml @ 100 mls/hr Q12 IVPB Last administered on 05/28/19 08:51; Admin Dose 100 MLS/HR; Start 05/27/19 at 12:30 SANJUANA BAKER May 28, 2019 15:37
--- NOTE | 2019-05-28 17:53 | CONS ---
Consult Date/Type/Reason Admit Date/Time May 19, 2019 at 00:02 Initial Consult Date 05/24/19 Type of Consultation: Pulm Requesting Provider: HARSHAL ANSARI Date/Time of Note DATE: 05/28/19 TIME: 17:52 Subjective No events overnight. Objective Vitals Vital Signs Date Temp Pulse Resp B/P (MAP) Pulse Ox O2 O2 Flow FiO2 Time Delivery Rate 05/28/19 4.0 16:05 05/28/19 97.6 101 18 122/68 98 Nasal 11:59 (86) Cannula 05/24/19 98 18:07 Intake and Output 05/27/19 05/27/19 05/28/19 1515:00 23:00 07:00 IntakeIntake Total 750 ml 400 ml OutputOutput Total 1400 ml 350 ml 500 ml BalanceBalance -650 ml -350 ml -100 ml Exam HEENT: Neck supple; no JVD; no LAD CVS: RRR, Loud P2 CHEST: Coarse BS ABD: Soft, NT, + BS EXT: No c/c/e Results/Medications Result Diagram: 05/28/1962705/28/19627 Results 24 hrs Laboratory Tests Test 05/28/19 06:28 White Blood Count 11.0 H Red Blood Count 3.84 L Hemoglobin 11.0 L Hematocrit 34.2 L Mean Corpuscular Volume 89.1 Mean Corpuscular Hemoglobin 28.6 L Mean Corpuscular Hemoglobin Concent 32.2 Red Cell Distribution Width 12.9 Platelet Count 220 Mean Platelet Volume 11.3 H Immature Granulocytes % 0.400 Neutrophils % 73.4 Lymphocytes % 10.5 L Monocytes % 12.4 H Eosinophils % 3.1 Basophils % 0.2 Nucleated Red Blood Cells % 0.0 Immature Granulocytes # 0.040 H Neutrophils # 8.1 H Lymphocytes # 1.2 Monocytes # 1.4 H Eosinophils # 0.3 Basophils # 0.0 Nucleated Red Blood Cells # 0.0 Sodium Level 139 Potassium Level 3.7 Chloride Level 88 L Carbon Dioxide Level 44 *H Anion Gap 7 Blood Urea Nitrogen 13 Creatinine 0.36 L Est Glomerular Filtrat Rate mL/min > 60 Glucose Level 96 Calcium Level 8.7 Home Meds Active Scripts Famotidine* (Pepcid*) 20 Mg Tablet, 20 MG PO BID for 7 Days, TAB Prov:ROSY ENGLE MD 09/25/18 Reported Medications Mirtazapine* (Remeron*) 15 Mg Tablet, 15 MG PO HS, TAB 05/20/19 Nortriptyline Hcl* (Nortriptyline Hcl*) 25 Mg Capsule, 25 MG PO HS, CAP 05/20/19 Calcium Citrate/Vitamin D (Citracal-Vitamin D 200 MG-250) 1 Each Tablet, 1 EACH PO BID, TAB 09/25/18 Docusate Sodium* (Dok*) 100 Mg Tablet, 100 MG PO DAILY, #30 CAP 09/25/18 Albuterol Sulfate* (Ventolin HFA*) 18 Gm Hfa.aer.ad, 2 PUFF INHALATION Q4H, #1 INHALER 09/25/18 Baclofen* (Baclofen*) 10 Mg Tablet, 10 MG PO TID, TAB 09/25/18 Celecoxib* (Celebrex*) 200 Mg Capsule, 200 MG PO BID, CAP 09/25/18 Tiotropium [place]* (Spiriva*) 18 Mcg Cap.w.dev, 1 CAP INHALATION DAILY, #30 CAP 09/25/18 Rivaroxaban* (Xarelto*) 20 Mg Tablet, 20 MG PO WITH DINNER, TAB 09/25/18 Mometasone-Formoterol (Dulera) 200-5 Mcg/Inh - 13 Gm Hfa.aer.ad, 2 PUFFS INHALATION BID, #1 INHALER 09/25/18 Medications Current Medications Ondansetron HCl (Zofran Inj) 4 mg Q6H PRN IV NAUSEA AND/OR VOMITING Last administered on 05/24/19at 20:06; Admin Dose 4 MG; Start 05/19/19 at 00:30 Albuterol/ Ipratropium (Duoneb) 3 ml Q2H RESP THERAPY PRN NEB SHORTNESS OF BREATH Last administered on 05/26/19at 17:24; Admin Dose 3 ML; Start 05/19/19 at 00:30 Acetaminophen (Tylenol Liquid) 650 mg Q6H PRN PO PAIN LEVEL 1-3 OR FEVER Last administered on 05/28/19at 08:53; Admin Dose 650 MG; Start 05/19/19 at 00:30 Baclofen (Lioresal) 10 mg TID PO Last administered on 05/27/19at 20:52; Admin Do se 10 MG; Start 05/19/19 at 09:00 Tiotropium [place] (Spiriva) 1 inh DAILY INH Last administered on 05/28/19 08:49; Admin Dose 1 INH; Start 05/19/19 at 09:00 Fluticasone/ Vilanterol (Breo Ellipta 200-25 Mcg Inh) 1 inh DAILY INH Last administered on 05/28/19 08:51; Admin Dose 1 INH; Start 05/20/19 at 09:00 Phenol (Cepastat Lozenge) 1 lozenge Q1H PRN MT SORE THROAT/COUGH Last administered on 05/27/19 17:15; Admin Dose 1 LOZENGE; Start 05/19/19 at 22:30 Diclofenac Sodium (Voltaren 1% Gel) 2 gm QID TP Last administered on 05/28/19 13:03; Admin Dose 2 GM; Start 05/20/19 at 03:30 Tramadol HCl (Ultram) 50 mg Q6H PRN PO MODERATE PAIN LEVEL 4-6 Last administered on 05/20/19 10:57; Admin Dose 50 MG; Start 05/20/19 at 10:30 Simethicone (Mylicon) 80 mg Q6H PRN PO DISTENSION/GAS/BLOATING Last administered on 05/28/19 01:46; Admin Dose 80 MG; Start 05/20/19 at 11:00 Eye Lubricant (Artificial Tears Oph) 2 drop Q6H PRN BOTH EYES DRY EYES Last administered on 05/20/19 16:39; Admin Dose 2 DROP; Start 05/20/19 at 16:00 Acetylcysteine (Mucomyst) 2 ml Q6H RESP THERAPY PRN NEB dynpea Last a dministered on 05/27/19 20:54; Admin Dose 2 ML; Start 05/21/19 at 11:00 Famotidine (Pepcid) 20 mg DAILY PO Last administered on 05/28/19 08:51; Admin Dose 20 MG; Start 05/23/19 at 09:00 Acetaminophen/ Hydrocodone Bitart ([place] (10/325)) 1 tab Q4H PRN PO MODERATE PAIN LEVEL 4-6 Last administered on 05/28/19 13:24; Admin Dose 1 TAB; Start 05/22/19 at 19:00 Phenol (Chloraseptic Throat [place]) 2 spray Q2H PRN MT SORE THROAT; Start 05/22/19 at 19:00 Docusate Sodium (Colace) 200 mg BID PO Last administered on 05/28/19 08:49; Admin Dose 200 MG; Start 05/22/19 at 21:30 Polyethylene Glycol (Miralax) 17 gm DAILY PO Last administered on 05/28/19 08:51; Admin Dose 17 GM; Start 05/22/19 at 22:00 Al Hydrox/Mg Hydrox/Simethicone (Mag-Al Plus) 30 ml Q6H PRN PO GASTROINTESTINAL UPSET Last administered on 05/27/19 21:46; Admin Dose 30 ML; Start 05/22/19 at 22:00 Nitroglycerin (Nitroglycerin (Sl Tab) 0.4 Mg) 1 tab Q5M PRN SL ANGINA; Start 05/23/19 at 22:30 Carvedilol (Coreg) 6.25 mg BID PO Last administered on 05/28/19 08:50; Admin Dose 6.25 MG; Start 05/24/19 at 21:00 Lisinopril (Zestril) 5 mg DAILY PO Last administered on 05/28/19 08:50; Admin Dose 5 MG; Start 05/25/19 at 09:00 Rivaroxaban (Xarelto) 10 mg WITH DINNER PO Last administered on 05/27/19 17:05; Admin Dose 10 MG; Start 05/25/19 at 17:55 Cyclobenzaprine HCl (Flexeril) 10 mg BID PRN PO MUSCLE SPASMS Last administered on 05/27/19 20:52; Admin Dose 10 MG; Start 05/26/19 at 00:30 Morphine Sulfate (morphine) 0.5 mg Q4H PRN IV SEVERE PAIN LEVEL 7-10 Last administered on 05/27/19 12:37; Admin Dose 0.5 MG; Start 05/26/19 at 14:00 Levalbuterol (Xopenex Neb) 0.63 mg Q2H RESP THERAPY PRN HHN SHORTNESS OF BREATH Last administered on 05/27/19 20:55; Admin Dose 0.63 MG; Start 05/26/19 at 22:30 Cefepime HCl 50 ml @ 100 mls/hr Q12 IVPB Last administered on 6/30/19at 08:51; Admin Dose 100 MLS/HR; Start 05/27/19 at 12:30 Assessment/Plan Assessment/Plan (Daily) IMP: 1. Secondary Spontaneous Left PTX 2. Acute on chronic Hypercapnic/Hypoxemic Respiratory Failure 3. 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 Takotsubo CM RECS: 1. Obtain CXR now 2. If no PTX--> d/c CT by CTS 3. Continue supplemental O2; titrate as tolerated. LEXY TESFAYE MD May 28, 2019 17:53
[2019-05-28] MEDS: RIVAROXABAN 10 MG TABLET PO SCH (17:59)
[2019-05-28] MEDS: CYCLOBENZAPRINE 10 MG TAB PO PRN (18:40)
[2019-05-28] MEDS: ONDANSETRON 4 MG INJ IV PRN (19:52)
[2019-05-28 20:00] VITALS: BP 127/77; PULSE 104; RESP 18
[2019-05-28] MEDS: ACETYLCYSTEINE 20% 4 ML VIAL NEB PRN (23:04)
[2019-05-28] MEDS: AL HYDROX/MG HYDROX/SIMETH 30 ML CUP PO PRN (23:53)
[2019-05-29] VITALS (7 sets, daily range): BP systolic 103–136; BP diastolic 59–74; PULSE 62–104; RESP 18–22
[2019-05-29] MEDS: ACETAMINOPHEN 650MG/20.3ML CUP PO PRN (00:40)
[2019-05-29] MEDS: CEPASTAT LOZENGE MT PRN ×4 (00:40→22:49)
[2019-05-29] MEDS: CEFEPIME 1GM/50 ML (PMX) 50 ML IVPB SCH ×2 (08:32→20:26)
[2019-05-29] MEDS: POLYETHYLENE GLYCOL 17 GM PACKET PO SCH (08:32)
[2019-05-29] MEDS: DOCUSATE SODIUM 100 MG CAP PO SCH ×2 (08:33→20:27)
[2019-05-29] MEDS: FAMOTIDINE 20 MG TAB PO SCH (08:34)
[2019-05-29] MEDS: LISINOPRIL 5 MG TAB PO SCH (08:35)
[2019-05-29] MEDS: DICLOFENAC SODIUM 1% GEL 100 GM TUBE TP SCH ×4 (08:36→20:28)
[2019-05-29] MEDS: TIOTROPIUM 18 MCG CAPSULE INHA DEV INH SCH (08:36)
[2019-05-29] MEDS: FLUTICASONE/VILANTEROL 200-25 INH DEVICE INH SCH (08:36)
[2019-05-29] MEDS: BACLOFEN 10 MG TAB PO SCH ×3 (08:37→20:28)
[2019-05-29] MEDS: HYDROCODONE/APAP (10/325) TAB PO PRN ×2 (08:58→22:49)
--- NOTE | 2019-05-29 15:15 | CONS ---
Consult Date/Type/Reason Admit Date/Time May 19, 2019 at 00:02 Initial Consult Date 05/20/19 Type of Consult Pulmonary Requesting Provider: HARSHAL ANSARI Date/Time of Note DATE: 05/29/19 TIME: 15:13 Subjective Patient stable this morning no new events. Objective Vital Signs Date Temp Pulse Resp B/P (MAP) Pulse Ox O2 O2 Flow FiO2 Time Delivery Rate 05/29/19 98.0 92 22 122/61 97 Nasal 11:53 (81) Cannula 05/29/19 4.0 08:20 Intake and Output 05/28/19 05/28/19 05/29/19 1515:00 23:00 07:00 IntakeIntake Total 950 ml 400 ml 650 ml OutputOutput Total 902 ml 1110 ml 1800 ml BalanceBalance 48 ml -710 ml -1150 ml Exam GENERAL: Well-nourished well-developed gentleman comfortable at rest no acute distress VITAL SIGNS: per chart NECK: Supple. No JVD or lymphadenopathy. CARDIAC EXAM: S1, S2. No added sounds or murmurs. CHEST: clear bilaterally, No added sounds, rales or wheezes ABDOMEN: Soft, nontender. No guarding or rebound. EXTREMITIES: No cyanosis, clubbing or edema. NEUROLOGIC: Generalized weakness. No focal deficits. Vent Setting Fraction of Inspired Oxygen pe: 98 Results/Medications Result Diagram: 05/29/19 0653 05/29/19 0653 Results 24 hrs Laboratory Tests Test 05/29/19 06:53 White Blood Count 9.0 Red Blood Count 3.70 L Hemoglobin 10.8 L Hematocrit 33.9 L Mean Corpuscular Volume 91.6 Mean Corpuscular Hemoglobin 29.2 Mean Corpuscular Hemoglobin Concent 31.9 L Red Cell Distribution Width 13.0 Platelet Count 244 Mean Platelet Volume 11.2 H Immature Granulocytes % 0.400 Neutrophils % 70.8 Lymphocytes % 11.0 L Monocytes % 14.2 H Eosinophils % 3.3 Basophils % 0.3 Nucleated Red Blood Cells % 0.0 Immature Granulocytes # 0.040 H Neutrophils # 6.3 Lymphocytes # 1.0 Monocytes # 1.3 H Eosinophils # 0.3 Basophils # 0.0 Nucleated Red Blood Cells # 0.0 Sodium Level 139 Potassium Level 4.3 Chloride Level 87 L Carbon Dioxide Level 47 *H Anion Gap 5 Blood Urea Nitrogen 15 Creatinine 0.45 L Est Glomerular Filtrat Rate mL/min > 60 Glucose Level 95 Calcium Level 8.8 Medications Current Medications Ondansetron HCl (Zofran Inj) 4 mg Q6H PRN IV NAUSEA AND/OR VOMITING Last administered on 05/28/19 19:52; Admin Dose 4 MG; Start 05/19/19 at 00:30 Albuterol/ Ipratropium (Duoneb) 3 ml Q2H RESP THERAPY PRN NEB SHORTNESS OF BREATH Last administered on 05/26/19 17:24; Admin Dose 3 ML; Start 05/19/19 at 00:30 Acetaminophen (Tylenol Liquid) 650 mg Q6H PRN PO PAIN LEVEL 1-3 OR FEVER Last administered on 05/29/19 00:40; Admin Dose 650 MG; Start 05/19/19 at 00:30 Baclofen (Lioresal) 10 mg TID PO Last administered on 05/28/19 20:54; Admin Dose 10 MG; Start 05/19/19 at 09:00 Tiotropium [place] (Spiriva) 1 inh DAILY INH Last administered on 05/29/19 08:36; Admin Dose 1 INH; Start 05/19/19 at 09:00 Fluticasone/ Vilanterol (Breo Ellipta 200-25 Mcg Inh) 1 inh DAILY INH Last admi nistered on 05/29/19 08:36; Admin Dose 1 INH; Start 05/20/19 at 09:00 Phenol (Cepastat Lozenge) 1 lozenge Q1H PRN MT SORE THROAT/COUGH Last administered on 05/29/19 15:06; Admin Dose 1 LOZENGE; Start 05/19/19 at 22:30 Diclofenac Sodium (Voltaren 1% Gel) 2 gm QID TP Last administered on 05/29/19 13:54; Admin Dose 2 GM; Start 05/20/19 at 03:30 Tramadol HCl (Ultram) 50 mg Q6H PRN PO MODERATE PAIN LEVEL 4-6 Last administered on 05/20/19 10:57; Admin Dose 50 MG; Start 05/20/19 at 10:30 Simethicone (Mylicon) 80 mg Q6H PRN PO DISTENSION/GAS/BLOATING Last administered on 05/28/19 20:53; Admin Dose 80 MG; Start 05/20/19 at 11:00 Eye Lubricant (Artificial Tears Oph) 2 drop Q6H PRN BOTH EYES DRY EYES Last administered on 05/20/19 16:39; Admin Dose 2 DROP; Start 05/20/19 at 16:00 Acetylcysteine (Mucomyst) 2 ml Q6H RESP THERAPY PRN NEB dynpea Last administered on 05/28/19 23:04; Admin Dose 2 ML; Start 05/21/19 at 11:00 Famotidine (Pepcid) 20 mg DAILY PO Last administered on 05/29/19 08:34; Admin Dose 20 MG; Start 05/23/19 at 09:00 Acetaminophen/ Hydrocodone Bitart ([place] (10325)) 1 tab Q4H PRN PO MODERATE PAIN LEVEL 4-6 Last administered on 05/29/19 08:58; Admin Dose 1 TAB; Start 05/22/19 at 19:00 Phenol (Chloraseptic Throat [place]) 2 spray Q2H PRN MT SORE THROAT; Start 05/22/19 at 19:00 Docusate Sodium (Colace) 200 mg BID PO Last administered on 05/29/19 08:33; Admin Dose 200 MG; Start 05/22/19 at 21:30 Polyethylene Glycol (Miralax) 17 gm DAILY PO Last administered on 05/29/19 08:32; Admin Dose 17 GM; Start 05/22/19 at 22:00 Al Hydrox/Mg Hydrox/Simethicone (Mag-Al Plus) 30 ml Q6H PRN PO GASTROINTESTINAL UPSET Last administered on 05/28/19 23:53; Admin Dose 30 ML; Start 05/22/19 at 22:00 Nitroglycerin (Nitroglycerin (Sl Tab) 0.4 Mg) 1 tab Q5M PRN SL ANGINA; Start 05/23/19 at 22:30 Carvedilol (Coreg) 6.25 mg BID PO Last administered on 05/29/19 08:34; Admin Dose 6.25 MG; Start 05/24/19 at 21:00 Lisinopril (Zestril) 5 mg DAILY PO Last administered on 05/29/19 08:35; Admin Dose 5 MG; Start 05/25/19 at 09:00 Rivaroxaban (Xarelto) 10 mg WITH DINNER PO Last administered on 05/28/19 17:59; Admin Dose 10 MG; Start 05/25/19 at 17:55 Cyclobenzaprine HCl (Flexeril) 10 mg BID PRN PO MUSCLE SPASMS Last administered on 05/28/19 18:40; Admin Dose 10 MG; Start 05/26/19 at 00:30 Morphine Sulfate (morphine) 0.5 mg Q4H PRN IV SEVERE PAIN LEVEL 7-10 Last administered on 05/27/19 12:37; Admin Dose 0.5 MG; Start 05/26/19 at 14:00 Levalbuterol (Xopenex Neb) 0.63 mg Q2H RESP THERAPY PRN HHN SHORTNESS OF BREATH Last administered on 05/27/19 20:55; Admin Dose 0.63 MG; Start 05/26/19 at 22:30 Cefepime HCl 50 ml @ 100 mls/hr Q12 IVPB Last administered on 05/29/19 08:32; Admin Dose 100 MLS/HR; Start 05/27/19 at 12:30 Assessment/Plan Hospital Course (Demo Recall) IMP: 1. Secondary Spontaneous Left PTX 2. Acute on chronic Hypercapnic/Hypoxemic Respiratory Failure 3. 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 Takotsubo CM RECS: 1. Obtain CXR now remove if stable. 2. If no PTX--> d/c CT by CTS 3. Continue supplemental O2; titrate as tolerated. FISH BOWEN MD, [facility] May 29, 2019 15:15
--- NOTE | 2019-05-29 16:50 | PN ---
Date/Time of Note Date/Time of Note DATE: 05/29/19 TIME: 16:48 Assessment/Plan VTE Prophylaxis Risk score (from Ns)>0 risk: 3 SCD applied (from Ns): Yes Pharmacological prophylaxis: NA/contraindicated Pharm contraindication: low risk/ambulating Lines/Catheters [facility] Saline Lock Assessment/Plan Hospital Course 1. Acute respiratory failure secondary to left inferolateral pneumothorax measuring 20% -Restarted abx for significant sputum production -> cefepime 05/27 Patient status post placement of chest tube, management per pulmonary. Continue supplement oxygen Pulmonology and CT surgery consultations appreciated 2. 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 Leukocytosis likely reactive-resolved Monitor 4. Chronic hypoxic and hypercapneic respiratory failure - Supplemental O2 Takostubos CM: - Management per dr Mcnally Prophylaxis: SCDs DC planning: Patient still with chest tube Result Diagram: 05/29/19 0653 05/29/19 0653 Results 24hrs Laboratory Tests Test 05/29/19 06:53 White Blood Count 9.0 Red Blood Count 3.70 L Hemoglobin 10.8 L Hematocrit 33.9 L Mean Corpuscular Volume 91.6 Mean Corpuscular Hemoglobin 29.2 Mean Corpuscular Hemoglobin Concent 31.9 L Red Cell Distribution Width 13.0 Platelet Count 244 Mean Platelet Volume 11.2 H Immature Granulocytes % 0.400 Neutrophils % 70.8 Lymphocytes % 11.0 L Monocytes % 14.2 H Eosinophils % 3.3 Basophils % 0.3 Nucleated Red Blood Cells % 0.0 Immature Granulocytes # 0.040 H Neutrophils # 6.3 Lymphocytes # 1.0 Monocytes # 1.3 H Eosinophils # 0.3 Basophils # 0.0 Nucleated Red Blood Cells # 0.0 Sodium Level 139 Potassium Level 4.3 Chloride Level 87 L Carbon Dioxide Level 47 *H Anion Gap 5 Blood Urea Nitrogen 15 Creatinine 0.45 L Est Glomerular Filtrat Rate mL/min > 60 Glucose Level 95 Calcium Level 8.8 Subjective 24 Hr Interval Summary Musculoskeletal: neck pain Exam/Review of Systems Exam Vitals Vital Signs Date Temp Pulse Resp B/P (MAP) Pulse Ox O2 O2 Flow FiO2 Time Delivery Rate 05/29/19 98.1 21 103/62 96 Nasal 15:14 (76) Cannula 05/29/19 92 11:53 05/29/19 4.0 08:20 Intake and Output 05/28/19 05/28/19 05/29/19 1515:00 23:00 07:00 IntakeIntake Total 950 ml 400 ml 650 ml OutputOutput Total 902 ml 1110 ml 1800 ml BalanceBalance 48 ml -710 ml -1150 ml Constitutional: alert, oriented Respiratory: clear to auscultation Cardiovascular: regular rate and rhythm Gastrointestinal: soft; No distended Musculoskeletal: nl extremities to inspection Results Results 24hrs Laboratory Tests Test 05/29/19 06:53 White Blood Count 9.0 Red Blood Count 3.70 L Hemoglobin 10.8 L Hematocrit 33.9 L Mean Corpuscular Volume 91.6 Mean Corpuscular Hemoglobin 29.2 Mean Corpuscular Hemoglobin Concent 31.9 L Red Cell Distribution Width 13.0 Platelet Count 244 Mean Platelet Volume 11.2 H Immature Granulocytes % 0.400 Neutrophils % 70.8 Lymphocytes % 11.0 L Monocytes % 14.2 H Eosinophils % 3.3 Basophils % 0.3 Nucleated Red Blood Cells % 0.0 Immature Granulocytes # 0.040 H Neutrophils # 6.3 Lymphocytes # 1.0 Monocytes # 1.3 H Eosinophils # 0.3 Basophils # 0.0 Nucleated Red Blood Cells # 0.0 Sodium Level 139 Potassium Level 4.3 Chloride Level 87 L Carbon Dioxide Level 47 *H Anion Gap 5 Blood Urea Nitrogen 15 Creatinine 0.45 L Est Glomerular Filtrat Rate mL/min > 60 Glucose Level 95 Calcium Level 8.8 Medications Medication Current Medications Ondansetron HCl (Zofran Inj) 4 mg Q6H PRN IV NAUSEA AND/OR VOMITING Last administered on 05/28/19at 19:52; Admin Dose 4 MG; Start 05/19/19 at 00:30 Albuterol/ Ipratropium (Duoneb) 3 ml Q2H RESP THERAPY PRN NEB SHORTNESS OF BREATH Last administered on 05/26/19at 17:24; Admin Dose 3 ML; Start 05/19/19 at 00:30 Acetaminophen (Tylenol Liquid) 650 mg Q6H PRN PO PAIN LEVEL 1-3 OR FEVER Last administered on 05/29/19at 00:40; Admin Dose 650 MG; Start 05/19/19 at 00:30 Baclofen (Lioresal) 10 mg TID PO Last administered on 05/28/19 20:54; Admin Dose 10 MG; Start 05/19/19 at 09:00 Tiotropium [place] (Spiriva) 1 inh DAILY INH Last administered on 05/29/19 08:36; Admin Dose 1 INH; Start 05/19/19 at 09:00 Fluticasone/ Vilanterol (Breo Ellipta 200-25 Mcg Inh) 1 inh DAILY INH Last administered on 05/29/19 08:36; Admin Dose 1 INH; Start 05/20/19 at 09:00 Phenol (Cepastat Lozenge) 1 lozenge Q1H PRN MT SORE THROAT/COUGH Last administered on 05/29/19 15:06; Admin Dose 1 LOZENGE; Start 05/19/19 at 22:30 Diclofenac Sodium (Voltaren 1% Gel) 2 gm QID TP Last administered on 05/29/19 13:54; Admin Dose 2 GM; Start 05/20/19 at 03:30 Tramadol HCl (Ultram) 50 mg Q6H PRN PO MODERATE PAIN LEVEL 4-6 Last administered on 05/20/19 10:57; Admin Dose 50 MG; Start 05/20/19 at 10:30 Simethicone (Mylicon) 80 mg Q6H PRN PO DISTENSION/GAS/BLOATING Last administered on 05/28/19 20:53; Admin Dose 80 MG; Start 05/20/19 at 11:00 Eye Lubricant (Artificial Tears Oph) 2 drop Q6H PRN BOTH EYES DRY EYES Last administered on 05/20/19 16:39; Admin Dose 2 DROP; Start 05/20/19 at 16:00 Acetylcysteine (Mucomyst) 2 ml Q6H RESP THERAPY PRN NEB dynpea Last administered on 05/28/19 23:04; Admin Dose 2 ML; Start 05/21/19 at 11:00 Famotidine (Pepcid) 20 mg DAILY PO Last administered on 05/29/19 08:34; Admin Dose 20 MG; Start 05/23/19 at 09:00 Acetaminophen/ Hydrocodone Bitart ([place] (10/325)) 1 tab Q4H PRN PO MODERATE PAIN LEVEL 4-6 Last administered on 05/29/19 08:58; Admin Dose 1 TAB; Start 04/30 03/17 at 19:00 Phenol (Chloraseptic Throat [place]) 2 spray Q2H PRN MT SORE THROAT; Start 05/22/19 at 19:00 Docusate Sodium (Colace) 200 mg BID PO Last administered on 05/29/19 08:33; Admin Dose 200 MG; Start 05/22/19 at 21:30 Polyethylene Glycol (Miralax) 17 gm DAILY PO Last administered on 05/29/19 08:32; Admin Dose 17 GM; Start 05/22/19 at 22:00 Al Hydrox/Mg Hydrox/Simethicone (Mag-Al Plus) 30 ml Q6H PRN PO GASTROINTESTINAL UPSET Last administered on 05/28/19 23:53; Admin Dose 30 ML; Start 05/22/19 at 22:00 Nitroglycerin (Nitroglycerin (Sl Tab) 0.4 Mg) 1 tab Q5M PRN SL ANGINA; Start 05/23/19 at 22:30 Carvedilol (Coreg) 6.25 mg BID PO Last administered on 05/29/19 08:34; Admin Dose 6.25 MG; Start 05/24/19 at 21:00 Lisinopril (Zestril) 5 mg DAILY PO Last administered on 05/29/19 08:35; Admin Dose 5 MG; Start 05/25/19 at 09:00 Rivaroxaban (Xarelto) 10 mg WITH DINNER PO Last administered on 05/28/19 17:59; Admin Dose 10 MG; Start 05/25/19 at 17:55 Cyclobenzaprine HCl (Flexeril) 10 mg BID PRN PO MUSCLE SPASMS Last administered on 05/28/19 18:40; Admin Dose 10 MG; Start 05/26/19 at 00:30 Morphine Sulfate (morphine) 0.5 mg Q4H PRN IV SEVERE PAIN LEVEL 7-10 Last administered on 05/27/19 12:37; Admin Dose 0.5 MG; Start 05/26/19 at 14:00 Levalbuterol (Xopenex Neb) 0.63 mg Q2H RESP THERAPY PRN HHN SHORTNESS OF BREATH Last administered on 05/27/19 20:55; Admin Dose 0.63 MG; Start 05/26/19 at 22:30 Cefepime HCl 50 ml @ 100 mls/hr Q12 IVPB Last administered on 05/29/19at 08:32; Admin Dose 100 MLS/HR; Start 05/27/19 at 12:30 YESENIA SONG May 29, 2019 16:50
[2019-05-29] MEDS: RIVAROXABAN 10 MG TABLET PO SCH (17:26)
[2019-05-29] MEDS: ONDANSETRON 4 MG INJ IV PRN (17:35)
--- NOTE | 2019-05-29 17:50 | PN ---
Date/Time of Note Date/Time of Note DATE: 05/29/19 TIME: 17:49 Assessment/Plan Lines/Catheters IV Catheter Type (from Nrsg): Saline Lock Assessment/Plan Assessment/Plan Status post left chest tube for pneumothorax Chest tube has been clamped now for more than 2 days Chest x-ray with no evidence of pneumothorax Will DC the chest tube if okay with consultants Subjective 24 Hr Interval Summary Constitutional: improved Pain Control: mild Exam/Review of Systems Vital Signs Vitals Vital Signs Date Temp Pulse Resp B/P (MAP) Pulse Ox O2 O2 Flow FiO2 Time Delivery Rate 05/29/19 98.1 21 103/62 96 Nasal 15:14 (76) Cannula 05/29/19 92 11:53 05/29/19 4.0 08:20 Intake and Output 05/28/19 05/28/19 05/29/19 1515:00 23:00 07:00 IntakeIntake Total 950 ml 400 ml 650 ml OutputOutput Total 902 ml 1110 ml 1800 ml BalanceBalance 48 ml -710 ml -1150 ml Exam ENMT: nl external ears & nose, nl lips & teeth, nl nasal mucosa & septum, mucosa pink and moist Neck: supple, non-tender Respiratory: clear to auscultation, normal air movement Cardiovascular: regular rate and rhythm, nl pulses Gastrointestinal: soft, nl liver, spleen, non-tender Results Result Diagram: 05/29/19 0653 05/29/19 0653 DEBORAH SONG MD May 29, 2019 17:50
[2019-05-29] MEDS: AL HYDROX/MG HYDROX/SIMETH 30 ML CUP PO PRN (20:21)
[2019-05-29] MEDS: PHENOL 1.4% SOLN 180 ML BTL MT PRN ×2 (20:22→23:37)
[2019-05-30 03:37] VITALS: BP 97/56; PULSE 90; RESP 21
[2019-05-30 07:35] VITALS: BP 118/60; PULSE 95; RESP 22
[2019-05-30] MEDS: HYDROCODONE/APAP (10/325) TAB PO PRN ×3 (08:19→23:37)
[2019-05-30] MEDS: FAMOTIDINE 20 MG TAB PO SCH (08:20)
[2019-05-30] MEDS: DOCUSATE SODIUM 100 MG CAP PO SCH ×2 (08:20→20:36)
[2019-05-30] MEDS: LISINOPRIL 5 MG TAB PO SCH (08:21)
[2019-05-30] MEDS: POLYETHYLENE GLYCOL 17 GM PACKET PO SCH (08:22)
[2019-05-30] MEDS: TIOTROPIUM 18 MCG CAPSULE INHA DEV INH SCH (08:22)
[2019-05-30] MEDS: CEFEPIME 1GM/50 ML (PMX) 50 ML IVPB SCH ×2 (08:22→20:36)
[2019-05-30] MEDS: DICLOFENAC SODIUM 1% GEL 100 GM TUBE TP SCH ×4 (08:22→20:37)
[2019-05-30] MEDS: FLUTICASONE/VILANTEROL 200-25 INH DEVICE INH SCH (08:24)
[2019-05-30] MEDS: BACLOFEN 10 MG TAB PO SCH ×3 (09:00→20:37)
[2019-05-30 11:50] VITALS: BP 107/63; PULSE 102; RESP 22
[2019-05-30] MEDS: CYCLOBENZAPRINE 10 MG TAB PO PRN ×2 (12:17→21:58)
[2019-05-30] MEDS: AL HYDROX/MG HYDROX/SIMETH 30 ML CUP PO PRN ×2 (14:27→21:58)
--- NOTE | 2019-05-30 15:30 | CONS ---
Consult Date/Type/Reason Admit Date/Time May 19, 2019 at 00:02 Initial Consult Date 05/20/19 Type of Consult Pulmonary Requesting Provider: HARSHAL ANSARI Date/Time of Note DATE: 05/30/19 TIME: 15:29 Subjective Remains stable. No new events. Chest tube in place currently clamped. Objective Vital Signs Date Temp Pulse Resp B/P (MAP) Pulse Ox O2 O2 Flow FiO2 Time Delivery Rate 05/30/19 3.5 14:11 05/30/19 97.8 102 22 107/63 92 Nasal 11:50 (78) Cannula Intake and Output 05/29/19 05/29/19 05/30/19 1515:00 23:00 07:00 IntakeIntake Total 740 ml 520 ml 600 ml OutputOutput Total 1180 ml 1950 ml 200 ml BalanceBalance -440 ml -1430 ml 400 ml Exam GENERAL: Well-nourished well-developed gentleman comfortable at rest no acute distress VITAL SIGNS: per chart NECK: Supple. No JVD or lymphadenopathy. CARDIAC EXAM: S1, S2. No added sounds or murmurs. CHEST: clear bilaterally, No added sounds, rales or wheezes ABDOMEN: Soft, nontender. No guarding or rebound. EXTREMITIES: No cyanosis, clubbing or edema. NEUROLOGIC: Generalized weakness. No focal deficits. Vent Setting Fraction of Inspired Oxygen pe: 98 Results/Medications Result Diagram: 05/30/19 0657 05/30/19 0657 Results 24 hrs Laboratory Tests Test 05/30/19 06:57 White Blood Count 8.1 Red Blood Count 3.75 L Hemoglobin 10.8 L Hematocrit 34.6 L Mean Corpuscular Volume 92.3 Mean Corpuscular Hemoglobin 28.8 L Mean Corpuscular Hemoglobin Concent 31.2 L Red Cell Distribution Width 13.0 Platelet Count 269 Mean Platelet Volume 11.2 H Immature Granulocytes % 0.400 Neutrophils % 70.1 Lymphocytes % 12.3 L Monocytes % 14.4 H Eosinophils % 2.6 Basophils % 0.2 Nucleated Red Blood Cells % 0.0 Immature Granulocytes # 0.030 Neutrophils # 5.7 Lymphocytes # 1.0 Monocytes # 1.2 H Eosinophils # 0.2 Basophils # 0.0 Nucleated Red Blood Cells # 0.0 Sodium Level 138 Potassium Level 4.1 Chloride Level 84 L Carbon Dioxide Level 49 *H Anion Gap 5 Blood Urea Nitrogen 13 Creatinine 0.40 L Est Glomerular Filtrat Rate mL/min > 60 Glucose Level 84 Calcium Level 8.6 Medications Current Medications Ondansetron HCl (Zofran Inj) 4 mg Q6H PRN IV NAUSEA AND/OR VOMITING Last administered on 05/29/19 17:35; Admin Dose 4 MG; Start 05/19/19 at 00:30 Albuterol/ Ipratropium (Duoneb) 3 ml Q2H RESP THERAPY PRN NEB SHORTNESS OF BREATH Last administered on 05/26/19 17:24; Admin Dose 3 ML; Start 05/19/19 at 00:30 Acetaminophen (Tylenol Liquid) 650 mg Q6H PRN PO PAIN LEVEL 1-3 OR FEVER Last administered on 05/29/19 00:40; Admin Dose 650 MG; Start 05/19/19 at 00:30 Baclofen (Lioresal) 10 mg TID PO Last administered on 05/28/19 20:54; Admin Dose 10 MG; Start 05/19/19 at 09:00 Tiotropium [place] (Spiriva) 1 inh DAILY INH Last administered on 05/30/19 0 8:22; Admin Dose 1 INH; Start 05/19/19 at 09:00 Fluticasone/ Vilanterol (Breo Ellipta 200-25 Mcg Inh) 1 inh DAILY INH Last administered on 05/30/19 08:24; Admin Dose 1 INH; Start 05/20/19 at 09:00 Phenol (Cepastat Lozenge) 1 lozenge Q1H PRN MT SORE THROAT/COUGH Last administered on 05/29/19 22:49; Admin Dose 1 LOZENGE; Start 05/19/19 at 22:30 Diclofenac Sodium (Voltaren 1% Gel) 2 gm QID TP Last administered on 05/30/19 12:13; Admin Dose 2 GM; Start 05/20/19 at 03:30 Tramadol HCl (Ultram) 50 mg Q6H PRN PO MODERATE PAIN LEVEL 4-6 Last administered on 05/20/19 10:57; Admin Dose 50 MG; Start 05/20/19 at 10:30 Simethicone (Mylicon) 80 mg Q6H PRN PO DISTENSION/GAS/BLOATING Last administered on 05/30/19 12:17; Admin Dose 80 MG; Start 05/20/19 at 11:00 Eye Lubricant (Artificial Tears Oph) 2 drop Q6H PRN BOTH EYES DRY EYES Last administered on 05/20/19 16:39; Admin Dose 2 DROP; Start 05/20/19 at 16:00 Acetylcysteine (Mucomyst) 2 ml Q6H RESP THERAPY PRN NEB dynpea Last administered on 05/28/19 23:04; Admin Dose 2 ML; Start 05/21/19 at 11:00 Famotidine (Pepcid) 20 mg DAILY PO Last administered on 05/30/19 08:20; Admin Dose 20 MG; Start 05/23/19 at 09:00 Acetaminophen/ Hydrocodone Bitart ([place] (10/325)) 1 tab Q4H PRN PO MODERATE PAIN LEVEL 4-6 Last administered on 05/30/19 08:19; Admin Dose 1 TAB; Start 05/22/19 at 19:00 Phenol (Chloraseptic Throat [place]) 2 spray Q2H PRN MT SORE THROAT Last administered on 05/29/19 20:22; Admin Dose 2 SPRAY; Start 05/22/19 at 19:00 Docusate Sodium (Colace) 200 mg BID PO Last administered on 05/30/19 08:20; Admin Dose 200 MG; Start 05/22/19 at 21:30 Polyethylene Glycol (Miralax) 17 gm DAILY PO Last administered on 05/30/19 08:22; Admin Dose 17 GM; Start 05/22/19 at 22:00 Al Hydrox/Mg Hydrox/Simethicone (Mag-Al Plus) 30 ml Q6H PRN PO GASTROINTESTINAL UPSET Last administered on 05/30/19 14:27; Admin Dose 30 ML; Start 05/22/19 at 22:00 Nitroglycerin (Nitroglycerin (Sl Tab) 0.4 Mg) 1 tab Q5M PRN SL ANGINA; Start 05/23/19 at 22:30 Carvedilol (Coreg) 6.25 mg BID PO Last administered on 05/30/19 08:21; Admin Dose 6.25 MG; Start 05/24/19 at 21:00 Lisinopril (Zestril) 5 mg DAILY PO Last administered on 05/30/19 08:21; Admin Dose 5 MG; Start 05/25/19 at 09:00 Rivaroxaban (Xarelto) 10 mg WITH DINNER PO Last administered on 05/29/19 17:26; Admin Dose 10 MG; Start 05/25/19 at 17:55 Cyclobenzaprine HCl (Flexeril) 10 mg BID PRN PO MUSCLE SPASMS Last administered on 05/30/19 12:17; Admin Dose 10 MG; Start 05/26/19 at 00:30 Morphine Sulfate (morphine) 0.5 mg Q4H PRN IV SEVERE PAIN LEVEL 7-10 Last administered on 05/27/19 12:37; Admin Dose 0.5 MG; Start 05/26/19 at 14:00 Levalbuterol (Xopenex Neb) 0.63 mg Q2H RESP THERAPY PRN HHN SHORTNESS OF BREATH Last administered on 05/27/19 20:55; Admin Dose 0.63 MG; Start 05/26/19 at 22:30 Cefepime HCl 50 ml @ 100 mls/hr Q12 IVPB Last administered on 05/30/19 08:22; Admin Dose 100 MLS/HR; Start 05/27/19 at 12:30 Assessment/Plan Hospital Course (Demo Recall) IMP: 1. Secondary Spontaneous Left PTX 2. Acute on chronic Hypercapnic/Hypoxemic Respiratory Failure 3. 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 Takotsubo CM RECS: 1. Obtain CXR now remove if stable. 2. If no PTX--> d/c CT by CTS 3. Continue supplemental O2; titrate as tolerated. FISH BOWEN MD, [facility] May 30, 2019 15:30
--- NOTE | 2019-05-30 15:45 | PN ---
Date/Time of Note Date/Time of Note DATE: 05/30/19 TIME: 15:40 Assessment/Plan VTE [place] [facility] [place]: 3 [place] [facility] [place] Yes Pharmacological prophylaxis: NA/contraindicated Pharm contraindication: low risk/ambulating Lines/Catheters IV Catheter Type (from [facility] Saline Lock Assessment/Plan Hospital Course 1. Acute respiratory failure secondary to left inferolateral pneumothorax measuring 20% -Restarted abx for significant sputum production -> cefepime 05/27 Patient status post placement of chest tube, plan for removal of tube today Continue supplement oxygen Pulmonology and CT surgery consultations appreciated 2. History of disseminated TB treated years ago in [place] with history of bronchiectasis, pulmonary fibrosis No acute issues 3. Leukocytosis likely reactive-resolved Monitor 4. Chronic hypoxic and hypercapneic respiratory failure - Supplemental O2 Takostubos CM: - Management per dr Mcnally Prophylaxis: SCDs DC planning: Patient still with chest tube Result Diagram: 05/30/19 0657 05/30/19 0657 Results 24hrs Laboratory Tests Test 05/30/19 06:57 White Blood Count 8.1 Red Blood Count 3.75 L Hemoglobin 10.8 L Hematocrit 34.6 L Mean Corpuscular Volume 92.3 Mean Corpuscular Hemoglobin 28.8 L Mean Corpuscular Hemoglobin Concent 31.2 L Red Cell Distribution Width 13.0 Platelet Count 269 Mean Platelet Volume 11.2 H Immature Granulocytes % 0.400 Neutrophils % 70.1 Lymphocytes % 12.3 L Monocytes % 14.4 H Eosinophils % 2.6 Basophils % 0.2 Nucleated Red Blood Cells % 0.0 Immature Granulocytes # 0.030 Neutrophils # 5.7 Lymphocytes # 1.0 Monocytes # 1.2 H Eosinophils # 0.2 Basophils # 0.0 Nucleated Red Blood Cells # 0.0 Sodium Level 138 Potassium Level 4.1 Chloride Level 84 L Carbon Dioxide Level 49 *H Anion Gap 5 Blood Urea Nitrogen 13 Creatinine 0.40 L Est Glomerular Filtrat Rate mL/min > 60 Glucose Level 84 Calcium Level 8.6 Subjective 24 Hr Interval Summary Constitutional: no complaints Exam/Review of Systems Exam Vitals Vital Signs Date Temp Pulse Resp B/P (MAP) Pulse Ox O2 O2 Flow FiO2 Time Delivery Rate 05/30/19 3.5 14:11 05/30/19 97.8 102 22 107/63 92 Nasal 11:50 (78) Cannula Intake and Output 05/29/19 05/29/19 05/30/19 1515:00 23:00 07:00 IntakeIntake Total 740 ml 520 ml 600 ml OutputOutput Total 1180 ml 1950 ml 200 ml BalanceBalance -440 ml -1430 ml 400 ml Constitutional: alert, oriented Respiratory: clear to auscultation Cardiovascular: regular rate and rhythm Gastrointestinal: soft; No distended Musculoskeletal: nl extremities to inspection Results Results 24hrs Laboratory Tests Test 05/30/19 06:57 White Blood Count 8.1 Red Blood Count 3.75 L Hemoglobin 10.8 L Hematocrit 34.6 L Mean Corpuscular Volume 92.3 Mean Corpuscular Hemoglobin 28.8 L Mean Corpuscular Hemoglobin Concent 31.2 L Red Cell Distribution Width 13.0 Platelet Count 269 Mean Platelet Volume 11.2 H Immature Granulocytes % 0.400 Neutrophils % 70.1 Lymphocytes % 12.3 L Monocytes % 14.4 H Eosinophils % 2.6 Basophils % 0.2 Nucleated Red Blood Cells % 0.0 Immature Granulocytes # 0.030 Neutrophils # 5.7 Lymphocytes # 1.0 Monocytes # 1.2 H Eosinophils # 0.2 Basophils # 0.0 Nucleated Red Blood Cells # 0.0 Sodium Level 138 Potassium Level 4.1 Chloride Level 84 L Carbon Dioxide Level 49 *H Anion Gap 5 Blood Urea Nitrogen 13 Creatinine 0.40 L Est Glomerular Filtrat Rate mL/min > 60 Glucose Level 84 Calcium Level 8.6 Medications Medication Current Medications Ondansetron HCl (Zofran Inj) 4 mg Q6H PRN IV NAUSEA AND/OR VOMITING Last administered on 05/29/19at 17:35; Admin Dose 4 MG; Start 05/19/19 at 00:30 Albuterol/ Ipratropium (Duoneb) 3 ml Q2H RESP THERAPY PRN NEB SHORTNESS OF BREATH Last administered on 05/26/19at 17:24; Admin Dose 3 ML; Start 05/19/19 at 00:30 Acetaminophen (Tylenol Liquid) 650 mg Q6H PRN PO PAIN LEVEL 1-3 OR FEVER Last administered on 05/29/19at 00:40; Admin Dose 650 MG; Start 05/19/19 at 00:30 Baclofen (Lioresal) 10 mg TID PO Last administered on 05/28/19 20:54; Admin Dose 10 MG; Start 05/19/19 at 09:00 Tiotropium [place] (Spiriva) 1 inh DAILY INH Last administered on 05/30/19 08:22; Admin Dose 1 INH; Start 05/19/19 at 09:00 Fluticasone/ Vilanterol (Breo Ellipta 200-25 Mcg Inh) 1 inh DAILY INH Last administered on 05/30/19 08:24; Admin Dose 1 INH; Start 05/20/19 at 09:00 Phenol (Cepastat Lozenge) 1 lozenge Q1H PRN MT SORE THROAT/COUGH Last administered on 05/29/19 22:49; Admin Dose 1 LOZENGE; Start 05/19/19 at 22:30 Diclofenac Sodium (Voltaren 1% Gel) 2 gm QID TP Last administered on 05/30/19 12:13; Admin Dose 2 GM; Start 05/20/19 at 03:30 Tramadol HCl (Ultram) 50 mg Q6H PRN PO MODERATE PAIN LEVEL 4-6 Last admin istered on 05/20/19 10:57; Admin Dose 50 MG; Start 05/20/19 at 10:30 Simethicone (Mylicon) 80 mg Q6H PRN PO DISTENSION/GAS/BLOATING Last administered on 05/30/19 12:17; Admin Dose 80 MG; Start 05/20/19 at 11:00 Eye Lubricant (Artificial Tears Oph) 2 drop Q6H PRN BOTH EYES DRY EYES Last administered on 05/20/19 16:39; Admin Dose 2 DROP; Start 05/20/19 at 16:00 Acetylcysteine (Mucomyst) 2 ml Q6H RESP THERAPY PRN NEB dynpea Last administered on 05/28/19 23:04; Admin Dose 2 ML; Start 05/21/19 at 11:00 Famotidine (Pepcid) 20 mg DAILY PO Last administered on 05/30/19 08:20; Admin Dose 20 MG; Start 05/23/19 at 09:00 Acetaminophen/ Hydrocodone Bitart ([place] (10/325)) 1 tab Q4H PRN PO MODERATE PAIN LEVEL 4-6 Last administered on 05/30/19 08:19; Admin Dose 1 TAB; Start 05/22/19 at 19:00 Phenol (Chloraseptic Throat [place]) 2 spray Q2H PRN MT SORE THROAT Last administered on 05/29/19 20:22; Admin Dose 2 SPRAY; Start 05/22/19 at 19:00 Docusate Sodium (Colace) 200 mg BID PO Last administered on 05/30/19 08:20; Admin Dose 200 MG; Start 05/22/19 at 21:30 Polyethylene Glycol (Miralax) 17 gm DAILY PO Last administered on 05/30/19 08:22; Admin Dose 17 GM; Start 05/22/19 at 22:00 Al Hydrox/Mg Hydrox/Simethicone (Mag-Al Plus) 30 ml Q6H PRN PO GASTROINTESTINAL UPSET Last administered on 05/30/19 14:27; Admin Dose 30 ML; Start 05/22/19 at 22:00 Nitroglycerin (Nitroglycerin (Sl Tab) 0.4 Mg) 1 tab Q5M PRN SL ANGINA; Start 05/23/19 at 22:30 Carvedilol (Coreg) 6.25 mg BID PO Last administered on 05/30/19 08:21; Admin Dose 6.25 MG; Start 05/24/19 at 21:00 Lisinopril (Zestril) 5 mg DAILY PO Last administered on 05/30/19 08:21; Admin Dose 5 MG; Start 05/25/19 at 09:00 Rivaroxaban (Xarelto) 10 mg WITH DINNER PO Last administered on 05/29/19 17:26; Admin Dose 10 MG; Start 05/25/19 at 17:55 Cyclobenzaprine HCl (Flexeril) 10 mg BID PRN PO MUSCLE SPASMS Last administered on 05/30/19 12:17; Admin Dose 10 MG; Start 05/26/19 at 00:30 Morphine Sulfate (morphine) 0.5 mg Q4H PRN IV SEVERE PAIN LEVEL 7-10 Last administered on 05/27/19 12:37; Admin Dose 0.5 MG; Start 05/26/19 at 14:00 Levalbuterol (Xopenex Neb) 0.63 mg Q2H RESP THERAPY PRN HHN SHORTNESS OF BREATH Last administered on 05/27/19 20:55; Admin Dose 0.63 MG; Start 05/26/19 at 22:30 Cefepime HCl 50 ml @ 100 mls/hr Q12 IVPB Last administered on 05/30/19at 08:22; Admin Dose 100 MLS/HR; Start 05/27/19 at 12:30 YESENIA SONG May 30, 2019 15:45
[2019-05-30 15:48] VITALS: BP 103/53; PULSE 95; RESP 22
--- NOTE | 2019-05-30 17:01 | PN ---
Date/Time of Note Date/Time of Note DATE: 05/30/19 TIME: 17:00 Assessment/Plan Lines/Catheters IV Catheter Type (from Nrsg): Saline Lock Assessment/Plan Assessment/Plan IMP Assessment/Plan Status post left chest tube for pneumothorax Chest tube has been clamped now for more than 2 days Chest x-ray with no evidence of pneumothorax Will DC the chest tube if okay with consultants CXR IMPRESSION: 1. Left chest tube in place and no pneumothorax. 2. A COPD and extensive bilateral chronic parenchymal lung disease as described above. Superimposed acute interstitial infiltrates cannot be excluded. 3. No evidence congestive heart failure. Subjective 24 Hr Interval Summary Constitutional: improved Pain Control: mild Exam/Review of Systems Vital Signs Vitals Vital Signs Date Temp Pulse Resp B/P (MAP) Pulse Ox O2 O2 Flow FiO2 Time Delivery Rate 05/30/19 98.6 95 22 103/53 96 Nasal 15:48 (70) Cannula 05/30/19 3.5 14:11 Intake and Output 05/29/19 05/29/19 05/30/19 1515:00 23:00 07:00 IntakeIntake Total 740 ml 520 ml 600 ml OutputOutput Total 1180 ml 1950 ml 200 ml BalanceBalance -440 ml -1430 ml 400 ml Exam Eyes: nl conjunctiva, EOMI, nl lids, nl sclera ENMT: nl external ears & nose, nl lips & teeth, nl nasal mucosa & septum, mucosa pink and moist Neck: supple, non-tender Respiratory: clear to auscultation, normal air movement Cardiovascular: regular rate and rhythm, nl pulses Gastrointestinal: soft, nl liver, spleen, non-tender Results Result Diagram: 05/30/19 0657 05/30/19 0657 MALEDEBORAH ELISE MD May 30, 2019 17:01
[2019-05-30] MEDS: RIVAROXABAN 10 MG TABLET PO SCH (17:48)
[2019-05-30 19:22] VITALS: BP 110/60; PULSE 114; RESP 20
[2019-05-30] MEDS: CEPASTAT LOZENGE MT PRN ×3 (20:55→23:37)
[2019-05-31 00:29] VITALS: BP 100/60; PULSE 98; RESP 20
[2019-05-31 04:30] VITALS: BP 105/60; PULSE 94; RESP 18
[2019-05-31 07:34] VITALS: BP 118/66; PULSE 89; RESP 22
[2019-05-31] MEDS: HYDROCODONE/APAP (10/325) TAB PO PRN ×3 (07:57→18:52)
[2019-05-31] MEDS: CEFEPIME 1GM/50 ML (PMX) 50 ML IVPB SCH ×2 (08:35→21:15)
[2019-05-31] MEDS: BACLOFEN 10 MG TAB PO SCH ×3 (09:00→21:00)
[2019-05-31] MEDS: DOCUSATE SODIUM 100 MG CAP PO SCH ×2 (09:09→21:15)
[2019-05-31] MEDS: CEPASTAT LOZENGE MT PRN (09:09)
[2019-05-31] MEDS: POLYETHYLENE GLYCOL 17 GM PACKET PO SCH (09:09)
[2019-05-31] MEDS: DICLOFENAC SODIUM 1% GEL 100 GM TUBE TP SCH ×4 (09:09→21:16)
[2019-05-31] MEDS: TIOTROPIUM 18 MCG CAPSULE INHA DEV INH SCH (09:10)
[2019-05-31] MEDS: FAMOTIDINE 20 MG TAB PO SCH (09:10)
[2019-05-31] MEDS: LISINOPRIL 5 MG TAB PO SCH (09:11)
[2019-05-31] MEDS: FLUTICASONE/VILANTEROL 200-25 INH DEVICE INH SCH (09:12)
[2019-05-31] MEDS: CYCLOBENZAPRINE 10 MG TAB PO PRN (10:29)
[2019-05-31 12:00] VITALS: BP 121/71; PULSE 92; RESP 22
[2019-05-31] MEDS: PHENOL 1.4% SOLN 180 ML BTL MT PRN (12:10)
--- NOTE | 2019-05-31 13:13 | PN ---
Date/Time of Note Date/Time of Note DATE: 05/31/19 TIME: 13:11 Assessment/Plan Lines/Catheters IV Catheter Type (from Nrsg): Saline Lock Assessment/Plan Assessment/Plan Status post placement and removal of chest tube Chest x-ray shows no pneumothorax We will continue pulmonary toilet Sign off Subjective 24 Hr Interval Summary Constitutional: improved Pain Control: mild Exam/Review of Systems Vital Signs Vitals Vital Signs Date Temp Pulse Resp B/P (MAP) Pulse Ox O2 O2 Flow FiO2 Time Delivery Rate 05/31/19 Nasal 3.0 08:00 Cannula 05/31/19 98.0 89 22 118/66 99 07:34 (83) Intake and Output 05/30/19 05/30/19 05/31/19 1515:00 23:00 07:00 IntakeIntake Total 50 ml 1370 ml OutputOutput Total 2250 ml 300 ml BalanceBalance 50 ml -880 ml -300 ml Exam Eyes: nl conjunctiva, EOMI, nl lids, nl sclera ENMT: nl external ears & nose, nl lips & teeth, nl nasal mucosa & septum, mucosa pink and moist Neck: supple, non-tender Respiratory: clear to auscultation, normal air movement Cardiovascular: regular rate and rhythm, nl pulses Musculoskeletal: nl extremities to inspection, nl gait and stance Results Result Diagram: 05/30/19 0657 05/30/19 0657 MALEDEBORAH ELISE MD May 31, 2019 13:13
[2019-05-31] MEDS: AL HYDROX/MG HYDROX/SIMETH 30 ML CUP PO PRN (13:38)
[2019-05-31] MEDS: LEVALBUTEROL (NEB) 0.63 MG/3 ML AMP HHN PRN ×3 (13:41→19:59)
--- NOTE | 2019-05-31 15:04 | PN ---
Date/Time of Note Date/Time of Note DATE: 05/31/19 TIME: 15:01 Assessment/Plan VTE Prophylaxis Risk score (from Ns)>0 risk: 1 SCD applied (from Ns): Yes Pharmacological prophylaxis: NA/contraindicated Pharm contraindication: low risk/ambulating Lines/Catheters IV Catheter Type (from [facility] [place] Saline Lock Assessment/Plan Hospital Course 1. Acute respiratory failure secondary to left inferolateral pneumothorax measuring 20% -Restarted abx for significant sputum production -> cefepime 05/27 Patient status post placement of chest tube, chest tube removed yesterday Follow-up chest x-ray shows no further pneumothorax Continue supplement oxygen Pulmonology and CT surgery consultations appreciated 2. History of disseminated TB treated years ago in [place] with history of bronchiectasis, pulmonary fibrosis No acute issues 3. Leukocytosis likely reactive-resolved Monitor 4. Chronic hypoxic and hypercapneic respiratory failure - Supplemental O2 5. Matteoostubos CM: - Management per dr Mcnally 6. Severe anxiety -Patient with persistent anxiety despite teaching of breathing techniques, start Zoloft Prophylaxis: SCDs DC planning: Anticipate DC to home tomorrow Result Diagram: 05/30/1957 05/30/1957 Subjective 24 Hr Interval Summary Constitutional: no complaints Exam/Review of Systems Exam Vitals Vital Signs Date Temp Pulse Resp B/P (MAP) Pulse Ox O2 O2 Flow FiO2 Time Delivery Rate 05/31/19 4.0 13:45 05/31/19 107 20 97 Nasal 13:42 Cannula 05/31/19 98.0 118/66 07:34 (83) Intake and Output 05/30/19 05/30/19 05/31/19 1414:59 22:59 06:59 IntakeIntake Total 50 ml 1070 ml 300 ml OutputOutput Total 2150 ml 400 ml BalanceBalance 50 ml -1080 ml -100 ml Constitutional: alert, oriented Respiratory: clear to auscultation Cardiovascular: regular rate and rhythm Gastrointestinal: soft; No distended Musculoskeletal: nl extremities to inspection Medications Medication Current Medications Ondansetron HCl (Zofran Inj) 4 mg Q6H PRN IV NAUSEA AND/OR VOMITING Last administered on 05/29/19at 17:35; Admin Dose 4 MG; Start 05/19/19 at 00:30 Albuterol/ Ipratropium (Duoneb) 3 ml Q2H RESP THERAPY PRN NEB SHORTNESS OF BREATH Last administered on 05/26/19 17:24; Admin Dose 3 ML; Start 05/19/19 at 00:30 Acetaminophen (Tylenol Liquid) 650 mg Q6H PRN PO PAIN LEVEL 1-3 OR FEVER Last administered on 05/29/19 00:40; Admin Dose 650 MG; Start 05/19/19 at 00:30 Baclofen (Lioresal) 10 mg TID PO Last administered on 05/28/19 20:54; Admin Dose 10 MG; Start 05/19/19 at 09:00 Tiotropium [place] (Spiriva) 1 inh DAILY INH Last administered on 05/31/19 09:10; Admin Dose 1 INH; Start 05/19/19 at 09:00 Fluticasone/ Vilanterol (Breo Ellipta 200-25 Mcg Inh) 1 inh DAILY INH Last administered on 05/31/19 09:12; Admin Dose 1 INH; Start 05/20/19 at 09:00 Phenol (Cepastat Lozenge) 1 lozenge Q1H PRN MT SORE THROAT/COUGH Last administered on 05/31/19 09:09; Admin Dose 1 LOZENGE; Start 05/19/19 at 22:30 Diclofenac Sodium (Voltaren 1% Gel) 2 gm QID TP Last administered on 05/31/19 12:10; Admin Dose 2 GM; Start 05/20/19 at 03:30 Tramadol HCl (Ultram) 50 mg Q6H PRN PO MODERATE PAIN LEVEL 4-6 Last administered on 05/20/19 10:57; Admin Dose 50 MG; Start 05/20/19 at 10:30 Simethicone (Mylicon) 80 mg Q6H PRN PO DISTENSION/GAS/BLOATING Last administered on 05/31/19 12:09; Admin Dose 80 MG; Start 05/20/19 at 11:00 Eye Lubricant (Artificial Tears Oph) 2 drop Q6H PRN BOTH EYES DRY EYES Last administered on 05/20/19 16:39; Admin Dose 2 DROP; Start 05/20/19 at 16:00 Acetylcysteine (Mucomyst) 2 ml Q6H RESP THERAPY PRN NEB dynpea Last administered on 05/28/19 23:04; Admin Dose 2 ML; Start 05/21/19 at 11:00 Famotidine (Pepcid) 20 mg DAILY PO Last administered on 05/31/19 09:10; Admin Dose 20 MG; Start 05/23/19 at 09:00 Acetaminophen/ Hydrocodone Bitart ([place] (10/325)) 1 tab Q4H PRN PO MODERATE PAIN LEVEL 4-6 Last administered on 05/31/19 07:57; Admin Dose 1 TAB; Start 05/22/19 at 19:00 Phenol (Chloraseptic Throat [place]) 2 spray Q2H PRN MT SORE THROAT Last administered on 05/31/19 12:10; Admin Dose 2 SPRAY; Start 05/22/19 at 19:00 Docusate Sodium (Colace) 200 mg BID PO Last administered on 05/31/19 09:09; Admin Dose 200 MG; Start 05/22/19 at 21:30 Polyethylene Glycol (Miralax) 17 gm DAILY PO Last administered on 05/31/19 09:09; Admin Dose 17 GM; Start 05/22/19 at 22:00 Al Hydrox/Mg Hydrox/Simethicone (Mag-Al Plus) 30 ml Q6H PRN PO GASTROINTESTINAL UPSET Last administered on 05/31/19 13:38; Admin Dose 30 ML; Start 05/22/19 at 22:00 Nitroglycerin (Nitroglycerin (Sl Tab) 0.4 Mg) 1 tab Q5M PRN SL ANGINA; Start 05/23/19 at 22:30 Carvedilol (Coreg) 6.25 mg BID PO Last administered on 05/31/19 09:11; Admin Dose 6.25 MG; Start 05/24/19 at 21:00 Lisinopril (Zestril) 5 mg DAILY PO Last administered on 05/31/19 09:11; Admin Dose 5 MG; Start 05/25/19 at 09:00 Rivaroxaban (Xarelto) 10 mg WITH DINNER PO Last administered on 05/30/19 17: 48; Admin Dose 10 MG; Start 05/25/19 at 17:55 Cyclobenzaprine HCl (Flexeril) 10 mg BID PRN PO MUSCLE SPASMS Last administered on 05/31/19 10:29; Admin Dose 10 MG; Start 05/26/19 at 00:30 Morphine Sulfate (morphine) 0.5 mg Q4H PRN IV SEVERE PAIN LEVEL 7-10 Last administered on 05/27/19 12:37; Admin Dose 0.5 MG; Start 05/26/19 at 14:00 Levalbuterol (Xopenex Neb) 0.63 mg Q2H RESP THERAPY PRN HHN SHORTNESS OF BREATH Last administered on 05/31/19 13:41; Admin Dose 0.63 MG; Start 05/26/19 at 22:30 Cefepime HCl 50 ml @ 100 mls/hr Q12 IVPB Last administered on 05/31/19 08:35; Admin Dose 100 MLS/HR; Start 05/27/19 at 12:30 YESENIA SONG May 31, 2019 15:04
[2019-05-31] MEDS: SERTRALINE 50 MG TAB PO SCH (16:18)
[2019-05-31 16:22] VITALS: BP 122/62; PULSE 109; RESP 22
--- NOTE | 2019-05-31 17:25 | CONS ---
Consult Date/Type/Reason Admit Date/Time May 19, 2019 at 00:02 Initial Consult Date 05/20/19 Type of Consult Pulmonary Requesting Provider: HARSHAL ANSARI Date/Time of Note DATE: 05/31/19 TIME: 17:24 Subjective Diaphoretic this morning. Chest tube was removed yesterday without complication. Objective Vital Signs Date Temp Pulse Resp B/P (MAP) Pulse Ox O2 O2 Flow FiO2 Time Delivery Rate 05/31/19 97.8 109 22 122/62 96 Nasal 3.0 16:22 (82) Cannula Intake and Output 05/30/19 05/30/19 05/31/19 1515:00 23:00 07:00 IntakeIntake Total 50 ml 1370 ml OutputOutput Total 2250 ml 300 ml BalanceBalance 50 ml -880 ml -300 ml Exam GENERAL: Well-nourished well-developed gentleman comfortable at rest no acute distress VITAL SIGNS: per chart NECK: Supple. No JVD or lymphadenopathy. CARDIAC EXAM: S1, S2. No added sounds or murmurs. CHEST: clear bilaterally, No added sounds, rales or wheezes ABDOMEN: Soft, nontender. No guarding or rebound. EXTREMITIES: No cyanosis, clubbing or edema. NEUROLOGIC: Generalized weakness. No focal deficits. Vent Setting Fraction of Inspired Oxygen pe: 98 Results/Medications Result Diagram: 05/30/19 0657 05/30/19 0657 Medications Current Medications Ondansetron HCl (Zofran Inj) 4 mg Q6H PRN IV NAUSEA AND/OR VOMITING Last administered on 05/29/19at 17:35; Admin Dose 4 MG; Start 05/19/19 at 00:30 Albuterol/ Ipratropium (Duoneb) 3 ml Q2H RESP THERAPY PRN NEB SHORTNESS OF BREATH Last administered on 05/26/19at 17:24; Admin Dose 3 ML; Start 05/19/19 at 00:30 Acetaminophen (Tylenol Liquid) 650 mg Q6H PRN PO PAIN LEVEL 1-3 OR FEVER Last administered on 05/29/19at 00:40; Admin Dose 650 MG; Start 05/19/19 at 00:30 Baclofen (Lioresal) 10 mg TID PO Last administered on 05/28/19at 20:54; Admin Dose 10 MG; Start 05/19/19 at 09:00 Tiotropium [place] (Spiriva) 1 inh DAILY INH Last administered on 05/31/19 09:10; Admin Dose 1 INH; Start 05/19/19 at 09:00 Fluticasone/ Vilanterol (Breo Ellipta 200-25 Mcg Inh) 1 inh DAILY INH Last administered on 05/31/19 09:12; Admin Dose 1 INH; Start 05/20/19 at 09:00 Phenol (Cepastat Lozenge) 1 lozenge Q1H PRN MT SORE THROAT/COUGH Last administered on 05/31/19 09:09; Admin Dose 1 LOZENGE; Start 05/19/19 at 22:30 Diclofenac Sodium (Voltaren 1% Gel) 2 gm QID TP Last administered on 05/31/19 12:10; Admin Dose 2 GM; Start 05/20/19 at 03:30 Tramadol HCl (Ultram) 50 mg Q6H PRN PO MODERATE PAIN LEVEL 4-6 Last administered on 05/20/19 10:57; Admin Dose 50 MG; Start 05/20/19 at 10:30 Simethicone (Mylicon) 80 mg Q6H PRN PO DISTENSION/GAS/BLOATING Last administered on 05/31/19 12:09; Admin Dose 80 MG; Start 05/20/19 at 11:00 Eye Lubricant (Artificial Tears Oph) 2 drop Q6H PRN BOTH EYES DRY EYES Last administered on 05/20/19 16:39; Admin Dose 2 DROP; Start 05/20/19 at 16:00 Acetylcysteine (Mucomyst) 2 ml Q6H RESP THERAPY PRN NEB dynpea Last administered on 05/28/19 23:04; Admin Dose 2 ML; Start 05/21/19 at 11:00 Famotidine (Pepcid) 20 mg DAILY PO Last administered on 05/31/19 09:10; Admin D ose 20 MG; Start 05/23/19 at 09:00 Acetaminophen/ Hydrocodone Bitart ([place] (10/325)) 1 tab Q4H PRN PO MODERATE PAIN LEVEL 4-6 Last administered on 05/31/19 07:57; Admin Dose 1 TAB; Start 05/22/19 at 19:00 Phenol (Chloraseptic Throat [place]) 2 spray Q2H PRN MT SORE THROAT Last administered on 05/31/19 12:10; Admin Dose 2 SPRAY; Start 05/22/19 at 19:00 Docusate Sodium (Colace) 200 mg BID PO Last administered on 05/31/19 09:09; Admin Dose 200 MG; Start 05/22/19 at 21:30 Polyethylene Glycol (Miralax) 17 gm DAILY PO Last administered on 05/31/19 09:09; Admin Dose 17 GM; Start 05/22/19 at 22:00 Al Hydrox/Mg Hydrox/Simethicone (Mag-Al Plus) 30 ml Q6H PRN PO GASTROINTESTINAL UPSET Last administered on 05/31/19 13:38; Admin Dose 30 ML; Start 05/22/19 at 22:00 Nitroglycerin (Nitroglycerin (Sl Tab) 0.4 Mg) 1 tab Q5M PRN SL ANGINA; Start 05/23/19 at 22:30 Carvedilol (Coreg) 6.25 mg BID PO Last administered on 05/31/19 09:11; Admin Dose 6.25 MG; Start 05/24/19 at 21:00 Lisinopril (Zestril) 5 mg DAILY PO Last administered on 05/31/19 09:11; Admin Dose 5 MG; Start 05/25/19 at 09:00 Rivaroxaban (Xarelto) 10 mg WITH DINNER PO Last administered on 05/30/19 17:48; Admin Dose 10 MG; Start 05/25/19 at 17:55 Cyclobenzaprine HCl (Flexeril) 10 mg BID PRN PO MUSCLE SPASMS Last administered on 05/31/19 10:29; Admin Dose 10 MG; Start 05/26/19 at 00:30 Morphine Sulfate (morphine) 0.5 mg Q4H PRN IV SEVERE PAIN LEVEL 7-10 Last administered on 05/27/19 12:37; Admin Dose 0.5 MG; Start 05/26/19 at 14:00 Levalbuterol (Xopenex Neb) 0.63 mg Q2H RESP THERAPY PRN HHN SHORTNESS OF BREATH Last administered on 05/31/19 13:41; Admin Dose 0.63 MG; Start 05/26/19 at 22:30 Cefepime HCl 50 ml @ 100 mls/hr Q12 IVPB Last administered on 05/31/19at 08:35; Admin Dose 100 MLS/HR; Start 05/27/19 at 12:30 Sertraline HCl (Zoloft) 50 mg DAILY PO Last administered on 05/31/19at 16:18; Admin Dose 50 MG; Start 05/31/19 at 15:30 Assessment/Plan Hospital Course (Demo Recall) IMP: 1. Secondary Spontaneous Left PTX 2. Acute on chronic Hypercapnic/Hypoxemic Respiratory Failure 3. 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 Takotsubo CM RECS: 1. Repeat chest x-ray a.m. post chest tube removal 2. If no PTX--> d/c CT by CTS 3. Continue supplemental O2; titrate as tolerated. We will discuss with all of you pulmonary team patient will likely need referral for lung transplant. FISH BOWEN MD, [facility] May 31, 2019 17:25
[2019-05-31] MEDS: RIVAROXABAN 10 MG TABLET PO SCH (18:03)
[2019-05-31] MEDS: ACETYLCYSTEINE 20% 4 ML VIAL NEB PRN (19:59)
[2019-05-31 20:00] VITALS: BP 124/69; PULSE 111; RESP 22
[2019-06-01] VITALS: BP 126/73; PULSE 105; RESP 19
[2019-06-01] MEDS: HYDROCODONE/APAP (10/325) TAB PO PRN ×2 (01:30→06:40)
[2019-06-01] MEDS: CEPASTAT LOZENGE MT PRN ×4 (01:45→20:42)
[2019-06-01 04:00] VITALS: BP 139/77; PULSE 111; RESP 19
[2019-06-01 07:46] VITALS: BP 128/81; PULSE 115; RESP 22
[2019-06-01] MEDS: ACETYLCYSTEINE 20% 4 ML VIAL NEB PRN (08:25)
[2019-06-01] MEDS: LEVALBUTEROL (NEB) 0.63 MG/3 ML AMP HHN PRN (08:25)
[2019-06-01] MEDS: SERTRALINE 50 MG TAB PO SCH (09:00)
[2019-06-01] MEDS: BACLOFEN 10 MG TAB PO SCH ×4 (09:00→20:46)
[2019-06-01] MEDS: DICLOFENAC SODIUM 1% GEL 100 GM TUBE TP SCH ×4 (09:13→20:43)
[2019-06-01] MEDS: DOCUSATE SODIUM 100 MG CAP PO SCH ×2 (09:15→20:42)
[2019-06-01] MEDS: FAMOTIDINE 20 MG TAB PO SCH (09:16)
[2019-06-01] MEDS: LISINOPRIL 5 MG TAB PO SCH (09:16)
[2019-06-01] MEDS: POLYETHYLENE GLYCOL 17 GM PACKET PO SCH (09:17)
[2019-06-01] MEDS: FLUTICASONE/VILANTEROL 200-25 INH DEVICE INH SCH (09:19)
[2019-06-01] MEDS: CEFEPIME 1GM/50 ML (PMX) 50 ML IVPB SCH (09:19)
[2019-06-01] MEDS: TIOTROPIUM 18 MCG CAPSULE INHA DEV INH SCH (09:26)
[2019-06-01 11:48] VITALS: BP 124/74; PULSE 112; RESP 18
--- NOTE | 2019-06-01 12:59 | PN ---
Date/Time of Note Date/Time of Note DATE: 06/01/19 TIME: 12:52 Assessment/Plan VTE Prophylaxis Risk score (from Ns)>0 risk: 1 SCD applied (from Ns): Yes Pharmacological prophylaxis: NA/contraindicated, rivaroxaban Pharm contraindication: low risk/ambulating Lines/Catheters IV Catheter Type (from [facility]): Saline Lock Assessment/Plan Hospital Course 1. Acute respiratory failure secondary to left inferolateral pneumothorax measuring 20% -Patient now status post a 5-day course of cefepime, will DC Patient status post placement of chest tube, chest tube now removed Follow-up chest x-ray shows no further pneumothorax Continue supplement oxygen Pulmonology and CT surgery consultations appreciated, patient will need outpatient evaluation for lung transplant Phenergan with codeine for persistent throat pain and cough 2. History of disseminated TB treated years ago in [place] with history of bronchiectasis, pulmonary fibrosis No acute issues 3. Leukocytosis likely reactive-resolved Monitor 4. Chronic hypoxic and hypercapnic respiratory failure - Supplemental O2 5. Takotsubo Cardiomyopathy -Continue beta-roe and lisinopril -Cardiology following, patient will need a repeat echo in 1 month 6. Severe anxiety -Patient with persistent anxiety despite teaching of breathing techniques, have started Zoloft 7. History of PE -Patient on Xarelto as home med -No further evidence of PE on CTA chest x 2 Prophylaxis: Xarelto DC planning: Patient does have home O2 and typically requires 2 to 3 L but is currently requiring 3 to 4 L, anticipate improvement in the next 1 to 2 days with plans to discharge Result Diagram: 05/30/19 0657 05/30/19 0657 Subjective 24 Hr Interval Summary Respiratory: shortness of breath, sputum Exam/Review of Systems Exam Vitals Vital Signs Date Temp Pulse Resp B/P (MAP) Pulse Ox O2 O2 Flow FiO2 Time Delivery Rate 06/01/19 98.2 112 18 124/74 97 Nasal 11:48 (91) Cannula 06/01/19 3.0 08:30 Intake and Output 05/31/19 05/31/19 06/01/19 1515:00 23:00 07:00 IntakeIntake Total 400 ml 350 ml 950 ml OutputOutput Total 550 ml 450 ml 800 ml BalanceBalance -150 ml -100 ml 150 ml Constitutional: alert, oriented Respiratory: clear to auscultation Cardiovascular: regular rate and rhythm Gastrointestinal: soft; No distended Musculoskeletal: nl extremities to inspection Medications Medication Current Medications Ondansetron HCl (Zofran Inj) 4 mg Q6H PRN IV NAUSEA AND/OR VOMITING Last administered on 05/29/19 17:35; Admin Dose 4 MG; Start 05/19/19 at 00:30 Albuterol/ Ipratropium (Duoneb) 3 ml Q2H RESP THERAPY PRN NEB SHORTNESS OF BREATH Last administered on 05/26/19 17:24; Admin Dose 3 ML; Start 05/19/19 at 00:30 Acetaminophen (Tylenol Liquid) 650 mg Q6H PRN PO PAIN LEVEL 1-3 OR FEVER Last administered on 05/29/19 00:40; Admin Dose 650 MG; Start 05/19/19 at 00:30 Baclofen (Lioresal) 10 mg TID PO Last administered on 06/01/19 11:15; Admin Dose 10 MG; Start 05/19/19 at 09:00 Tiotropium [place] (Spiriva) 1 inh DAILY INH Last administered on 06/01/19 09:26; Admin Dose 1 INH; Start 05/19/19 at 09:00 Fluticasone/ Vilanterol (Breo Ellipta 200-25 Mcg Inh) 1 inh DAILY INH Last administered on 06/01/19 09:19; Admin Dose 1 INH; Start 05/20/19 at 09:00 Phenol (Cepastat Lozenge) 1 lozenge Q1H PRN MT SORE THROAT/COUGH Last administered on 06/01/19 10:33; Admin Dose 1 LOZENGE; Start 05/19/19 at 22:30 Diclofenac Sodium (Voltaren 1% Gel) 2 gm QID TP Last administered on 06/01/19 09:13; Admin Dose 2 GM; Start 05/20/19 at 03:30 Tramadol HCl (Ultram) 50 mg Q6H PRN PO MODERATE PAIN LEVEL 4-6 Last administered on 05/20/19 10:57; Admin Dose 50 MG; Start 05/20/19 at 10:30 Simethicone (Mylicon) 80 mg Q6H PRN PO DISTENSION/GAS/BLOATING Last administered on 05/31/19 12:09; Admin Dose 80 MG; Start 05/20/19 at 11:00 Eye Lubricant (Artificial Tears Oph) 2 drop Q6H PRN BOTH EYES DRY EYES Last administered on 05/20/19 16:39; Admin Dose 2 DROP; Start 05/20/19 at 16:00 Acetylcysteine (Mucomyst) 2 ml Q6H RESP THERAPY PRN NEB dynpea Last administered on 06/01/19 08:25; Admin Dose 2 ML; Start 05/21/19 at 11:00 Famotidine (Pepcid) 20 mg DAILY PO Last administered on 06/01/19 09:16; Admin Dose 20 MG; Start 05/23/19 at 09:00 Acetaminophen/ Hydrocodone Bitart ([place] (10325)) 1 tab Q4H PRN PO MODERATE PAIN LEVEL 4-6 Last administered on 06/01/19 06:40; Admin Dose 1 TAB; Start 05/22/19 at 19:00 Phenol (Chloraseptic Throat [place]) 2 spray Q2H PRN MT SORE THROAT Last administered on 05/31/19 12:10; Admin Dose 2 SPRAY; Start 05/22/19 at 19:00 Docusate Sodium (Colace) 200 mg BID PO Last administered on 06/01/19 09:15; A dmin Dose 200 MG; Start 05/22/19 at 21:30 Polyethylene Glycol (Miralax) 17 gm DAILY PO Last administered on 06/01/19 09:17; Admin Dose 17 GM; Start 05/22/19 at 22:00 Al Hydrox/Mg Hydrox/Simethicone (Mag-Al Plus) 30 ml Q6H PRN PO GASTROINTESTINAL UPSET Last administered on 05/31/19 13:38; Admin Dose 30 ML; Start 05/22/19 at 22:00 Nitroglycerin (Nitroglycerin (Sl Tab) 0.4 Mg) 1 tab Q5M PRN SL ANGINA; Start 05/23/19 at 22:30 Carvedilol (Coreg) 6.25 mg BID PO Last administered on 06/01/19 09:14; Admin Dose 6.25 MG; Start 05/24/19 at 21:00 Lisinopril (Zestril) 5 mg DAILY PO Last administered on 06/01/19 09:16; Admin Dose 5 MG; Start 05/25/19 at 09:00 Rivaroxaban (Xarelto) 10 mg WITH DINNER PO Last administered on 05/31/19 18:03; Admin Dose 10 MG; Start 05/25/19 at 17:55 Cyclobenzaprine HCl (Flexeril) 10 mg BID PRN PO MUSCLE SPASMS Last administered on 05/31/19 10:29; Admin Dose 10 MG; Start 05/26/19 at 00:30 Morphine Sulfate (morphine) 0.5 mg Q4H PRN IV SEVERE PAIN LEVEL 7-10 Last administered on 05/27/19 12:37; Admin Dose 0.5 MG; Start 05/26/19 at 14:00 Levalbuterol (Xopenex Neb) 0.63 mg Q2H RESP THERAPY PRN HHN SHORTNESS OF BREATH Last administered on 06/01/19 08:25; Admin Dose 0.63 MG; Start 05/26/19 at 22:30 Cefepime HCl 50 ml @ 100 mls/hr Q12 IVPB Last administered on 06/01/19 09:19; Admin Dose 100 MLS/HR; Start 05/27/19 at 12:30 Sertraline HCl (Zoloft) 50 mg DAILY PO Last administered on 05/31/19 16:18; Admin Dose 50 MG; Start 05/31/19 at 15:30 YESENIA SONG Jun 01, 2019 12:59
[2019-06-01] MEDS ORDERED: PROMETHAZINE/CODEINE 5ML CUP PO PRN (13:00)
[2019-06-01] MEDS ORDERED: PROMETHAZINE/CODEINE 5ML CUP PO ONE (14:00)
--- NOTE | 2019-06-01 15:38 | CONS ---
Consult Date/Type/Reason Admit Date/Time May 19, 2019 at 00:02 Initial Consult Date 05/24/19 Type of Consultation: Pulm Requesting Provider: HARSHAL ANSARI Date/Time of Note DATE: 06/01/19 TIME: 15:36 Subjective No events. Overall improved. On 3L via NC Objective Vitals Vital Signs Date Temp Pulse Resp B/P (MAP) Pulse Ox O2 O2 Flow FiO2 Time Delivery Rate 06/01/19 98.2 112 18 124/74 97 Nasal 11:48 (91) Cannula 06/01/19 3.0 08:30 Intake and Output 05/31/19 05/31/19 06/01/19 1414:59 22:59 06:59 IntakeIntake Total 400 ml 350 ml 950 ml OutputOutput Total 550 ml 450 ml 800 ml BalanceBalance -150 ml -100 ml 150 ml Exam HEENT: Neck supple; no JVD; no LAD CVS: RRR, S1 and S2 CHEST: Decreased BS b/l ABD: Soft, NT, + BS EXT: No c/c/e Results/Medications Result Diagram: 05/30/1957 05/30/19656 Home Meds Active Scripts Famotidine* (Pepcid*) 20 Mg Tablet, 20 MG PO BID for 7 Days, TAB Prov:ROSY ENGLE MD 09/25/18 Reported Medications Mirtazapine* (Remeron*) 15 Mg Tablet, 15 MG PO HS, TAB 05/20/19 Nortriptyline Hcl* (Nortriptyline Hcl*) 25 Mg Capsule, 25 MG PO HS, CAP 05/20/19 Calcium Citrate/Vitamin D (Citracal-Vitamin D 200 MG-250) 1 Each Tablet, 1 EACH PO BID, TAB 09/25/18 Docusate Sodium* (Dok*) 100 Mg Tablet, 100 MG PO DAILY, #30 CAP 09/25/18 Albuterol Sulfate* (Ventolin HFA*) 18 Gm Hfa.aer.ad, 2 PUFF INHALATION Q4H, #1 INHALER 09/25/18 Baclofen* (Baclofen*) 10 Mg Tablet, 10 MG PO TID, TAB 09/25/18 Celecoxib* (Celebrex*) 200 Mg Capsule, 200 MG PO BID, CAP 09/25/18 Tiotropium [place]* (Spiriva*) 18 Mcg Cap.w.dev, 1 CAP INHALATION DAILY, #30 CAP 09/25/18 Rivaroxaban* (Xarelto*) 20 Mg Tablet, 20 MG PO WITH DINNER, TAB 09/25/18 Mometasone-Formoterol (Dulera) 200-5 Mcg/Inh - 13 Gm Hfa.aer.ad, 2 PUFFS INHALATION BID, #1 INHALER 09/25/18 Medications Current Medications Ondansetron HCl (Zofran Inj) 4 mg Q6H PRN IV NAUSEA AND/OR VOMITING Last administered on 05/29/19 17:35; Admin Dose 4 MG; Start 05/19/19 at 00:30 Albuterol/ Ipratropium (Duoneb) 3 ml Q2H RESP THERAPY PRN NEB SHORTNESS OF BREATH Last administered on 05/26/19 17:24; Admin Dose 3 ML; Start 05/19/19 at 00:30 Acetaminophen (Tylenol Liquid) 650 mg Q6H PRN PO PAIN LEVEL 1-3 OR FEVER Last administered on 05/29/19 00:40; Admin Dose 650 MG; Start 05/19/19 at 00:30 Baclofen (Lioresal) 10 mg TID PO Last administered on 06/01/19 11:15; Admin Dose 10 MG; Start 05/19/19 at 09:00 Tiotropium [place] (Spiriva) 1 inh DAILY INH Last administered on 06/01/19 09:26; Admin Dose 1 INH; Start 05/19/19 at 09:00 Fluticasone/ Vilanterol (Breo Ellipta 200-25 Mcg Inh) 1 inh DAILY INH Last administered on 06/01/19 09:19; Admin Dose 1 INH; Start 05/20/19 at 09:00 Phenol (Cepastat Lozenge) 1 lozenge Q1H PRN MT SORE THROAT/COUGH Last administered on 06/01/19 10:33; Admin Dose 1 LOZENGE; Start 05/19/19 at 22:30 Diclofenac Sodium (Voltaren 1% Gel) 2 gm QID TP Last administered on 06/01/19 09:13; Admin Dose 2 GM; Start 05/20/19 at 03:30 Tramadol HCl (Ultram) 50 mg Q6H PRN PO MODERATE PAIN LEVEL 4-6 Last administered on 05/20/19 10:57; Admin Dose 50 MG; Start 05/20/19 at 10:30 Simethicone (Mylicon) 80 mg Q6H PRN PO DISTENSION/GAS/BLOATING Last administered on 05/31/19 12:09; Admin Dose 80 MG; Start 05/20/19 at 11:00 Eye Lubricant (Artificial Tears Oph) 2 drop Q6H PRN BOTH EYES DRY EYES Last administered on 05/20/19 16:39; Admin Dose 2 DROP; Start 05/20/19 at 16:00 Acetylcysteine (Mucomyst) 2 ml Q6H RESP THERAPY PRN NEB dynpea Last administered on 06/01/19 08:25; Admin Dose 2 ML; Start 05/21/19 at 11:00 Famotidine (Pepcid) 20 mg DAILY PO Last administered on 06/01/19 09:16; Admin Dose 20 MG; Start 05/23/19 at 09:00 Acetaminophen/ Hydrocodone Bitart ([place] (10325)) 1 tab Q4H PRN PO MODERATE PAIN LEVEL 4-6 Last administered on 06/01/19 06:40; Admin Dose 1 TAB; Start 05/22/19 at 19:00 Phenol (Chloraseptic Throat [place]) 2 spray Q2H PRN MT SORE THROAT Last administered on 05/31/19 12:10; Admin Dose 2 SPRAY; Start 05/22/19 at 19:00 Docusate Sodium (Colace) 200 mg BID PO Last administered on 06/01/19 09:15; Admin Dose 200 MG; Start 05/22/19 at 21:30 Polyethylene Glycol (Miralax) 17 gm DAILY PO Last administered on 06/01/19 09:17; Admin Dose 17 GM; Start 05/22/19 at 22:00 Al Hydrox/Mg Hydrox/Simethicone (Mag-Al Plus) 30 ml Q6H PRN PO GASTROINTESTINAL UPSET Last administered on 05/31/19 13:38; Admin Dose 30 ML; Start 05/22/19 at 22:00 Nitroglycerin (Nitroglycerin (Sl Tab) 0.4 Mg) 1 tab Q5M PRN SL ANGINA; Start 05/23/19 at 22:30 Carvedilol (Coreg) 6.25 mg BID PO Last administered on 06/01/19 09:14; Admin Dose 6.25 MG; Start 05/24/19 at 21:00 Lisinopril (Zestril) 5 mg DAILY PO Last administered on 06/01/19 09:16; Admin Dose 5 MG; Start 05/25/19 at 09:00 Rivaroxaban (Xarelto) 10 mg WITH DINNER PO Last administered on 05/31/19 18 :03; Admin Dose 10 MG; Start 05/25/19 at 17:55 Cyclobenzaprine HCl (Flexeril) 10 mg BID PRN PO MUSCLE SPASMS Last administered on 05/31/19 10:29; Admin Dose 10 MG; Start 05/26/19 at 00:30 Morphine Sulfate (morphine) 0.5 mg Q4H PRN IV SEVERE PAIN LEVEL 7-10 Last administered on 05/27/19 12:37; Admin Dose 0.5 MG; Start 05/26/19 at 14:00 Levalbuterol (Xopenex Neb) 0.63 mg Q2H RESP THERAPY PRN HHN SHORTNESS OF BREATH Last administered on 06/01/19 08:25; Admin Dose 0.63 MG; Start 05/26/19 at 22:30 Sertraline HCl (Zoloft) 50 mg DAILY PO Last administered on 05/31/19 16:18; Admin Dose 50 MG; Start 05/31/19 at 15:30 Promethazine HCl/ Codeine (Phenergan/ Codeine) 5 ml Q4H PRN PO COUGH; Start 06/01/19 at 13:00 Assessment/Plan Assessment/Plan (Daily) IMP: 1. Secondary Spontaneous Left PTX--now resolved 2. Acute on chronic Hypercapnic/Hypoxemic Respiratory Failure 3. 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 Takotsubo CM RECS: 1. Aggressive PT and mobilization prior to discharge 2. Limit sedating medications 3. Needs outpatient follow-up at [facility] Henry MD Jun 01, 2019 15:38
[2019-06-01 15:43] VITALS: BP 105/66; PULSE 110; RESP 23
[2019-06-01] MEDS: ACETAMINOPHEN 650MG/20.3ML CUP PO PRN (16:05)
[2019-06-01] MEDS: RIVAROXABAN 10 MG TABLET PO SCH (17:16)
[2019-06-01 20:00] VITALS: BP 125/64; PULSE 107; RESP 19
[2019-06-02] VITALS: BP 109/74; PULSE 101; RESP 18
[2019-06-02] MEDS: AL HYDROX/MG HYDROX/SIMETH 30 ML CUP PO PRN ×3 (00:19→23:44)
[2019-06-02] MEDS: HYDROCODONE/APAP (10/325) TAB PO PRN ×3 (00:20→23:44)
[2019-06-02] MEDS: CEPASTAT LOZENGE MT PRN ×2 (02:20→12:50)
[2019-06-02 04:00] VITALS: BP 108/85; PULSE 97; RESP 18
[2019-06-02 08:00] VITALS: BP 119/71; PULSE 78; RESP 18
[2019-06-02] MEDS: SERTRALINE 50 MG TAB PO SCH (09:00)
[2019-06-02] MEDS: POLYETHYLENE GLYCOL 17 GM PACKET PO SCH (09:00)
[2019-06-02] MEDS: BACLOFEN 10 MG TAB PO SCH ×3 (09:00→21:00)
[2019-06-02] MEDS: DOCUSATE SODIUM 100 MG CAP PO SCH ×2 (09:43→21:14)
[2019-06-02] MEDS: FAMOTIDINE 20 MG TAB PO SCH (09:43)
[2019-06-02] MEDS: LISINOPRIL 5 MG TAB PO SCH (09:44)
[2019-06-02] MEDS: FLUTICASONE/VILANTEROL 200-25 INH DEVICE INH SCH (09:44)
[2019-06-02] MEDS: TIOTROPIUM 18 MCG CAPSULE INHA DEV INH SCH (09:44)
[2019-06-02] MEDS: DICLOFENAC SODIUM 1% GEL 100 GM TUBE TP SCH ×4 (09:45→21:18)
[2019-06-02] MEDS: LEVALBUTEROL (NEB) 0.63 MG/3 ML AMP HHN PRN (09:57)
[2019-06-02 11:24] VITALS: BP 123/68; PULSE 105; RESP 18
--- NOTE | 2019-06-02 13:50 | PN ---
Date/Time of Note Date/Time of Note DATE: 06/02/19 TIME: 13:42 Assessment/Plan VTE Prophylaxis Risk score (from Ns)>0 risk: 2 SCD applied (from Nsg): Yes Pharmacological prophylaxis: rivaroxaban Lines/Catheters IV Catheter Type (from Nrs): Saline Lock Assessment/Plan Hospital Course 1. Acute respiratory failure secondary to left inferolateral pneumothorax measuring 20% -Patient now status post a 5-day course of cefepime, will DC Patient status post placement of chest tube, chest tube now removed Follow-up chest x-ray shows no further pneumothorax Continue supplement oxygen Pulmonology and CT surgery consultations appreciated, patient will need outpatient evaluation for lung transplant Phenergan with codeine for persistent throat pain and cough 2. History of disseminated TB treated years ago in [place] with history of bronchiectasis, pulmonary fibrosis No acute issues 3. Leukocytosis likely reactive-resolved Monitor 4. Chronic hypoxic and hypercapnic respiratory failure - Supplemental O2 5. Takotsubo Cardiomyopathy -Continue beta-roe and lisinopril -Cardiology following, patient will need a repeat echo in 1 month 6. Severe anxiety -Patient with persistent anxiety despite teaching of breathing techniques, have started Zoloft 7. History of PE -Patient on Xarelto as home med -No further evidence of PE on CTA chest x 2 Prophylaxis: Xarelto DC planning: Plan for DC tomorrow, patient ready has home O2, child welfare caseworker consultation for home health Result Diagram: 05/30/19 0657 [birth year]/30/1955 Subjective 24 Hr Interval Summary Respiratory: shortness of breath Exam/Review of Systems Exam Vitals Vital Signs Date Temp Pulse Resp B/P (MAP) Pulse Ox O2 O2 Flow FiO2 Time Delivery Rate 06/02/19 98.0 105 18 123/68 100 Room Air 11:24 (86) 06/02/19 3.0 09:57 Intake and Output 06/01/19 06/01/19 06/02/19 1515:00 23:00 07:00 IntakeIntake Total 340 ml 1470 ml 840 ml OutputOutput Total 500 ml 2200 ml 1800 ml BalanceBalance -160 ml -730 ml -960 ml Constitutional: alert, oriented Respiratory: clear to auscultation Cardiovascular: regular rate and rhythm Gastrointestinal: soft; No distended Musculoskeletal: nl extremities to inspection Medications Medication Current Medications Ondansetron HCl (Zofran Inj) 4 mg Q6H PRN IV NAUSEA AND/OR VOMITING Last administered on 05/29/19 17:35; Admin Dose 4 MG; Start 05/19/19 at 00:30 Albuterol/ Ipratropium (Duoneb) 3 ml Q2H RESP THERAPY PRN NEB SHORTNESS OF BREATH Last administered on 05/26/19 17:24; Admin Dose 3 ML; Start 05/19/19 at 00:30 Acetaminophen (Tylenol Liquid) 650 mg Q6H PRN PO PAIN LEVEL 1-3 OR FEVER Last administered on 06/01/19 16:05; Admin Dose 650 MG; Start 05/19/19 at 00:30 Baclofen (Lioresal) 10 mg TID PO Last administered on 06/02/19 12:52; Admin Dose 10 MG; Start 05/19/19 at 09:00 Tiotropium [place] (Spiriva) 1 inh DAILY INH Last administered on 06/02/19 09:44; Admin Dose 1 INH; Start 05/19/19 at 09:00 Fluticasone/ Vilanterol (Breo Ellipta 200-25 Mcg Inh) 1 inh DAILY INH Last administered on 06/02/19 09:44; Admin Dose 1 INH; Start 05/20/19 at 09:00 Phenol (Cepastat Lozenge) 1 lozenge Q1H PRN MT SORE THROAT/COUGH Last administered on 06/02/19 12:50; Admin Dose 1 LOZENGE; Start 05/19/19 at 22:30 Diclofenac Sodium (Voltaren 1% Gel) 2 gm QID TP Last administered on 06/02/19 12:51; Admin Dose 2 GM; Start 05/20/19 at 03:30 Tramadol HCl (Ultram) 50 mg Q6H PRN PO MODERATE PAIN LEVEL 4-6 Last administered on 05/20/19 10:57; Admin Dose 50 MG; Start 05/20/19 at 10:30 Simethicone (Mylicon) 80 mg Q6H PRN PO DISTENSION/GAS/BLOATING Last administered on 06/01/19 20:57; Admin Dose 80 MG; Start 05/20/19 at 11:00 Eye Lubricant (Artificial Tears Oph) 2 drop Q6H PRN BOTH EYES DRY EYES Last administered on 05/20/19 16:39; Admin Dose 2 DROP; Start 05/20/19 at 16:00 Acetylcysteine (Mucomyst) 2 ml Q6H RESP THERAPY PRN NEB dynpea Last administered on 06/01/19 08:25; Admin Dose 2 ML; Start 05/21/19 at 11:00 Famotidine (Pepcid) 20 mg DAILY PO Last administered on 06/02/19 09:43; Admin Dose 20 MG; Start 05/23/19 at 09:00 Acetaminophen/ Hydrocodone Bitart ([place] (10/325)) 1 tab Q4H PRN PO MODERATE PAIN LEVEL 4-6 Last administered on 06/02/19 09:43; Admin Dose 1 TAB; Start 05/22/19 at 19:00 Phenol (Chloraseptic Throat [place]) 2 spray Q2H PRN MT SORE THROAT Last administered on 05/31/19 12:10; Admin Dose 2 SPRAY; Start 05/22/19 at 19:00 Docusate Sodium (Colace) 200 mg BID PO Last administered on 06/02/19 09:43; Admin Dose 200 MG; Start 05/22/19 at 21:30 Polyethylene Glycol (Miralax) 17 gm DAILY PO Last administered on 06/01/19 09:17; Admin Dose 17 GM; Start 05/22/19 at 22:00 Al Hydrox/Mg Hydrox/Simethicone (Mag-Al Plus) 30 ml Q6H PRN PO GASTROINTESTINAL UPSET Last administered on 06/02/19 00:19; Admin Dose 30 ML; Start 05/22/19 at 22:00 Nitroglycerin (Nitroglycerin (Sl Tab) 0.4 Mg) 1 tab Q5M PRN SL ANGINA; Start 05/23/19 at 22:30 Carvedilol (Coreg) 6.25 mg BID PO Last administered on 06/02/19 09:43; Admin Dose 6.25 MG; Start 05/24/19 at 21:00 Lisinopril (Zestril) 5 mg DAILY PO Last administered on 06/02/19 09:44; Admin Dose 5 MG; Start 05/25/19 at 09:00 Rivaroxaban (Xarelto) 10 mg WITH DINNER PO Last administered on 06/01/19 17:16; Admin Dose 10 MG; Start 05/25/19 at 17:55 Cyclobenzaprine HCl (Flexeril) 10 mg BID PRN PO MUSCLE SPASMS Last administered on 05/31/19 10:29; Admin Dose 10 MG; Start 05/26/19 at 00:30 Morphine Sulfate (morphine) 0.5 mg Q4H PRN IV SEVERE PAIN LEVEL 7-10 Last administered on 05/27/19at 12:37; Admin Dose 0.5 MG; Start 05/26/19 at 14:00 Levalbuterol (Xopenex Neb) 0.63 mg Q2H RESP THERAPY PRN HHN SHORTNESS OF BREATH Last administered on 06/02/19at 09:57; Admin Dose 0.63 MG; Start 05/26/19 at 22:30 Sertraline HCl (Zoloft) 50 mg DAILY PO Last administered on 05/31/19at 16:18; Admin Dose 50 MG; Start 05/31/19 at 15:30 Promethazine HCl/ Codeine (Phenergan/ Codeine) 5 ml Q4H PRN PO COUGH; Start 06/01/19 at 13:00 YESENIA SONG Jun 02, 2019 13:50
--- NOTE | 2019-06-02 13:58 | CONS ---
Consult Date/Type/Reason Admit Date/Time May 19, 2019 at 00:02 Initial Consult Date 05/20/19 Type of Consult Pulmonary Requesting Provider: HARSHAL ANSARI Date/Time of Note DATE: 06/02/19 TIME: 13:57 Subjective Slowly improving still has significant weakness. Objective Vital Signs Date Temp Pulse Resp B/P (MAP) Pulse Ox O2 O2 Flow FiO2 Time Delivery Rate 06/02/19 98.0 105 18 123/68 100 Room Air 11:24 (86) 06/02/19 3.0 09:57 Intake and Output 06/01/19 06/01/19 06/02/19 1515:00 23:00 07:00 IntakeIntake Total 340 ml 1470 ml 840 ml OutputOutput Total 500 ml 2200 ml 1800 ml BalanceBalance -160 ml -730 ml -960 ml Exam GENERAL: Well-nourished well-developed gentleman comfortable at rest VITAL SIGNS: per chart NECK: Supple. No JVD or lymphadenopathy. CARDIAC EXAM: S1, S2. No added sounds or murmurs. CHEST: Diminished air entry bilaterally ABDOMEN: Soft, nontender. No guarding or rebound. EXTREMITIES: No cyanosis, clubbing or edema. NEUROLOGIC: Generalized weakness. No focal deficits. Vent Setting Fraction of Inspired Oxygen pe: 98 Results/Medications Result Diagram: 05/30/19 0657 05/30/1955 Medications Current Medications Ondansetron HCl (Zofran Inj) 4 mg Q6H PRN IV NAUSEA AND/OR VOMITING Last administered on 05/29/19at 17:35; Admin Dose 4 MG; Start 05/19/19 at 00:30 Albuterol/ Ipratropium (Duoneb) 3 ml Q2H RESP THERAPY PRN NEB SHORTNESS OF BREATH Last administered on 05/26/19at 17:24; Admin Dose 3 ML; Start 05/19/19 at 00:30 Acetaminophen (Tylenol Liquid) 650 mg Q6H PRN PO PAIN LEVEL 1-3 OR FEVER Last administered on 06/01/19at 16:05; Admin Dose 650 MG; Start 05/19/19 at 00:30 Baclofen (Lioresal) 10 mg TID PO Last administered on 06/02/19at 12:52; Admin Dose 10 MG; Start 05/19/19 at 09:00 Tiotropium [place] (Spiriva) 1 inh DAILY INH Last administered on 06/02/19 09:44; Admin Dose 1 INH; Start 05/19/19 at 09:00 Fluticasone/ Vilanterol (Breo Ellipta 200-25 Mcg Inh) 1 inh DAILY INH Last administered on 06/02/19 09:44; Admin Dose 1 INH; Start 05/20/19 at 09:00 Phenol (Cepastat Lozenge) 1 lozenge Q1H PRN MT SORE THROAT/COUGH Last admini stered on 06/02/19 12:50; Admin Dose 1 LOZENGE; Start 05/19/19 at 22:30 Diclofenac Sodium (Voltaren 1% Gel) 2 gm QID TP Last administered on 06/02/19 12:51; Admin Dose 2 GM; Start 05/20/19 at 03:30 Tramadol HCl (Ultram) 50 mg Q6H PRN PO MODERATE PAIN LEVEL 4-6 Last administered on 05/20/19 10:57; Admin Dose 50 MG; Start 05/20/19 at 10:30 Simethicone (Mylicon) 80 mg Q6H PRN PO DISTENSION/GAS/BLOATING Last administered on 06/01/19 20:57; Admin Dose 80 MG; Start 05/20/19 at 11:00 Eye Lubricant (Artificial Tears Oph) 2 drop Q6H PRN BOTH EYES DRY EYES Last administered on 05/20/19 16:39; Admin Dose 2 DROP; Start 05/20/19 at 16:00 Acetylcysteine (Mucomyst) 2 ml Q6H RESP THERAPY PRN NEB dynpea Last administered on 06/01/19 08:25; Admin Dose 2 ML; Start 05/21/19 at 11:00 Famotidine (Pepcid) 20 mg DAILY PO Last administered on 06/02/19 09:43; Admin Dose 20 MG; Start 05/23/19 at 09:00 Acetaminophen/ Hydrocodone Bitart ([place] (10/325)) 1 tab Q4H PRN PO MODERATE PAIN LEVEL 4-6 Last administered on 06/02/19 09:43; Admin Dose 1 TAB; Start 05/22/19 at 19:00 Phenol (Chloraseptic Throat [place]) 2 spray Q2H PRN MT SORE THROAT Last administered on 05/31/19 12:10; Admin Dose 2 SPRAY; Start 05/22/19 at 19:00 Docusate Sodium (Colace) 200 mg BID PO Last administered on 06/02/19 09:43; Admin Dose 200 MG; Start 05/22/19 at 21:30 Polyethylene Glycol (Miralax) 17 gm DAILY PO Last administered on 06/01/19 09:17; Admin Dose 17 GM; Start 05/22/19 at 22:00 Al Hydrox/Mg Hydrox/Simethicone (Mag-Al Plus) 30 ml Q6H PRN PO GASTROINTESTINAL UPSET Last administered on 06/02/19 00:19; Admin Dose 30 ML; Start 05/22/19 at 22:00 Nitroglycerin (Nitroglycerin (Sl Tab) 0.4 Mg) 1 tab Q5M PRN SL ANGINA; Start 05/23/19 at 22:30 Carvedilol (Coreg) 6.25 mg BID PO Last administered on 06/02/19 09:43; Admin Dose 6.25 MG; Start 05/24/19 at 21:00 Lisinopril (Zestril) 5 mg DAILY PO Last administered on 06/02/19 09:44; Admin Dose 5 MG; Start 05/25/19 at 09:00 Rivaroxaban (Xarelto) 10 mg WITH DINNER PO Last administered on 06/01/19 17:16; Admin Dose 10 MG; Start 05/25/19 at 17:55 Cyclobenzaprine HCl (Flexeril) 10 mg BID PRN PO MUSCLE SPASMS Last administered on 05/31/19 10:29; Admin Dose 10 MG; Start 05/26/19 at 00:30 Morphine Sulfate (morphine) 0.5 mg Q4H PRN IV SEVERE PAIN LEVEL 7-10 Last administered on 05/27/19 12:37; Admin Dose 0.5 MG; Start 05/26/19 at 14:00 Levalbuterol (Xopenex Neb) 0.63 mg Q2H RESP THERAPY PRN HHN SHORTNESS OF BREATH Last administered on 06/02/19 09:57; Admin Dose 0.63 MG; Start 05/26/19 at 22:30 Sertraline HCl (Zoloft) 50 mg DAILY PO Last administered on 7/3/19at 16:18; Admin Dose 50 MG; Start 05/31/19 at 15:30 Promethazine HCl/ Codeine (Phenergan/ Codeine) 5 ml Q4H PRN PO COUGH; Start 06/01/19 at 13:00 Assessment/Plan Hospital Course (Demo Recall) IAssessment/Plan (Daily) IMP: 1. Secondary Spontaneous Left PTX--now resolved 2. Acute on chronic Hypercapnic/Hypoxemic Respiratory Failure 3. 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 Takotsubo CM RECS: 1. Aggressive PT and mobilization prior to discharge 2. Limit sedating medications 3. Needs outpatient follow-up at [facility] planning FISH Kruse MD, [facility] Jun 02, 2019 13:58
[2019-06-02 15:15] VITALS: BP 104/63; PULSE 88; RESP 18
[2019-06-02] MEDS: RIVAROXABAN 10 MG TABLET PO SCH (17:33)
[2019-06-02] MEDS: ACETAMINOPHEN 650MG/20.3ML CUP PO PRN (17:41)
[2019-06-02 20:00] VITALS: BP 116/67; PULSE 96; RESP 20
[2019-06-03] VITALS: BP 113/57; PULSE 106; PULSE 110; RESP 20
[2019-06-03 04:00] VITALS: BP 107/59; PULSE 94; RESP 20
[2019-06-03 08:21] VITALS: BP 130/65; PULSE 95; RESP 17
[2019-06-03] MEDS: DOCUSATE SODIUM 100 MG CAP PO SCH ×2 (08:25→20:07)
[2019-06-03] MEDS: BACLOFEN 10 MG TAB PO SCH ×4 (08:25→20:09)
[2019-06-03] MEDS: LISINOPRIL 5 MG TAB PO SCH (08:25)
[2019-06-03] MEDS: POLYETHYLENE GLYCOL 17 GM PACKET PO SCH (08:25)
[2019-06-03] MEDS: FAMOTIDINE 20 MG TAB PO SCH (08:26)
[2019-06-03] MEDS: SERTRALINE 50 MG TAB PO SCH ×2 (08:26→08:32)
[2019-06-03] MEDS: DICLOFENAC SODIUM 1% GEL 100 GM TUBE TP SCH ×4 (08:26→20:06)
[2019-06-03] MEDS: FLUTICASONE/VILANTEROL 200-25 INH DEVICE INH SCH (08:26)
[2019-06-03] MEDS: TIOTROPIUM 18 MCG CAPSULE INHA DEV INH SCH (08:26)
[2019-06-03] MEDS: HYDROCODONE/APAP (10/325) TAB PO PRN ×3 (08:27→22:49)
[2019-06-03 12:10] VITALS: BP 123/66; PULSE 100; RESP 17
[2019-06-03] MEDS: CEPASTAT LOZENGE MT PRN (13:18)
[2019-06-03 15:59] VITALS: BP 112/55; PULSE 100; RESP 17
[2019-06-03] MEDS: AL HYDROX/MG HYDROX/SIMETH 30 ML CUP PO PRN ×2 (16:33→22:55)
[2019-06-03] MEDS: RIVAROXABAN 10 MG TABLET PO SCH (17:25)
[2019-06-03] MEDS ORDERED: ALBU18HF INHALATION (18:00)
[2019-06-03] MEDS ORDERED: CARV6.2579 PO (18:00)
[2019-06-03] MEDS ORDERED: LISI-313 PO (18:00)
[2019-06-03] MEDS ORDERED: TIOT18CA INHALATION (18:00)
[2019-06-03] MEDS ORDERED: MOME13HF INHALATION (18:00)
--- NOTE | 2019-06-03 18:02 | PDOCDIS ---
Discharge Instructions CONDITION [id number] Patient Condition: [id number] Good HOME CARE INSTRUCTIONS: [id number] Diet Instructions: [id number] Regular ACTIVITY: [id number] Activity Restrictions: Cbosc7y Slowly Increase Activity FOLLOW UP/APPOINTMENTS Follow-up Plan Follow-up with your PCP and government affairs manager at [facility] YESENIA SONG Jun 03, 2019 18:02
[2019-06-03 20:00] VITALS: BP 115/58; PULSE 101; RESP 20
== END 2019-06-03 23:45 | disposition home health service (06) | DRG 199 ==
LOC: E/R 21:22 → TEL 05-19 00:02 → CANRESERV 05-19 09:29 → EDBEDREQSVC 05-19 18:05 → TEL 06-03 18:40
PROVIDERS: ADMIT Internal Medicine; ATTEND Internal Medicine
PROC: 0W9B00Z Drainage of Left Pleural Cavity with Drainage Device, Open Approach (ICD-10-PCS; principal; 2019-05-19)
PROC: 0W9B30Z Drainage of Left Pleural Cavity with Drainage Device, Percutaneous Approach (ICD-10-PCS; 2019-05-23)
PROC: 4A023N7 Measurement of Cardiac Sampling and Pressure, Left Heart, Percutaneous Approach (ICD-10-PCS; 2019-05-24)
PROC: B211YZZ Fluoroscopy of Multiple Coronary Arteries using Other Contrast (ICD-10-PCS; 2019-05-24)
PROC: B215YZZ Fluoroscopy of Left Heart using Other Contrast (ICD-10-PCS; 2019-05-24)
DX: J93.83 Other pneumothorax (principal); J96.22 Acute and chronic respiratory failure with hypercapnia; J96.21 Acute and chronic respiratory failure with hypoxia; I21.4 Non-ST elevation (NSTEMI) myocardial infarction; E87.3 Alkalosis; I51.81 Takotsubo syndrome; G93.40 Encephalopathy, unspecified; J84.10 Pulmonary fibrosis, unspecified; J98.4 Other disorders of lung; B90.9 Sequelae of respiratory and unspecified tuberculosis; J47.9 Bronchiectasis, uncomplicated; D64.9 Anemia, unspecified; M54.2 Cervicalgia; F41.9 Anxiety disorder, unspecified; Z86.711 Personal history of pulmonary embolism
CPT/HCPCS: 36600; 70360; 71045; 71275; 80048; 80053; 81003; 82150; 82550; 82553; 82803; 82962; 83036; 83605; 83690; 83735; 84100; 84439; 84443; 84480; 84484; 85025; 85610; 85730; 87086; 87116; 93005; 93306; 93458; 94640; 94644; 94660; 94664; 94770; 96374; 96375; 97116; 97161; 97530; J0692; J1170; J1644; J1720; J1885; J2060; J2270; J2405; J3010; J3370; J7030; Q9967